=== PATIENT | male | born 1955 | race Caucasian/White ===

== ENCOUNTER 2023-03-30 11:34 | Emergency (ER) | payer MEDICARE ==
[2023-03-30 11:42] VITALS: TEMP 97.2
--- NOTE | 2023-03-30 11:45 | ERPHSYRPT ---
- History of Present Illness Time Seen by Provider: 03/30/23 11:44 Source: patient, family Exam Limitations: no limitations Physician History: This is a morbidly obese 67-year-old white female patient of Dr. Rincon and packaging tech Dr. Duffy and presented to our emergency department from the wound care clinic where the patient was getting his bilateral lower extremity chronic venous stasis ulcer disease treated. Patient told the nurses there that he has had intermittent chest pain for a week and was having some nonradiating substernal central chest pressure that was mild but present. He also complained of some tongue numbness that was present for about an hour prior to arrival to our emergency department. There was no other neurologic complaints. Appr oximately 1 week ago the patient was seen at [facility] in [facility] and was diagnosed with a TIA. Patient has a history of hypertension, sleep apnea, COPD and type 2 diabetes. Additional history and information was obtained by reviewing the visit to the [facility] in [facility] as well as from the patient's spouse. Patient's spouse states that the patient has an appointment to see his primary care provider next week Timing/Duration: week(s), intermittent Severity: mild Character of Deficits: none Deficits: no difficulties Baseline/Normal Cognition: alert oriented x 3 Current Cognition: alert oriented x 3 Baseline Gait: uses walker, walks only w/assistance Associated Symptoms: other (Numbness to the tongue) Allergies/Adverse Reactions: Horse/Equine Containing Products Allergy (Verified 03/30/23 11:43) Home Medications: Atorvastatin Calcium 20 mg PO DAILY 03/30/23 [History] Cyanocobalamin (Vitamin B-12) [Vitamin B12] 2,500 mcg PO DAILY 03/30/23 [History] Ferrous Sulfate 325 mg [Feosol 325 mg] 325 mg PO DAILY 03/30/23 [History] Fluticasone Propion/Salmeterol [Fluticasone-Salmeterol 100-50] 1 disk PO UD 03/30/23 [History] Gabapentin [Neurontin] 600 mg PO TID 03/30/23 [History] Hydrocortisone 1% Cream [Cortisone 1% Cream] 0 gm TP BID 03/30/23 [History] Insulin Lispro [Humalog] 0 unit SQ TIDAC 03/30/23 [History] Metoprolol Succinate 25 mg Xl* [Toprol-Xl 25MG Tablets] 25 mg PO DAILY 03/30/23 [History] Mirabegron [Myrbetriq] 25 mg PO BID 03/30/23 [History] Omeprazole 40 mg PO DAILY 03/30/23 [History] Oxycodone HCl/Acetaminophen [Oxycodone-Acetaminophn 7.5-325] 1 each PO Q8H 03/30/23 [History] Sitagliptin Phos/Metformin HCl [Janumet Xr 100-1,000 mg Tablet] 1 tab PO DAILY 03/30/23 [History] Tamsulosin HCl 0.4 mg [Flomax 0.4 MG] 0.4 mg PO DAILY 03/30/23 [History] Trazodone HCl 150 mg PO HS 03/30/23 [History] glucosamine HCL [Glucosamine HCl] 500 mg PO DAILY 03/30/23 [History] Travel Risk - International Travel Have you traveled outside of the country in past 3 weeks: No - Coronavirus Screening Are you exhibiting any of the following symptoms?: No Close contact with a COVID-19 positive Pt in past 14-21 Days: No - Review of Systems Constitutional: No Symptoms Eyes: No Symptoms Ears, Nose, & Throat: No Symptoms Respiratory: No Symptoms Cardiac: No Symptoms Abdominal/Gastrointestinal: No Symptoms Genitourinary Symptoms: No Symptoms Musculoskeletal: No Symptoms Skin: Other (Chronic venous stasis ulcer disease bilateral lower extremities) Neurological: Other (Numbness to the tongue that is mild) Psychological: No Symptoms Endocrine: No Symptoms Hematologic/Lymphatic: No Symptoms Immunological/Allergic: No Symptoms All Other Systems: Reviewed and Negative - Past Medical History Neurological History: No Pertinent History Cardiac History: Hypertension Respiratory History: Sleep Apnea, COPD Endocrine Medical History: Diabetes Type II Musculoskeletal History: Arthritis - Nursing Vital Signs Nursing Vital Signs: Initial Vital Signs Temperature 97.2 F 03/30/23 11:36 Pulse Rate 78 03/30/23 11:36 Respiratory Rate 18 03/30/23 11:36 Blood Pressure 102/47 03/30/23 11:36 O2 Sat by Pulse Oximetry 97 03/30/23 11:36 Pain Scale Pain Intensity 0 - [place] Coma Scale Best Eye Response (Brianne): (4) open spontaneously Best Verbal Response (Brianne): (5) oriented Best Motor Response (Brianne): (6) obeys commands Brianne Total: 15 - Physical Exam General Appearance: no apparent distress, alert, obese Eye Exam: bilateral eye: normal inspection, PERRL, EOMI Ears, Nose, Throat Exam: normal ENT inspection, moist mucous membranes Neck Exam: normal inspection, non-tender, supple, full range of motion Respiratory: normal breath sounds, lungs clear, airway intact, No chest tenderness, No respiratory distress Cardiovascular: regular rate/rhythm, normal heart sounds, normal peripheral pulses Gastrointestinal: soft, normal bowel sounds, No tenderness Rectal Exam: not done Back Exam: normal inspection, normal range of motion, vertebral tenderness, No CVA tenderness Extremity Exam: normal inspection, normal range of motion, pelvis stable Mental Status: alert, oriented x 3, cooperative secured entrance monitor Exam: normal hearing, normal speech, PERRL, tongue midline, No abnormal speech, No facial droop, No facial paresthesias Coordination/Gait: normal finger to nose Skin Exam: normal color SpO2 Interpretation: normal SpO2: 97 O2 Delivery: Room Air - Course Nursing assessment & vital signs reviewed: Yes EKG Interpreted by Me: RATE (57), Sinus Rhythm (Incomplete), NORMAL AXIS, NORMAL INTERVALS, Left Bundle Branch Block, Other (No acute ischemic changes on today's twelve-lead EKG.) Ordered Tests: Active Orders 24 hr Category Date Time Status Epoxy Coatings Installer STAT Care 03/30/23 11:50 Active EKG-ER Only STAT Care 03/30/23 11:49 Active IV Insertion STAT Care 03/30/23 11:49 Active NPO (ED) STAT Care 03/30/23 11:50 Active Pulse Oximetry (ED) STAT Care 03/30/23 11:49 Active CHEST 1 VIEW (PORTABLE) Stat Exams 03/30/23 11:50 Completed HEAD WITHOUT CONTRAST [CT] Stat Exams 03/30/23 11:47 Completed CBC W DIFF Stat Lab 03/30/23 12:05 Completed CMP Stat Lab 03/30/23 12:05 Completed POCT GLUCOSE Stat Lab 03/30/23 12:04 Completed PROTIME WITH INR Stat Lab 03/30/23 12:05 Completed TROPONIN Q4H Lab 03/30/23 12:05 Completed TROPONIN Q4H Lab 03/30/23 14:58 Completed TROPONIN Q4H Lab 03/30/23 20:00 Ordered UA W/RFX UR CULTURE Stat Lab 03/30/23 15:12 Completed Lab/Rad Data: Laboratory Result Diagrams 03/30/23 12:05 03/30/23 12:05 Laboratory Results 03/30/23 03/30/23 03/30/23 Range/Units 15:12 14:58 12:05 WBC (4.0-10.5) x10^3/uL RBC (4.1-5.6) x10^6/uL Hgb (12.5-18.0) g/dL Hct (42-50) % MCV (78-100) fL MCH (26-32) pg MCHC (32-36) g/dL RDW (11.5-14.0) % Plt Count (150-450) x10^3/uL MPV (7.5-11.0) fL Gran % (36.0-66.0) % Immature Gran % (Auto) (0.00-0.4) % Nucleat RBC Rel Count (0.00-0.1) % Eos # (Auto) (0-0.5) x10^3/uL Immature Gran # (Auto) (0.00-0.03) x10^3u/L Absolute Lymphs (auto) (1.0-4.6) x10^3/uL Absolute Monos (auto) (0.0-1.3) x10^3/uL Absolute Nucleated RBC (0.00-0.01) x10^3u/L Lymphocytes % (24.0-44.0) % Monocytes % (0.0-12.0) % Eosinophils % (0.00-5.0) % Basophils % (0.0-0.4) % Absolute Granulocytes (1.4-6.9) x10^3/uL Basophils # (0-0.4) x10^3/uL PT (9.4-12.5) SECONDS INR (0.8-3.0) Sodium (137-145) mmol/L Potassium (3.5-5.1) mmol/L Chloride (98-107) mmol/L Carbon Dioxide (22-30) mmol/L Anion Gap (5-15) MEQ/L BUN (9-20) mg/dL Creatinine (0.66-1.25) mg/dL Estimated GFR ML/MIN Glucose (74-106) mg/dL POC Glucometer (74 to 106) mg/dL Calcium (8.4-10.2) mg/dL Total Bilirubin (0.2-1.3) mg/dL AST (17-59) U/L ALT (0-50) U/L Alkaline Phosphatase (38-126) U/L Troponin I < 0.012 < 0.012 (0.000-0.034) ng/mL Serum Total Protein (6.3-8.2) g/dL Albumin (3.5-5.0) g/dL Urine Color Yellow (Yellow) Urine Appearance Clear (Clear) Urine pH 7.5 (4.6-8.0) Ur Specific Mallory 1.020 (1.005-1.030) Urine Protein Trace A (Negative) Urine Glucose (UA) Negative (Negative) mg/dL Urine Ketones Negative (Negative) Urine Blood Negative (Negative) Urine Nitrite Negative (Negative) Urine Bilirubin Negative (Negative) Urine Urobilinogen 1.0 A (0.2) mg/dL Ur Leukocyte Esterase Negative (Negative) U Hyaline Cast (Auto) NONE SEEN (0-2) /LPF Urine Microscopic RBC 0-2 (0-5) /HPF Urine Microscopic WBC 0-2 (0-5) /HPF Ur Epithelial Cells None Seen (None Seen) /HPF Urine Bacteria None Seen (None Seen) /HPF Urine Culture Reflexed NO (NO) Slides for Path Review 03/30/23 03/30/23 03/30/23 Range/Units 12:05 12:05 12:05 WBC 4.0 (4.0-10.5) x10^3/uL RBC 4.08 L (4.1-5.6) x10^6/uL Hgb 11.2 L (12.5-18.0) g/dL Hct 35.7 L (42-50) % MCV 87.5 (78-100) fL MCH 27.5 (26-32) pg MCHC 31.4 L (32-36) g/dL RDW 15.0 H (11.5-14.0) % Plt Count 86 L (150-450) x10^3/uL MPV 11.4 H (7.5-11.0) fL Gran % 65.6 (36.0-66.0) % Immature Gran % (Auto) 0.3 (0.00-0.4) % Nucleat RBC Rel Count 0.0 (0.00-0.1) % Eos # (Auto) 0.10 (0-0.5) x10^3/uL Immature Gran # (Auto) 0.01 (0.00-0.03) x10^3u/L Absolute Lymphs (auto) 0.94 L (1.0-4.6) x10^3/uL Absolute Monos (auto) 0.31 (0.0-1.3) x10^3/uL Absolute Nucleated RBC 0.00 (0.00-0.01) x10^3u/L Lymphocytes % 23.5 L (24.0-44.0) % Monocytes % 7.8 (0.0-12.0) % Eosinophils % 2.5 (0.00-5.0) % Basophils % 0.3 (0.0-0.4) % Absolute Granulocytes 2.63 (1.4-6.9) x10^3/uL Basophils # 0.01 (0-0.4) x10^3/uL PT 11.4 (9.4-12.5) SECONDS INR 1.05 (0.8-3.0) Sodium 137 (137-145) mmol/L Potassium 4.2 (3.5-5.1) mmol/L Chloride 102 (98-107) mmol/L Carbon Dioxide 30 (22-30) mmol/L Anion Gap 8.9 (5-15) MEQ/L BUN 19 (9-20) mg/dL Creatinine 0.97 (0.66-1.25) mg/dL Estimated GFR 85.0 ML/MIN Glucose 135 H (74-106) mg/dL POC Glucometer (74 to 106) mg/dL Calcium 8.7 (8.4-10.2) mg/dL Total Bilirubin 0.70 (0.2-1.3) mg/dL AST 29 (17-59) U/L ALT 17 (0-50) U/L Alkaline Phosphatase 103 (38-126) U/L Troponin I (0.000-0.034) ng/mL Serum Total Protein 6.7 (6.3-8.2) g/dL Albumin 3.5 (3.5-5.0) g/dL Urine Color (Yellow) Urine Appearance (Clear) Urine pH (4.6-8.0) Ur Specific Mallory (1.005-1.030) Urine Protein (Negative) Urine Glucose (UA) (Negative) mg/dL Urine Ketones (Negative) Urine Blood (Negative) Urine Nitrite (Negative) Urine Bilirubin (Negative) Urine Urobilinogen (0.2) mg/dL Ur Leukocyte Esterase (Negative) U Hyaline Cast (Auto) (0-2) /LPF Urine Microscopic RBC (0-5) /HPF Urine Microscopic WBC (0-5) /HPF Ur Epithelial Cells (None Seen) /HPF Urine Bacteria (None Seen) /HPF Urine Culture Reflexed (NO) Slides for Path Review YES 03/30/23 Range/Units 12:04 WBC (4.0-10.5) x10^3/uL RBC (4.1-5.6) x10^6/uL Hgb (12.5-18.0) g/dL Hct (42-50) % MCV (78-100) fL MCH (26-32) pg MCHC (32-36) g/dL RDW (11.5-14.0) % Plt Count (150-450) x10^3/uL MPV (7.5-11.0) fL Gran % (36.0-66.0) % Immature Gran % (Auto) (0.00-0.4) % Nucleat RBC Rel Count (0.00-0.1) % Eos # (Auto) (0-0.5) x10^3/uL Immature Gran # (Auto) (0.00-0.03) x10^3u/L Absolute Lymphs (auto) (1.0-4.6) x10^3/uL Absolute Monos (auto) (0.0-1.3) x10^3/uL Absolute Nucleated RBC (0.00-0.01) x10^3u/L Lymphocytes % (24.0-44.0) % Monocytes % (0.0-12.0) % Eosinophils % (0.00-5.0) % Basophils % (0.0-0.4) % Absolute Granulocytes (1.4-6.9) x10^3/uL Basophils # (0-0.4) x10^3/uL PT (9.4-12.5) SECONDS INR (0.8-3.0) Sodium (137-145) mmol/L Potassium (3.5-5.1) mmol/L Chloride (98-107) mmol/L Carbon Dioxide (22-30) mmol/L Anion Gap (5-15) MEQ/L BUN (9-20) mg/dL Creatinine (0.66-1.25) mg/dL Estimated GFR ML/MIN Glucose (74-106) mg/dL POC Glucometer 136 H (74 to 106) mg/dL Calcium (8.4-10.2) mg/dL Total Bilirubin (0.2-1.3) mg/dL AST (17-59) U/L ALT (0-50) U/L Alkaline Phosphatase (38-126) U/L Troponin I (0.000-0.034) ng/mL Serum Total Protein (6.3-8.2) g/dL Albumin (3.5-5.0) g/dL Urine Color (Yellow) Urine Appearance (Clear) Urine pH (4.6-8.0) Ur Specific Mallory (1.005-1.030) Urine Protein (Negative) Urine Glucose (UA) (Negative) mg/dL Urine Ketones (Negative) Urine Blood (Negative) Urine Nitrite (Negative) Urine Bilirubin (Negative) Urine Urobilinogen (0.2) mg/dL Ur Leukocyte Esterase (Negative) U Hyaline Cast (Auto) (0-2) /LPF Urine Microscopic RBC (0-5) /HPF Urine Microscopic WBC (0-5) /HPF Ur Epithelial Cells (None Seen) /HPF Urine Bacteria (None Seen) /HPF Urine Culture Reflexed (NO) Slides for Path Review - Progress Progress: improved, re-examined Progress Note: 03/30/23 12:44 This patient's medical issue is 1 of moderate complexity. The level complexity in the work-up performed is based on review of the patient's past medical history, review of the patient's medication list, review the patient's drug allergy list, history of present illness and physical findings on examination. The work-up in this patient includes placement of intravenous line, twelve-lead EKG, CT scan of the head, urinalysis, CBC, CMP, troponin level. 03/30/23 12:46 CT scan of the head without contrast was interpreted by the radiologist and I reviewed the impression. There is a normal CT scan without evidence of any acute intracranial process. Chest x-ray was interpreted by the radiologist and I reviewed the impression. Chest x-ray shows borderline cardiomegaly without evidence of CHF or acute pneumonic process. 03/30/23 15:55 The patient's laboratory work-up as well as twelve-lead EKG were interpreted by me. Patient no longer has chest pain. He has had normal CT scan without evidence of any acute intracranial process. His urinalysis is negative for any urinary tract infection. We will discharge the patient to home. He will be instructed to follow-up with his primary care provider for outpatient MRI if indicated and possible referral to a neurologist as an outpatient. Counseled pt/family regarding: lab results, diagnosis, need for follow-up, rad results Medical Desision Making - Independent Historian Additional History obtained from: Spouse - Diagnostic Testing Diagnostic test were ordered, analyzed, and reviewed by me: Yes Radiological Interpretation: Reviewed by me, Teleradiologist Report - Risk of complications Low Risk: Low risk of morbidity from additional dx testing or treatment - Departure Departure Disposition: Home Clinical Impression: Nonspecific chest pain, Numbness of tongue Condition: Stable Critical Care Time: No Referrals: [facility] [NON-STAFF PHY W/O PRIVILEGES] - Follow up/PCP as directed Additional Instructions: Take all your medications as prescribed. Call your primary care provider to [facility], 03/31/2023, to make arranges for follow-up appointment for further evaluation and management of your numbness symptoms. In addition, call your packaging tech tomorrow, 03/31/2023, to make them aware that you have not been having intermittent chest pain issues and arrange a follow-up appointment for the next 3 to 5 days.
--- NOTE | 2023-03-30 12:05 | XRAY ---
Indication: Mouth numbness. Stroke. Multiple contiguous axial images obtained through the head without contrast. Comparison: None Normal appearing brain parenchyma, ventricles, and bony calvarium for patient's age. Visualized paranasal sinuses and mastoid air cells are clear. Impression: Normal CT head without contrast exam.
[2023-03-30 12:12] LABS: Absolute Neutrophil Ct (ANC) 2.63 x10^3/uL (1.4-6.9); BASOPHIL % 0.3 % (0.0-0.4); Basophil (Absolute #) 0.01 x10^3/uL (0-0.4); Eosinophil % 2.5 % (0.00-5.0); Hematocrit 35.7 % (42-50); Hemoglobin 11.2 g/dL (12.5-18.0); IMMATURE GRAN # 0.01 x10^3u/L (0.00-0.03); IMMATURE GRAN % 0.3 % (0.00-0.4); Lymphocyte (Absolute #) 0.94 x10^3/uL (1.0-4.6); Lymphocytes % 23.5 % (24.0-44.0); Mean Cell Volume 87.5 fL (78-100); Mean Corpuscular Hemoglobin 27.5 pg (26-32); Mean Corpuscular Hgb Concent. 31.4 g/dL (32-36); Mean Platelet Volume 11.4 fL (7.5-11.0); Monocyte (Absolute #) 0.31 x10^3/uL (0.0-1.3); Monocytes % 7.8 % (0.0-12.0); Neutrophil % 65.6 % (36.0-66.0); Platelet Count 86 x10^3/uL (150-450); Red Blood Count 4.08 x10^6/uL (4.1-5.6)
[2023-03-30 12:23] LABS: INR 1.05 (0.8-3.0); PROTIME 11.4 SECONDS (9.4-12.5)
[2023-03-30 12:28] LABS: ALBUMIN 3.5 g/dL (3.5-5.0); ANION GAP 8.9 MEQ/L (5-15); BILIRUBIN,TOTAL 0.7 mg/dL (0.2-1.3); Calcium 8.7 mg/dL (8.4-10.2); Creatinine 1 0.97 mg/dL (0.66-1.25); Potassium 4.2 mmol/L (3.5-5.1); Total Protein 6.7 g/dL (6.3-8.2)
--- NOTE | 2023-03-30 12:31 | XRAY ---
Indication: Chest pain. Comparison: October 13, 2010 Portable chest remains inflated and clear. Heart borderline enlarged. Bony thorax intact again with osteopenia and mild degenerative changes. Impression: Borderline cardiomegaly. Negative for acute pneumonic process or CHF.
[2023-03-30 12:40] LABS: Slide Review 1 YES
[2023-03-30 15:31] LABS: Appearance Clear (Clear); Bacteria None Seen /HPF (None Seen); Bilirubin Negative (Negative); Blood Negative (Negative); Epithelial Cells None Seen /HPF (None Seen); Glucose, Urine Negative (Negative); Hyaline Casts NONE SEEN /LPF (0-2); Ketones Negative (Negative); Leukocyte Esterase Negative (Negative); Nitrite Negative (Negative); Ph 7.5 (4.6-8.0); Protein,Urine Dip Trace (Negative); RBC 0-2 /HPF (0-5); WBC 0-2 /HPF (0-5)
[2023-03-30 15:33] LABS: ADD URINE CULTURE? NO (NO)
[2023-03-30 16:02] VITALS: BP 114/53; PULSE 64; RESP 14; O2SAT 95
== END 2023-03-30 16:11 | disposition home or self-care (01) ==
LOC: ED 11:34
DX: R07.9 Chest pain, unspecified (principal); R20.0 Anesthesia of skin; I10 Essential (primary) hypertension; E11.9 Type 2 diabetes mellitus without complications; Z79.4 Long term (current) use of insulin; Z79.84 Long term (current) use of oral hypoglycemic drugs; Z79.891 Long term (current) use of opiate analgesic; Z79.899 Other long term (current) drug therapy
CPT/HCPCS: 36000; 36415; 70450; 71045; 80053; 81001; 82947; 84484; 85025; 85610; 93005; 93041; 94760; 99284

== ENCOUNTER 2023-08-15 10:51 | Inpatient (IN) | payer MEDICARE, SELFPAY ==
--- NOTE | 2023-08-15 11:19 | ERPHSYRPT ---
- History of Present Illness Time Seen by Provider: 08/15/23 11:00 Source: patient Exam Limitations: no limitations Patient Subjective Stated Complaint: weakness, N&V, dizziness, cellulitis of lower ext Triage Nursing Assessment: Pt brought to the ER by EMS, tachycardic, rates chronic back pain and leg pain as 9/10, incontinent upon arrival and could possibly have a UTI, pulses normal, RLL is purple, no difficulty with breathing, denies chest pain Physician History: 67-year-old male presents to our ED via EMS from home for evaluation of dizziness. Patient experiencing generalized weakness as well. Patient has pain in his bilateral lower extremities. Patient's right lower extremity appears to have cellulitis which patient believes is getting worse. No trauma. No active fever. Symptoms are progressive. Symptoms are moderate in intensity. No specific worsening improving factors. Patient voices no other complaints or concerns at this time. Portions of this note were created with voice recognition technology. There may be grammatical, spelling, punctuation or sound alike errors Timing/Duration: yesterday Severity: moderate Modifying Factors: Improves With: nothing Associated Symptoms: weakness (Generalized weakness) Allergies/Adverse Reactions: Horse/Equine Containing Products Allergy (Verified 08/15/23 11:13) Home Medications: Atorvastatin Calcium 20 mg PO DAILY 03/30/23 [History] Cyanocobalamin (Vitamin B-12) [Vitamin B12] 2,500 mcg PO DAILY 03/30/23 [History] Ferrous Sulfate 325 mg [Feosol 325 mg] 325 mg PO DAILY 03/30/23 [History] Fluticasone Propion/Salmeterol [Fluticasone-Salmeterol 100-50] 1 disk PO UD 03/30/23 [History] Gabapentin [Neurontin] 600 mg PO TID 03/30/23 [History] Hydrocortisone 1% Cream [Cortisone 1% Cream] 0 gm TP BID 03/30/23 [History] Insulin Lispro [Humalog] 0 unit SQ TIDAC 03/30/23 [History] Metoprolol Succinate 25 mg Xl* [Toprol-Xl 25MG Tablets] 25 mg PO DAILY 03/30/23 [History] Mirabegron [Myrbetriq] 25 mg PO BID 03/30/23 [History] Omeprazole 40 mg PO DAILY 03/30/23 [History] Oxycodone HCl/Acetaminophen [Oxycodone-Acetaminophn 7.5-325] 1 each PO Q8H 03/30/23 [History] Sitagliptin Phos/Metformin HCl [Janumet Xr 100-1,000 mg Tablet] 1 tab PO DAILY 03/30/23 [History] Tamsulosin HCl 0.4 mg [Flomax 0.4 MG] 0.4 mg PO DAILY 03/30/23 [History] Trazodone HCl 150 mg PO HS 03/30/23 [History] glucosamine HCL [Glucosamine HCl] 500 mg PO DAILY 03/30/23 [History] Hx Tetanus, Diphtheria Vaccination/Date Given: No Hx Influenza Vaccination/Date Given: No Hx Pneumococcal Vaccination/Date Given: No Travel Risk - International Travel Have you traveled outside of the country in past 3 weeks: No - Coronavirus Screening Are you exhibiting any of the following symptoms?: No Close contact with a COVID-19 positive Pt in past 14-21 Days: No - Vaccine Status Have you recieved a Covid-19 vaccination: No - Review of Systems Constitutional: No Symptoms, No Fever, No Chills Eyes: No Symptoms Ears, Nose, & Throat: No Symptoms Respiratory: No Symptoms, No Cough, No Dyspnea Cardiac: No Symptoms, No Chest Pain, No Edema, No Syncope Abdominal/Gastrointestinal: No Symptoms, No Abdominal Pain, No Nausea, No Vomiting, No Diarrhea Genitourinary Symptoms: No Symptoms, No Dysuria Musculoskeletal: No Symptoms, No Back Pain, No Neck Pain Skin: No Symptoms, No Rash Neurological: No Symptoms, No Dizziness, No Focal Weakness, No Sensory Changes Psychological: No Symptoms Endocrine: No Symptoms Hematologic/Lymphatic: No Symptoms Immunological/Allergic: No Symptoms All Other Systems: Reviewed and Negative - Past Medical History Pertinent Past Medical History: Yes Neurological History: No Pertinent History Cardiac History: Hypertension Respiratory History: Sleep Apnea, COPD Endocrine Medical History: Diabetes Type II Musculoskeletal History: Arthritis History: Renal Disease - Past Surgical History Past Surgical History: Yes Other Surgical History: tumor removed,colostomy reversal - Social History Smoking Status: Former smoker Exposure to second hand smoke: No Drug Use: none Patient Lives Alone: No - Nursing Vital Signs Nursing Vital Signs: Initial Vital Signs Temperature 99.3 F 08/15/23 10:56 Pulse Rate 105 H 08/15/23 10:56 Respiratory Rate 23 08/15/23 10:56 Blood Pressure 115/67 08/15/23 10:56 O2 Sat by Pulse Oximetry 97 08/15/23 10:56 Pain Scale Pain Intensity 8 - Physical Exam General Appearance: no apparent distress, alert Eye Exam: PERRL/EOMI, eyes nml inspection Ears, Nose, Throat Exam: normal ENT inspection, TMs normal, pharynx normal, moist mucous membranes Neck Exam: normal inspection, non-tender, supple, full range of motion Respiratory Exam: normal breath sounds, lungs clear, airway intact, No respiratory distress Cardiovascular Exam: regular rate/rhythm, normal heart sounds, normal peripheral pulses Gastrointestinal/Abdomen Exam: soft, normal bowel sounds, No tenderness, No mass Back Exam: normal inspection, normal range of motion, No CVA tenderness, No vertebral tenderness Extremity Exam: normal inspection, normal range of motion, pelvis stable Neurologic Exam: alert, oriented x 3, cooperative, normal mood/affect, nml cerebellar function, nml station & gait, sensation nml, No motor deficits Skin Exam: normal color, warm, dry, No rash Lymphatic Exam: No adenopathy SpO2 Interpretation: normal SpO2: 99 O2 Delivery: Room Air - Course Nursing assessment & vital signs reviewed: Yes - Radiology Ultrasound Exam Venous Lower Extremity Ultrasound: tele radiology report (Nonoccluding thrombi right and left femoral veins) Ordered Tests: Active Orders 24 hr Category Date Time 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 08/15/23 11:12 Active Cath [Catheter-[place]] STAT Care 08/15/23 14:19 Active IV Insertion STAT Care 08/15/23 11:11 Active IV Insertion-2nd Peripheral STAT Care 08/15/23 13:28 Active Pulse Oximetry (ED) STAT Care 08/15/23 11:11 Active cath [Cath for Specimen-Straight] STAT Care 08/15/23 12:13 Active VENOUS BILATERAL EXTREMITY [US] Stat Exams 08/15/23 11:15 Completed BLOOD CULTURE Stat Lab 08/15/23 12:26 Received CBC W DIFF Stat Lab 08/15/23 12:20 Completed CMP Stat Lab 08/15/23 12:20 Completed CULTURE,URINE Stat Lab 08/15/23 12:13 Received Lactic Acid Stat Lab 08/15/23 11:11 Completed UA W/RFX UR CULTURE Stat Lab 08/15/23 12:12 Completed Transfer Order Routine Transfer 08/15/23 Ordered Medication Summary Generic Name Dose Route Start Last Admin Trade Name Dede PRN Reason Stop Dose Admin Sodium Chloride 1,000 mls @ 100 mls/hr 08/15/23 11:15 08/15/23 11:23 Sodium Chloride 0.9% 1000 Ml IV 09/14/23 11:14 100 mls/hr .Q10H JONATHAN Administration Discontinued Medications Generic Name Dose Route Start Last Admin Trade Name Dede PRN Reason Stop Dose Admin Acetaminophen 975 mg 08/15/23 11:11 08/15/23 11:24 Acetaminophen 325 Mg Tablet PO 08/15/23 11:12 975 mg STAT STA Administration Acetaminophen Confirm 08/15/23 11:20 Acetaminophen 325 Mg Tablet Administered 08/15/23 11:21 Dose 975 mg .ROUTE .STK-MED ONE Vancomycin HCl 1 gm in 200 mls @ 125 mls/hr 08/15/23 12:45 08/15/23 13:36 Vancomycin 1 Gram/200 Ml Bag IV 08/15/23 14:20 125 ml/hr STAT ONE 125 mls/hr Administration Piperacillin Sod/Tazobactam 100 mls @ 200 mls/hr 08/15/23 12:46 08/15/23 13:36 Sod 3.375 gm/ Sodium Chloride IV 08/15/23 13:15 200 mls/hr STAT ONE Administration Sodium Chloride Confirm 08/15/23 13:32 Sodium Chloride 100ml Mini-Bag Plus Administered 08/15/23 13:33 Dose 100 mls @ ud IV .STK-MED ONE Vancomycin HCl Confirm 08/15/23 13:32 Vancomycin 1 Gram/200 Ml Bag Administered 08/15/23 13:33 Dose 1 gm in 200 mls @ ud IV .STK-MED ONE Piperacillin Sod/Tazobactam Sod Confirm 08/15/23 13:31 Piperacillin/Tazobactam Sodium 3.375 Gm Vial Administered 08/15/23 13:32 Dose 3.375 gm IV .STK-MED ONE Lab/Rad Data: Laboratory Result Diagrams 08/15/23 12:20 08/15/23 12:20 Laboratory Results 08/15/23 08/15/23 08/15/23 Range/Units 12:27 12:20 12:20 WBC 13.9 H (4.0-10.5) x10^3/uL RBC 3.99 L (4.1-5.6) x10^6/uL Hgb 11.8 L (12.5-18.0) g/dL Hct 36.4 L (42-50) % MCV 91.2 (78-100) fL MCH 29.6 (26-32) pg MCHC 32.4 (32-36) g/dL RDW 17.6 H (11.5-14.0) % Plt Count 75 L (150-450) x10^3/uL MPV 10.7 (7.5-11.0) fL Gran % 95.6 H (36.0-66.0) % Immature Gran % (Auto) 0.5 H (0.00-0.4) % Nucleat RBC Rel Count 0.0 (0.00-0.1) % Eos # (Auto) 0 (0-0.5) x10^3/uL Immature Gran # (Auto) 0.07 H (0.00-0.03) x10^3u/L Absolute Lymphs (auto) 0.25 L (1.0-4.6) x10^3/uL Absolute Monos (auto) 0.28 (0.0-1.3) x10^3/uL Absolute Nucleated RBC 0.00 (0.00-0.01) x10^3u/L Lymphocytes % 1.8 L (24.0-44.0) % Monocytes % 2.0 (0.0-12.0) % Eosinophils % 0.0 (0.00-5.0) % Basophils % 0.1 (0.0-0.4) % Absolute Granulocytes 13.33 H (1.4-6.9) x10^3/uL Basophils # 0.01 (0-0.4) x10^3/uL Sodium 133 L (135-145) mmol/L Potassium 5.4 H (3.5-5.1) mmol/L Chloride 107 (98-107) mmol/L Carbon Dioxide 15 L* (22-30) mmol/L Anion Gap 16.9 H (5-15) MEQ/L BUN 20 (9-20) mg/dL Creatinine 1.23 (0.66-1.25) mg/dL Estimated GFR 64.0 ML/MIN Glucose 212 H (74-106) mg/dL Lactic Acid (0.4-2.0) Calcium 8.7 (8.4-10.2) mg/dL Total Bilirubin 1.70 H (0.2-1.3) mg/dL AST 59 (17-59) U/L ALT 60 H (0-50) U/L Alkaline Phosphatase 101 (38-126) U/L Serum Total Protein 6.2 L (6.3-8.2) g/dL Albumin 3.0 L (3.5-5.0) g/dL Urine Color (Yellow) Urine Appearance (Clear) Urine pH (4.6-8.0) Ur Specific [place] (1.005-1.030) Urine Protein (Negative) Urine Glucose (UA) (Negative) mg/dL Urine Ketones (Negative) Urine Blood (Negative) Urine Nitrite (Negative) Urine Bilirubin (Negative) Urine Urobilinogen (0.2) mg/dL Ur Leukocyte Esterase (Negative) U Hyaline Cast (Auto) (0-2) /LPF Urine Microscopic RBC (0-5) /HPF Urine Microscopic WBC (0-5) /HPF Ur Epithelial Cells (None Seen) /HPF Urine Bacteria (None Seen) /HPF Urine Culture Reflexed (NO) Influenza Type A Ag NEGATIVE (NEGATIVE) Influenza Type B Ag NEGATIVE (NEGATIVE) RSV (PCR) NEGATIVE (NEGATIVE) SARS-CoV-2 (PCR) NEGATIVE (NEGATIVE) Slides for Path Review YES 08/15/23 08/15/23 Range/Units 12:12 11:11 WBC (4.0-10.5) x10^3/uL RBC (4.1-5.6) x10^6/uL Hgb (12.5-18.0) g/dL Hct (42-50) % MCV (78-100) fL MCH (26-32) pg MCHC (32-36) g/dL RDW (11.5-14.0) % Plt Count (150-450) x10^3/uL MPV (7.5-11.0) fL Gran % (36.0-66.0) % Immature Gran % (Auto) (0.00-0.4) % Nucleat RBC Rel Count (0.00-0.1) % Eos # (Auto) (0-0.5) x10^3/uL Immature Gran # (Auto) (0.00-0.03) x10^3u/L Absolute Lymphs (auto) (1.0-4.6) x10^3/uL Absolute Monos (auto) (0.0-1.3) x10^3/uL Absolute Nucleated RBC (0.00-0.01) x10^3u/L Lymphocytes % (24.0-44.0) % Monocytes % (0.0-12.0) % Eosinophils % (0.00-5.0) % Basophils % (0.0-0.4) % Absolute Granulocytes (1.4-6.9) x10^3/uL Basophils # (0-0.4) x10^3/uL Sodium (135-145) mmol/L Potassium (3.5-5.1) mmol/L Chloride (98-107) mmol/L Carbon Dioxide (22-30) mmol/L Anion Gap (5-15) MEQ/L BUN (9-20) mg/dL Creatinine (0.66-1.25) mg/dL Estimated GFR ML/MIN Glucose (74-106) mg/dL Lactic Acid 6.0 H (0.4-2.0) Calcium (8.4-10.2) mg/dL Total Bilirubin (0.2-1.3) mg/dL AST (17-59) U/L ALT (0-50) U/L Alkaline Phosphatase (38-126) U/L Serum Total Protein (6.3-8.2) g/dL Albumin (3.5-5.0) g/dL Urine Color Dark Yellow (Yellow) Urine Appearance Turbid A (Clear) Urine pH 5.0 (4.6-8.0) Ur Specific [place] 1.020 (1.005-1.030) Urine Protein 100 A (Negative) Urine Glucose (UA) Negative (Negative) mg/dL Urine Ketones Trace A (Negative) Urine Blood Large A (Negative) Urine Nitrite Positive A (Negative) Urine Bilirubin Small A (Negative) Urine Urobilinogen 1.0 A (0.2) mg/dL Ur Leukocyte Esterase Large A (Negative) U Hyaline Cast (Auto) None Seen (0-2) /LPF Urine Microscopic RBC 6-10 A (0-5) /HPF Urine Microscopic WBC >100 A (0-5) /HPF Ur Epithelial Cells Rare (None Seen) /HPF Urine Bacteria Moderate A (None Seen) /HPF Urine Culture Reflexed ORDERED SEPARATELY (NO) Influenza Type A Ag (NEGATIVE) Influenza Type B Ag (NEGATIVE) RSV (PCR) (NEGATIVE) SARS-CoV-2 (PCR) (NEGATIVE) Slides for Path Review - Progress Progress: improved Progress Note: 67-year-old male presents to emergency department for evaluation of dizziness and generalized weakness. Physical exam reveals a 67-year-old male BMI of 43 with a right lower extremity cellulitis. Laboratory workup reveals a leukocytosis. Patient has a lactic acidosis of 6. Bicarb 15. Patient also has a UTI. Patient triggered the sepsis protocol. Blood cultures obtained. Vancomycin and Zosyn initiated. Ultrasound of bilateral lower extremities reveals a femoral DVT. This information was communicated to the hospitalist who will start anticoagulation on the floor. Plan of care discussed with patient. He agrees to admission to [facility] for further evaluation and treatment. Management discussed with at 2:10 PM. She accepts admission to observation. Portions of this note were created with voice recognition technology. There may be grammatical, spelling, punctuation or sound alike errors Complexity problem addressed is high acute complicated with threat to bodily function in light of patient's profound acidosis likely secondary to cellulitis and advanced urinary tract infection Critical care time is 3 hours and 30 minutes. Critical care time based on discovery of embolic disease and sepsis. Immediate antibiotic therapy and IV fluids administered to prevent further deterioration. Anticoagulation will be started immediately as well Complexity of data reviewed and analyzed is extensive. Test ordered test reviewed. Results analyzed and correlated clinically with history and physical examination. Management discussed with hospitalist who accepts admission to observation. Risk of complication and or risk of morbidity/mortality of patient management is high. Patient requires hospitalization for further evaluation and treatment. Vital stable. Time spent to admit patient is approximately 30 minutes. Plan of care established for shared decision making. No social determinants of health present impede follow-up. Portions of this note were created with voice recognition technology. There may be grammatical, spelling, punctuation or sound alike errors 08/15/23 13:53 08/15/23 14:21 Counseled pt/family regarding: lab results, diagnosis, rad results - Departure Departure Disposition: Observation Clinical Impression: Lactic acid acidosis, Cellulitis, Urinary tract infection, Leukocytosis, Thrombocytopenia, DVT (deep venous thrombosis), Right popliteal cyst, Sepsis Condition: Stable Critical Care Time: Yes Critical Care Time(excluding separately billable procedures): Critcal > 194 mins Referrals: KRISTEN CABRERA OF [Primary Care Provider] - Follow up/PCP as directed
[2023-08-15] MEDS ORDERED: TYLENOL 325 MG ONE (11:20)
[2023-08-15] MEDS: Sodium Chloride 0.9% 1000 ML 1,000 ML IV SCH ×2 (11:23→17:46)
[2023-08-15] MEDS: TYLENOL 325 MG PO STA (11:24)
--- NOTE | 2023-08-15 12:33 | XRAY ---
Indication: Pain. Two-dimensional sonogram and color Doppler imaging major venous vessels left and right leg performed. Comparison: None [employer] notes limited exam due to patient body habitus. Nonoccluding thrombi left and right femoral veins. No other thrombus in the remaining deep vessels left and right leg including greater saphenous vein. Patent veins demonstrate normal compressibility and normal venous waveforms. Incidental 5.7 x 2.2 x 3.7 cm right popliteal cyst. Impression: 1. Limited sonogram due to patient body habitus. 2. Nonoccluding thrombi left and right femoral veins. 3. Incidental right popliteal cyst.
[2023-08-15 12:40] LABS: Absolute Neutrophil Ct (ANC) 13.33 x10^3/uL (1.4-6.9); BASOPHIL % 0.1 % (0.0-0.4); Basophil (Absolute #) 0.01 x10^3/uL (0-0.4); Eosinophil (Absolute #) 0 x10^3/uL (0-0.5); Hematocrit 36.4 % (42-50); Hemoglobin 11.8 g/dL (12.5-18.0); IMMATURE GRAN # 0.07 x10^3u/L (0.00-0.03); IMMATURE GRAN % 0.5 % (0.00-0.4); Lymphocyte (Absolute #) 0.25 x10^3/uL (1.0-4.6); Lymphocytes % 1.8 % (24.0-44.0); Mean Cell Volume 91.2 fL (78-100); Mean Corpuscular Hemoglobin 29.6 pg (26-32); Mean Corpuscular Hgb Concent. 32.4 g/dL (32-36); Mean Platelet Volume 10.7 fL (7.5-11.0); Monocyte (Absolute #) 0.28 x10^3/uL (0.0-1.3); Neutrophil % 95.6 % (36.0-66.0); Platelet Count 75 x10^3/uL (150-450); Red Blood Count 3.99 x10^6/uL (4.1-5.6); Red Cell Distribution Width 17.6 % (11.5-14.0); White Blood Count 13.9 x10^3/uL (4.0-10.5)
[2023-08-15 12:53] LABS: ANION GAP 16.9 MEQ/L (5-15); BILIRUBIN,TOTAL 1.7 mg/dL (0.2-1.3); Calcium 8.7 mg/dL (8.4-10.2); Creatinine 1 1.23 mg/dL (0.66-1.25); Potassium 5.4 mmol/L (3.5-5.1); Total Protein 6.2 g/dL (6.3-8.2)
[2023-08-15 12:56] LABS: ADD URINE CULTURE? ORDERED SEPARATELY (NO); Appearance Turbid (Clear); Bacteria Moderate /HPF (None Seen); Bilirubin Small (Negative); Blood Large (Negative); Epithelial Cells Rare /HPF (None Seen); Glucose, Urine Negative (Negative); Hyaline Casts None Seen /LPF (0-2); Ketones Trace (Negative); Leukocyte Esterase Large (Negative); Nitrite Positive (Negative); Protein,Urine Dip 100 (Negative); WBC >100 /HPF (0-5)
[2023-08-15 13:01] LABS: Slide Review 1 YES
[2023-08-15 13:18] LABS: INFLUENZA A NEGATIVE (NEGATIVE); INFLUENZA B NEGATIVE (NEGATIVE); RESPIRATORY SYNCTIAL VIRUS NEGATIVE (NEGATIVE); SARS-CoV-2 Xpert Express NEGATIVE (NEGATIVE)
[2023-08-15] MEDS ORDERED: PIPERACILLIN/TAZOBACTAM IV ONE (13:31)
[2023-08-15] MEDS ORDERED: Sodium Chloride 100ML MINI-BAG PLUS 100 ML IV ONE (13:32)
[2023-08-15] MEDS ORDERED: VANCOMYCIN 1 GRAM/200 ML BAG 1 GM/200 ML PIGGYBACK IV ONE (13:32)
[2023-08-15] MEDS: VANCOMYCIN 1 GRAM/200 ML BAG 1 GM/200 ML PIGGYBACK IV ONE (13:36)
[2023-08-15] MEDS: PIPERACILLIN/TAZOBACTAM 3.375 GM in Sodium Chloride 100ML MINI-BAG PLUS 100 ML IV ONE (13:36)
--- NOTE | 2023-08-15 15:11 | PCM.HP ---
<PIETRO MCGRATH - Last Filed: 08/15/23 14:35> History of Present Illness - Chief Complaint Chief Complaint: dizziness/generalized weakness/BLE pain Date: 08/15/23 History of Present Illness: is a 67 year old male with a pmhx of HTN, DIANA, COPD, and DMII who presented to ED 08/15/23 with complaints of a two day history of BLE edema, vomiting, generalized weakness/dizziness, dysuria, subjective fever/chills, productive cough with white sputum. Patient also reports that he sees Dr. Cruz podiatry for a left diabetic foot ulcer; [facility] managing dressing changes. In ED, patient septic on presentation. Vitals noted with mild tachycardia and hypotension. Venous doppler showing non-occluding thrombi of the left and right femoral veins. Lab findings remarkable for WBC at 13.9, hyponatremia at 133, GAP acidosis with lactic at 6.0, carbon dioxide at 15, GAP at 16.9, hyperkalemia at 5.4, Tbili at 1.7, urinalysis with nitrites and leuks. Patient given zosyn/vanc as well as IVF initiated. Patient admitted with sepsis, underlying cause most likely multifocal with UTI, cellulitis of the right leg, and left diabetic foot ulcer. - Review of Systems Constitutional: Fever, Chills, Fatigue, Weakness Eyes: No Symptoms Ears, Nose, & Throat: Sinus Drainage Respiratory: Cough, Short Of Breath Cardiac: No Symptoms Abdominal/Gastrointestinal: Vomiting Genitourinary Symptoms: Dysuria Musculoskeletal: Joint Pain (BLE ) Skin: Cellulitis (right lower extremity to thigh), Other (left diabetic foot ulcer) Neurological: Dizziness Endocrine: No Symptoms Hematologic/Lymphatic: No Symptoms Immunological/Allergic: No Symptoms Medications & Allergies Home Medications: Home Medication List Atorvastatin Calcium 20 mg PO DAILY 03/30/23 [History Confirmed 08/15/23] Ferrous Sulfate 325 mg [Feosol 325 mg] 325 mg PO DAILY 03/30/23 [History Confirmed 08/15/23] Fluticasone Propion/Salmeterol [Fluticasone-Salmeterol 100-50] 1 disk PO UD 03/30/23 [History Confirmed 08/15/23] Hydrocortisone 1% Cream [Cortisone 1% Cream] 1 gm TP BID 03/30/23 [History Confirmed 08/15/23] Metoprolol Succinate 25 mg Xl* [Toprol-Xl 25MG Tablets] 25 mg PO DAILY 03/30/23 [History Confirmed 08/15/23] Omeprazole 40 mg PO BID 03/30/23 [History Confirmed 08/15/23] Oxycodone HCl/Acetaminophen [Oxycodone-Acetaminophn 7.5-325] 1 each PO Q8H PRN 03/30/23 [History Confirmed 08/15/23] Sitagliptin Phos/Metformin HCl [Janumet Xr 100-1,000 mg Tablet] 1 tab PO HS 03/30/23 [History Confirmed 08/15/23] Tamsulosin HCl 0.4 mg [Flomax 0.4 MG] 0.8 mg PO HS 03/30/23 [History Confirmed 08/15/23] Trazodone HCl 150 mg PO HS 03/30/23 [History Confirmed 08/15/23] glucosamine HCL [Glucosamine HCl] 500 mg PO BID 03/30/23 [History Confirmed 08/15/23] Acetaminophen 325 mg [Tylenol 325 mg] 325 mg PO Q4H PRN PRN 08/15/23 [History Confirmed 08/15/23] Allopurinol 300 mg [Zyloprim 300 mg] 300 mg PO DAILY 08/15/23 [History Confirmed 08/15/23] Diphenhydramine HCl 25 mg [Benadryl 25 mg Capsule] 25 mg PO Q6H PRN PRN 08/15/23 [History Confirmed 08/15/23] Docusate Sodium 100 mg [Docusate Sodium 100 MG] 100 mg PO Q12H PRN PRN 08/15/23 [History Confirmed 08/15/23] Dulaglutide [Trulicity] 0.5 ml SQ WEEKLY 08/15/23 [History Confirmed 08/15/23] Emollient Base [Emollient] 1 dose TOP BID 08/15/23 [History Confirmed 08/15/23] Furosemide 40 mg [Lasix 40 MG] 40 mg PO DAILY 08/15/23 [History Confirmed 08/15/23] Guaifenesin 600 mg ER [Mucinex 600MG ER Tabs] 600 mg PO BID 08/15/23 [History Confirmed 08/15/23] Insulin Lispro [Humalog Kwikpen] 100 unit SQ UD 08/15/23 [History Confirmed 08/15/23] Ipratropium/Albuterol Sulfate [Iprat-Albut 0.5-3(2.5) mg/3 ml] 3 ml PO Q6H PRN PRN 08/15/23 [History Confirmed 08/15/23] Magnesium Oxide 400 mg [Mag-Ox 400] 400 mg PO BID 08/15/23 [History Confirmed 08/15/23] Nitroglycerin 0.4 mg Tablet [Nitrostat 0.4 MG Tablet] 0.4 mg SL UD 08/15/23 [History Confirmed 08/15/23] Ondansetron [Ondansetron Odt ] 4 mg PO Q4H PRN PRN 08/15/23 [History Confirmed 08/15/23] Oxybutynin Chloride [Oxybutynin Chloride ER] 10 mg PO DAILY 08/15/23 [History Confirmed 08/15/23] Potassium Chloride 40 meq PO BID 08/15/23 [History Confirmed 08/15/23] Temazepam 30 mg PO HS PRN 08/15/23 [History Confirmed 08/15/23] Allergies/Adverse Reactions: Allergies Allergy/AdvReac Type Severity Reaction Status Date / Time Horse/Equine Containing Allergy Verified 08/15/23 11:13 Products - Past Medical History Past Medical History: Yes Neurological History: No Pertinent History Cardiac History: Hypertension Respiratory History: Sleep Apnea, COPD Endocrine Medical History: Diabetes Type II Musculoskelatal History: Arthritis History: Renal Disease - Past Surgical History Past Surgical History: Yes Other Surgical History: tumor removed,colostomy reversal - Social History Smoking Status: Former smoker Exposure to second hand smoke: No Alcohol: None Drug Use: none - Physical Exam Vital Signs: Vital Signs - 24 hr Temp Pulse Resp BP BP Pulse Ox 08/15/23 14:29 99 08/15/23 14:00 96 H 19 105/60 96 08/15/23 13:30 98 H 21 116/61 97 08/15/23 13:00 103 H 20 113/55 95 08/15/23 12:30 102 H 20 97/52 97 08/15/23 12:00 100 H 21 109/71 96 08/15/23 11:31 101 H 22 93/59 99 08/15/23 11:16 99 08/15/23 11:00 103 H 21 115/67 99 08/15/23 10:56 99.3 F 105 H 23 115/67 97 General Appearance: no apparent distress Neurologic Exam: alert, oriented x 3, cooperative Eye Exam: PERRL/EOMI Ears, Nose, Throat Exam: normal ENT inspection Neck Exam: normal inspection Respiratory Exam: normal breath sounds, lungs clear Cardiovascular Exam: tachycardia Male Genitalia Exam: other (FC with naomy urine) Rectal Exam: deferred Back Exam: normal inspection Extremity Exam: inflammation, swelling (BLE R>L with RLE erythema/pedal edema 4+ pitting, Left leg with 2+ pitting edema), other (Left forefoot diabetic ulcer, with noted packing) Results - Labs Lab/Micro Results: Lab Results-Last 24 Hours 08/15/23 08/15/23 08/15/23 Range/Units 11:11 12:12 12:20 WBC 13.9 H (4.0-10.5) x10^3/uL RBC 3.99 L (4.1-5.6) x10^6/uL Hgb 11.8 L (12.5-18.0) g/dL Hct 36.4 L (42-50) % MCV 91.2 (78-100) fL MCH 29.6 (26-32) pg MCHC 32.4 (32-36) g/dL RDW 17.6 H (11.5-14.0) % Plt Count 75 L (150-450) x10^3/uL MPV 10.7 (7.5-11.0) fL Gran % 95.6 H (36.0-66.0) % Immature Gran % (Auto) 0.5 H (0.00-0.4) % Nucleat RBC Rel Count 0.0 (0.00-0.1) % Eos # (Auto) 0 (0-0.5) x10^3/uL Immature Gran # (Auto) 0.07 H (0.00-0.03) x10^3u/L Absolute Lymphs (auto) 0.25 L (1.0-4.6) x10^3/uL Absolute Monos (auto) 0.28 (0.0-1.3) x10^3/uL Absolute Nucleated RBC 0.00 (0.00-0.01) x10^3u/L Lymphocytes % 1.8 L (24.0-44.0) % Monocytes % 2.0 (0.0-12.0) % Eosinophils % 0.0 (0.00-5.0) % Basophils % 0.1 (0.0-0.4) % Absolute Granulocytes 13.33 H (1.4-6.9) x10^3/uL Basophils # 0.01 (0-0.4) x10^3/uL Sodium (135-145) mmol/L Potassium (3.5-5.1) mmol/L Chloride (98-107) mmol/L Carbon Dioxide (22-30) mmol/L Anion Gap (5-15) MEQ/L BUN (9-20) mg/dL Creatinine (0.66-1.25) mg/dL Estimated GFR ML/MIN Glucose (74-106) mg/dL Lactic Acid 6.0 H (0.4-2.0) Calcium (8.4-10.2) mg/dL Total Bilirubin (0.2-1.3) mg/dL AST (17-59) U/L ALT (0-50) U/L Alkaline Phosphatase (38-126) U/L Serum Total Protein (6.3-8.2) g/dL Albumin (3.5-5.0) g/dL Urine Color Dark Yellow (Yellow) Urine Appearance Turbid A (Clear) Urine pH 5.0 (4.6-8.0) Ur Specific [place] 1.020 (1.005-1.030) Urine Protein 100 A (Negative) Urine Glucose (UA) Negative (Negative) mg/dL Urine Ketones Trace A (Negative) Urine Blood Large A (Negative) Urine Nitrite Positive A (Negative) Urine Bilirubin Small A (Negative) Urine Urobilinogen 1.0 A (0.2) mg/dL Ur Leukocyte Esterase Large A (Negative) U Hyaline Cast (Auto) None Seen (0-2) /LPF Urine Microscopic RBC 6-10 A (0-5) /HPF Urine Microscopic WBC >100 A (0-5) /HPF Ur Epithelial Cells Rare (None Seen) /HPF Urine Bacteria Moderate A (None Seen) /HPF Urine Culture Reflexed ORDERED SEPARATELY (NO) Influenza Type A Ag (NEGATIVE) Influenza Type B Ag (NEGATIVE) RSV (PCR) (NEGATIVE) SARS-CoV-2 (PCR) (NEGATIVE) Slides for Path Review YES 08/15/23 08/15/23 Range/Units 12:20 12:27 WBC (4.0-10.5) x10^3/uL RBC (4.1-5.6) x10^6/uL Hgb (12.5-18.0) g/dL Hct (42-50) % MCV (78-100) fL MCH (26-32) pg MCHC (32-36) g/dL RDW (11.5-14.0) % Plt Count (150-450) x10^3/uL MPV (7.5-11.0) fL Gran % (36.0-66.0) % Immature Gran % (Auto) (0.00-0.4) % Nucleat RBC Rel Count (0.00-0.1) % Eos # (Auto) (0-0.5) x10^3/uL Immature Gran # (Auto) (0.00-0.03) x10^3u/L Absolute Lymphs (auto) (1.0-4.6) x10^3/uL Absolute Monos (auto) (0.0-1.3) x10^3/uL Absolute Nucleated RBC (0.00-0.01) x10^3u/L Lymphocytes % (24.0-44.0) % Monocytes % (0.0-12.0) % Eosinophils % (0.00-5.0) % Basophils % (0.0-0.4) % Absolute Granulocytes (1.4-6.9) x10^3/uL Basophils # (0-0.4) x10^3/uL Sodium 133 L (135-145) mmol/L Potassium 5.4 H (3.5-5.1) mmol/L Chloride 107 (98-107) mmol/L Carbon Dioxide 15 L* (22-30) mmol/L Anion Gap 16.9 H (5-15) MEQ/L BUN 20 (9-20) mg/dL Creatinine 1.23 (0.66-1.25) mg/dL Estimated GFR 64.0 ML/MIN Glucose 212 H (74-106) mg/dL Lactic Acid (0.4-2.0) Calcium 8.7 (8.4-10.2) mg/dL Total Bilirubin 1.70 H (0.2-1.3) mg/dL AST 59 (17-59) U/L ALT 60 H (0-50) U/L Alkaline Phosphatase 101 (38-126) U/L Serum Total Protein 6.2 L (6.3-8.2) g/dL Albumin 3.0 L (3.5-5.0) g/dL Urine Color (Yellow) Urine Appearance (Clear) Urine pH (4.6-8.0) Ur Specific [place] (1.005-1.030) Urine Protein (Negative) Urine Glucose (UA) (Negative) mg/dL Urine Ketones (Negative) Urine Blood (Negative) Urine Nitrite (Negative) Urine Bilirubin (Negative) Urine Urobilinogen (0.2) mg/dL Ur Leukocyte Esterase (Negative) U Hyaline Cast (Auto) (0-2) /LPF Urine Microscopic RBC (0-5) /HPF Urine Microscopic WBC (0-5) /HPF Ur Epithelial Cells (None Seen) /HPF Urine Bacteria (None Seen) /HPF Urine Culture Reflexed (NO) Influenza Type A Ag NEGATIVE (NEGATIVE) Influenza Type B Ag NEGATIVE (NEGATIVE) RSV (PCR) NEGATIVE (NEGATIVE) SARS-CoV-2 (PCR) NEGATIVE (NEGATIVE) Slides for Path Review - Radiology Impressions Radiology Exams & Impressions: Radiology Procedures Category Date Time Status VENOUS BILATERAL EXTREMITY [US] Stat Exams 08/15/23 11:15 Completed Assessment/Plan (1) Sepsis Current Visit: Yes Status: Acute Assessment & Plan: -multifocal, most likely secondary to UTI, cellulitis/diabetic foot ulcer - Sepsis criteria identified 08/15/23 -Fluid Bolus ordered -LA at 6.0. Repeat lactate will be drawn in initial >2mmol/L If subsequent lactate elevated, trend until WNL -Blood cultures x2 ordered and pending -Vanc/zosyn started in ED, will continue -Ucult pending -Will admin vasopressors if hypotensive (MAP <65 or SBP <90) -procal, CXR -Resp mendez negative -Lovenox at therapeutic dose for new DVT diagnosis (2) Diabetes mellitus Current Visit: Yes Status: Acute Qualifiers: Diabetes mellitus type: type 2 Diabetes mellitus complication detail: with foot ulcer Assessment & Plan: -SSI -lispro/glargine -ADA diet -A1c Code(s): E11.9 - TYPE 2 DIABETES MELLITUS WITHOUT COMPLICATIONS (3) COPD (chronic obstructive pulmonary disease) Current Visit: Yes Status: Acute Assessment & Plan: -RA -CXR -Does not appear to be in exacerbation -Supplemental oxygen with spo2 goal >88-92% -RT consult -Nebs/INH (4) Diabetic foot ulcer Current Visit: Yes Status: Acute Assessment & Plan: -Podiatry consult -vanc/zosyn -xray left foot Code(s): E11.621 - TYPE 2 DIABETES MELLITUS WITH FOOT ULCER; L97.509 - NON- PRESSURE CHRONIC ULCER OTH PRT UNSP FOOT W UNSP SEVERITY (5) Cellulitis Current Visit: Yes Status: Acute Assessment & Plan: -Konstantin right leg -PCT, LA, ESR, CRP -Blood cultures pending -vanc/zosyn started in ED, will continue, pharmacy to dose -Wound culture open areas with drainage Code(s): L03.90 - CELLULITIS, UNSPECIFIED (6) DVT (deep venous thrombosis) Current Visit: Yes Status: Acute Assessment & Plan: -Doppler reviewed showing nonoccluding thrombi left and right femoral veins. -Pharmacy to dose therapeutic lovenox -OAC -CM to check cost Code(s): I82.409 - ACUTE EMBOLISM AND THOMBOS UNSP DEEP VN UNSP LOWER EXTREMITY (7) DIANA (obstructive sleep apnea) Current Visit: Yes Status: Acute Assessment & Plan: -CPAP at night Code(s): G47.33 - OBSTRUCTIVE SLEEP APNEA (ADULT) (PEDIATRIC) (8) Urinary tract infection Current Visit: Yes Status: Acute Assessment & Plan: -Ucult pending, vanc/zosyn for now, follow culture VTE: lovenox PPI: protonix Dispo: 2-3 days Code(s): N39.0 - URINARY TRACT INFECTION, SITE NOT SPECIFIED <ALEKSANDR CHOWDHURY - Last Filed: 08/15/23 22:48> History of Present Illness - Chief Complaint History of Present Illness: is a 67 year old male. - Physical Exam Vital Signs: Vital Signs - 24 hr Temp Pulse Resp BP BP Pulse Ox 08/15/23 19:59 99.9 F 104 H 23 109/62 97 08/15/23 18:57 104 H 20 97 08/15/23 16:07 96 H 21 95 08/15/23 15:03 98.7 F 98 H 20 117/59 95 08/15/23 14:35 98.7 F 98 H 20 117/59 95 08/15/23 14:29 99 08/15/23 14:00 96 H 19 105/60 96 08/15/23 13:30 98 H 21 116/61 97 08/15/23 13:00 103 H 20 113/55 95 08/15/23 12:30 102 H 20 97/52 97 08/15/23 12:00 100 H 21 109/71 96 08/15/23 11:31 101 H 22 93/59 99 08/15/23 11:16 99 08/15/23 11:00 103 H 21 115/67 99 08/15/23 10:56 99.3 F 105 H 23 115/67 97 Wound Assessment: Skin/Wound Assessment Wound/Incision Assessment Start: 08/15/23 15:48 Text: Status: Active Freq: Q6H Protocol: Document 08/15/23 15:59 RB (Rec: 08/15/23 16:14 RB [id number]) Wound/Incision Assessment Right Posterior Toe Wound Assessment Admission Wound Type Pressure Ulcer Dressing Status Dry & Intact Drainage Amount None Drainage Odor None/Absent General Appearance Well Approximated Wound Bed Greatest Portion Red (Granulation) Surrounding Tissue [place] Packing Type Impregnated Gauze Pads Primary Dressing ISLAND DRESSING Comment CHANGED THIS AM PER [facility] NURSE, PT SEES DR CRUZ FOR WOUND ON FOOT LEFT ANTERIOR LEG Wound Assessment Admission Wound Type CELLULITIS Wound Stage Non Pressure Wound Drainage Amount None General Appearance Well Approximated Length (cm) (cm) 4 Width (cm) (cm) 3 Wound Bed Greatest Portion Red (Granulation) Wound Bed Lesser Portion Pale [place] Primary Dressing OPEN TO AIR Comment NO DRESSING, HEALING CELLULITIS RIGHT LOWER LEG Wound Assessment Admission Wound Stage Non Pressure Wound General Appearance Reddened Length (cm) (cm) 48 Width (cm) (cm) 53 Surrounding Tissue [place] Comment DVT POSITVE, REDDENED AREA INCREASING UP TO THE THIGH Wound Photo Photo Taken Yes Date: 08/15/23 Time: 16:14 Results - Labs Lab/Micro Results: Lab Results-Last 24 Hours 08/15/23 08/15/23 08/15/23 Range/Units 11:11 12:12 12:20 WBC 13.9 H (4.0-10.5) x10^3/uL RBC 3.99 L (4.1-5.6) x10^6/uL Hgb 11.8 L (12.5-18.0) g/dL Hct 36.4 L (42-50) % MCV 91.2 (78-100) fL MCH 29.6 (26-32) pg MCHC 32.4 (32-36) g/dL RDW 17.6 H (11.5-14.0) % Plt Count 75 L (150-450) x10^3/uL MPV 10.7 (7.5-11.0) fL Gran % 95.6 H (36.0-66.0) % Immature Gran % (Auto) 0.5 H (0.00-0.4) % Nucleat RBC Rel Count 0.0 (0.00-0.1) % Eos # (Auto) 0 (0-0.5) x10^3/uL Immature Gran # (Auto) 0.07 H (0.00-0.03) x10^3u/L Absolute Lymphs (auto) 0.25 L (1.0-4.6) x10^3/uL Absolute Monos (auto) 0.28 (0.0-1.3) x10^3/uL Absolute Nucleated RBC 0.00 (0.00-0.01) x10^3u/L Lymphocytes % 1.8 L (24.0-44.0) % Monocytes % 2.0 (0.0-12.0) % Eosinophils % 0.0 (0.00-5.0) % Basophils % 0.1 (0.0-0.4) % Absolute Granulocytes 13.33 H (1.4-6.9) x10^3/uL Basophils # 0.01 (0-0.4) x10^3/uL ESR (0-15) mm/hr Sodium (135-145) mmol/L Potassium (3.5-5.1) mmol/L Chloride (98-107) mmol/L Carbon Dioxide (22-30) mmol/L Anion Gap (5-15) MEQ/L BUN (9-20) mg/dL Creatinine (0.66-1.25) mg/dL Estimated GFR ML/MIN Glucose (74-106) mg/dL POC Glucometer (74 to 106) mg/dL Hemoglobin A1c (4.5-6.0) % Lactic Acid 6.0 H (0.4-2.0) Calcium (8.4-10.2) mg/dL Total Bilirubin (0.2-1.3) mg/dL AST (17-59) U/L ALT (0-50) U/L Alkaline Phosphatase (38-126) U/L Serum Total Protein (6.3-8.2) g/dL Albumin (3.5-5.0) g/dL Prealbumin (17.6-36.0) mg/dL Procalcitonin (0.030-0.080) ng/mL TSH 3rd Generation (0.47-4.68) mIU/L Urine Color Dark Yellow (Yellow) Urine Appearance Turbid A (Clear) Urine pH 5.0 (4.6-8.0) Ur Specific [place] 1.020 (1.005-1.030) Urine Protein 100 A (Negative) Urine Glucose (UA) Negative (Negative) mg/dL Urine Ketones Trace A (Negative) Urine Blood Large A (Negative) Urine Nitrite Positive A (Negative) Urine Bilirubin Small A (Negative) Urine Urobilinogen 1.0 A (0.2) mg/dL Ur Leukocyte Esterase Large A (Negative) U Hyaline Cast (Auto) None Seen (0-2) /LPF Urine Microscopic RBC 6-10 A (0-5) /HPF Urine Microscopic WBC >100 A (0-5) /HPF Ur Epithelial Cells Rare (None Seen) /HPF Urine Bacteria Moderate A (None Seen) /HPF Urine Culture Reflexed ORDERED SEPARATELY (NO) Influenza Type A Ag (NEGATIVE) Influenza Type B Ag (NEGATIVE) RSV (PCR) (NEGATIVE) SARS-CoV-2 (PCR) (NEGATIVE) Slides for Path Review YES 08/15/23 08/15/23 08/15/23 Range/Units 12:20 12:27 14:37 WBC (4.0-10.5) x10^3/uL RBC (4.1-5.6) x10^6/uL Hgb (12.5-18.0) g/dL Hct (42-50) % MCV (78-100) fL MCH (26-32) pg MCHC (32-36) g/dL RDW (11.5-14.0) % Plt Count (150-450) x10^3/uL MPV (7.5-11.0) fL Gran % (36.0-66.0) % Immature Gran % (Auto) (0.00-0.4) % Nucleat RBC Rel Count (0.00-0.1) % Eos # (Auto) (0-0.5) x10^3/uL Immature Gran # (Auto) (0.00-0.03) x10^3u/L Absolute Lymphs (auto) (1.0-4.6) x10^3/uL Absolute Monos (auto) (0.0-1.3) x10^3/uL Absolute Nucleated RBC (0.00-0.01) x10^3u/L Lymphocytes % (24.0-44.0) % Monocytes % (0.0-12.0) % Eosinophils % (0.00-5.0) % Basophils % (0.0-0.4) % Absolute Granulocytes (1.4-6.9) x10^3/uL Basophils # (0-0.4) x10^3/uL ESR (0-15) mm/hr Sodium 133 L (135-145) mmol/L Potassium 5.4 H (3.5-5.1) mmol/L Chloride 107 (98-107) mmol/L Carbon Dioxide 15 L* (22-30) mmol/L Anion Gap 16.9 H (5-15) MEQ/L BUN 20 (9-20) mg/dL Creatinine 1.23 (0.66-1.25) mg/dL Estimated GFR 64.0 ML/MIN Glucose 212 H (74-106) mg/dL POC Glucometer (74 to 106) mg/dL Hemoglobin A1c (4.5-6.0) % Lactic Acid 4.3 H (0.4-2.0) Calcium 8.7 (8.4-10.2) mg/dL Total Bilirubin 1.70 H (0.2-1.3) mg/dL AST 59 (17-59) U/L ALT 60 H (0-50) U/L Alkaline Phosphatase 101 (38-126) U/L Serum Total Protein 6.2 L (6.3-8.2) g/dL Albumin 3.0 L (3.5-5.0) g/dL Prealbumin (17.6-36.0) mg/dL Procalcitonin (0.030-0.080) ng/mL TSH 3rd Generation (0.47-4.68) mIU/L Urine Color (Yellow) Urine Appearance (Clear) Urine pH (4.6-8.0) Ur Specific [place] (1.005-1.030) Urine Protein (Negative) Urine Glucose (UA) (Negative) mg/dL Urine Ketones (Negative) Urine Blood (Negative) Urine Nitrite (Negative) Urine Bilirubin (Negative) Urine Urobilinogen (0.2) mg/dL Ur Leukocyte Esterase (Negative) U Hyaline Cast (Auto) (0-2) /LPF Urine Microscopic RBC (0-5) /HPF Urine Microscopic WBC (0-5) /HPF Ur Epithelial Cells (None Seen) /HPF Urine Bacteria (None Seen) /HPF Urine Culture Reflexed (NO) Influenza Type A Ag NEGATIVE (NEGATIVE) Influenza Type B Ag NEGATIVE (NEGATIVE) RSV (PCR) NEGATIVE (NEGATIVE) SARS-CoV-2 (PCR) NEGATIVE (NEGATIVE) Slides for Path Review 08/15/23 08/15/23 08/15/23 Range/Units 15:27 16:34 16:34 WBC (4.0-10.5) x10^3/uL RBC (4.1-5.6) x10^6/uL Hgb (12.5-18.0) g/dL Hct (42-50) % MCV (78-100) fL MCH (26-32) pg MCHC (32-36) g/dL RDW (11.5-14.0) % Plt Count (150-450) x10^3/uL MPV (7.5-11.0) fL Gran % (36.0-66.0) % Immature Gran % (Auto) (0.00-0.4) % Nucleat RBC Rel Count (0.00-0.1) % Eos # (Auto) (0-0.5) x10^3/uL Immature Gran # (Auto) (0.00-0.03) x10^3u/L Absolute Lymphs (auto) (1.0-4.6) x10^3/uL Absolute Monos (auto) (0.0-1.3) x10^3/uL Absolute Nucleated RBC (0.00-0.01) x10^3u/L Lymphocytes % (24.0-44.0) % Monocytes % (0.0-12.0) % Eosinophils % (0.00-5.0) % Basophils % (0.0-0.4) % Absolute Granulocytes (1.4-6.9) x10^3/uL Basophils # (0-0.4) x10^3/uL ESR 34 H (0-15) mm/hr Sodium (135-145) mmol/L Potassium (3.5-5.1) mmol/L Chloride (98-107) mmol/L Carbon Dioxide (22-30) mmol/L Anion Gap (5-15) MEQ/L BUN (9-20) mg/dL Creatinine (0.66-1.25) mg/dL Estimated GFR ML/MIN Glucose (74-106) mg/dL POC Glucometer (74 to 106) mg/dL Hemoglobin A1c 6.97 H (4.5-6.0) % Lactic Acid (0.4-2.0) Calcium (8.4-10.2) mg/dL Total Bilirubin (0.2-1.3) mg/dL AST (17-59) U/L ALT (0-50) U/L Alkaline Phosphatase (38-126) U/L Serum Total Protein (6.3-8.2) g/dL Albumin (3.5-5.0) g/dL Prealbumin 11.60 L (17.6-36.0) mg/dL Procalcitonin 5.040 H* (0.030-0.080) ng/mL TSH 3rd Generation 0.688 (0.47-4.68) mIU/L Urine Color (Yellow) Urine Appearance (Clear) Urine pH (4.6-8.0) Ur Specific [place] (1.005-1.030) Urine Protein (Negative) Urine Glucose (UA) (Negative) mg/dL Urine Ketones (Negative) Urine Blood (Negative) Urine Nitrite (Negative) Urine Bilirubin (Negative) Urine Urobilinogen (0.2) mg/dL Ur Leukocyte Esterase (Negative) U Hyaline Cast (Auto) (0-2) /LPF Urine Microscopic RBC (0-5) /HPF Urine Microscopic WBC (0-5) /HPF Ur Epithelial Cells (None Seen) /HPF Urine Bacteria (None Seen) /HPF Urine Culture Reflexed (NO) Influenza Type A Ag (NEGATIVE) Influenza Type B Ag (NEGATIVE) RSV (PCR) (NEGATIVE) SARS-CoV-2 (PCR) (NEGATIVE) Slides for Path Review 08/15/23 08/15/23 08/15/23 Range/Units 17:00 17:55 20:41 WBC (4.0-10.5) x10^3/uL RBC (4.1-5.6) x10^6/uL Hgb (12.5-18.0) g/dL Hct (42-50) % MCV (78-100) fL MCH (26-32) pg MCHC (32-36) g/dL RDW (11.5-14.0) % Plt Count (150-450) x10^3/uL MPV (7.5-11.0) fL Gran % (36.0-66.0) % Immature Gran % (Auto) (0.00-0.4) % Nucleat RBC Rel Count (0.00-0.1) % Eos # (Auto) (0-0.5) x10^3/uL Immature Gran # (Auto) (0.00-0.03) x10^3u/L Absolute Lymphs (auto) (1.0-4.6) x10^3/uL Absolute Monos (auto) (0.0-1.3) x10^3/uL Absolute Nucleated RBC (0.00-0.01) x10^3u/L Lymphocytes % (24.0-44.0) % Monocytes % (0.0-12.0) % Eosinophils % (0.00-5.0) % Basophils % (0.0-0.4) % Absolute Granulocytes (1.4-6.9) x10^3/uL Basophils # (0-0.4) x10^3/uL ESR (0-15) mm/hr Sodium (135-145) mmol/L Potassium (3.5-5.1) mmol/L Chloride (98-107) mmol/L Carbon Dioxide (22-30) mmol/L Anion Gap (5-15) MEQ/L BUN (9-20) mg/dL Creatinine (0.66-1.25) mg/dL Estimated GFR ML/MIN Glucose (74-106) mg/dL POC Glucometer 172 H 161 H (74 to 106) mg/dL Hemoglobin A1c (4.5-6.0) % Lactic Acid 3.4 H (0.4-2.0) Calcium (8.4-10.2) mg/dL Total Bilirubin (0.2-1.3) mg/dL AST (17-59) U/L ALT (0-50) U/L Alkaline Phosphatase (38-126) U/L Serum Total Protein (6.3-8.2) g/dL Albumin (3.5-5.0) g/dL Prealbumin (17.6-36.0) mg/dL Procalcitonin (0.030-0.080) ng/mL TSH 3rd Generation (0.47-4.68) mIU/L Urine Color (Yellow) Urine Appearance (Clear) Urine pH (4.6-8.0) Ur Specific [place] (1.005-1.030) Urine Protein (Negative) Urine Glucose (UA) (Negative) mg/dL Urine Ketones (Negative) Urine Blood (Negative) Urine Nitrite (Negative) Urine Bilirubin (Negative) Urine Urobilinogen (0.2) mg/dL Ur Leukocyte Esterase (Negative) U Hyaline Cast (Auto) (0-2) /LPF Urine Microscopic RBC (0-5) /HPF Urine Microscopic WBC (0-5) /HPF Ur Epithelial Cells (None Seen) /HPF Urine Bacteria (None Seen) /HPF Urine Culture Reflexed (NO) Influenza Type A Ag (NEGATIVE) Influenza Type B Ag (NEGATIVE) RSV (PCR) (NEGATIVE) SARS-CoV-2 (PCR) (NEGATIVE) Slides for Path Review 08/15/23 08/15/23 Range/Units 20:48 21:10 WBC (4.0-10.5) x10^3/uL RBC (4.1-5.6) x10^6/uL Hgb (12.5-18.0) g/dL Hct (42-50) % MCV (78-100) fL MCH (26-32) pg MCHC (32-36) g/dL RDW (11.5-14.0) % Plt Count (150-450) x10^3/uL MPV (7.5-11.0) fL Gran % (36.0-66.0) % Immature Gran % (Auto) (0.00-0.4) % Nucleat RBC Rel Count (0.00-0.1) % Eos # (Auto) (0-0.5) x10^3/uL Immature Gran # (Auto) (0.00-0.03) x10^3u/L Absolute Lymphs (auto) (1.0-4.6) x10^3/uL Absolute Monos (auto) (0.0-1.3) x10^3/uL Absolute Nucleated RBC (0.00-0.01) x10^3u/L Lymphocytes % (24.0-44.0) % Monocytes % (0.0-12.0) % Eosinophils % (0.00-5.0) % Basophils % (0.0-0.4) % Absolute Granulocytes (1.4-6.9) x10^3/uL Basophils # (0-0.4) x10^3/uL ESR (0-15) mm/hr Sodium 136 (135-145) mmol/L Potassium 5.0 (3.5-5.1) mmol/L Chloride 108 H (98-107) mmol/L Carbon Dioxide 19 L (22-30) mmol/L Anion Gap 14.6 (5-15) MEQ/L BUN 24 H (9-20) mg/dL Creatinine 1.22 (0.66-1.25) mg/dL Estimated GFR 64.6 ML/MIN Glucose 167 H (74-106) mg/dL POC Glucometer (74 to 106) mg/dL Hemoglobin A1c (4.5-6.0) % Lactic Acid 3.8 H (0.4-2.0) Calcium 8.3 L (8.4-10.2) mg/dL Total Bilirubin (0.2-1.3) mg/dL AST (17-59) U/L ALT (0-50) U/L Alkaline Phosphatase (38-126) U/L Serum Total Protein (6.3-8.2) g/dL Albumin (3.5-5.0) g/dL Prealbumin (17.6-36.0) mg/dL Procalcitonin (0.030-0.080) ng/mL TSH 3rd Generation (0.47-4.68) mIU/L Urine Color (Yellow) Urine Appearance (Clear) Urine pH (4.6-8.0) Ur Specific [place] (1.005-1.030) Urine Protein (Negative) Urine Glucose (UA) (Negative) mg/dL Urine Ketones (Negative) Urine Blood (Negative) Urine Nitrite (Negative) Urine Bilirubin (Negative) Urine Urobilinogen (0.2) mg/dL Ur Leukocyte Esterase (Negative) U Hyaline Cast (Auto) (0-2) /LPF Urine Microscopic RBC (0-5) /HPF Urine Microscopic WBC (0-5) /HPF Ur Epithelial Cells (None Seen) /HPF Urine Bacteria (None Seen) /HPF Urine Culture Reflexed (NO) Influenza Type A Ag (NEGATIVE) Influenza Type B Ag (NEGATIVE) RSV (PCR) (NEGATIVE) SARS-CoV-2 (PCR) (NEGATIVE) Slides for Path Review Accuchecks Date 08/15/23 Date 08/15/23 Time 20:45 Time 17:01 - Radiology Impressions Radiology Exams & Impressions: Radiology Procedures Category Date Time Status FOOT (MINIMUM 3 VIEWS) Stat Exams 08/15/23 15:38 Completed VENOUS BILATERAL EXTREMITY [US] Stat Exams 08/15/23 11:15 Completed - Other Procedures and Tests Respiratory Therapy 08/15/23 15:58 BiPap/CPAP ROUTINE 08/15/23 15:59 Respiratory Therapy Assessment DAILY MARNIE Encounter - MARNIE Encounter Attestation MARNIE Encounter Attestation: "GILLIAN Daniel andhavediscussed pertinent aspects of their care with Pietro Duarte agree with the history, physical exam (any modifications based on my personal exam will be noted below), assessment, and plan as outlined in original note. Please see immediately below for my summary of findings and additional assessment and plan along with any meaningful corrections/explanations to the Subjective/Objective portions of the MARNIE note will be noted." My portion of the encounter took place via telemedicine. -Sepsis secondary to UTI and right lower extremity cellulitis. Sepsis treatment initiated with fluids, IV antibiotics, wound and blood cultures. Appreciate podiatry input. Also has bilateral lower extremity DVTs. Given lovenox x 1 today, transition to DOAC tomorrow.
[2023-08-15] MEDS: ENOXAPARIN SODIUM SQ SCH (16:33)
[2023-08-15] MEDS: Sodium Chloride 0.9% 1000 ML 1,000 ML IV STA ×2 (16:33→18:21)
--- NOTE | 2023-08-15 16:56 | XRAY ---
Indication: Diabetic foot ulcer. Sepsis. Comparison: None 3 portable nonweightbearing views right foot demonstrates osteopenia, tiny posterior/small heel spurs, and diffuse soft tissue swelling/edema. No other bony, articular, or soft tissue abnormalities.
[2023-08-15 17:15] LABS: PREALBUMIN 11.6 mg/dL (17.6-36.0); TSH, 3RD Generation 0.688 mIU/L (0.47-4.68)
--- NOTE | 2023-08-15 17:23 | PCM.CONS ---
Podiatry HPI - Consult Consulting Provider: JOCELYN MARIN DPM - HPI History of Present Illness: Mr. Damico is a very pleasant 67-year-old male with a significant past medical history of hypertension DIANA, COPD and type 2 diabetes mellitus who gained admission through the emergency department for sepsis with constitutional symptoms of vomiting generalized weakness fevers chills and productive cough. Patient has a longstanding history of ulceration to the right lower extremity which is being treated by his emergency department rn Dr. Adrian and home health care manages the dressing changes. Patient indicates that the wound has been present for a long time. He is admitted today with sepsis. Subjective examination limited as patient is ill and only speaks in brief statements Medications & Allergies Home Medications: Home Medication List Atorvastatin Calcium 20 mg PO DAILY 03/30/23 [History Confirmed 08/15/23] Cyanocobalamin (Vitamin B-12) [Vitamin B12] 2,500 mcg PO DAILY 03/30/23 [History Confirmed 03/30/23] Ferrous Sulfate 325 mg [Feosol 325 mg] 325 mg PO DAILY 03/30/23 [History Confirmed 08/15/23] Fluticasone Propion/Salmeterol [Fluticasone-Salmeterol 100-50] 1 disk PO UD 03/30/23 [History Confirmed 08/15/23] Gabapentin [Neurontin] 600 mg PO TID 03/30/23 [History Confirmed 03/30/23] Hydrocortisone 1% Cream [Cortisone 1% Cream] 0 gm TP BID 03/30/23 [History Confirmed 03/30/23] Insulin Lispro [Humalog] 0 unit SQ TIDAC 03/30/23 [History Confirmed 03/30/23] Metoprolol Succinate 25 mg Xl* [Toprol-Xl 25MG Tablets] 25 mg PO DAILY 03/30/23 [History Confirmed 08/15/23] Mirabegron [Myrbetriq] 25 mg PO BID 03/30/23 [History Confirmed 03/30/23] Omeprazole 40 mg PO BID 03/30/23 [History Confirmed 08/15/23] Oxycodone HCl/Acetaminophen [Oxycodone-Acetaminophn 7.5-325] 1 each PO Q8H PRN 03/30/23 [History Confirmed 08/15/23] Sitagliptin Phos/Metformin HCl [Janumet Xr 100-1,000 mg Tablet] 1 tab PO HS 03/30/23 [History Confirmed 08/15/23] Tamsulosin HCl 0.4 mg [Flomax 0.4 MG] 0.8 mg PO HS 03/30/23 [History Confirmed 08/15/23] Trazodone HCl 150 mg PO HS 03/30/23 [History Confirmed 08/15/23] glucosamine HCL [Glucosamine HCl] 500 mg PO BID 03/30/23 [History Confirmed 08/15/23] Acetaminophen 325 mg [Tylenol 325 mg] 325 mg PO Q4H PRN PRN 08/15/23 [History Confirmed 08/15/23] Allopurinol 300 mg [Zyloprim 300 mg] 300 mg PO DAILY 08/15/23 [History Confirmed 08/15/23] Diphenhydramine HCl 25 mg [Benadryl 25 mg Capsule] 25 mg PO Q6H PRN PRN 08/15/23 [History Confirmed 08/15/23] Docusate Sodium 100 mg [Docusate Sodium 100 MG] 100 mg PO Q12H PRN PRN 08/15/23 [History Confirmed 08/15/23] Dulaglutide [Trulicity] 0.5 ml SQ WEEKLY 08/15/23 [History Confirmed 08/15/23] Emollient Base [Emollient] 1 dose TOP BID 08/15/23 [History Confirmed 08/15/23] Furosemide 40 mg [Lasix 40 MG] 40 mg PO DAILY 08/15/23 [History Confirmed 08/15/23] Guaifenesin 600 mg ER [Mucinex 600MG ER Tabs] 600 mg PO BID 08/15/23 [History Confirmed 08/15/23] Ipratropium/Albuterol Sulfate [Iprat-Albut 0.5-3(2.5) mg/3 ml] 3 ml PO Q6H PRN PRN 08/15/23 [History Confirmed 08/15/23] Magnesium Oxide 400 mg [Mag-Ox 400] 400 mg PO BID 08/15/23 [History Confirmed 08/15/23] Nitroglycerin 0.4 mg Tablet [Nitrostat 0.4 MG Tablet] 0.4 mg SL UD 08/15/23 [History Confirmed 08/15/23] Ondansetron [Ondansetron Odt ] 4 mg PO Q4H PRN PRN 08/15/23 [History Confirmed 08/15/23] Oxybutynin Chloride [Oxybutynin Chloride ER] 10 mg PO DAILY 08/15/23 [History Confirmed 08/15/23] Potassium Chloride 40 meq PO BID 08/15/23 [History Confirmed 08/15/23] Temazepam 30 mg PO HS PRN 08/15/23 [History Confirmed 08/15/23] Allergies/Adverse Reactions: Allergies Allergy/AdvReac Type Severity Reaction Status Date / Time Horse/Equine Containing Allergy Verified 08/15/23 11:13 Products - Past Medical History Past Medical History: Yes Neurological History: No Pertinent History ENT History: No Pertinent History Cardiac History: Hypertension Respiratory History: Sleep Apnea, COPD Endocrine Medical History: Diabetes Type II Musculoskelatal History: Arthritis GI Medical History: Other History: Renal Disease Pyscho-Social History: No Pertinent History Male Reproductive Disorders: Prostate 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 - Past Surgical History Past Surgical History: Yes Neuro Surgical History: No Pertinent History Cardiac History: No Pertinent History Respiratory Surgery: No Pertinent History GI Surgical History: Colon Resection Genitourinary Surgical Hx: No Pertinent History Musculskeletal Surgical Hx: No Pertinent History Male Surgical History: No Pertinent History Other Surgical History: tumor removed,colostomy reversal - Social History Smoking Status: Former smoker Exposure to second hand smoke: No Alcohol: None Drug Use: none - Social Determinants of Health Will the patient participate in the screening: Yes Do you worry about a steady place to live?: No Do you have any problems with any of the following?: No known problems In the past 12 months,have you had to go without utilities?: No Have you or anyone in your house had to go without enough: No Transportation Issues: No Has anyone in your support network made you feel unsafe?: No Does the patient want assistance with any of the above?: No Comment: PT REPORTS WOULD LIKE ASSISSTANCE WITH SOME OF THE [facility] Physical Exam - General General Appearance: no apparent distress - Neuro Neurologic: Epicritic and protopathic - Vascular Peripheral Pulses: Posterior tibialis: 2+, Dorsalis-Pedis: 2+ Capillary Refill Time: < 3 seconds Hair Growth: Symmetrical and Bilateral Varicosities: Positive Edema: Pitting Edema Degree: 3+ Skin: Supple, not atrophic Skin Temperature: Warm to touch (Right lower extremity more so than left) - Narrative Narrative Physical Exam: Podiatry Physical Exam Results - Labs Lab/Micro Results: Lab Results-Last 24 Hours 08/15/23 08/15/23 08/15/23 Range/Units 11:11 12:12 12:20 WBC 13.9 H (4.0-10.5) x10^3/uL RBC 3.99 L (4.1-5.6) x10^6/uL Hgb 11.8 L (12.5-18.0) g/dL Hct 36.4 L (42-50) % MCV 91.2 (78-100) fL MCH 29.6 (26-32) pg MCHC 32.4 (32-36) g/dL RDW 17.6 H (11.5-14.0) % Plt Count 75 L (150-450) x10^3/uL MPV 10.7 (7.5-11.0) fL Gran % 95.6 H (36.0-66.0) % Immature Gran % (Auto) 0.5 H (0.00-0.4) % Nucleat RBC Rel Count 0.0 (0.00-0.1) % Eos # (Auto) 0 (0-0.5) x10^3/uL Immature Gran # (Auto) 0.07 H (0.00-0.03) x10^3u/L Absolute Lymphs (auto) 0.25 L (1.0-4.6) x10^3/uL Absolute Monos (auto) 0.28 (0.0-1.3) x10^3/uL Absolute Nucleated RBC 0.00 (0.00-0.01) x10^3u/L Lymphocytes % 1.8 L (24.0-44.0) % Monocytes % 2.0 (0.0-12.0) % Eosinophils % 0.0 (0.00-5.0) % Basophils % 0.1 (0.0-0.4) % Absolute Granulocytes 13.33 H (1.4-6.9) x10^3/uL Basophils # 0.01 (0-0.4) x10^3/uL ESR (0-15) mm/hr Sodium (135-145) mmol/L Potassium (3.5-5.1) mmol/L Chloride (98-107) mmol/L Carbon Dioxide (22-30) mmol/L Anion Gap (5-15) MEQ/L BUN (9-20) mg/dL Creatinine (0.66-1.25) mg/dL Estimated GFR ML/MIN Glucose (74-106) mg/dL POC Glucometer (74 to 106) mg/dL Lactic Acid 6.0 H (0.4-2.0) Calcium (8.4-10.2) mg/dL Total Bilirubin (0.2-1.3) mg/dL AST (17-59) U/L ALT (0-50) U/L Alkaline Phosphatase (38-126) U/L Serum Total Protein (6.3-8.2) g/dL Albumin (3.5-5.0) g/dL Urine Color Dark Yellow (Yellow) Urine Appearance Turbid A (Clear) Urine pH 5.0 (4.6-8.0) Ur Specific [place] 1.020 (1.005-1.030) Urine Protein 100 A (Negative) Urine Glucose (UA) Negative (Negative) mg/dL Urine Ketones Trace A (Negative) Urine Blood Large A (Negative) Urine Nitrite Positive A (Negative) Urine Bilirubin Small A (Negative) Urine Urobilinogen 1.0 A (0.2) mg/dL Ur Leukocyte Esterase Large A (Negative) U Hyaline Cast (Auto) None Seen (0-2) /LPF Urine Microscopic RBC 6-10 A (0-5) /HPF Urine Microscopic WBC >100 A (0-5) /HPF Ur Epithelial Cells Rare (None Seen) /HPF Urine Bacteria Moderate A (None Seen) /HPF Urine Culture Reflexed ORDERED SEPARATELY (NO) Influenza Type A Ag (NEGATIVE) Influenza Type B Ag (NEGATIVE) RSV (PCR) (NEGATIVE) SARS-CoV-2 (PCR) (NEGATIVE) Slides for Path Review YES 08/15/23 08/15/23 08/15/23 Range/Units 12:20 12:27 14:37 WBC (4.0-10.5) x10^3/uL RBC (4.1-5.6) x10^6/uL Hgb (12.5-18.0) g/dL Hct (42-50) % MCV (78-100) fL MCH (26-32) pg MCHC (32-36) g/dL RDW (11.5-14.0) % Plt Count (150-450) x10^3/uL MPV (7.5-11.0) fL Gran % (36.0-66.0) % Immature Gran % (Auto) (0.00-0.4) % Nucleat RBC Rel Count (0.00-0.1) % Eos # (Auto) (0-0.5) x10^3/uL Immature Gran # (Auto) (0.00-0.03) x10^3u/L Absolute Lymphs (auto) (1.0-4.6) x10^3/uL Absolute Monos (auto) (0.0-1.3) x10^3/uL Absolute Nucleated RBC (0.00-0.01) x10^3u/L Lymphocytes % (24.0-44.0) % Monocytes % (0.0-12.0) % Eosinophils % (0.00-5.0) % Basophils % (0.0-0.4) % Absolute Granulocytes (1.4-6.9) x10^3/uL Basophils # (0-0.4) x10^3/uL ESR (0-15) mm/hr Sodium 133 L (135-145) mmol/L Potassium 5.4 H (3.5-5.1) mmol/L Chloride 107 (98-107) mmol/L Carbon Dioxide 15 L* (22-30) mmol/L Anion Gap 16.9 H (5-15) MEQ/L BUN 20 (9-20) mg/dL Creatinine 1.23 (0.66-1.25) mg/dL Estimated GFR 64.0 ML/MIN Glucose 212 H (74-106) mg/dL POC Glucometer (74 to 106) mg/dL Lactic Acid 4.3 H (0.4-2.0) Calcium 8.7 (8.4-10.2) mg/dL Total Bilirubin 1.70 H (0.2-1.3) mg/dL AST 59 (17-59) U/L ALT 60 H (0-50) U/L Alkaline Phosphatase 101 (38-126) U/L Serum Total Protein 6.2 L (6.3-8.2) g/dL Albumin 3.0 L (3.5-5.0) g/dL Urine Color (Yellow) Urine Appearance (Clear) Urine pH (4.6-8.0) Ur Specific [place] (1.005-1.030) Urine Protein (Negative) Urine Glucose (UA) (Negative) mg/dL Urine Ketones (Negative) Urine Blood (Negative) Urine Nitrite (Negative) Urine Bilirubin (Negative) Urine Urobilinogen (0.2) mg/dL Ur Leukocyte Esterase (Negative) U Hyaline Cast (Auto) (0-2) /LPF Urine Microscopic RBC (0-5) /HPF Urine Microscopic WBC (0-5) /HPF Ur Epithelial Cells (None Seen) /HPF Urine Bacteria (None Seen) /HPF Urine Culture Reflexed (NO) Influenza Type A Ag NEGATIVE (NEGATIVE) Influenza Type B Ag NEGATIVE (NEGATIVE) RSV (PCR) NEGATIVE (NEGATIVE) SARS-CoV-2 (PCR) NEGATIVE (NEGATIVE) Slides for Path Review 08/15/23 08/15/23 Range/Units 15:27 17:00 WBC (4.0-10.5) x10^3/uL RBC (4.1-5.6) x10^6/uL Hgb (12.5-18.0) g/dL Hct (42-50) % MCV (78-100) fL MCH (26-32) pg MCHC (32-36) g/dL RDW (11.5-14.0) % Plt Count (150-450) x10^3/uL MPV (7.5-11.0) fL Gran % (36.0-66.0) % Immature Gran % (Auto) (0.00-0.4) % Nucleat RBC Rel Count (0.00-0.1) % Eos # (Auto) (0-0.5) x10^3/uL Immature Gran # (Auto) (0.00-0.03) x10^3u/L Absolute Lymphs (auto) (1.0-4.6) x10^3/uL Absolute Monos (auto) (0.0-1.3) x10^3/uL Absolute Nucleated RBC (0.00-0.01) x10^3u/L Lymphocytes % (24.0-44.0) % Monocytes % (0.0-12.0) % Eosinophils % (0.00-5.0) % Basophils % (0.0-0.4) % Absolute Granulocytes (1.4-6.9) x10^3/uL Basophils # (0-0.4) x10^3/uL ESR 34 H (0-15) mm/hr Sodium (135-145) mmol/L Potassium (3.5-5.1) mmol/L Chloride (98-107) mmol/L Carbon Dioxide (22-30) mmol/L Anion Gap (5-15) MEQ/L BUN (9-20) mg/dL Creatinine (0.66-1.25) mg/dL Estimated GFR ML/MIN Glucose (74-106) mg/dL POC Glucometer 172 H (74 to 106) mg/dL Lactic Acid (0.4-2.0) Calcium (8.4-10.2) mg/dL Total Bilirubin (0.2-1.3) mg/dL AST (17-59) U/L ALT (0-50) U/L Alkaline Phosphatase (38-126) U/L Serum Total Protein (6.3-8.2) g/dL Albumin (3.5-5.0) g/dL Urine Color (Yellow) Urine Appearance (Clear) Urine pH (4.6-8.0) Ur Specific [place] (1.005-1.030) Urine Protein (Negative) Urine Glucose (UA) (Negative) mg/dL Urine Ketones (Negative) Urine Blood (Negative) Urine Nitrite (Negative) Urine Bilirubin (Negative) Urine Urobilinogen (0.2) mg/dL Ur Leukocyte Esterase (Negative) U Hyaline Cast (Auto) (0-2) /LPF Urine Microscopic RBC (0-5) /HPF Urine Microscopic WBC (0-5) /HPF Ur Epithelial Cells (None Seen) /HPF Urine Bacteria (None Seen) /HPF Urine Culture Reflexed (NO) Influenza Type A Ag (NEGATIVE) Influenza Type B Ag (NEGATIVE) RSV (PCR) (NEGATIVE) SARS-CoV-2 (PCR) (NEGATIVE) Slides for Path Review Accuchecks Date 08/15/23 Time 17:01 - Radiology Impressions Radiology Exams & Impressions: Radiology Procedures Category Date Time Status FOOT (MINIMUM 3 VIEWS) Stat Exams 08/15/23 15:38 Completed VENOUS BILATERAL EXTREMITY [US] Stat Exams 08/15/23 11:15 Completed - Other Procedures and Tests Respiratory Therapy 08/15/23 15:58 BiPap/CPAP ROUTINE 08/15/23 15:59 Respiratory Therapy Assessment DAILY Assessment/Plan (1) COPD (chronic obstructive pulmonary disease) Current Visit: Yes Status: Acute (2) Cellulitis Current Visit: Yes Status: Acute Assessment & Plan: Right lower extremity ulcer was examined demonstrating no clinical signs of infection at this time however is likely source of cellulitis to the right lower extremity. Culture to be obtained Venous Dopplers demonstrating bilateral femoral vein deep vein thrombosis which are nonocclusive with a popliteal cyst. I do believe patient is a good candidate for bilateral lower extremity compression therapy since this does not extend into the greater saphenous vein. Patient likely not a good candidate for aggressive diuresis secondary to blood pressure. Patient currently on 40 mg Lasix daily Code(s): L03.90 - CELLULITIS, UNSPECIFIED (3) DVT (deep venous thrombosis) Current Visit: Yes Status: Acute Assessment & Plan: Nonocclusive affecting SFV bilaterally Code(s): I82.409 - ACUTE EMBOLISM AND THOMBOS UNSP DEEP VN UNSP LOWER EXTREMITY (4) Diabetes mellitus Current Visit: Yes Status: Acute Qualifiers: Diabetes mellitus type: type 2 Diabetes mellitus complication detail: with foot ulcer Code(s): E11.9 - TYPE 2 DIABETES MELLITUS WITHOUT COMPLICATIONS (5) Diabetic foot ulcer Current Visit: Yes Status: Acute Assessment & Plan: Longstanding ulceration being managed by Dr. Adrian. During his stay would prefer compression therapy along with iodine and Aquacel Ag. Code(s): E11.621 - TYPE 2 DIABETES MELLITUS WITH FOOT ULCER; L97.509 - NON- PRESSURE CHRONIC ULCER OTH PRT UNSP FOOT W UNSP SEVERITY (6) Lactic acid acidosis Current Visit: Yes Status: Acute Assessment & Plan: Currently on Vanco Zosyn UTI likely causative source of sepsis with elevated lactic acid Wound to foot clear of any indicators of local infection other than mild wound edge maceration Follow cultures Radiographs reviewed demonstrating no indications of Osteolysis in area of wound to the right lower extremity Code(s): E87.20 - ACIDOSIS, UNSPECIFIED (7) Leukocytosis Current Visit: Yes Status: Acute Code(s): D72.829 - ELEVATED WHITE BLOOD CELL COUNT, UNSPECIFIED (8) Sepsis Current Visit: Yes Status: Acute (9) Urinary tract infection Current Visit: Yes Status: Acute Code(s): N39.0 - URINARY TRACT INFECTION, SITE NOT SPECIFIED (10) Nonspecific chest pain Current Visit: No Status: Acute Code(s): R07.9 - CHEST PAIN, UNSPECIFIED
[2023-08-15 17:28] LABS: PROCALCITONIN 5.04 ng/mL (0.030-0.080)
[2023-08-15] MEDS ORDERED: Docusate Sodium 100 MG PO PRN (17:40)
[2023-08-15] MEDS ORDERED: Nitrostat 0.4 MG Tablet SL PRN (17:45)
[2023-08-15] MEDS ORDERED: Restoril 15 MG PO PRN (17:57)
[2023-08-15] MEDS: PIPERACILLIN/TAZOBACTAM 4.5 GM in Sodium Chloride 100ML MINI-BAG PLUS 100 ML IV SCH (18:21)
[2023-08-15] MEDS: FEOSOL 325 MG PO SCH (18:22)
[2023-08-15] MEDS: Ditropan XL 5 MG PO SCH (18:22)
[2023-08-15] MEDS: ZYLOPRIM 300 MG PO SCH (18:22)
[2023-08-15] MEDS: ZOCOR 20MG PO SCH (18:22)
[2023-08-15] MEDS: Lasix 40 MG PO SCH (18:22)
[2023-08-15] MEDS: Toprol-Xl 25MG Tablets PO SCH (18:23)
[2023-08-15] MEDS: Zofran 4 MG/2 ML VIAL IV PRN (18:36)
[2023-08-15] MEDS: Advair Hfa 115/21 Common canister IH SCH (18:55)
[2023-08-15] MEDS: PHARMACY DOSING REQUEST MC ONE (19:01)
[2023-08-15] MEDS: PHARMACY DOSING REQUIRED: VANCOMYCIN IV STA (19:01)
[2023-08-15] MEDS: TYLENOL 325 MG PO PRN (20:43)
[2023-08-15 21:13] LABS: ANION GAP 14.6 MEQ/L (5-15); Calcium 8.3 mg/dL (8.4-10.2); Creatinine 1 1.22 mg/dL (0.66-1.25); EST GLOMERULAR FILTRATION RATE 64.6 ML/MIN
[2023-08-15] MEDS ORDERED: GLUCOSAMINE HCL 500 MG PO SCH (22:00)
[2023-08-15] MEDS: MAG-OX 400 PO SCH (22:38)
[2023-08-15] MEDS: Klor Con PO SCH (22:38)
[2023-08-15] MEDS: Flomax 0.4 MG PO SCH (22:38)
[2023-08-15] MEDS: Protonix 40MG Tablet PO SCH (22:38)
[2023-08-15] MEDS: VANCOMYCIN 1.5 GRAM/300 ML BAG 1.5 GM/300 ML PIGGYBACK IV SCH (22:40)
[2023-08-16 04:51] LABS: Absolute Neutrophil Ct (ANC) 7.88 x10^3/uL (1.4-6.9); BASOPHIL % 0.1 % (0.0-0.4); Basophil (Absolute #) 0.01 x10^3/uL (0-0.4); Eosinophil (Absolute #) 0 x10^3/uL (0-0.5); Hematocrit 32.1 % (42-50); Hemoglobin 10.2 g/dL (12.5-18.0); IMMATURE GRAN # 0.14 x10^3u/L (0.00-0.03); IMMATURE GRAN % 1.6 % (0.00-0.4); Lymphocyte (Absolute #) 0.58 x10^3/uL (1.0-4.6); Lymphocytes % 6.4 % (24.0-44.0); Mean Cell Volume 89.9 fL (78-100); Mean Corpuscular Hemoglobin 28.6 pg (26-32); Mean Corpuscular Hgb Concent. 31.8 g/dL (32-36); Mean Platelet Volume 11.1 fL (7.5-11.0); Monocyte (Absolute #) 0.39 x10^3/uL (0.0-1.3); Monocytes % 4.3 % (0.0-12.0); Neutrophil % 87.6 % (36.0-66.0); Platelet Count 63 x10^3/uL (150-450); Red Blood Count 3.57 x10^6/uL (4.1-5.6); Red Cell Distribution Width 18.1 % (11.5-14.0)
[2023-08-16 05:08] LABS: ALBUMIN 2.4 g/dL (3.5-5.0); ANION GAP 14.4 MEQ/L (5-15); BILIRUBIN,TOTAL 1.3 mg/dL (0.2-1.3); Creatinine 1 1.37 mg/dL (0.66-1.25); EST GLOMERULAR FILTRATION RATE 56.2 ML/MIN; Potassium 4.6 mmol/L (3.5-5.1); Total Protein 5.4 g/dL (6.3-8.2)
[2023-08-16 07:16] LABS: Slide Review 1 YES
[2023-08-16] MEDS ORDERED: PROTONIX 40 MG IV IV SCH (10:00)
--- NOTE | 2023-08-16 10:21 | PCM.NOTE ---
Date and Time: 08/16/23 1014 Subjective Assessment: is a 67 year old male with a pmhx of HTN, DIANA, COPD, and DMII who presented to ED 08/15/23 with complaints of a two day history of BLE edema, vomiting, generalized weakness/dizziness, dysuria, subjective fever/chills, productive cough with white sputum. Patient also reports that he sees Dr. Adrian podiatry for a left diabetic foot ulcer; C managing dressing changes. In ED, patient septic on presentation. Vitals noted with mild tachycardia and hypotension. Venous doppler showing non-occluding thrombi of the left and right femoral veins. Lab findings remarkable for WBC at 13.9, hyponatremia at 133, GAP acidosis with lactic at 6.0, carbon dioxide at 15, GAP at 16.9, hyperkalemia at 5.4, Tbili at 1.7, urinalysis with nitrites and leuks. Patient given zosyn/vanc as well as IVF initiated. Patient admitted with sepsis, underlying cause most likely multifocal with UTI, cellulitis of the right leg, and right diabetic foot ulcer. - Review of Systems Constitutional: No Symptoms Eyes: No Symptoms Ears, Nose, & Throat: No Symptoms Respiratory: Cough, Short Of Breath Cardiac: No Symptoms Abdominal/Gastrointestinal: No Symptoms Genitourinary Symptoms: Dysuria Musculoskeletal: Joint Pain Skin: Cellulitis Neurological: No Symptoms Psychological: No Symptoms Endocrine: No Symptoms Hematologic/Lymphatic: No Symptoms Immunological/Allergic: No Symptoms Objective Exam General Appearance: no apparent distress Neurologic Exam: alert, oriented x 3, cooperative Skin Exam: normal color Wound Assessment: Skin/Wound Assessment Wound/Incision Assessment Start: 08/15/23 15:48 Text: Status: Active Freq: Q6H Protocol: Document 08/16/23 08:00 HUGH (Rec: 08/16/23 09:03 HUGH [id number]) Wound/Incision Assessment Right Posterior Toe Wound Assessment Shift Assessment Wound Type DIABETIC ULCER Wound Stage Non Pressure Wound Dressing Status Dry & Intact Drainage Amount None Drainage Odor None/Absent General Appearance Well Approximated Wound Bed Greatest Portion Red (Granulation) Comment BOTTOM OF FOOT, DRESSING INTACT LEFT ANTERIOR LEG Wound Assessment Admission Wound Type REDNESS Wound Stage Non Pressure Wound Drainage Amount None General Appearance Well Approximated Wound Bed Greatest Portion Red (Granulation) Wound Bed Lesser Portion Pale [place] RIGHT LOWER LEG Wound Assessment Admission Wound Type CELLULITIS Wound Stage Non Pressure Wound Drainage Description Serous General Appearance Reddened Surrounding Tissue [place] Comment HOT TO THE TOUCH, Eye Exam: PERRL Ears, Nose, Throat Exam: normal ENT inspection Neck Exam: normal inspection Respiratory Exam: normal breath sounds, lungs clear Cardiovascular Exam: regular rate/rhythm, normal heart sounds Gastrointestinal/Abdomen Exam: soft, normal bowel sounds Extremity Exam: other (right lower extremity to thigh), Other (right diabetic foot ulcer)) Back Exam: normal inspection Male Genitalia Exam: deferred Rectal Exam: deferred Objective Data Vital Signs: Vital Signs - 24 hr Temp Pulse Resp BP BP Pulse Ox 08/16/23 07:18 98.8 F 82 16 101/52 93 L 08/16/23 06:58 82 20 93 L 08/16/23 04:00 98.9 F 99 H 21 108/42 99 08/16/23 00:00 101.2 F 99 H 22 101/67 94 L 08/15/23 19:59 99.9 F 104 H 23 109/62 97 08/15/23 18:57 104 H 20 97 08/15/23 16:07 96 H 21 95 08/15/23 15:03 98.7 F 98 H 20 117/59 95 08/15/23 14:35 98.7 F 98 H 20 117/59 95 08/15/23 14:29 99 08/15/23 14:00 96 H 19 105/60 96 08/15/23 13:30 98 H 21 116/61 97 08/15/23 13:00 103 H 20 113/55 95 08/15/23 12:30 102 H 20 97/52 97 08/15/23 12:00 100 H 21 109/71 96 08/15/23 11:31 101 H 22 93/59 99 08/15/23 11:16 99 08/15/23 11:00 103 H 21 115/67 99 08/15/23 10:56 99.3 F 105 H 23 115/67 97 Pain Assessment - Last Documented Pain Intensity 4 Pain Scale Used 0-10 Pain Scale Intake and Output: Intake & Output 08/13/23 08/14/23 08/15/23 08/16/23 11:59 11:59 11:59 11:59 Intake Total 3595 Output Total 1550 Balance 2044 Weight 148.325 kg 160.5 kg Lab Results: Lab Results-Last 24 Hours 08/15/23 08/15/23 08/15/23 Range/Units 11:11 12:12 12:20 WBC 13.9 H (4.0-10.5) x10^3/uL RBC 3.99 L (4.1-5.6) x10^6/uL Hgb 11.8 L (12.5-18.0) g/dL Hct 36.4 L (42-50) % MCV 91.2 (78-100) fL MCH 29.6 (26-32) pg MCHC 32.4 (32-36) g/dL RDW 17.6 H (11.5-14.0) % Plt Count 75 L (150-450) x10^3/uL MPV 10.7 (7.5-11.0) fL Gran % 95.6 H (36.0-66.0) % Immature Gran % (Auto) 0.5 H (0.00-0.4) % Nucleat RBC Rel Count 0.0 (0.00-0.1) % Eos # (Auto) 0 (0-0.5) x10^3/uL Immature Gran # (Auto) 0.07 H (0.00-0.03) x10^3u/L Absolute Lymphs (auto) 0.25 L (1.0-4.6) x10^3/uL Absolute Monos (auto) 0.28 (0.0-1.3) x10^3/uL Absolute Nucleated RBC 0.00 (0.00-0.01) x10^3u/L Lymphocytes % 1.8 L (24.0-44.0) % Monocytes % 2.0 (0.0-12.0) % Eosinophils % 0.0 (0.00-5.0) % Basophils % 0.1 (0.0-0.4) % Absolute Granulocytes 13.33 H (1.4-6.9) x10^3/uL Basophils # 0.01 (0-0.4) x10^3/uL ESR (0-15) mm/hr Sodium (135-145) mmol/L Potassium (3.5-5.1) mmol/L Chloride (98-107) mmol/L Carbon Dioxide (22-30) mmol/L Anion Gap (5-15) MEQ/L BUN (9-20) mg/dL Creatinine (0.66-1.25) mg/dL Estimated GFR ML/MIN Glucose (74-106) mg/dL POC Glucometer (74 to 106) mg/dL Hemoglobin A1c (4.5-6.0) % Lactic Acid 6.0 H (0.4-2.0) Calcium (8.4-10.2) mg/dL Total Bilirubin (0.2-1.3) mg/dL AST (17-59) U/L ALT (0-50) U/L Alkaline Phosphatase (38-126) U/L Serum Total Protein (6.3-8.2) g/dL Albumin (3.5-5.0) g/dL Prealbumin (17.6-36.0) mg/dL Procalcitonin (0.030-0.080) ng/mL TSH 3rd Generation (0.47-4.68) mIU/L Urine Color Dark Yellow (Yellow) Urine Appearance Turbid A (Clear) Urine pH 5.0 (4.6-8.0) Ur Specific Max 1.020 (1.005-1.030) Urine Protein 100 A (Negative) Urine Glucose (UA) Negative (Negative) mg/dL Urine Ketones Trace A (Negative) Urine Blood Large A (Negative) Urine Nitrite Positive A (Negative) Urine Bilirubin Small A (Negative) Urine Urobilinogen 1.0 A (0.2) mg/dL Ur Leukocyte Esterase Large A (Negative) U Hyaline Cast (Auto) None Seen (0-2) /LPF Urine Microscopic RBC 6-10 A (0-5) /HPF Urine Microscopic WBC >100 A (0-5) /HPF Ur Epithelial Cells Rare (None Seen) /HPF Urine Bacteria Moderate A (None Seen) /HPF Urine Culture Reflexed ORDERED SEPARATELY (NO) Influenza Type A Ag (NEGATIVE) Influenza Type B Ag (NEGATIVE) RSV (PCR) (NEGATIVE) SARS-CoV-2 (PCR) (NEGATIVE) Slides for Path Review YES 08/15/23 08/15/23 08/15/23 Range/Units 12:20 12:27 14:37 WBC (4.0-10.5) x10^3/uL RBC (4.1-5.6) x10^6/uL Hgb (12.5-18.0) g/dL Hct (42-50) % MCV (78-100) fL MCH (26-32) pg MCHC (32-36) g/dL RDW (11.5-14.0) % Plt Count (150-450) x10^3/uL MPV (7.5-11.0) fL Gran % (36.0-66.0) % Immature Gran % (Auto) (0.00-0.4) % Nucleat RBC Rel Count (0.00-0.1) % Eos # (Auto) (0-0.5) x10^3/uL Immature Gran # (Auto) (0.00-0.03) x10^3u/L Absolute Lymphs (auto) (1.0-4.6) x10^3/uL Absolute Monos (auto) (0.0-1.3) x10^3/uL Absolute Nucleated RBC (0.00-0.01) x10^3u/L Lymphocytes % (24.0-44.0) % Monocytes % (0.0-12.0) % Eosinophils % (0.00-5.0) % Basophils % (0.0-0.4) % Absolute Granulocytes (1.4-6.9) x10^3/uL Basophils # (0-0.4) x10^3/uL ESR (0-15) mm/hr Sodium 133 L (135-145) mmol/L Potassium 5.4 H (3.5-5.1) mmol/L Chloride 107 (98-107) mmol/L Carbon Dioxide 15 L* (22-30) mmol/L Anion Gap 16.9 H (5-15) MEQ/L BUN 20 (9-20) mg/dL Creatinine 1.23 (0.66-1.25) mg/dL Estimated GFR 64.0 ML/MIN Glucose 212 H (74-106) mg/dL POC Glucometer (74 to 106) mg/dL Hemoglobin A1c (4.5-6.0) % Lactic Acid 4.3 H (0.4-2.0) Calcium 8.7 (8.4-10.2) mg/dL Total Bilirubin 1.70 H (0.2-1.3) mg/dL AST 59 (17-59) U/L ALT 60 H (0-50) U/L Alkaline Phosphatase 101 (38-126) U/L Serum Total Protein 6.2 L (6.3-8.2) g/dL Albumin 3.0 L (3.5-5.0) g/dL Prealbumin (17.6-36.0) mg/dL Procalcitonin (0.030-0.080) ng/mL TSH 3rd Generation (0.47-4.68) mIU/L Urine Color (Yellow) Urine Appearance (Clear) Urine pH (4.6-8.0) Ur Specific Max (1.005-1.030) Urine Protein (Negative) Urine Glucose (UA) (Negative) mg/dL Urine Ketones (Negative) Urine Blood (Negative) Urine Nitrite (Negative) Urine Bilirubin (Negative) Urine Urobilinogen (0.2) mg/dL Ur Leukocyte Esterase (Negative) U Hyaline Cast (Auto) (0-2) /LPF Urine Microscopic RBC (0-5) /HPF Urine Microscopic WBC (0-5) /HPF Ur Epithelial Cells (None Seen) /HPF Urine Bacteria (None Seen) /HPF Urine Culture Reflexed (NO) Influenza Type A Ag NEGATIVE (NEGATIVE) Influenza Type B Ag NEGATIVE (NEGATIVE) RSV (PCR) NEGATIVE (NEGATIVE) SARS-CoV-2 (PCR) NEGATIVE (NEGATIVE) Slides for Path Review 08/15/23 08/15/23 08/15/23 Range/Units 15:27 16:34 16:34 WBC (4.0-10.5) x10^3/uL RBC (4.1-5.6) x10^6/uL Hgb (12.5-18.0) g/dL Hct (42-50) % MCV (78-100) fL MCH (26-32) pg MCHC (32-36) g/dL RDW (11.5-14.0) % Plt Count (150-450) x10^3/uL MPV (7.5-11.0) fL Gran % (36.0-66.0) % Immature Gran % (Auto) (0.00-0.4) % Nucleat RBC Rel Count (0.00-0.1) % Eos # (Auto) (0-0.5) x10^3/uL Immature Gran # (Auto) (0.00-0.03) x10^3u/L Absolute Lymphs (auto) (1.0-4.6) x10^3/uL Absolute Monos (auto) (0.0-1.3) x10^3/uL Absolute Nucleated RBC (0.00-0.01) x10^3u/L Lymphocytes % (24.0-44.0) % Monocytes % (0.0-12.0) % Eosinophils % (0.00-5.0) % Basophils % (0.0-0.4) % Absolute Granulocytes (1.4-6.9) x10^3/uL Basophils # (0-0.4) x10^3/uL ESR 34 H (0-15) mm/hr Sodium (135-145) mmol/L Potassium (3.5-5.1) mmol/L Chloride (98-107) mmol/L Carbon Dioxide (22-30) mmol/L Anion Gap (5-15) MEQ/L BUN (9-20) mg/dL Creatinine (0.66-1.25) mg/dL Estimated GFR ML/MIN Glucose (74-106) mg/dL POC Glucometer (74 to 106) mg/dL Hemoglobin A1c 6.97 H (4.5-6.0) % Lactic Acid (0.4-2.0) Calcium (8.4-10.2) mg/dL Total Bilirubin (0.2-1.3) mg/dL AST (17-59) U/L ALT (0-50) U/L Alkaline Phosphatase (38-126) U/L Serum Total Protein (6.3-8.2) g/dL Albumin (3.5-5.0) g/dL Prealbumin 11.60 L (17.6-36.0) mg/dL Procalcitonin 5.040 H* (0.030-0.080) ng/mL TSH 3rd Generation 0.688 (0.47-4.68) mIU/L Urine Color (Yellow) Urine Appearance (Clear) Urine pH (4.6-8.0) Ur Specific Max (1.005-1.030) Urine Protein (Negative) Urine Glucose (UA) (Negative) mg/dL Urine Ketones (Negative) Urine Blood (Negative) Urine Nitrite (Negative) Urine Bilirubin (Negative) Urine Urobilinogen (0.2) mg/dL Ur Leukocyte Esterase (Negative) U Hyaline Cast (Auto) (0-2) /LPF Urine Microscopic RBC (0-5) /HPF Urine Microscopic WBC (0-5) /HPF Ur Epithelial Cells (None Seen) /HPF Urine Bacteria (None Seen) /HPF Urine Culture Reflexed (NO) Influenza Type A Ag (NEGATIVE) Influenza Type B Ag (NEGATIVE) RSV (PCR) (NEGATIVE) SARS-CoV-2 (PCR) (NEGATIVE) Slides for Path Review 08/15/23 08/15/23 08/15/23 Range/Units 17:00 17:55 20:41 WBC (4.0-10.5) x10^3/uL RBC (4.1-5.6) x10^6/uL Hgb (12.5-18.0) g/dL Hct (42-50) % MCV (78-100) fL MCH (26-32) pg MCHC (32-36) g/dL RDW (11.5-14.0) % Plt Count (150-450) x10^3/uL MPV (7.5-11.0) fL Gran % (36.0-66.0) % Immature Gran % (Auto) (0.00-0.4) % Nucleat RBC Rel Count (0.00-0.1) % Eos # (Auto) (0-0.5) x10^3/uL Immature Gran # (Auto) (0.00-0.03) x10^3u/L Absolute Lymphs (auto) (1.0-4.6) x10^3/uL Absolute Monos (auto) (0.0-1.3) x10^3/uL Absolute Nucleated RBC (0.00-0.01) x10^3u/L Lymphocytes % (24.0-44.0) % Monocytes % (0.0-12.0) % Eosinophils % (0.00-5.0) % Basophils % (0.0-0.4) % Absolute Granulocytes (1.4-6.9) x10^3/uL Basophils # (0-0.4) x10^3/uL ESR (0-15) mm/hr Sodium (135-145) mmol/L Potassium (3.5-5.1) mmol/L Chloride (98-107) mmol/L Carbon Dioxide (22-30) mmol/L Anion Gap (5-15) MEQ/L BUN (9-20) mg/dL Creatinine (0.66-1.25) mg/dL Estimated GFR ML/MIN Glucose (74-106) mg/dL POC Glucometer 172 H 161 H (74 to 106) mg/dL Hemoglobin A1c (4.5-6.0) % Lactic Acid 3.4 H (0.4-2.0) Calcium (8.4-10.2) mg/dL Total Bilirubin (0.2-1.3) mg/dL AST (17-59) U/L ALT (0-50) U/L Alkaline Phosphatase (38-126) U/L Serum Total Protein (6.3-8.2) g/dL Albumin (3.5-5.0) g/dL Prealbumin (17.6-36.0) mg/dL Procalcitonin (0.030-0.080) ng/mL TSH 3rd Generation (0.47-4.68) mIU/L Urine Color (Yellow) Urine Appearance (Clear) Urine pH (4.6-8.0) Ur Specific Max (1.005-1.030) Urine Protein (Negative) Urine Glucose (UA) (Negative) mg/dL Urine Ketones (Negative) Urine Blood (Negative) Urine Nitrite (Negative) Urine Bilirubin (Negative) Urine Urobilinogen (0.2) mg/dL Ur Leukocyte Esterase (Negative) U Hyaline Cast (Auto) (0-2) /LPF Urine Microscopic RBC (0-5) /HPF Urine Microscopic WBC (0-5) /HPF Ur Epithelial Cells (None Seen) /HPF Urine Bacteria (None Seen) /HPF Urine Culture Reflexed (NO) Influenza Type A Ag (NEGATIVE) Influenza Type B Ag (NEGATIVE) RSV (PCR) (NEGATIVE) SARS-CoV-2 (PCR) (NEGATIVE) Slides for Path Review 08/15/23 08/15/23 08/16/23 Range/Units 20:48 21:10 04:35 WBC 9.0 (4.0-10.5) x10^3/uL RBC 3.57 L (4.1-5.6) x10^6/uL Hgb 10.2 L (12.5-18.0) g/dL Hct 32.1 L (42-50) % MCV 89.9 (78-100) fL MCH 28.6 (26-32) pg MCHC 31.8 L (32-36) g/dL RDW 18.1 H (11.5-14.0) % Plt Count 63 L (150-450) x10^3/uL MPV 11.1 H (7.5-11.0) fL Gran % 87.6 H (36.0-66.0) % Immature Gran % (Auto) 1.6 H (0.00-0.4) % Nucleat RBC Rel Count 0.0 (0.00-0.1) % Eos # (Auto) 0 (0-0.5) x10^3/uL Immature Gran # (Auto) 0.14 H (0.00-0.03) x10^3u/L Absolute Lymphs (auto) 0.58 L (1.0-4.6) x10^3/uL Absolute Monos (auto) 0.39 (0.0-1.3) x10^3/uL Absolute Nucleated RBC 0.00 (0.00-0.01) x10^3u/L Lymphocytes % 6.4 L (24.0-44.0) % Monocytes % 4.3 (0.0-12.0) % Eosinophils % 0.0 (0.00-5.0) % Basophils % 0.1 (0.0-0.4) % Absolute Granulocytes 7.88 H (1.4-6.9) x10^3/uL Basophils # 0.01 (0-0.4) x10^3/uL ESR (0-15) mm/hr Sodium 136 (135-145) mmol/L Potassium 5.0 (3.5-5.1) mmol/L Chloride 108 H (98-107) mmol/L Carbon Dioxide 19 L (22-30) mmol/L Anion Gap 14.6 (5-15) MEQ/L BUN 24 H (9-20) mg/dL Creatinine 1.22 (0.66-1.25) mg/dL Estimated GFR 64.6 ML/MIN Glucose 167 H (74-106) mg/dL POC Glucometer (74 to 106) mg/dL Hemoglobin A1c (4.5-6.0) % Lactic Acid 3.8 H (0.4-2.0) Calcium 8.3 L (8.4-10.2) mg/dL Total Bilirubin (0.2-1.3) mg/dL AST (17-59) U/L ALT (0-50) U/L Alkaline Phosphatase (38-126) U/L Serum Total Protein (6.3-8.2) g/dL Albumin (3.5-5.0) g/dL Prealbumin (17.6-36.0) mg/dL Procalcitonin (0.030-0.080) ng/mL TSH 3rd Generation (0.47-4.68) mIU/L Urine Color (Yellow) Urine Appearance (Clear) Urine pH (4.6-8.0) Ur Specific Max (1.005-1.030) Urine Protein (Negative) Urine Glucose (UA) (Negative) mg/dL Urine Ketones (Negative) Urine Blood (Negative) Urine Nitrite (Negative) Urine Bilirubin (Negative) Urine Urobilinogen (0.2) mg/dL Ur Leukocyte Esterase (Negative) U Hyaline Cast (Auto) (0-2) /LPF Urine Microscopic RBC (0-5) /HPF Urine Microscopic WBC (0-5) /HPF Ur Epithelial Cells (None Seen) /HPF Urine Bacteria (None Seen) /HPF Urine Culture Reflexed (NO) Influenza Type A Ag (NEGATIVE) Influenza Type B Ag (NEGATIVE) RSV (PCR) (NEGATIVE) SARS-CoV-2 (PCR) (NEGATIVE) Slides for Path Review YES 08/16/23 08/16/23 08/16/23 Range/Units 04:35 04:40 06:59 WBC (4.0-10.5) x10^3/uL RBC (4.1-5.6) x10^6/uL Hgb (12.5-18.0) g/dL Hct (42-50) % MCV (78-100) fL MCH (26-32) pg MCHC (32-36) g/dL RDW (11.5-14.0) % Plt Count (150-450) x10^3/uL MPV (7.5-11.0) fL Gran % (36.0-66.0) % Immature Gran % (Auto) (0.00-0.4) % Nucleat RBC Rel Count (0.00-0.1) % Eos # (Auto) (0-0.5) x10^3/uL Immature Gran # (Auto) (0.00-0.03) x10^3u/L Absolute Lymphs (auto) (1.0-4.6) x10^3/uL Absolute Monos (auto) (0.0-1.3) x10^3/uL Absolute Nucleated RBC (0.00-0.01) x10^3u/L Lymphocytes % (24.0-44.0) % Monocytes % (0.0-12.0) % Eosinophils % (0.00-5.0) % Basophils % (0.0-0.4) % Absolute Granulocytes (1.4-6.9) x10^3/uL Basophils # (0-0.4) x10^3/uL ESR (0-15) mm/hr Sodium 135 (135-145) mmol/L Potassium 4.6 (3.5-5.1) mmol/L Chloride 108 H (98-107) mmol/L Carbon Dioxide 18 L (22-30) mmol/L Anion Gap 14.4 (5-15) MEQ/L BUN 26 H (9-20) mg/dL Creatinine 1.37 H (0.66-1.25) mg/dL Estimated GFR 56.2 ML/MIN Glucose 153 H (74-106) mg/dL POC Glucometer 147 H (74 to 106) mg/dL Hemoglobin A1c (4.5-6.0) % Lactic Acid 3.2 H (0.4-2.0) Calcium 8.0 L (8.4-10.2) mg/dL Total Bilirubin 1.30 (0.2-1.3) mg/dL AST 46 (17-59) U/L ALT 37 (0-50) U/L Alkaline Phosphatase 73 (38-126) U/L Serum Total Protein 5.4 L (6.3-8.2) g/dL Albumin 2.4 L (3.5-5.0) g/dL Prealbumin (17.6-36.0) mg/dL Procalcitonin (0.030-0.080) ng/mL TSH 3rd Generation (0.47-4.68) mIU/L Urine Color (Yellow) Urine Appearance (Clear) Urine pH (4.6-8.0) Ur Specific Max (1.005-1.030) Urine Protein (Negative) Urine Glucose (UA) (Negative) mg/dL Urine Ketones (Negative) Urine Blood (Negative) Urine Nitrite (Negative) Urine Bilirubin (Negative) Urine Urobilinogen (0.2) mg/dL Ur Leukocyte Esterase (Negative) U Hyaline Cast (Auto) (0-2) /LPF Urine Microscopic RBC (0-5) /HPF Urine Microscopic WBC (0-5) /HPF Ur Epithelial Cells (None Seen) /HPF Urine Bacteria (None Seen) /HPF Urine Culture Reflexed (NO) Influenza Type A Ag (NEGATIVE) Influenza Type B Ag (NEGATIVE) RSV (PCR) (NEGATIVE) SARS-CoV-2 (PCR) (NEGATIVE) Slides for Path Review Radiology Exams: Radiology Procedures Category Date Time Status FOOT (MINIMUM 3 VIEWS) Stat Exams 08/15/23 15:38 Completed VENOUS BILATERAL EXTREMITY [US] Stat Exams 08/15/23 11:15 Completed Assessment/Plan (1) Sepsis Current Visit: Yes Status: Acute Assessment & Plan: -multifocal, most likely secondary to UTI, cellulitis/diabetic foot ulcer - Sepsis criteria identified 08/15/23 -Fluid Bolus ordered -LA at 6.0. Repeat lactate will be drawn in initial >2mmol/L If subsequent lactate elevated, trend until WNL -Blood cultures x2 ordered and pending -Vanc/zosyn started in ED, will continue -Ucult pending -Will admin vasopressors if hypotensive (MAP <65 or SBP <90) -procal, CXR -Resp mendez negative -Lovenox at therapeutic dose for new DVT diagnosis 08/15: -No longer meets criteria -WBC now wnl -Lactic Acid trending down now at 3.2 -Procal at 5.040 -Urine culture with gram - ID -Foot xray negative for acute findings (2) Diabetes mellitus Current Visit: Yes Status: Acute Qualifiers: Diabetes mellitus type: type 2 Diabetes mellitus complication detail: with foot ulcer Assessment & Plan: -SSI -lispro/glargine -ADA diet -A1c Code(s): E11.9 - TYPE 2 DIABETES MELLITUS WITHOUT COMPLICATIONS (3) COPD (chronic obstructive pulmonary disease) Current Visit: Yes Status: Acute Assessment & Plan: -RA -CXR -Does not appear to be in exacerbation -Supplemental oxygen with spo2 goal >88-92% -RT consult -Nebs/INH (4) Diabetic foot ulcer Current Visit: Yes Status: Acute Assessment & Plan: -Podiatry consult -right foot ulcer, reviewed consult, "Longstanding ulceration being managed by Dr. Adrian. During his stay would prefer compression therapy along with iodine and Aquacel Ag." -vanc/zosyn -xray right foot with no acute findings Code(s): E11.621 - TYPE 2 DIABETES MELLITUS WITH FOOT ULCER; L97.509 - NON- PRESSURE CHRONIC ULCER OTH PRT UNSP FOOT W UNSP SEVERITY (5) Cellulitis Current Visit: Yes Status: Acute Assessment & Plan: -Konstantin right leg -PCT, LA, ESR, CRP -Blood cultures pending -vanc/zosyn started in ED, will continue, pharmacy to dose -Wound culture open areas with drainage 08/15: -Podiatry consulted with recs for BLE compression wraps - per documentation Venous Dopplers demonstrating bilateral femoral vein deep vein thrombosis which are nonocclusive with a popliteal cyst. Code(s): L03.90 - CELLULITIS, UNSPECIFIED (6) DVT (deep venous thrombosis) Current Visit: Yes Status: Acute Assessment & Plan: -Doppler reviewed showing nonoccluding thrombi left and right femoral veins. -Pharmacy to dose therapeutic lovenox -OAC -CM to check cost 08/15: -eliquis 10mg bid x 1 week, then 5mg bid there after Code(s): I82.409 - ACUTE EMBOLISM AND THOMBOS UNSP DEEP VN UNSP LOWER EXTREMITY (7) DIANA (obstructive sleep apnea) Current Visit: Yes Status: Acute Assessment & Plan: -CPAP at night Code(s): G47.33 - OBSTRUCTIVE SLEEP APNEA (ADULT) (PEDIATRIC) (8) Urinary tract infection Current Visit: Yes Status: Acute Assessment & Plan: -Ucult pending, vanc/zosyn for now, follow culture 08/15: -Ucult with gram- ID will continue to follow, continue current abx (9) Thrombocytopenia -May be secondary to infection, has had several low counts in the past, does not see hematology -will check smear for clumping -Monitor and replace if less than 20 -consider heme/onc referral -TSH, b12/fol, VTE: lovenox PPI: protonix Dispo: 2-3 days (2) Diabetes mellitus Current Visit: Yes Status: Acute Qualifiers: Diabetes mellitus type: type 2 Diabetes mellitus complication detail: with foot ulcer Code(s): E11.9 - TYPE 2 DIABETES MELLITUS WITHOUT COMPLICATIONS (3) COPD (chronic obstructive pulmonary disease) Current Visit: Yes Status: Acute (4) Diabetic foot ulcer Current Visit: Yes Status: Acute Code(s): E11.621 - TYPE 2 DIABETES MELLITUS WITH FOOT ULCER; L97.509 - NON-PRESSURE CHRONIC ULCER OTH PRT UNSP FOOT W UNSP SEVERITY (5) Cellulitis Current Visit: Yes Status: Acute Code(s): L03.90 - CELLULITIS, UNSPECIFIED (6) DVT (deep venous thrombosis) Current Visit: Yes Status: Acute Code(s): I82.409 - ACUTE EMBOLISM AND THOMBOS UNSP DEEP VN UNSP LOWER EXTREMITY (7) DIANA (obstructive sleep apnea) Current Visit: Yes Status: Acute Code(s): G47.33 - OBSTRUCTIVE SLEEP APNEA (ADULT) (PEDIATRIC) (8) Urinary tract infection Current Visit: Yes Status: Acute Code(s): N39.0 - URINARY TRACT INFECTION, SITE NOT SPECIFIED
[2023-08-16] MEDS: ELIQUIS 2.5 MG TABLET PO SCH (10:39)
[2023-08-16] MEDS: PATIENT OWN MEDICATION PO SCH (12:47)
[2023-08-16] MEDS: HUMALOG SQ PRN (12:48)
[2023-08-16 13:11] LABS: Folate (Folic Acid) 3.54 ng/mL (2.76 - >20); TSH, 3RD Generation 0.628 mIU/L (0.47-4.68)
[2023-08-17 05:21] LABS: Hematocrit 31.8 % (42-50); Hemoglobin 10.5 g/dL (12.5-18.0); Mean Cell Volume 90.3 fL (78-100); Mean Corpuscular Hemoglobin 29.8 pg (26-32); Mean Platelet Volume 11.5 fL (7.5-11.0); Platelet Count 73 x10^3/uL (150-450); Red Blood Count 3.52 x10^6/uL (4.1-5.6); Red Cell Distribution Width 18.1 % (11.5-14.0); White Blood Count 6.5 x10^3/uL (4.0-10.5)
[2023-08-17 05:32] LABS: ALBUMIN 2.5 g/dL (3.5-5.0); ANION GAP 12.8 MEQ/L (5-15); BILIRUBIN,TOTAL 1.4 mg/dL (0.2-1.3); Calcium 8.1 mg/dL (8.4-10.2); Creatinine 1 1.22 mg/dL (0.66-1.25); EST GLOMERULAR FILTRATION RATE 64.6 ML/MIN; Potassium 4.6 mmol/L (3.5-5.1); Total Protein 5.7 g/dL (6.3-8.2)
--- NOTE | 2023-08-17 11:09 | PCM.NOTE ---
Date and Time: 08/17/23 1109 Subjective Assessment: is a 67 year old male with a pmhx of HTN, DIANA, COPD, and DMII who presented to ED 08/15/23 with complaints of a two day history of BLE edema, vomiting, generalized weakness/dizziness, dysuria, subjective fever/chills, productive cough with white sputum. Patient also reports that he sees Dr. Justin savage podiatry for a left diabetic foot ulcer; [facility] managing dressing changes. In ED, patient septic on presentation. Vitals noted with mild tachycardia and hypotension. Venous doppler showing non-occluding thrombi of the left and right femoral veins. Lab findings remarkable for WBC at 13.9, hyponatremia at 133, GAP acidosis with lactic at 6.0, carbon dioxide at 15, GAP at 16.9, hyperkalemia at 5.4, Tbili at 1.7, urinalysis with nitrites and leuks. Patient given zosyn/vanc as well as IVF initiated. Patient admitted with sepsis, underlying cause most likely multifocal with UTI, cellulitis of the right leg, and right diabetic foot ulcer. 08/17/2023: -Patient sitting up in chair getting PT and looked much more alert and responsive. Feeling better. He had wraps on both lower legs but right leg er ythema seems to be improving close to the marked area - Review of Systems Constitutional: Weakness Eyes: No Symptoms Ears, Nose, & Throat: No Symptoms Respiratory: No Cough, No Short Of Breath Cardiac: No Chest Pain, No Edema, No Syncope Abdominal/Gastrointestinal: No Abdominal Pain, No Nausea, No Vomiting, No Diarrhea Genitourinary Symptoms: Dysuria Musculoskeletal: No Back Pain, No Neck Pain Skin: Cellulitis, Skin Lesions (right foot) Neurological: No Dizziness, No Focal Weakness, No Sensory Changes Objective Exam General Appearance: no apparent distress Neurologic Exam: alert, oriented x 3, cooperative, normal mood/affect, nml cerebellar function, sensation nml, No motor deficits Skin Exam: other (Erythema and edema to right lower leg, right foot ulcer) Wound Assessment: Skin/Wound Assessment Wound/Incision Assessment Start: 08/15/23 15:48 Text: Status: Active Freq: Q6H Protocol: Document 08/17/23 08:00 RB (Rec: 08/17/23 08:47 RB [id number]) Wound/Incision Assessment Right Posterior Toe Wound Assessment Shift Assessment Wound Type DIABETIC ULCER Wound Stage Non Pressure Wound Dressing Status Dry & Intact Drainage Amount None Drainage Odor None/Absent General Appearance Well Approximated Wound Bed Greatest Portion Red (Granulation) Comment UNABLE TO ASSESS, UNABOOT IN PLACE LEFT ANTERIOR LEG Wound Assessment Shift Assessment Wound Type REDNESS Wound Stage Non Pressure Wound Dressing Status Dry & Intact Drainage Amount None Comment UNABLE TO ASSESS, UNABOOT IN PLACE RIGHT LOWER LEG Wound Assessment Shift Assessment Wound Type CELLULITIS Wound Stage Non Pressure Wound Dressing Status Dry & Intact Drainage Amount None Comment REDNESS NOTED TO UPPER THIGH ABOVE ANA BOOT, NO REDNESS OUTSIDE OF ORIGINAL MARKING Wound Photo Photo Taken Yes Eye Exam: PERRL, EOMI, eyes nml inspection Ears, Nose, Throat Exam: normal ENT inspection, pharynx normal, moist mucous membranes Neck Exam: normal inspection, non-tender, supple, full range of motion Respiratory Exam: normal breath sounds, lungs clear, No respiratory distress Cardiovascular Exam: regular rate/rhythm, normal heart sounds Gastrointestinal/Abdomen Exam: soft, No tenderness, No mass Extremity Exam: swelling, tenderness (erythema of right lower extremity) Male Genitalia Exam: deferred Rectal Exam: deferred Objective Data Vital Signs: Vital Signs - 24 hr Temp Pulse Resp BP Pulse Ox 08/17/23 07:29 97.4 F 79 16 99/50 100 08/17/23 06:55 70 14 97 08/17/23 03:48 98.7 F 78 16 108/56 92 L 08/16/23 23:46 98.3 F 95 H 20 112/54 94 L 08/16/23 20:00 98.2 F 92 H 18 105/51 94 L 08/16/23 19:23 75 16 94 L 08/16/23 16:00 98.8 F 95 H 18 103/54 94 L 08/16/23 11:28 98.7 F 84 16 109/61 94 L Pain Assessment - Last Documented Pain Intensity 0 Pain Scale Used 0-10 Pain Scale Intake and Output: Intake & Output 08/14/23 08/15/23 08/16/23 08/17/23 11:59 11:59 11:59 11:59 Intake Total 3595 1975 Output Total 1650 1075 Balance 1945 900 Weight 148.325 kg 160.5 kg Lab Results: Lab Results-Last 24 Hours 08/16/23 08/16/23 08/16/23 Range/Units 05:00 11:05 16:15 WBC (4.0-10.5) x10^3/uL RBC (4.1-5.6) x10^6/uL Hgb (12.5-18.0) g/dL Hct (42-50) % MCV (78-100) fL MCH (26-32) pg MCHC (32-36) g/dL RDW (11.5-14.0) % Plt Count (150-450) x10^3/uL MPV (7.5-11.0) fL Sodium (135-145) mmol/L Potassium (3.5-5.1) mmol/L Chloride (98-107) mmol/L Carbon Dioxide (22-30) mmol/L Anion Gap (5-15) MEQ/L BUN (9-20) mg/dL Creatinine (0.66-1.25) mg/dL Estimated GFR ML/MIN Glucose (74-106) mg/dL POC Glucometer 163 H 171 H (74 to 106) mg/dL Lactic Acid (0.4-2.0) Calcium (8.4-10.2) mg/dL Total Bilirubin (0.2-1.3) mg/dL AST (17-59) U/L ALT (0-50) U/L Alkaline Phosphatase (38-126) U/L Serum Total Protein (6.3-8.2) g/dL Albumin (3.5-5.0) g/dL Vitamin B12 825 (239-931) pg/mL Folic Acid 3.54 (2.76 - >20) ng/mL TSH 3rd Generation 0.628 (0.47-4.68) mIU/L Vancomycin Trough (10-20) ug/mL 08/16/23 08/17/23 08/17/23 Range/Units 23:11 04:00 04:50 WBC (4.0-10.5) x10^3/uL RBC (4.1-5.6) x10^6/uL Hgb (12.5-18.0) g/dL Hct (42-50) % MCV (78-100) fL MCH (26-32) pg MCHC (32-36) g/dL RDW (11.5-14.0) % Plt Count (150-450) x10^3/uL MPV (7.5-11.0) fL Sodium 137 (135-145) mmol/L Potassium 4.6 (3.5-5.1) mmol/L Chloride 109 H (98-107) mmol/L Carbon Dioxide 20 L (22-30) mmol/L Anion Gap 12.8 (5-15) MEQ/L BUN 29 H (9-20) mg/dL Creatinine 1.22 (0.66-1.25) mg/dL Estimated GFR 64.6 ML/MIN Glucose 104 (74-106) mg/dL POC Glucometer 124 H (74 to 106) mg/dL Lactic Acid 1.7 (0.4-2.0) Calcium 8.1 L (8.4-10.2) mg/dL Total Bilirubin 1.40 H (0.2-1.3) mg/dL AST 36 (17-59) U/L ALT 31 (0-50) U/L Alkaline Phosphatase 82 (38-126) U/L Serum Total Protein 5.7 L (6.3-8.2) g/dL Albumin 2.5 L (3.5-5.0) g/dL Vitamin B12 (239-931) pg/mL Folic Acid (2.76 - >20) ng/mL TSH 3rd Generation (0.47-4.68) mIU/L Vancomycin Trough (10-20) ug/mL 08/17/23 08/17/23 08/17/23 Range/Units 04:50 07:03 09:20 WBC 6.5 (4.0-10.5) x10^3/uL RBC 3.52 L (4.1-5.6) x10^6/uL Hgb 10.5 L (12.5-18.0) g/dL Hct 31.8 L (42-50) % MCV 90.3 (78-100) fL MCH 29.8 (26-32) pg MCHC 33.0 (32-36) g/dL RDW 18.1 H (11.5-14.0) % Plt Count 73 L (150-450) x10^3/uL MPV 11.5 H (7.5-11.0) fL Sodium (135-145) mmol/L Potassium (3.5-5.1) mmol/L Chloride (98-107) mmol/L Carbon Dioxide (22-30) mmol/L Anion Gap (5-15) MEQ/L BUN (9-20) mg/dL Creatinine (0.66-1.25) mg/dL Estimated GFR ML/MIN Glucose (74-106) mg/dL POC Glucometer 95 (74 to 106) mg/dL Lactic Acid (0.4-2.0) Calcium (8.4-10.2) mg/dL Total Bilirubin (0.2-1.3) mg/dL AST (17-59) U/L ALT (0-50) U/L Alkaline Phosphatase (38-126) U/L Serum Total Protein (6.3-8.2) g/dL Albumin (3.5-5.0) g/dL Vitamin B12 (239-931) pg/mL Folic Acid (2.76 - >20) ng/mL TSH 3rd Generation (0.47-4.68) mIU/L Vancomycin Trough 18.29 (10-20) ug/mL Radiology Exams: Radiology Procedures Category Date Time Status FOOT (MINIMUM 3 VIEWS) Stat Exams 08/15/23 15:38 Completed VENOUS BILATERAL EXTREMITY [US] Stat Exams 08/15/23 11:15 Completed Multi-Disciplinary Progress Notes: Multi-Disciplinary Progress Notes 08/16/23 19:33 OT Plan of Care Note by Vinnie(Yohannes#[id number])Anny OT Eval OT Inpatient Eval and POC Start: 08/15/23 15:27 Freq: ONCE Status: Active Protocol: Created 08/15/23 15:40 ED (Rec: 08/15/23 15:40 ED [id number]) Document 08/16/23 15:32 MJ (Rec: 08/16/23 15:58 MJ [id number]) OT Evaluation Subjective Patient is a 67 y/o male brought to [facility] ED via EMS on 08/15/23 with tacycardia and 9/ 10 chronic back pain and leg pain. Per ED report, patient was incontinent and RLL was purple. Patient experiencing dizziness, generalized weakness and BLE pain. Pertinent Past Medical History HTN, Sleep Apnea, COPD, DM-II, Arthritis, Renal Disease, Prostate Problems, Stomach Tumor, Colon Resection, Colostomy Reversal, Tumor Removal Please see medical chart for complete medical history Prior Level of Function Prior to arriving to hospital, Mr. Damico was living in a one -story home with a ramp to enter with his of 8 years . He was using a power chair ([employer]) for functional mobility outside of the home and reports he was using a rolling walker to enter his home and for functional mobility within his home. Per patient report, he was showering and toileting with DEP A for fernandez hygiene and was able to dress, feed, and groom himself. He reports that his complete laundry , meal prep, and housekeeping. Equipment at Home Prior to Admission Walker,Wheelchair,CPAP,Shower Chair Home Setup [id number],Ramp Date 08/16/23 Feeding WFL Comment setup Grooming WFL Comment setup in supported sitting Bathing Impaired Dressing Impaired Toileting Impaired IADLS (If indicated) Homemaking,etc Impaired Bed Mobility Impaired Toilet Transfers Impaired Shower Transfers Impaired Functional Transfers Impaired Range of Motion WFL Comment BUE AROM: WFL Coordination Fine Motor Coordination: WFL Functional Strength BUE MMT: 3+/5 Functional Endurance Impaired Cognition A&O x3 Pain 5-6 (R Hip) Objective Data/Standardized Assessment(s Baljinder Index of ADLs: 40/100, ) indicative of partial dependence for ADL performance OT Plan Of Care Date of Evaluation 08/16/23 Treatment Diagnosis Generalized Weakness, Need for Assistance with Self-Care Precaution/Orders as written Eval & Treat Teaching Recipient Patient Patient is Aware of Diagnosis and Yes Prognosis Patient is receptive to Plan of Care and Yes contributory towards OT goals Functional Problem List decreased functional strength, decreased functional endurance, decreased independence with I/ADLs Therapuetic Interventions Evaluation/Re-Assessment, Therapeutic Activity/ADL, Therapeutic Exercise, Neuromuscular Re-Education, AE /AD/DME Education Functional Goals of Treatment 1. By discharge, patient will demonstrate good carryover of HEP and education provided during stay. 2. Po will demonstrate seated grooming/hygiene task with setup at mirror by discharge. 3. Po will demonstrate toilet transfer to BSC with CGA by discharge. 4. Po will complete UB dressing while seated at EOB with setup by discharge. Frequency/Duration 1x/day excl weekends and holidays Rehabilitation Potential for Goals/ Excellent Barriers to Progress Discharge Recommendations/Plan OTR recommends discharge for Rehab stay to address decreased functional strenghth , endurance, and overall function to promote increased I/ADL performance. Initialized on 08/16/23 19:33 - END OF NOTE 08/16/23 12:48 Case Management Note by Saira Crowley [facility]. THEY WERE NOTIFIED PATIENT HERE OBS. THEY WILL NEED NOTIFIED AT TIME OF DC AT [phone]. THEY WILL NEED FAXED THE DC INSTRUCTIONS, DC MED LIST AND DC SUMMARY TO [phone] Initialized on 08/16/23 12:48 - END OF NOTE Assessment/Plan (1) Sepsis Current Visit: Yes Status: Acute Assessment & Plan: -multifocal, most likely secondary to UTI, cellulitis/diabetic foot ulcer - Sepsis criteria identified 08/15/23 -Fluid Bolus ordered -LA at 6.0. Repeat lactate trending down -Blood cultures x2 ordered and pending -Vanc/zosyn started in ED, will continue -Ucult with E Coli -procal elevated -CXR not done, no symptoms -Resp mendez negative -Lovenox at therapeutic dose for new DVT diagnosis--> transitioned to eliquis 08/15: -No longer meets criteria -WBC now wnl -Lactic Acid trending down now at 3.2 -Procal at 5.040 -Urine culture with gram - ID -Foot xray negative for acute findings 08/16: -WBC and lactic acid have normalized. Vital signs stable. Right lower extremity erythema with only mild improvement. Compression dressings per podiatry. Foot ulcer not concerning for infection per podiatry. Urine culture with Ecoli (2) Diabetes mellitus Current Visit: Yes Status: Acute Qualifiers: Diabetes mellitus type: type 2 Diabetes mellitus complication detail: with foot ulcer Assessment & Plan: -SSI -ADA diet -A1c Code(s): E11.9 - TYPE 2 DIABETES MELLITUS WITHOUT COMPLICATIONS (3) COPD (chronic obstructive pulmonary disease) Current Visit: Yes Status: Chronic Assessment & Plan: -Does not appear to be in exacerbation -Supplemental oxygen with spo2 goal >88-92%. Currently on room air -RT consult -Nebs/INH (4) Diabetic foot ulcer Current Visit: Yes Status: Acute Assessment & Plan: -Podiatry consult -right foot ulcer, reviewed consult, "Longstanding ulceration being managed by Dr. Adrian. During his stay would prefer compression therapy along with iodine and Aquacel Ag." -vanc/zosyn due to accompanying extensive RLE cellulitis -xray right foot with no acute findings Code(s): E11.621 - TYPE 2 DIABETES MELLITUS WITH FOOT ULCER; L97.509 - NON- PRESSURE CHRONIC ULCER OTH PRT UNSP FOOT W UNSP SEVERITY (5) Cellulitis Current Visit: Yes Status: Acute Assessment & Plan: -Konstantin right leg -PCT, LA, ESR, CRP -Blood cultures pending -vanc/zosyn started in ED, will continue, pharmacy to dose -Wound culture open areas with drainage 08/15: -Podiatry consulted with recs for BLE compression wraps - per documentation Venous Dopplers demonstrating bilateral femoral vein deep vein thrombosis which are nonocclusive with a popliteal cyst. 08/16: -minor improvement in RLE erythema. Continue vanc zosyn Code(s): L03.90 - CELLULITIS, UNSPECIFIED (6) DVT (deep venous thrombosis) Current Visit: Yes Status: Acute Assessment & Plan: -Doppler reviewed showing nonoccluding thrombi left and right femoral veins. -Pharmacy to dose therapeutic lovenox -OAC -CM to check cost 08/15: -eliquis 10mg bid x 1 week, then 5mg bid there after 08/16: -continue eliquis Code(s): I82.409 - ACUTE EMBOLISM AND THOMBOS UNSP DEEP VN UNSP LOWER EXTREMITY (7) DIANA (obstructive sleep apnea) Current Visit: Yes Status: Acute Assessment & Plan: -CPAP at night Code(s): G47.33 - OBSTRUCTIVE SLEEP APNEA (ADULT) (PEDIATRIC) (8) Urinary tract infection Current Visit: Yes Status: Acute Assessment & Plan: -Ucult pending, vanc/zosyn for now, follow culture 08/15: -Ucult with gram- ID will continue to follow, continue current abx 08/16: -E coli on urine culture. On vanc/zosyn as part of sepsis treatment involving right foot ulcer and cellulitis Code(s): N39.0 - URINARY TRACT INFECTION, SITE NOT SPECIFIED (9) Thrombocytopenia Current Visit: Yes Status: Chronic Assessment & Plan: -May be secondary to infection, has had several low counts in the past, does not see hematology -will check smear for clumping -Monitor and replace if less than 20 -consider heme/onc referral -TSH, b12/fol, Telemedicine Encounter - Telemedicine Encounter Telemedicine Encounter: The entirety of this encounter was performed via Telemedicine"
[2023-08-17] MEDS: TROUGH DRUG LEVELS IJ ONE (14:54)
[2023-08-17] MEDS: PIPERACILLIN/TAZOBACTAM 4.5 GM in Dextrose 5%/Water IV Soln. 100ML PLUS BAG 100 ML IV SCH (19:08)
[2023-08-17] MEDS: VANCOMYCIN 1.25 GM/250 ML BAG 1.25 GM/250 ML PIGGYBACK IV SCH (21:15)
[2023-08-17] MEDS: Desyrel 150 MG PO SCH (21:15)
[2023-08-18 04:58] LABS: Absolute Neutrophil Ct (ANC) 2.53 x10^3/uL (1.4-6.9); BASOPHIL % 0.5 % (0.0-0.4); Basophil (Absolute #) 0.02 x10^3/uL (0-0.4); Eosinophil % 2.4 % (0.00-5.0); Eosinophil (Absolute #) 0.09 x10^3/uL (0-0.5); Hematocrit 32.6 % (42-50); Hemoglobin 10.5 g/dL (12.5-18.0); IMMATURE GRAN # 0.03 x10^3u/L (0.00-0.03); IMMATURE GRAN % 0.8 % (0.00-0.4); Lymphocyte (Absolute #) 0.73 x10^3/uL (1.0-4.6); Lymphocytes % 19.6 % (24.0-44.0); Mean Cell Volume 90.1 fL (78-100); Mean Corpuscular Hgb Concent. 32.2 g/dL (32-36); Mean Platelet Volume 10.5 fL (7.5-11.0); Monocyte (Absolute #) 0.33 x10^3/uL (0.0-1.3); Monocytes % 8.8 % (0.0-12.0); Neutrophil % 67.9 % (36.0-66.0); Platelet Count 82 x10^3/uL (150-450); Red Blood Count 3.62 x10^6/uL (4.1-5.6); Red Cell Distribution Width 17.8 % (11.5-14.0); White Blood Count 3.7 x10^3/uL (4.0-10.5)
[2023-08-18 05:13] LABS: ALBUMIN 2.5 g/dL (3.5-5.0); ANION GAP 11.8 MEQ/L (5-15); BILIRUBIN,TOTAL 1.4 mg/dL (0.2-1.3); Creatinine 1 1.04 mg/dL (0.66-1.25); EST GLOMERULAR FILTRATION RATE 78.2 ML/MIN; Potassium 4.3 mmol/L (3.5-5.1); Total Protein 5.8 g/dL (6.3-8.2)
[2023-08-18 05:29] LABS: Slide Review 1 YES
[2023-08-18] MEDS: PERCOCET TABLET 5/325MG PO PRN (09:27)
--- NOTE | 2023-08-18 11:48 | PCM.NOTE ---
Date and Time: 08/18/23 1143 Subjective Assessment: is a 67 year old male with a pmhx of HTN, DIANA, COPD, and DMII who presented to ED 08/15/23 with complaints of a two day history of BLE edema, vomiting, generalized weakness/dizziness, dysuria, subjective fever/chills, productive cough with white sputum. Patient also reports that he sees Dr. Adrian podiatry for a left diabetic foot ulcer; C managing dressing changes. In ED, patient septic on presentation. Vitals noted with mild tachycardia and hypotension. Venous doppler showing non-occluding thrombi of the left and right femoral veins. Lab findings remarkable for WBC at 13.9, hyponatremia at 133, GAP acidosis with lactic at 6.0, carbon dioxide at 15, GAP at 16.9, hyperkalemia at 5.4, Tbili at 1.7, urinalysis with nitrites and leuks. Patient given zosyn/vanc as well as IVF initiated. Patient admitted with sepsis, underlying cause most likely multifocal with UTI, cellulitis of the right leg, and right diabetic foot ulcer. 08/18/23: Patient doing much better since admission. No complaints today other than his chronic pain, for which we will resume his home pain medication regimen. RLE cellulitis improving. Podiatry following with compression dressings which we will continue during his stay. Plan to continue IV abx for now. - Review of Systems Constitutional: No Symptoms Eyes: No Symptoms Ears, Nose, & Throat: No Symptoms Respiratory: No Symptoms Cardiac: No Symptoms Abdominal/Gastrointestinal: No Symptoms Genitourinary Symptoms: No Symptoms Musculoskeletal: Joint Pain Skin: Cellulitis Neurological: No Symptoms Psychological: No Symptoms Endocrine: No Symptoms Hematologic/Lymphatic: No Symptoms Immunological/Allergic: No Symptoms Objective Exam General Appearance: no apparent distress Neurologic Exam: alert, oriented x 3, cooperative Skin Exam: other (Cellulitis RLE to mid thigh) Wound Assessment: Skin/Wound Assessment Wound/Incision Assessment Start: 08/15/23 15:48 Text: Status: Active Freq: Q6H Protocol: Document 08/18/23 08:00 RF (Rec: 08/18/23 08:31 RF [email or web address]) Wound/Incision Assessment Right Posterior Toe Wound Assessment Shift Assessment Wound Type DIABETIC ULCER Wound Stage Non Pressure Wound Dressing Status Dry & Intact Comment unable to assess, patient has gladys boots in place per dr. blevins-remains true LEFT ANTERIOR LEG Wound Assessment Shift Assessment Wound Type REDNESS Wound Stage Non Pressure Wound Dressing Status Dry & Intact Drainage Amount None Comment unable to assess gladys boots in place-remains true RIGHT LOWER LEG Wound Assessment Shift Assessment Wound Type CELLULITIS Wound Stage Non Pressure Wound Dressing Status Dry & Intact Drainage Amount None Comment REDNESS NOTED TO UPPER THIGH ABOVE GLADYS BOOT, NO REDNESS OUTSIDE OF ORIGINAL MARKING- REMAINS TRUE Wound Photo Photo Taken No Eye Exam: PERRL Ears, Nose, Throat Exam: normal ENT inspection Neck Exam: normal inspection Respiratory Exam: normal breath sounds, lungs clear Cardiovascular Exam: regular rate/rhythm, normal heart sounds Gastrointestinal/Abdomen Exam: soft, normal bowel sounds Extremity Exam: swelling Back Exam: normal inspection Male Genitalia Exam: deferred Rectal Exam: deferred Objective Data Vital Signs: Vital Signs - 24 hr Temp Pulse Resp BP Pulse Ox 08/18/23 11:37 96.4 F 69 18 120/55 96 08/18/23 07:10 97.8 F 75 17 113/59 100 08/18/23 06:00 74 20 100 08/18/23 04:00 97.6 F 79 18 118/77 95 08/18/23 00:00 72 18 95 08/17/23 19:52 97.8 F 77 18 127/60 98 08/17/23 19:26 88 16 95 08/17/23 16:00 96.3 F 74 20 105/54 95 Pain Assessment - Last Documented Pain Intensity 6 Pain Scale Used 0-10 Pain Scale Intake and Output: Intake & Output 08/15/23 08/16/23 08/17/23 08/18/23 11:59 11:59 11:59 11:59 Intake Total 3595 1975 3078 Output Total 1650 1075 850 Balance 5314 037 9144 Weight 148.325 kg 160.5 kg Lab Results: Lab Results-Last 24 Hours 08/15/23 08/17/23 08/17/23 Range/Units 16:34 16:13 20:32 WBC (4.0-10.5) x10^3/uL RBC (4.1-5.6) x10^6/uL Hgb (12.5-18.0) g/dL Hct (42-50) % MCV (78-100) fL MCH (26-32) pg MCHC (32-36) g/dL RDW (11.5-14.0) % Plt Count (150-450) x10^3/uL MPV (7.5-11.0) fL Gran % (36.0-66.0) % Immature Gran % (Auto) (0.00-0.4) % Nucleat RBC Rel Count (0.00-0.1) % Eos # (Auto) (0-0.5) x10^3/uL Immature Gran # (Auto) (0.00-0.03) x10^3u/L Absolute Lymphs (auto) (1.0-4.6) x10^3/uL Absolute Monos (auto) (0.0-1.3) x10^3/uL Absolute Nucleated RBC (0.00-0.01) x10^3u/L Lymphocytes % (24.0-44.0) % Monocytes % (0.0-12.0) % Eosinophils % (0.00-5.0) % Basophils % (0.0-0.4) % Absolute Granulocytes (1.4-6.9) x10^3/uL Basophils # (0-0.4) x10^3/uL Sodium (135-145) mmol/L Potassium (3.5-5.1) mmol/L Chloride (98-107) mmol/L Carbon Dioxide (22-30) mmol/L Anion Gap (5-15) MEQ/L BUN (9-20) mg/dL Creatinine (0.66-1.25) mg/dL Estimated GFR ML/MIN Glucose (74-106) mg/dL POC Glucometer 170 H 161 H (74 to 106) mg/dL Calcium (8.4-10.2) mg/dL Total Bilirubin (0.2-1.3) mg/dL AST (17-59) U/L ALT (0-50) U/L Alkaline Phosphatase (38-126) U/L C-Reactive Prot, Quant 76 H (0-10) mg/L Serum Total Protein (6.3-8.2) g/dL Albumin (3.5-5.0) g/dL Slides for Path Review 08/18/23 08/18/23 08/18/23 Range/Units 04:30 04:30 06:50 WBC 3.7 L (4.0-10.5) x10^3/uL RBC 3.62 L (4.1-5.6) x10^6/uL Hgb 10.5 L (12.5-18.0) g/dL Hct 32.6 L (42-50) % MCV 90.1 (78-100) fL MCH 29.0 (26-32) pg MCHC 32.2 (32-36) g/dL RDW 17.8 H (11.5-14.0) % Plt Count 82 L (150-450) x10^3/uL MPV 10.5 (7.5-11.0) fL Gran % 67.9 H (36.0-66.0) % Immature Gran % (Auto) 0.8 H (0.00-0.4) % Nucleat RBC Rel Count 0.0 (0.00-0.1) % Eos # (Auto) 0.09 (0-0.5) x10^3/uL Immature Gran # (Auto) 0.03 (0.00-0.03) x10^3u/L Absolute Lymphs (auto) 0.73 L (1.0-4.6) x10^3/uL Absolute Monos (auto) 0.33 (0.0-1.3) x10^3/uL Absolute Nucleated RBC 0.00 (0.00-0.01) x10^3u/L Lymphocytes % 19.6 L (24.0-44.0) % Monocytes % 8.8 (0.0-12.0) % Eosinophils % 2.4 (0.00-5.0) % Basophils % 0.5 (0.0-0.4) % Absolute Granulocytes 2.53 (1.4-6.9) x10^3/uL Basophils # 0.02 (0-0.4) x10^3/uL Sodium 138 (135-145) mmol/L Potassium 4.3 (3.5-5.1) mmol/L Chloride 112 H (98-107) mmol/L Carbon Dioxide 18 L (22-30) mmol/L Anion Gap 11.8 (5-15) MEQ/L BUN 23 H (9-20) mg/dL Creatinine 1.04 (0.66-1.25) mg/dL Estimated GFR 78.2 ML/MIN Glucose 128 H (74-106) mg/dL POC Glucometer 118 H (74 to 106) mg/dL Calcium 8.0 L (8.4-10.2) mg/dL Total Bilirubin 1.40 H (0.2-1.3) mg/dL AST 30 (17-59) U/L ALT 27 (0-50) U/L Alkaline Phosphatase 107 (38-126) U/L C-Reactive Prot, Quant (0-10) mg/L Serum Total Protein 5.8 L (6.3-8.2) g/dL Albumin 2.5 L (3.5-5.0) g/dL Slides for Path Review YES 08/18/23 Range/Units 11:13 WBC (4.0-10.5) x10^3/uL RBC (4.1-5.6) x10^6/uL Hgb (12.5-18.0) g/dL Hct (42-50) % MCV (78-100) fL MCH (26-32) pg MCHC (32-36) g/dL RDW (11.5-14.0) % Plt Count (150-450) x10^3/uL MPV (7.5-11.0) fL Gran % (36.0-66.0) % Immature Gran % (Auto) (0.00-0.4) % Nucleat RBC Rel Count (0.00-0.1) % Eos # (Auto) (0-0.5) x10^3/uL Immature Gran # (Auto) (0.00-0.03) x10^3u/L Absolute Lymphs (auto) (1.0-4.6) x10^3/uL Absolute Monos (auto) (0.0-1.3) x10^3/uL Absolute Nucleated RBC (0.00-0.01) x10^3u/L Lymphocytes % (24.0-44.0) % Monocytes % (0.0-12.0) % Eosinophils % (0.00-5.0) % Basophils % (0.0-0.4) % Absolute Granulocytes (1.4-6.9) x10^3/uL Basophils # (0-0.4) x10^3/uL Sodium (135-145) mmol/L Potassium (3.5-5.1) mmol/L Chloride (98-107) mmol/L Carbon Dioxide (22-30) mmol/L Anion Gap (5-15) MEQ/L BUN (9-20) mg/dL Creatinine (0.66-1.25) mg/dL Estimated GFR ML/MIN Glucose (74-106) mg/dL POC Glucometer 143 H (74 to 106) mg/dL Calcium (8.4-10.2) mg/dL Total Bilirubin (0.2-1.3) mg/dL AST (17-59) U/L ALT (0-50) U/L Alkaline Phosphatase (38-126) U/L C-Reactive Prot, Quant (0-10) mg/L Serum Total Protein (6.3-8.2) g/dL Albumin (3.5-5.0) g/dL Slides for Path Review Multi-Disciplinary Progress Notes: Multi-Disciplinary Progress Notes 08/18/23 11:11 Physical Therapy Note by Kwadwo (L [id number]),Lee Ann PATIENT SEEN FOR INPT THIS DATE. HE WAS UP IN RECLINER UPON ENTERING ROOM AND DID REQUIRE SOME ENCOURAGEMENT TO PARTICIPATE IN THERAPY. HOWEVER, PATIENT AGREEABLE AFTER EDUCATION ON ROLE OF THERAPY TO IMPROVE STRENGTH AND SAFETY WITH ASSIST WITH RETURN HOME. PATIENT REPORTS HE HAS A MANUAL W/C AT HOME WITH RAMP ENTRY IN ADDITION TO MOTORIZED W/C IN HOME. VITALS PRE TX: BP 113/59MMHG, O2 SATURATION 97% ON RA, HR 78 BPM. PATIENT COMPLETED TRANSFER TRAINING WITH 3 SIT<>STAND TRANSFER FROM RECLINER WITH GOOD USE OF UE FROM CHAIR AND NO VISIBLE LOB OR REPORTS OF DIZZINESS. PT PROVIDED SBA/CGA FOR TRANSFERS WITH PATIENT REQUIRING UE SUPPORT ON WALKER UPON STANDING. PATIENT STANDING TOLERANCE 1 MINUTE 5 SECOND TO 1 MINUTE 15 SECOND SECOND ATTEMPT TO IMPROVE ACTIVITY TOLERANCE FOR ADL TASKS. PATIENT COMPLETED SHORT DISTANCE AMBULATION WITH 8' FORWARD AND BACKWARD STEPS FROM RECLINER D/T PATIENT REPORT OF RLE PAIN. PT ATTEMPTED TO HAVE PATIENT COMPLETE AGAIN AFTER REST BREAK BUT PATIENT REPORTS HE IS TOO TIRED TO COMPLETE ADDITIONAL THERAPY AT THIS TIME. IF PATIENT IS TO RETURN HOME VS SHORT TERM REHAB, RECOMMENDATION IS FOR 24 HOUR ASSIST. PATIENT REPORTS HE HAS ALL EQUIPMENT AT HOME TO GO WITH HIS . HOWEVER, HE WOULD BENEFIT FROM CONTINUED SKILLED THERAPY D/T REDUCED ACTIVITY TOLERANCE AND LE STRENGTH WHICH CAN IMPACT RISK OF FALL AT THIS TIME. Initialized on 08/18/23 11:11 - END OF NOTE 08/17/23 18:26 Occupational Therapy Note by Vinnie(L#[id number])Anny Occupational Therapy Treatment Note ([id number]) Patient supine in bed with SO at bedside upon OT approach and was agreeable to treatment session with encouragement from SO. Patient completed supine>sit EOB with MIN A and HOB elevation performed by patient followed by participation in BUE AROM ther ex's including shoulder flexion, shoulder abduction, shoulder horizontal abduction, wrist flexion and extension, and towel squeezes. Patient then completed grooming/hygiene task while seated at EOB with setup followed by sit EOB>supine with bridge to scoot himself up in bed. Patient in supine with SO at bedside at session end. Patient denied increased pain or s/s of SOB at session end. Will continue to see patient per OT POC to address functional strength, endurance, and I/ADL performance. Initialized on 08/17/23 18:26 - END OF NOTE 08/17/23 13:17 Case Management Note by Saira Crowley PER PHARMACY PATIENT'S RX COVERAGE IS NO LONGER VALID. TECH REPORTS THEY HAVE S/W PATIENT'S SISTER ABOUT THIS. CALLED PATIENT'S SISTER 08/15- NO ANSWER LM CALLED AGAIN TODAY X 2- NO ANSWER LM X 1 NO NUMBER LISTED FOR PATIENT THINKS HE HAS NEW COVERAGE BUT THAT IT WON'T BEGIN UNTIL 08/2023 Initialized on 08/17/23 13:17 - END OF NOTE Assessment/Plan (1) Sepsis Current Visit: Yes Status: Acute Assessment & Plan: -multifocal, most likely secondary to UTI, cellulitis/diabetic foot ulcer - Sepsis criteria identified 08/15/23 -Fluid Bolus ordered -LA at 6.0. Repeat lactate will be drawn in initial >2mmol/L If subsequent lactate elevated, trend until WNL -Blood cultures x2 ordered and pending -Vanc/zosyn started in ED, will continue -Ucult pending -Will admin vasopressors if hypotensive (MAP <65 or SBP <90) -procal, CXR -Resp mendez negative -Lovenox at therapeutic dose for new DVT diagnosis 08/15: -No longer meets criteria -WBC now wnl -Lactic Acid trending down now at 3.2 -Procal at 5.040 -Urine culture with gram - ID -Foot xray negative for acute findings (2) Diabetes mellitus Current Visit: Yes Status: Acute Qualifiers: Diabetes mellitus type: type 2 Diabetes mellitus complication detail: with foot ulcer Assessment & Plan: -SSI -lispro/glargine -ADA diet -A1c Code(s): E11.9 - TYPE 2 DIABETES MELLITUS WITHOUT COMPLICATIONS (3) COPD (chronic obstructive pulmonary disease) Current Visit: Yes Status: Acute Assessment & Plan: -RA -CXR -Does not appear to be in exacerbation -Supplemental oxygen with spo2 goal >88-92% -RT consult -Nebs/INH (4) Diabetic foot ulcer Current Visit: Yes Status: Acute Assessment & Plan: -Podiatry consult -right foot ulcer, reviewed consult, "Longstanding ulceration being managed by Dr. Adrian. During his stay would prefer compression therapy along with iodine and Aquacel Ag." -vanc/zosyn -xray right foot with no acute findings Code(s): E11.621 - TYPE 2 DIABETES MELLITUS WITH FOOT ULCER; L97.509 - NON- PRESSURE CHRONIC ULCER OTH PRT UNSP FOOT W UNSP SEVERITY (5) Cellulitis Current Visit: Yes Status: Acute Assessment & Plan: -Konstantin right leg -PCT, LA, ESR, CRP -Blood cultures pending -vanc/zosyn started in ED, will continue, pharmacy to dose -Wound culture open areas with drainage 08/15: -Podiatry consulted with recs for BLE compression wraps - per documentation Venous Dopplers demonstrating bilateral femoral vein deep vein thrombosis which are nonocclusive with a popliteal cyst. 08/17: -Cotinue IV abx for now, RLE improving, continue BLE compression dressings Code(s): L03.90 - CELLULITIS, UNSPECIFIED (6) DVT (deep venous thrombosis) Current Visit: Yes Status: Acute Assessment & Plan: -Doppler reviewed showing nonoccluding thrombi left and right femoral veins. -Pharmacy to dose therapeutic lovenox -OAC -CM to check cost 08/15: -eliquis 10mg bid x 1 week, then 5mg bid there after 08/17: -Dr. 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 Code(s): I82.409 - ACUTE EMBOLISM AND THOMBOS UNSP DEEP VN UNSP LOWER EXTREMITY (7) DIANA (obstructive sleep apnea) Current Visit: Yes Status: Acute Assessment & Plan: -CPAP at night Code(s): G47.33 - OBSTRUCTIVE SLEEP APNEA (ADULT) (PEDIATRIC) (8) Urinary tract infection Current Visit: Yes Status: Acute Assessment & Plan: -Ucult pending, vanc/zosyn for now, follow culture 08/15: -Ucult with gram- ID will continue to follow, continue current abx 08/17: -Ucult with Ecoli, sensitive to zosyn, will continue (9) Thrombocytopenia -May be secondary to infection, has had several low counts in the past, does not see hematology -will check smear for clumping -Monitor and replace if less than 20 -consider heme/onc referral -TSH, b12/fol, 08/17: -improving, consider hematology consult on discharge, this appears chronic with no previous workup VTE: Eliquis PPI: protonix Dispo: 2-3 days (2) Diabetes mellitus Current Visit: Yes Status: Acute Qualifiers: Diabetes mellitus type: type 2 Diabetes mellitus complication detail: with foot ulcer Code(s): E11.9 - TYPE 2 DIABETES MELLITUS WITHOUT COMPLICATIONS (3) COPD (chronic obstructive pulmonary disease) Current Visit: Yes Status: Chronic (4) Diabetic foot ulcer Current Visit: Yes Status: Acute Code(s): E11.621 - TYPE 2 DIABETES MELLITUS WITH FOOT ULCER; L97.509 - NON-PRESSURE CHRONIC ULCER OTH PRT UNSP FOOT W UNSP SEVERITY (5) Cellulitis Current Visit: Yes Status: Acute Code(s): L03.90 - CELLULITIS, UNSPECIFIED (6) DVT (deep venous thrombosis) Current Visit: Yes Status: Acute Code(s): I82.409 - ACUTE EMBOLISM AND THOMBOS UNSP DEEP VN UNSP LOWER EXTREMITY (7) DIANA (obstructive sleep apnea) Current Visit: Yes Status: Acute Code(s): G47.33 - OBSTRUCTIVE SLEEP APNEA (ADULT) (PEDIATRIC) (8) Urinary tract infection Current Visit: Yes Status: Acute Code(s): N39.0 - URINARY TRACT INFECTION, SITE NOT SPECIFIED
[2023-08-19 05:45] LABS: Absolute Neutrophil Ct (ANC) 1.57 x10^3/uL (1.4-6.9); BASOPHIL % 0.7 % (0.0-0.4); Basophil (Absolute #) 0.02 x10^3/uL (0-0.4); Eosinophil % 3.2 % (0.00-5.0); Eosinophil (Absolute #) 0.09 x10^3/uL (0-0.5); Hematocrit 31.3 % (42-50); Hemoglobin 10.2 g/dL (12.5-18.0); IMMATURE GRAN # 0.02 x10^3u/L (0.00-0.03); IMMATURE GRAN % 0.7 % (0.00-0.4); Lymphocyte (Absolute #) 0.72 x10^3/uL (1.0-4.6); Mean Cell Volume 89.7 fL (78-100); Mean Corpuscular Hemoglobin 29.2 pg (26-32); Mean Corpuscular Hgb Concent. 32.6 g/dL (32-36); Mean Platelet Volume 11.1 fL (7.5-11.0); Monocyte (Absolute #) 0.35 x10^3/uL (0.0-1.3); Monocytes % 12.6 % (0.0-12.0); Neutrophil % 56.8 % (36.0-66.0); Platelet Count 84 x10^3/uL (150-450); Red Blood Count 3.49 x10^6/uL (4.1-5.6); White Blood Count 2.8 x10^3/uL (4.0-10.5)
[2023-08-19 06:18] LABS: ALBUMIN 2.4 g/dL (3.5-5.0); ANION GAP 9.5 MEQ/L (5-15); BILIRUBIN,TOTAL 1.3 mg/dL (0.2-1.3); Calcium 8.1 mg/dL (8.4-10.2); Creatinine 1 0.85 mg/dL (0.66-1.25); EST GLOMERULAR FILTRATION RATE 94.7 ML/MIN; Potassium 4.6 mmol/L (3.5-5.1); Total Protein 5.8 g/dL (6.3-8.2)
[2023-08-19 08:27] LABS: Slide Review 1 YES
--- NOTE | 2023-08-19 09:52 | PCM.NOTE ---
Date and Time: 08/19/2348 Subjective Assessment: is a 67 year old male with a pmhx of HTN, DIANA, COPD, and DMII who presented to ED 08/15/23 with complaints of a two day history of BLE edema, vomiting, generalized weakness/dizziness, dysuria, subjective fever/chills, productive cough with white sputum. Patient also reports that he sees Dr. Adrian podiatry for a left diabetic foot ulcer; C managing dressing changes. In ED, patient septic on presentation. Vitals noted with mild tachycardia and hypotension. Venous doppler showing non-occluding thrombi of the left and right femoral veins. Lab findings remarkable for WBC at 13.9, hyponatremia at 133, GAP acidosis with lactic at 6.0, carbon dioxide at 15, GAP at 16.9, hyperkalemia at 5.4, Tbili at 1.7, urinalysis with nitrites and leuks. Patient given zosyn/vanc as well as IVF initiated. Patient admitted with sepsis, underlying cause most likely multifocal with UTI, cellulitis of the right leg, and right diabetic foot ulcer. 08/19/23: Met with patient bedside. RLE continues to improves. Patient reports pain and energy levels have improved. He does endorse multiple episodes of diarrhea overnight. Will check stool studies today, if negative, start immodium. Plan for continued antibiotics. - Review of Systems Constitutional: No Symptoms Eyes: No Symptoms Ears, Nose, & Throat: No Symptoms Respiratory: No Symptoms Cardiac: No Symptoms Abdominal/Gastrointestinal: Diarrhea Genitourinary Symptoms: No Symptoms Musculoskeletal: Joint Pain Skin: No Symptoms Neurological: No Symptoms Psychological: No Symptoms Endocrine: No Symptoms Hematologic/Lymphatic: No Symptoms Immunological/Allergic: No Symptoms Objective Exam General Appearance: no apparent distress Neurologic Exam: alert, oriented x 3, cooperative Skin Exam: other (RLE cellulitis -compression dressings bilaterally) Wound Assessment: Skin/Wound Assessment Wound/Incision Assessment Start: 08/15/23 15:48 Text: Status: Active Freq: Q6H Protocol: Document 08/19/23 08:00 KD (Rec: 08/19/23 09:23 KD [id number]) Wound/Incision Assessment Right Posterior Toe Wound Assessment Shift Assessment Wound Type DIABETIC ULCER Wound Stage Non Pressure Wound Dressing Status Dry & Intact Comment unable to assess, gladys boots in place per dr. blevins LEFT ANTERIOR LEG Wound Assessment Shift Assessment Wound Type REDNESS Wound Stage Non Pressure Wound Dressing Status Dry & Intact Drainage Amount None Comment unable to assess, gladys boot in place per Dr Best RIGHT LOWER LEG Wound Assessment Shift Assessment Wound Type CELLULITIS Wound Stage Non Pressure Wound Dressing Status Dry & Intact Drainage Amount None Comment redness noted above gldays boot to upper thigh, improvement noted - redness decreasing Wound Photo Photo Taken Yes Date: 08/15/23 Eye Exam: PERRL Ears, Nose, Throat Exam: normal ENT inspection Neck Exam: normal inspection Respiratory Exam: normal breath sounds, lungs clear Cardiovascular Exam: regular rate/rhythm, normal heart sounds Gastrointestinal/Abdomen Exam: soft, normal bowel sounds Extremity Exam: normal inspection, inflammation, swelling (ble) Back Exam: normal inspection Male Genitalia Exam: deferred Rectal Exam: deferred Objective Data Vital Signs: Vital Signs - 24 hr Temp Pulse Resp BP Pulse Ox 08/19/23 08:00 74 18 97 08/19/23 07:57 97 F 75 19 124/58 99 08/19/23 04:00 97.0 F 78 20 100/55 98 08/18/23 23:59 97.5 F 67 20 132/60 96 08/18/23 20:00 97.6 F 81 22 114/74 98 08/18/23 19:36 81 16 98 08/18/23 16:00 95.4 F 66 17 120/64 98 08/18/23 11:37 96.4 F 69 18 120/55 96 Pain Assessment - Last Documented Pain Intensity 0 Pain Scale Used 0-10 Pain Scale Intake and Output: Intake & Output 08/16/23 08/17/23 08/18/23 08/19/23 11:59 11:59 11:59 11:59 Intake Total 3595 1975 3078 4701 Output Total 1650 3324 015 0229 Balance 8376 200 5890 3551 Weight 160.5 kg 160.5 kg Lab Results: Lab Results-Last 24 Hours 08/18/23 08/18/23 08/18/23 Range/Units 11:13 16:19 21:00 WBC (4.0-10.5) x10^3/uL RBC (4.1-5.6) x10^6/uL Hgb (12.5-18.0) g/dL Hct (42-50) % MCV (78-100) fL MCH (26-32) pg MCHC (32-36) g/dL RDW (11.5-14.0) % Plt Count (150-450) x10^3/uL MPV (7.5-11.0) fL Gran % (36.0-66.0) % Immature Gran % (Auto) (0.00-0.4) % Nucleat RBC Rel Count (0.00-0.1) % Eos # (Auto) (0-0.5) x10^3/uL Immature Gran # (Auto) (0.00-0.03) x10^3u/L Absolute Lymphs (auto) (1.0-4.6) x10^3/uL Absolute Monos (auto) (0.0-1.3) x10^3/uL Absolute Nucleated RBC (0.00-0.01) x10^3u/L Lymphocytes % (24.0-44.0) % Monocytes % (0.0-12.0) % Eosinophils % (0.00-5.0) % Basophils % (0.0-0.4) % Absolute Granulocytes (1.4-6.9) x10^3/uL Basophils # (0-0.4) x10^3/uL Sodium (135-145) mmol/L Potassium (3.5-5.1) mmol/L Chloride (98-107) mmol/L Carbon Dioxide (22-30) mmol/L Anion Gap (5-15) MEQ/L BUN (9-20) mg/dL Creatinine (0.66-1.25) mg/dL Estimated GFR ML/MIN Glucose (74-106) mg/dL POC Glucometer 143 H 210 H 205 H (74 to 106) mg/dL Calcium (8.4-10.2) mg/dL Total Bilirubin (0.2-1.3) mg/dL AST (17-59) U/L ALT (0-50) U/L Alkaline Phosphatase (38-126) U/L Serum Total Protein (6.3-8.2) g/dL Albumin (3.5-5.0) g/dL Slides for Path Review 08/19/23 08/19/23 08/19/23 Range/Units 05:13 05:13 07:34 WBC 2.8 L (4.0-10.5) x10^3/uL RBC 3.49 L (4.1-5.6) x10^6/uL Hgb 10.2 L (12.5-18.0) g/dL Hct 31.3 L (42-50) % MCV 89.7 (78-100) fL MCH 29.2 (26-32) pg MCHC 32.6 (32-36) g/dL RDW 18.0 H (11.5-14.0) % Plt Count 84 L (150-450) x10^3/uL MPV 11.1 H (7.5-11.0) fL Gran % 56.8 (36.0-66.0) % Immature Gran % (Auto) 0.7 H (0.00-0.4) % Nucleat RBC Rel Count 0.0 (0.00-0.1) % Eos # (Auto) 0.09 (0-0.5) x10^3/uL Immature Gran # (Auto) 0.02 (0.00-0.03) x10^3u/L Absolute Lymphs (auto) 0.72 L (1.0-4.6) x10^3/uL Absolute Monos (auto) 0.35 (0.0-1.3) x10^3/uL Absolute Nucleated RBC 0.00 (0.00-0.01) x10^3u/L Lymphocytes % 26.0 (24.0-44.0) % Monocytes % 12.6 H (0.0-12.0) % Eosinophils % 3.2 (0.00-5.0) % Basophils % 0.7 (0.0-0.4) % Absolute Granulocytes 1.57 (1.4-6.9) x10^3/uL Basophils # 0.02 (0-0.4) x10^3/uL Sodium 138 (135-145) mmol/L Potassium 4.6 (3.5-5.1) mmol/L Chloride 113 H (98-107) mmol/L Carbon Dioxide 20 L (22-30) mmol/L Anion Gap 9.5 (5-15) MEQ/L BUN 13 (9-20) mg/dL Creatinine 0.85 (0.66-1.25) mg/dL Estimated GFR 94.7 ML/MIN Glucose 116 H (74-106) mg/dL POC Glucometer 109 H (74 to 106) mg/dL Calcium 8.1 L (8.4-10.2) mg/dL Total Bilirubin 1.30 (0.2-1.3) mg/dL AST 32 (17-59) U/L ALT 26 (0-50) U/L Alkaline Phosphatase 126 (38-126) U/L Serum Total Protein 5.8 L (6.3-8.2) g/dL Albumin 2.4 L (3.5-5.0) g/dL Slides for Path Review YES Multi-Disciplinary Progress Notes: Multi-Disciplinary Progress Notes 08/18/23 17:34 Occupational Therapy Note by Vinnie(L#[id number])Anny Occupational Therapy Treatment Note ([id number]) Patient seated in chair with present upon OTR arrival and was agreeable to treatment session. Patient completed UB activities with mod resistance to address functional strength and activity tolerance in sitting. He then completed dynamic standing activities to simulate I/ADL performance, demo'ing standing tolerance of <3 mins with RW for support. Po declined to participate further and session ended. Patient seated in recliner with bedside table within read and present at end of treatment. OTR recommends Rehab stay for ongoing strengthening and I/ADL training to reduce fall risk; however, due to insurance coverage, patient currently plans to discharge to home with family and HHC. Will continue to see patient through duration of stay as indicated in OT POC. Initialized on 08/18/23 17:34 - END OF NOTE 08/18/23 14:36 Case Management Note by Saira Crowley S/W ABOUT RX INSURANCE. THEY HAVE CALLED THEIR CAPACITOR REPAIRER. PATIENT CURRENTLY HAS A LAPSE IN COVERAGE AND WILL HAVE RX COVERAGE AGAIN ON 08/28/23. PATIENT [address]ES [address]. ROBERTO WESTBROOK FAMILY ASSISTANT CALLED [facility] OFFICE AND WAS ABLE TO HEATER HELPER 2 PACKS OF ELIQUIS SAMPLES TO GET PATIENT THRU UNTIL 08/28/23. PATIENT REPORTS PER HIS CAPACITOR REPAIRER HE WILL HAVE COVERAGE FOR ELIQUIS WITH THE NEW PLAN IN AUGUST. PRIMARY RN NOTIFIED THAT NURSING STAFF WILL NEED TO CHECK COST OF ANY RX SENT IN AT TIME OF DC TO BE SURE PATIENT CAN AFFORD IT. FAMILY ASSISTANT ALSO AWARE Initialized on 08/18/23 14:36 - END OF NOTE 08/18/23 14:29 Case Management Note by Saira Crowley S/W - SHE PLANS FOR PATIENT TO RETURN HOME WITH [facility] AND THEIR FAMILY TO HELP. SHE REPORTS IT WILL COST $100/DAY TO GO TO A FACILITY. PATIENT HAS LIKELY USED ALL OF HIS 100%PAID DAYS AT [place]. SHE REPORTS THEY FEEL THEY CAN CARE FOR PATIENT AT HOME. PATIENT ALREADY HAS [facility]. DRESSING CHANGE ORDERS WERE WENT AHEAD AND SENT TO [facility] IF PATIENT DISCHARGES OVER THE WEEKEND. S/W PATIENT-HE REPORTS HE HAS ALL THE EQUIPMENT NEEDED AT TIME OF DC. HE PLANS TO RETURN HOME WITH FAMILY AT TIME OF DC. Initialized on 08/18/23 14:29 - END OF NOTE 08/18/23 11:11 Physical Therapy Note by Kwadwo (L [id number])Lee Ann PATIENT SEEN FOR INPT THIS DATE. HE WAS UP IN RECLINER UPON ENTERING ROOM AND DID REQUIRE SOME ENCOURAGEMENT TO PARTICIPATE IN THERAPY. HOWEVER, PATIENT AGREEABLE AFTER EDUCATION ON ROLE OF THERAPY TO IMPROVE STRENGTH AND SAFETY WITH ASSIST WITH RETURN HOME. PATIENT REPORTS HE HAS A MANUAL W/C AT HOME WITH RAMP ENTRY IN ADDITION TO MOTORIZED W/C IN HOME. VITALS PRE TX: BP 113/59MMHG, O2 SATURATION 97% ON RA, HR 78 BPM. PATIENT COMPLETED TRANSFER TRAINING WITH 3 SIT<>STAND TRANSFER FROM RECLINER WITH GOOD USE OF UE FROM CHAIR AND NO VISIBLE LOB OR REPORTS OF DIZZINESS. PT PROVIDED SBA/CGA FOR TRANSFERS WITH PATIENT REQUIRING UE SUPPORT ON WALKER UPON STANDING. PATIENT STANDING TOLERANCE 1 MINUTE 5 SECOND TO 1 MINUTE 15 SECOND SECOND ATTEMPT TO IMPROVE ACTIVITY TOLERANCE FOR ADL TASKS. PATIENT COMPLETED SHORT DISTANCE AMBULATION WITH 8' FORWARD AND BACKWARD STEPS FROM RECLINER D/T PATIENT REPORT OF RLE PAIN. PT ATTEMPTED TO HAVE PATIENT COMPLETE AGAIN AFTER REST BREAK BUT PATIENT REPORTS HE IS TOO TIRED TO COMPLETE ADDITIONAL THERAPY AT THIS TIME. IF PATIENT IS TO RETURN HOME VS SHORT TERM REHAB, RECOMMENDATION IS FOR 24 HOUR ASSIST. PATIENT REPORTS HE HAS ALL EQUIPMENT AT HOME TO GO WITH HIS . HOWEVER, HE WOULD BENEFIT FROM CONTINUED SKILLED THERAPY D/T REDUCED ACTIVITY TOLERANCE AND LE STRENGTH WHICH CAN IMPACT RISK OF FALL AT THIS TIME. Initialized on 08/18/23 11:11 - END OF NOTE Assessment/Plan (1) Sepsis Current Visit: Yes Status: Acute Assessment & Plan: -multifocal, most likely secondary to UTI, cellulitis/diabetic foot ulcer - Sepsis criteria identified 08/15/23 -Fluid Bolus ordered -LA at 6.0. Repeat lactate will be drawn in initial >2mmol/L If subsequent lactate elevated, trend until WNL -Blood cultures x2 ordered and pending -Vanc/zosyn started in ED, will continue -Ucult pending -Will admin vasopressors if hypotensive (MAP <65 or SBP <90) -procal, CXR -Resp mendez negative -Lovenox at therapeutic dose for new DVT diagnosis 08/15: -No longer meets criteria -WBC now wnl -Lactic Acid trending down now at 3.2 -Procal at 5.040 -Urine culture with gram - ID -Foot xray negative for acute findings (2) Diabetes mellitus Current Visit: Yes Status: Acute Qualifiers: Diabetes mellitus type: type 2 Diabetes mellitus complication detail: with foot ulcer Assessment & Plan: -SSI -lispro/glargine -ADA diet -A1c Code(s): E11.9 - TYPE 2 DIABETES MELLITUS WITHOUT COMPLICATIONS (3) COPD (chronic obstructive pulmonary disease) Current Visit: Yes Status: Acute Assessment & Plan: -RA -CXR -Does not appear to be in exacerbation -Supplemental oxygen with spo2 goal >88-92% -RT consult -Nebs/INH (4) Diabetic foot ulcer Current Visit: Yes Status: Acute Assessment & Plan: -Podiatry consult -right foot ulcer, reviewed consult, "Longstanding ulceration being managed by Dr. Adrian. During his stay would prefer compression therapy along with iodine and Aquacel Ag." -vanc/zosyn -xray right foot with no acute findings Code(s): E11.621 - TYPE 2 DIABETES MELLITUS WITH FOOT ULCER; L97.509 - NON- PRESSURE CHRONIC ULCER OTH PRT UNSP FOOT W UNSP SEVERITY (5) Cellulitis Current Visit: Yes Status: Acute Assessment & Plan: -Konstantin right leg -PCT, LA, ESR, CRP -Blood cultures pending -vanc/zosyn started in ED, will continue, pharmacy to dose -Wound culture open areas with drainage 08/15: -Podiatry consulted with recs for BLE compression wraps - per documentation Venous Dopplers demonstrating bilateral femoral vein deep vein thrombosis which are nonocclusive with a popliteal cyst. 08/17: -Cotinue IV abx for now, RLE improving, continue BLE compression dressings 08/18: -Will continue abx until Monday, most likely dc Code(s): L03.90 - CELLULITIS, UNSPECIFIED (6) DVT (deep venous thrombosis) Current Visit: Yes Status: Acute Assessment & Plan: -Doppler reviewed showing nonoccluding thrombi left and right femoral veins. -Pharmacy to dose therapeutic lovenox -OAC -CM to check cost 08/15: -eliquis 10mg bid x 1 week, then 5mg bid there after 08/17: -Dr. Duffy's office has samples of Eliquis for patient at front end alignment specialist Code(s): I82.409 - ACUTE EMBOLISM AND THOMBOS UNSP DEEP VN UNSP LOWER EXTREMITY (7) DIANA (obstructive sleep apnea) Current Visit: Yes Status: Acute Assessment & Plan: -CPAP at night Code(s): G47.33 - OBSTRUCTIVE SLEEP APNEA (ADULT) (PEDIATRIC) (8) Urinary tract infection Current Visit: Yes Status: Acute Assessment & Plan: -Ucult pending, vanc/zosyn for now, follow culture 08/15: -Ucult with gram- ID will continue to follow, continue current abx 08/17: -Ucult with Ecoli, sensitive to zosyn, will continue (9) Thrombocytopenia -May be secondary to infection, has had several low counts in the past, does not see hematology -will check smear for clumping -Monitor and replace if less than 20 -consider heme/onc referral -TSH, b12/fol, 08/17: -improving, consider hematology consult on discharge, this appears chronic with no previous workup (10) Diarrhea -Stools for CDIFF/culture/O&P -if Cdiff negative can add immodium VTE: Eliquis PPI: protonix Dispo: 2-3 days (2) Diabetes mellitus Current Visit: Yes Status: Acute Qualifiers: Diabetes mellitus type: type 2 Diabetes mellitus complication detail: with foot ulcer Code(s): E11.9 - TYPE 2 DIABETES MELLITUS WITHOUT COMPLICATIONS (3) COPD (chronic obstructive pulmonary disease) Current Visit: Yes Status: Chronic (4) Diabetic foot ulcer Current Visit: Yes Status: Acute Code(s): E11.621 - TYPE 2 DIABETES MELLITUS WITH FOOT ULCER; L97.509 - NON-PRESSURE CHRONIC ULCER OTH PRT UNSP FOOT W UNSP SEVERITY (5) Cellulitis Current Visit: Yes Status: Acute Code(s): L03.90 - CELLULITIS, UNSPECIFIED (6) DVT (deep venous thrombosis) Current Visit: Yes Status: Acute Code(s): I82.409 - ACUTE EMBOLISM AND THOMBOS UNSP DEEP VN UNSP LOWER EXTREMITY (7) DIANA (obstructive sleep apnea) Current Visit: Yes Status: Acute Code(s): G47.33 - OBSTRUCTIVE SLEEP APNEA (ADULT) (PEDIATRIC) (8) Urinary tract infection Current Visit: Yes Status: Acute Code(s): N39.0 - URINARY TRACT INFECTION, SITE NOT SPECIFIED (9) Diarrhea Current Visit: Yes Status: Acute Code(s): R19.7 - DIARRHEA, UNSPECIFIED
[2023-08-19 12:45] LABS: 027 TOX PROD PRESUMPTIVE NEGATIVE (NEGATIVE); TOXIGENIC C. DIFF ORG NEGATIVE (NEGATIVE)
[2023-08-19] MEDS: PATIENT OWN MEDICATION PO SCH (21:45)
[2023-08-20 05:56] LABS: Absolute Neutrophil Ct (ANC) 1.55 x10^3/uL (1.4-6.9); BASOPHIL % 1.1 % (0.0-0.4); Basophil (Absolute #) 0.03 x10^3/uL (0-0.4); Eosinophil % 3.5 % (0.00-5.0); Hematocrit 32.5 % (42-50); Hemoglobin 10.4 g/dL (12.5-18.0); IMMATURE GRAN # 0.05 x10^3u/L (0.00-0.03); IMMATURE GRAN % 1.8 % (0.00-0.4); Lymphocytes % 28.4 % (24.0-44.0); Mean Cell Volume 90.5 fL (78-100); Mean Platelet Volume 11.2 fL (7.5-11.0); Monocyte (Absolute #) 0.29 x10^3/uL (0.0-1.3); Monocytes % 10.3 % (0.0-12.0); Neutrophil % 54.9 % (36.0-66.0); Platelet Count 104 x10^3/uL (150-450); Red Blood Count 3.59 x10^6/uL (4.1-5.6); Red Cell Distribution Width 18.1 % (11.5-14.0); White Blood Count 2.8 x10^3/uL (4.0-10.5)
[2023-08-20 06:36] LABS: ALBUMIN 2.4 g/dL (3.5-5.0); ANION GAP 10.2 MEQ/L (5-15); BILIRUBIN,TOTAL 0.9 mg/dL (0.2-1.3); Calcium 8.3 mg/dL (8.4-10.2); Creatinine 1 0.81 mg/dL (0.66-1.25); Potassium 4.8 mmol/L (3.5-5.1); Total Protein 5.8 g/dL (6.3-8.2)
--- NOTE | 2023-08-20 12:22 | PCM.NOTE ---
Date and Time: 08/20/23 1214 Subjective Assessment: is a 67 year old male with a pmhx of HTN, DIANA, COPD, and DMII who presented to ED 08/15/23 with complaints of a two day history of BLE edema, vomiting, generalized weakness/dizziness, dysuria, subjective fever/chills, productive cough with white sputum. Patient also reports that he sees Dr. Adrian podiatry for a left diabetic foot ulcer; [facility] managing dressing changes. In ED, patient septic on presentation. Vitals noted with mild tachycardia and hypotension. Venous doppler showing non-occluding thrombi of the left and right femoral veins. Lab findings remarkable for WBC at 13.9, hyponatremia at 133, GAP acidosis with lactic at 6.0, carbon dioxide at 15, GAP at 16.9, hyperkalemia at 5.4, Tbili at 1.7, urinalysis with nitrites and leuks. Patient given zosyn/vanc as well as IVF initiated. Patient admitted with sepsis, underlying cause most likely multifocal with UTI, cellulitis of the right leg, and right diabetic foot ulcer. 08/19/23: Met with patient bedside. RLE continues to improves. Patient reports pain and energy levels have improved. He does endorse multiple episodes of diarrhea overnight. Will check stool studies today, if negative, start immodium. Plan for continued antibiotics. 08/19: Met with patient bedside. RLE with significant reduction in erythema. BLE with compression dressings. Labs stabilizing. No further episode of diarrhea. CDiff screen negative. Plan for discharge tomorrow. Does not have coverage for antibiotics, will need CM to look into this. He does have samples provided by [facility] until coverage resumes on 08/28/23. Denies fever,cough, sob, cp, abdominal pain, MCKEON, dizziness, N/V/D. <PIETRO MCGRATH - Last Filed: 08/20/23 12:14> Date and Time: 08/20/23 1227 <ALEKSANDR CHOWDHURY - Last Filed: 08/20/23 17:59> - Review of Systems Constitutional: No Symptoms Eyes: No Symptoms Ears, Nose, & Throat: No Symptoms Respiratory: No Symptoms Cardiac: No Symptoms Abdominal/Gastrointestinal: No Symptoms Genitourinary Symptoms: No Symptoms Musculoskeletal: No Symptoms Skin: Cellulitis Neurological: No Symptoms Psychological: No Symptoms Endocrine: No Symptoms <PIETRO MCGRATH - Last Filed: 08/20/23 12:14> Objective Exam General Appearance: no apparent distress Neurologic Exam: alert, oriented x 3, cooperative Skin Exam: other (BLE with compression dressings, RLE erythema receeding marked borders) Wound Assessment: Skin/Wound Assessment Wound/Incision Assessment Start: 08/15/23 15:48 Text: Status: Active Freq: Q6H Protocol: Document 08/20/23 08:00 KD (Rec: 08/20/23 10:12 KD [id number]) Wound/Incision Assessment Right Posterior Toe Wound Assessment Shift Assessment Wound Type DIABETIC ULCER Wound Stage Non Pressure Wound Dressing Status Dry & Intact Comment unable to assess, gladys boots in place per dr. blevins LEFT ANTERIOR LEG Wound Assessment Shift Assessment Wound Type REDNESS Wound Stage Non Pressure Wound Dressing Status Dry & Intact Drainage Amount None Comment unable to assess, gladys boot in place per Dr Best RIGHT LOWER LEG Wound Assessment Shift Assessment Wound Type CELLULITIS Wound Stage Non Pressure Wound Dressing Status Dry & Intact Drainage Amount None Comment redness noted above gladys boot to upper thigh, improvement noted - redness decreasing in size & color Eye Exam: PERRL Ears, Nose, Throat Exam: normal ENT inspection Neck Exam: normal inspection Respiratory Exam: normal breath sounds, lungs clear Cardiovascular Exam: regular rate/rhythm, normal heart sounds Gastrointestinal/Abdomen Exam: soft, normal bowel sounds Extremity Exam: inflammation, swelling Back Exam: normal inspection Male Genitalia Exam: deferred <PIETRO MCGRATH - Last Filed: 08/20/23 12:14> Wound Assessment: Skin/Wound Assessment Wound/Incision Assessment Start: 08/15/23 15:48 Text: Status: Active Freq: Q6H Protocol: Document 08/20/23 14:00 KD (Rec: 08/20/23 16:14 KD [id number]) Wound/Incision Assessment Right Posterior Toe Wound Assessment Shift Assessment Wound Type DIABETIC ULCER Wound Stage Non Pressure Wound Dressing Status Dry & Intact Comment unable to assess, gladys boots in place per dr. blevins LEFT ANTERIOR LEG Wound Assessment Shift Assessment Wound Type REDNESS Wound Stage Non Pressure Wound Dressing Status Dry & Intact Drainage Amount None Comment unable to assess, gladys boot in place per Dr Best RIGHT LOWER LEG Wound Assessment Shift Assessment Wound Type CELLULITIS Wound Stage Non Pressure Wound Dressing Status Dry & Intact Drainage Amount None Comment redness noted above gladys boot to upper thigh, improvement noted - redness decreasing in size & color Wound Photo Photo Taken Yes Date: 08/15/23 <ALEKSANDR CHOWDHURY - Last Filed: 08/20/23 17:59> Objective Data Vital Signs: Vital Signs - 24 hr Temp Pulse Resp BP Pulse Ox 08/20/23 11:42 97.4 F 72 18 113/68 94 L 08/20/23 08:22 84 18 96 08/20/23 07:27 98.0 F 73 17 118/59 94 L 08/20/23 04:00 97.8 F 71 20 123/60 97 08/19/23 23:33 98.0 F 76 20 133/65 97 08/19/23 20:00 97.4 F 72 22 125/61 98 08/19/23 18:58 75 18 97 08/19/23 16:00 97.7 F 71 19 116/59 97 Pain Assessment - Last Documented Pain Intensity 0 Pain Scale Used 0-10 Pain Scale Intake and Output: Intake & Output 08/18/23 08/19/23 08/20/23 08/21/23 11:59 11:59 11:59 11:59 Intake Total 3078 4821 3328 Output Total 850 1150 1725 Balance 2228 3671 1603 Weight 160.5 kg Lab Results: Lab Results-Last 24 Hours 08/19/23 08/19/23 08/19/23 Range/Units 12:00 17:15 22:16 WBC (4.0-10.5) x10^3/uL RBC (4.1-5.6) x10^6/uL Hgb (12.5-18.0) g/dL Hct (42-50) % MCV (78-100) fL MCH (26-32) pg MCHC (32-36) g/dL RDW (11.5-14.0) % Plt Count (150-450) x10^3/uL MPV (7.5-11.0) fL Gran % (36.0-66.0) % Immature Gran % (Auto) (0.00-0.4) % Nucleat RBC Rel Count (0.00-0.1) % Eos # (Auto) (0-0.5) x10^3/uL Immature Gran # (Auto) (0.00-0.03) x10^3u/L Absolute Lymphs (auto) (1.0-4.6) x10^3/uL Absolute Monos (auto) (0.0-1.3) x10^3/uL Absolute Nucleated RBC (0.00-0.01) x10^3u/L Lymphocytes % (24.0-44.0) % Monocytes % (0.0-12.0) % Eosinophils % (0.00-5.0) % Basophils % (0.0-0.4) % Absolute Granulocytes (1.4-6.9) x10^3/uL Basophils # (0-0.4) x10^3/uL Sodium (135-145) mmol/L Potassium (3.5-5.1) mmol/L Chloride (98-107) mmol/L Carbon Dioxide (22-30) mmol/L Anion Gap (5-15) MEQ/L BUN (9-20) mg/dL Creatinine (0.66-1.25) mg/dL Estimated GFR ML/MIN Glucose (74-106) mg/dL POC Glucometer 169 H 191 H (74 to 106) mg/dL Calcium (8.4-10.2) mg/dL Total Bilirubin (0.2-1.3) mg/dL AST (17-59) U/L ALT (0-50) U/L Alkaline Phosphatase (38-126) U/L Serum Total Protein (6.3-8.2) g/dL Albumin (3.5-5.0) g/dL C. difficile Screen NEGATIVE (NEGATIVE) C.difficile 027-NAP1-B1 PRESUMPTIVE NEGATIVE (NEGATIVE) 08/20/23 08/20/23 08/20/23 Range/Units 05:17 05:17 07:18 WBC 2.8 L (4.0-10.5) x10^3/uL RBC 3.59 L (4.1-5.6) x10^6/uL Hgb 10.4 L (12.5-18.0) g/dL Hct 32.5 L (42-50) % MCV 90.5 (78-100) fL MCH 29.0 (26-32) pg MCHC 32.0 (32-36) g/dL RDW 18.1 H (11.5-14.0) % Plt Count 104 L (150-450) x10^3/uL MPV 11.2 H (7.5-11.0) fL Gran % 54.9 (36.0-66.0) % Immature Gran % (Auto) 1.8 H (0.00-0.4) % Nucleat RBC Rel Count 0.0 (0.00-0.1) % Eos # (Auto) 0.10 (0-0.5) x10^3/uL Immature Gran # (Auto) 0.05 H (0.00-0.03) x10^3u/L Absolute Lymphs (auto) 0.80 L (1.0-4.6) x10^3/uL Absolute Monos (auto) 0.29 (0.0-1.3) x10^3/uL Absolute Nucleated RBC 0.00 (0.00-0.01) x10^3u/L Lymphocytes % 28.4 (24.0-44.0) % Monocytes % 10.3 (0.0-12.0) % Eosinophils % 3.5 (0.00-5.0) % Basophils % 1.1 (0.0-0.4) % Absolute Granulocytes 1.55 (1.4-6.9) x10^3/uL Basophils # 0.03 (0-0.4) x10^3/uL Sodium 139 (135-145) mmol/L Potassium 4.8 (3.5-5.1) mmol/L Chloride 113 H (98-107) mmol/L Carbon Dioxide 21 L (22-30) mmol/L Anion Gap 10.2 (5-15) MEQ/L BUN 9 (9-20) mg/dL Creatinine 0.81 (0.66-1.25) mg/dL Estimated GFR 96.0 ML/MIN Glucose 138 H (74-106) mg/dL POC Glucometer 123 H (74 to 106) mg/dL Calcium 8.3 L (8.4-10.2) mg/dL Total Bilirubin 0.90 (0.2-1.3) mg/dL AST 32 (17-59) U/L ALT 24 (0-50) U/L Alkaline Phosphatase 154 H (38-126) U/L Serum Total Protein 5.8 L (6.3-8.2) g/dL Albumin 2.4 L (3.5-5.0) g/dL C. difficile Screen (NEGATIVE) C.difficile 027-NAP1-B1 (NEGATIVE) 08/20/23 Range/Units 11:39 WBC (4.0-10.5) x10^3/uL RBC (4.1-5.6) x10^6/uL Hgb (12.5-18.0) g/dL Hct (42-50) % MCV (78-100) fL MCH (26-32) pg MCHC (32-36) g/dL RDW (11.5-14.0) % Plt Count (150-450) x10^3/uL MPV (7.5-11.0) fL Gran % (36.0-66.0) % Immature Gran % (Auto) (0.00-0.4) % Nucleat RBC Rel Count (0.00-0.1) % Eos # (Auto) (0-0.5) x10^3/uL Immature Gran # (Auto) (0.00-0.03) x10^3u/L Absolute Lymphs (auto) (1.0-4.6) x10^3/uL Absolute Monos (auto) (0.0-1.3) x10^3/uL Absolute Nucleated RBC (0.00-0.01) x10^3u/L Lymphocytes % (24.0-44.0) % Monocytes % (0.0-12.0) % Eosinophils % (0.00-5.0) % Basophils % (0.0-0.4) % Absolute Granulocytes (1.4-6.9) x10^3/uL Basophils # (0-0.4) x10^3/uL Sodium (135-145) mmol/L Potassium (3.5-5.1) mmol/L Chloride (98-107) mmol/L Carbon Dioxide (22-30) mmol/L Anion Gap (5-15) MEQ/L BUN (9-20) mg/dL Creatinine (0.66-1.25) mg/dL Estimated GFR ML/MIN Glucose (74-106) mg/dL POC Glucometer 130 H (74 to 106) mg/dL Calcium (8.4-10.2) mg/dL Total Bilirubin (0.2-1.3) mg/dL AST (17-59) U/L ALT (0-50) U/L Alkaline Phosphatase (38-126) U/L Serum Total Protein (6.3-8.2) g/dL Albumin (3.5-5.0) g/dL C. difficile Screen (NEGATIVE) C.difficile 027-NAP1-B1 (NEGATIVE) <PIETRO MCGRATH - Last Filed: 08/20/23 12:14> Vital Signs: Vital Signs - 24 hr Temp Pulse Resp BP Pulse Ox 08/20/23 11:42 97.4 F 72 18 113/68 94 L 08/20/23 08:22 84 18 96 08/20/23 07:27 98.0 F 73 17 118/59 94 L 08/20/23 04:00 97.8 F 71 20 123/60 97 08/19/23 23:33 98.0 F 76 20 133/65 97 08/19/23 20:00 97.4 F 72 22 125/61 98 08/19/23 18:58 75 18 97 Pain Assessment - Last Documented Pain Intensity 0 Pain Scale Used 0-10 Pain Scale Intake and Output: Intake & Output 08/18/23 08/19/23 08/20/23 08/21/23 11:59 11:59 11:59 11:59 Intake Total 3078 4821 3328 240 Output Total 850 1150 1725 725 Balance 2228 3671 1603 -485 Weight 160.5 kg Lab Results: Lab Results-Last 24 Hours 08/19/23 08/20/23 08/20/23 Range/Units 22:16 05:17 05:17 WBC 2.8 L (4.0-10.5) x10^3/uL RBC 3.59 L (4.1-5.6) x10^6/uL Hgb 10.4 L (12.5-18.0) g/dL Hct 32.5 L (42-50) % MCV 90.5 (78-100) fL MCH 29.0 (26-32) pg MCHC 32.0 (32-36) g/dL RDW 18.1 H (11.5-14.0) % Plt Count 104 L (150-450) x10^3/uL MPV 11.2 H (7.5-11.0) fL Gran % 54.9 (36.0-66.0) % Immature Gran % (Auto) 1.8 H (0.00-0.4) % Nucleat RBC Rel Count 0.0 (0.00-0.1) % Eos # (Auto) 0.10 (0-0.5) x10^3/uL Immature Gran # (Auto) 0.05 H (0.00-0.03) x10^3u/L Absolute Lymphs (auto) 0.80 L (1.0-4.6) x10^3/uL Absolute Monos (auto) 0.29 (0.0-1.3) x10^3/uL Absolute Nucleated RBC 0.00 (0.00-0.01) x10^3u/L Lymphocytes % 28.4 (24.0-44.0) % Monocytes % 10.3 (0.0-12.0) % Eosinophils % 3.5 (0.00-5.0) % Basophils % 1.1 (0.0-0.4) % Absolute Granulocytes 1.55 (1.4-6.9) x10^3/uL Basophils # 0.03 (0-0.4) x10^3/uL Sodium 139 (135-145) mmol/L Potassium 4.8 (3.5-5.1) mmol/L Chloride 113 H (98-107) mmol/L Carbon Dioxide 21 L (22-30) mmol/L Anion Gap 10.2 (5-15) MEQ/L BUN 9 (9-20) mg/dL Creatinine 0.81 (0.66-1.25) mg/dL Estimated GFR 96.0 ML/MIN Glucose 138 H (74-106) mg/dL POC Glucometer 191 H (74 to 106) mg/dL Calcium 8.3 L (8.4-10.2) mg/dL Total Bilirubin 0.90 (0.2-1.3) mg/dL AST 32 (17-59) U/L ALT 24 (0-50) U/L Alkaline Phosphatase 154 H (38-126) U/L Serum Total Protein 5.8 L (6.3-8.2) g/dL Albumin 2.4 L (3.5-5.0) g/dL 08/20/23 08/20/23 08/20/23 Range/Units 07:18 11:39 16:56 WBC (4.0-10.5) x10^3/uL RBC (4.1-5.6) x10^6/uL Hgb (12.5-18.0) g/dL Hct (42-50) % MCV (78-100) fL MCH (26-32) pg MCHC (32-36) g/dL RDW (11.5-14.0) % Plt Count (150-450) x10^3/uL MPV (7.5-11.0) fL Gran % (36.0-66.0) % Immature Gran % (Auto) (0.00-0.4) % Nucleat RBC Rel Count (0.00-0.1) % Eos # (Auto) (0-0.5) x10^3/uL Immature Gran # (Auto) (0.00-0.03) x10^3u/L Absolute Lymphs (auto) (1.0-4.6) x10^3/uL Absolute Monos (auto) (0.0-1.3) x10^3/uL Absolute Nucleated RBC (0.00-0.01) x10^3u/L Lymphocytes % (24.0-44.0) % Monocytes % (0.0-12.0) % Eosinophils % (0.00-5.0) % Basophils % (0.0-0.4) % Absolute Granulocytes (1.4-6.9) x10^3/uL Basophils # (0-0.4) x10^3/uL Sodium (135-145) mmol/L Potassium (3.5-5.1) mmol/L Chloride (98-107) mmol/L Carbon Dioxide (22-30) mmol/L Anion Gap (5-15) MEQ/L BUN (9-20) mg/dL Creatinine (0.66-1.25) mg/dL Estimated GFR ML/MIN Glucose (74-106) mg/dL POC Glucometer 123 H 130 H 201 H (74 to 106) mg/dL Calcium (8.4-10.2) mg/dL Total Bilirubin (0.2-1.3) mg/dL AST (17-59) U/L ALT (0-50) U/L Alkaline Phosphatase (38-126) U/L Serum Total Protein (6.3-8.2) g/dL Albumin (3.5-5.0) g/dL <ALEKSANDR CHOWDHURY - Last Filed: 08/20/23 17:59> Assessment/Plan (1) Sepsis Current Visit: Yes Status: Acute Assessment & Plan: -multifocal, most likely secondary to UTI, cellulitis/diabetic foot ulcer - Sepsis criteria identified 08/15/23 -Fluid Bolus ordered -LA at 6.0. Repeat lactate will be drawn in initial >2mmol/L If subsequent lactate elevated, trend until WNL -Blood cultures x2 ordered and pending -Vanc/zosyn started in ED, will continue -Ucult pending -Will admin vasopressors if hypotensive (MAP <65 or SBP <90) -procal, CXR -Resp mendez negative -Lovenox at therapeutic dose for new DVT diagnosis 08/15: -No longer meets criteria -WBC now wnl -Lactic Acid trending down now at 3.2 -Procal at 5.040 -Urine culture with gram - ID -Foot xray negative for acute findings (2) Diabetes mellitus Current Visit: Yes Status: Acute Qualifiers: Diabetes mellitus type: type 2 Diabetes mellitus complication detail: with foot ulcer Assessment & Plan: -SSI -lispro/glargine -ADA diet -A1c Code(s): E11.9 - TYPE 2 DIABETES MELLITUS WITHOUT COMPLICATIONS (3) COPD (chronic obstructive pulmonary disease) Current Visit: Yes Status: Acute Assessment & Plan: -RA -CXR -Does not appear to be in exacerbation -Supplemental oxygen with spo2 goal >88-92% -RT consult -Nebs/INH (4) Diabetic foot ulcer Current Visit: Yes Status: Acute Assessment & Plan: -Podiatry consult -right foot ulcer, reviewed consult, "Longstanding ulceration being managed by Dr. Adrian. During his stay would prefer compression therapy along with iodine and Aquacel Ag." -vanc/zosyn -xray right foot with no acute findings Code(s): E11.621 - TYPE 2 DIABETES MELLITUS WITH FOOT ULCER; L97.509 - NON- PRESSURE CHRONIC ULCER OTH PRT UNSP FOOT W UNSP SEVERITY (5) Cellulitis Current Visit: Yes Status: Acute Assessment & Plan: -Konstantin right leg -PCT, LA, ESR, CRP -Blood cultures pending -vanc/zosyn started in ED, will continue, pharmacy to dose -Wound culture open areas with drainage 08/15: -Podiatry consulted with recs for BLE compression wraps - per documentation Venous Dopplers demonstrating bilateral femoral vein deep vein thrombosis which are nonocclusive with a popliteal cyst. 08/17: -Cotinue IV abx for now, RLE improving, continue BLE compression dressings 08/18: -Will continue abx until Monday, most likely dc 08/19: -Can discharge tomorrow on oral antibiotic, may need CM involved with cost as pt currently has no rx coverage Code(s): L03.90 - CELLULITIS, UNSPECIFIED (6) DVT (deep venous thrombosis) Current Visit: Yes Status: Acute Assessment & Plan: -Doppler reviewed showing nonoccluding thrombi left and right femoral veins. -Pharmacy to dose therapeutic lovenox -OAC -CM to check cost 08/15: -eliquis 10mg bid x 1 week, then 5mg bid there after 08/17: -Dr. Duffy's office has samples of Eliquis for patient at [employer] Code(s): I82.409 - ACUTE EMBOLISM AND THOMBOS UNSP DEEP VN UNSP LOWER EXTREMITY (7) DIANA (obstructive sleep apnea) Current Visit: Yes Status: Acute Assessment & Plan: -CPAP at night Code(s): G47.33 - OBSTRUCTIVE SLEEP APNEA (ADULT) (PEDIATRIC) (8) Urinary tract infection Current Visit: Yes Status: Acute Assessment & Plan: -Ucult pending, vanc/zosyn for now, follow culture 08/15: -Ucult with gram- ID will continue to follow, continue current abx 08/17: -Ucult with Ecoli, sensitive to zosyn, will continue (9) Thrombocytopenia -May be secondary to infection, has had several low counts in the past, does not see hematology -will check smear for clumping -Monitor and replace if less than 20 -consider heme/onc referral -TSH, b12/fol, 08/17: -improving, consider hematology consult on discharge, this appears chronic with no previous workup (10) Diarrhea -Stools for CDIFF/culture/O&P -if Cdiff negative can add immodium 08/19: -CDiff negative, no further diarrheal episodes (2) Diabetes mellitus Current Visit: Yes Status: Acute Qualifiers: Diabetes mellitus type: type 2 Diabetes mellitus complication detail: with foot ulcer Code(s): E11.9 - TYPE 2 DIABETES MELLITUS WITHOUT COMPLICATIONS (3) COPD (chronic obstructive pulmonary disease) Current Visit: Yes Status: Chronic (4) Diabetic foot ulcer Current Visit: Yes Status: Acute Code(s): E11.621 - TYPE 2 DIABETES MELLITUS WITH FOOT ULCER; L97.509 - NON-PRESSURE CHRONIC ULCER OTH PRT UNSP FOOT W UNSP SEVERITY (5) Cellulitis Current Visit: Yes Status: Acute Code(s): L03.90 - CELLULITIS, UNSPECIFIED (6) DVT (deep venous thrombosis) Current Visit: Yes Status: Acute Code(s): I82.409 - ACUTE EMBOLISM AND THOMBOS UNSP DEEP VN UNSP LOWER EXTREMITY (7) DIANA (obstructive sleep apnea) Current Visit: Yes Status: Acute Code(s): G47.33 - OBSTRUCTIVE SLEEP APNEA (ADULT) (PEDIATRIC) (8) Urinary tract infection Current Visit: Yes Status: Acute Code(s): N39.0 - URINARY TRACT INFECTION, SITE NOT SPECIFIED (9) Diarrhea Current Visit: Yes Status: Acute Code(s): R19.7 - DIARRHEA, UNSPECIFIED <PIETRO MCGRATH - Last Filed: 08/20/23 12:14> (1) Sepsis Current Visit: Yes Status: Acute (2) Diabetes mellitus Current Visit: Yes Status: Acute Qualifiers: Diabetes mellitus type: type 2 Diabetes mellitus complication detail: with foot ulcer Code(s): E11.9 - TYPE 2 DIABETES MELLITUS WITHOUT COMPLICATIONS (3) COPD (chronic obstructive pulmonary disease) Current Visit: Yes Status: Chronic (4) Diabetic foot ulcer Current Visit: Yes Status: Acute Code(s): E11.621 - TYPE 2 DIABETES MELLITUS WITH FOOT ULCER; L97.509 - NON-PRESSURE CHRONIC ULCER OTH PRT UNSP FOOT W UNSP SEVERITY (5) Cellulitis Current Visit: Yes Status: Acute Code(s): L03.90 - CELLULITIS, UNSPECIFIED (6) DVT (deep venous thrombosis) Current Visit: Yes Status: Acute Code(s): I82.409 - ACUTE EMBOLISM AND THOMBOS UNSP DEEP VN UNSP LOWER EXTREMITY (7) DIANA (obstructive sleep apnea) Current Visit: Yes Status: Acute Code(s): G47.33 - OBSTRUCTIVE SLEEP APNEA (ADULT) (PEDIATRIC) (8) Urinary tract infection Current Visit: Yes Status: Acute Code(s): N39.0 - URINARY TRACT INFECTION, SITE NOT SPECIFIED (9) Thrombocytopenia Current Visit: Yes Status: Chronic <ALEKSANDR CHOWDHURY - Last Filed: 08/20/23 17:59> MARNIE Encounter - MARNIE Encounter Attestation MARNIE Encounter Attestation: "GILLIAN Daniel andhavediscussed pertinent aspects of their care with Pietro Duarte agree with the history, physical exam (any modifications based on my personal exam will be noted below), assessment, and plan as outlined in original note. Please see immediately below for my summary of findings and additional assessment and plan along with any meaningful corrections/explanations to the Subjective/Objective portions of the MARNIE note will be noted." My portion of the encounter took place via telemedicine. -Sepsis secondary to RLE cellulitis and UTI. Patient feels well. Cellulitis finally improving after a few days of IV antibiotics. Can be discharged tomorrow on oral Augmentin/doxy however case advocate needs to work out prescription coverage with the patient and insurance. <ALEKSANDR CHOWDHURY - Last Filed: 08/20/23 17:59>
[2023-08-21 05:15] LABS: BASOPHIL % 0.6 % (0.0-0.4); Basophil (Absolute #) 0.02 x10^3/uL (0-0.4); Eosinophil % 2.4 % (0.00-5.0); Eosinophil (Absolute #) 0.08 x10^3/uL (0-0.5); Hematocrit 31.2 % (42-50); Hemoglobin 10.2 g/dL (12.5-18.0); IMMATURE GRAN # 0.15 x10^3u/L (0.00-0.03); IMMATURE GRAN % 4.5 % (0.00-0.4); Lymphocyte (Absolute #) 0.91 x10^3/uL (1.0-4.6); Lymphocytes % 27.2 % (24.0-44.0); Mean Cell Volume 89.7 fL (78-100); Mean Corpuscular Hemoglobin 29.3 pg (26-32); Mean Corpuscular Hgb Concent. 32.7 g/dL (32-36); Mean Platelet Volume 10.5 fL (7.5-11.0); Monocyte (Absolute #) 0.29 x10^3/uL (0.0-1.3); Monocytes % 8.7 % (0.0-12.0); Neutrophil % 56.6 % (36.0-66.0); Platelet Count 100 x10^3/uL (150-450); Red Blood Count 3.48 x10^6/uL (4.1-5.6); Red Cell Distribution Width 18.3 % (11.5-14.0); White Blood Count 3.4 x10^3/uL (4.0-10.5)
[2023-08-21 05:30] LABS: ALBUMIN 2.5 g/dL (3.5-5.0); ANION GAP 10.7 MEQ/L (5-15); BILIRUBIN,TOTAL 0.8 mg/dL (0.2-1.3); Calcium 8.2 mg/dL (8.4-10.2); Creatinine 1 0.9 mg/dL (0.66-1.25); Potassium 4.4 mmol/L (3.5-5.1); Total Protein 5.6 g/dL (6.3-8.2)
[2023-08-21] MEDS ORDERED: TROUGH DRUG LEVELS IJ ONE (09:30)
--- NOTE | 2023-08-21 14:08 | PCM.DS ---
Discharge Summary Date of Admission: 08/16/23 10:14 Date of Discharge: 08/21/23 Admitting Physician: ALEKSANDR CHOWDHURY MD Consults: Consults on Case 08/15/23 15:27 Consult Podiatry ROUTINE Primary Care Provider: DIDIER ESQUIVEL DO Allergies Allergies Horse/Equine Containing Products Allergy (Verified 08/15/23 11:13) Hospital Summary - Hospital Course Hospital Course: is a 67 year old male with a pmhx of HTN, DIANA, COPD, and DMII who presented to ED 08/15/23 with complaints of a two day history of BLE edema, vomiting, generalized weakness/dizziness, dysuria, subjective fever/chills, productive cough with white sputum. Patient also reports that he sees Dr. Adrian podiatry for a left diabetic foot ulcer; [facility] managing dressing changes. In ED, patient septic on presentation. Vitals noted with mild tachycardia and hypotension. Venous doppler showing non-occluding thrombi of the left and right femoral veins. Lab findings remarkable for WBC at 13.9, hyponatremia at 133, GAP acidosis with lactic at 6.0, carbon dioxide at 15, GAP at 16.9, hyperkalemia at 5.4, Tbili at 1.7, urinalysis with nitrites and leuks. Patient given zosyn/vanc as well as IVF initiated. Patient admitted with sepsis, underlying cause most likely multifocal with UTI, cellulitis of the right leg, and right diabetic foot ulcer. Sx have improved since admission. Diarrhea resolved, CDiff screen negative. RLE with significant reduction in erythema. BLE with compression dressings. He does have samples provided by [facility] until coverage resumes on 08/28/23. Will send in affordable antibiotics for d/c. He does not have prescription drug coverage until August 27. He denies Cp, SOB, abd. pain, N/V/D. - Vitals & Intake/Output Vital Signs: Vital Signs Temperature 97.6 F 08/21/23 11:30 Pulse Rate 76 08/21/23 11:30 Respiratory Rate 18 08/21/23 11:30 Blood Pressure 121/60 08/21/23 11:30 O2 Sat by Pulse Oximetry 99 08/21/23 11:30 Intake & Output: Intake & Output 08/19/23 08/20/23 08/21/2326/24 11:59 11:59 11:59 11:59 Intake Total 4888 6400 9380 450 Output Total 1150 1725 1925 Balance 3671 1603 2825 450 Weight 160.5 kg - Lab Result Diagrams: 08/21/23 04:55 08/21/23 04:55 Lab Results-Last 24 Hrs: Lab Results-Last 24 Hours 08/20/23 08/20/23 08/21/23 Range/Units 16:56 21:57 04:55 WBC 3.4 L (4.0-10.5) x10^3/uL RBC 3.48 L (4.1-5.6) x10^6/uL Hgb 10.2 L (12.5-18.0) g/dL Hct 31.2 L (42-50) % MCV 89.7 (78-100) fL MCH 29.3 (26-32) pg MCHC 32.7 (32-36) g/dL RDW 18.3 H (11.5-14.0) % Plt Count 100 L (150-450) x10^3/uL MPV 10.5 (7.5-11.0) fL Gran % 56.6 (36.0-66.0) % Immature Gran % (Auto) 4.5 H (0.00-0.4) % Nucleat RBC Rel Count 0.0 (0.00-0.1) % Eos # (Auto) 0.08 (0-0.5) x10^3/uL Immature Gran # (Auto) 0.15 H (0.00-0.03) x10^3u/L Absolute Lymphs (auto) 0.91 L (1.0-4.6) x10^3/uL Absolute Monos (auto) 0.29 (0.0-1.3) x10^3/uL Absolute Nucleated RBC 0.00 (0.00-0.01) x10^3u/L Lymphocytes % 27.2 (24.0-44.0) % Monocytes % 8.7 (0.0-12.0) % Eosinophils % 2.4 (0.00-5.0) % Basophils % 0.6 (0.0-0.4) % Absolute Granulocytes 1.90 (1.4-6.9) x10^3/uL Basophils # 0.02 (0-0.4) x10^3/uL Sodium (135-145) mmol/L Potassium (3.5-5.1) mmol/L Chloride (98-107) mmol/L Carbon Dioxide (22-30) mmol/L Anion Gap (5-15) MEQ/L BUN (9-20) mg/dL Creatinine (0.66-1.25) mg/dL Estimated GFR ML/MIN Glucose (74-106) mg/dL POC Glucometer 201 H 143 H (74 to 106) mg/dL Calcium (8.4-10.2) mg/dL Total Bilirubin (0.2-1.3) mg/dL AST (17-59) U/L ALT (0-50) U/L Alkaline Phosphatase (38-126) U/L Serum Total Protein (6.3-8.2) g/dL Albumin (3.5-5.0) g/dL 08/21/23 08/21/23 08/21/23 Range/Units 04:55 07:05 11:12 WBC (4.0-10.5) x10^3/uL RBC (4.1-5.6) x10^6/uL Hgb (12.5-18.0) g/dL Hct (42-50) % MCV (78-100) fL MCH (26-32) pg MCHC (32-36) g/dL RDW (11.5-14.0) % Plt Count (150-450) x10^3/uL MPV (7.5-11.0) fL Gran % (36.0-66.0) % Immature Gran % (Auto) (0.00-0.4) % Nucleat RBC Rel Count (0.00-0.1) % Eos # (Auto) (0-0.5) x10^3/uL Immature Gran # (Auto) (0.00-0.03) x10^3u/L Absolute Lymphs (auto) (1.0-4.6) x10^3/uL Absolute Monos (auto) (0.0-1.3) x10^3/uL Absolute Nucleated RBC (0.00-0.01) x10^3u/L Lymphocytes % (24.0-44.0) % Monocytes % (0.0-12.0) % Eosinophils % (0.00-5.0) % Basophils % (0.0-0.4) % Absolute Granulocytes (1.4-6.9) x10^3/uL Basophils # (0-0.4) x10^3/uL Sodium 136 (135-145) mmol/L Potassium 4.4 (3.5-5.1) mmol/L Chloride 110 H (98-107) mmol/L Carbon Dioxide 20 L (22-30) mmol/L Anion Gap 10.7 (5-15) MEQ/L BUN 8 L (9-20) mg/dL Creatinine 0.90 (0.66-1.25) mg/dL Estimated GFR 93.0 ML/MIN Glucose 156 H (74-106) mg/dL POC Glucometer 143 H 158 H (74 to 106) mg/dL Calcium 8.2 L (8.4-10.2) mg/dL Total Bilirubin 0.80 (0.2-1.3) mg/dL AST 33 (17-59) U/L ALT 24 (0-50) U/L Alkaline Phosphatase 153 H (38-126) U/L Serum Total Protein 5.6 L (6.3-8.2) g/dL Albumin 2.5 L (3.5-5.0) g/dL Micro Results-Entire Visit: Microbiology 08/15/23 12:20 Blood Culture - Final Blood 08/15/23 12:26 Blood Culture - Final Blood 08/15/23 12:13 Urine Culture - Final Catherized Escherichia Coli Accuchecks Date 08/21/23 Date 08/21/23 Date 08/20/23 Time 11:30 Time 07:21 Time 16:30 - Procedures and Test Procedures and Tests throughout Hospitalization: Therapy Orders & Screens 08/15/23 15:27 PT Eval & Treat ( Order) ONCE Reason for Eval:: weakness Diagnosis: dizziness/generalized weakness/BLE pain Respiratory Therapy Consult ONCE Comment: Reason For Exam: Diagnosis: dizziness/generalized weakness/BLE pain OT Eval and Treat ( Order) ONCE Comment: Physician Instructions: Reason For Exam: Diagnosis: dizziness/generalized weakness/BLE pain 08/15/23 15:58 BiPap/CPAP ROUTINE Comment: Diagnosis: dizziness/generalized weakness/BLE pain 08/15/23 15:59 Respiratory Therapy Assessment DAILY Comment: Diagnosis: dizziness/generalized weakness/BLE pain Discharge Exam General Appearance: no apparent distress, alert Neurologic Exam: alert, oriented x 3, cooperative, normal mood/affect, nml cerebellar function, sensation nml, No motor deficits Eye Exam: PERRL, EOMI, eyes nml inspection Ears, Nose, Throat Exam: normal ENT inspection, pharynx normal, moist mucous m embranes Neck Exam: normal inspection, non-tender, supple, full range of motion Respiratory Exam: normal breath sounds, lungs clear, No respiratory distress Cardiovascular Exam: regular rate/rhythm, normal heart sounds Gastrointestinal/Abdomen Exam: soft, No tenderness, No mass Male Genitalia Exam: deferred Rectal Exam: deferred Back Exam: normal inspection, normal range of motion, No CVA tenderness, No vertebral tenderness Extremity Exam: normal inspection, normal range of motion, other (BLLE wrapped) Skin Exam: normal color, warm, dry Wound Assessment: Skin/Wound Assessment Wound/Incision Assessment Start: 08/15/23 15:48 Text: Status: Active Freq: Q6H Protocol: Document 08/21/23 07:49 KD (Rec: 08/21/23 08:13 KD [id number]) Wound/Incision Assessment Right Posterior Toe Wound Assessment Shift Assessment Wound Type DIABETIC ULCER Wound Stage Non Pressure Wound Dressing Status Dry & Intact Comment unable to assess, gladys boots in place per dr. valdovinos LEFT ANTERIOR LEG Wound Assessment Shift Assessment Wound Type REDNESS Wound Stage Non Pressure Wound Dressing Status Dry & Intact Drainage Amount None Comment gladys boot in place per Dr Valdovinos; redness has receded from previous marking & in coloration RIGHT LOWER LEG Wound Assessment Shift Assessment Wound Type CELLULITIS Wound Stage Non Pressure Wound Dressing Status Dry & Intact Drainage Amount None Comment redness noted above gladys boot to upper thigh, improvement noted - redness decreasing in size & color. Wound Photo Photo Taken No Date: 08/15/23 Comment: photo taken on admission Final Diagnosis/Problem List - Final Discharge Diagnosis/Problem (1) Sepsis Current Visit: Yes Status: Acute Assessment & Plan: - resolved -multifocal, most likely secondary to UTI, cellulitis/diabetic foot ulcer (2) Diabetes mellitus Current Visit: Yes Status: Acute Assessment & Plan: - A1C 08/15/23 6.97- controlled -SSI -lispro/glargine -ADA diet Code(s): E11.9 - TYPE 2 DIABETES MELLITUS WITHOUT COMPLICATIONS (3) Cellulitis Current Visit: Yes Status: Acute Assessment & Plan: -BLLE wrapped - will d/c with antibiotics - [facility] to continue wraps Code(s): L03.90 - CELLULITIS, UNSPECIFIED (4) DVT (deep venous thrombosis) Current Visit: Yes Status: Acute Assessment & Plan: -Doppler reviewed showing nonoccluding thrombi left and right femoral veins. -Pharmacy to dose therapeutic lovenox -eliquis 10mg bid x 1 week, then 5mg bid there after -Dr. Duffy's office has samples of Eliquis for patient at test deskman- already picked up per case management Code(s): I82.409 - ACUTE EMBOLISM AND THOMBOS UNSP DEEP VN UNSP LOWER EXTREMITY (5) Diabetic foot ulcer Current Visit: Yes Status: Acute Assessment & Plan: -Podiatry consult -right foot ulcer, reviewed consult, "Longstanding ulceration being managed by Dr. Adrian. During his stay would prefer compression therapy along with iodine and Aquacel Ag." -vanc/zosyn -xray right foot with no acute findings Code(s): E11.621 - TYPE 2 DIABETES MELLITUS WITH FOOT ULCER; L97.509 - NON- PRESSURE CHRONIC ULCER OTH PRT UNSP FOOT W UNSP SEVERITY (6) Diarrhea Current Visit: Yes Status: Acute Assessment & Plan: - resolved - c-diff negative Code(s): R19.7 - DIARRHEA, UNSPECIFIED (7) DIANA (obstructive sleep apnea) Current Visit: Yes Status: Chronic Assessment & Plan: -CPAP at night Code(s): G47.33 - OBSTRUCTIVE SLEEP APNEA (ADULT) (PEDIATRIC) (8) Urinary tract infection Current Visit: Yes Status: Acute Assessment & Plan: -Ucult with Ecoli, sensitive to zosyn, will continue - Will d/c with cefuroxime per sensitivity results to also cover cellulitis Code(s): N39.0 - URINARY TRACT INFECTION, SITE NOT SPECIFIED (9) COPD (chronic obstructive pulmonary disease) Current Visit: Yes Status: Chronic (10) Thrombocytopenia Current Visit: Yes Status: Chronic Assessment & Plan: - 2:2 infection ? - consider hematology consult OP - trend labs OP - Discharge Discharge Date: 03/25/24 Disposition: HOME HEALTH SERVICE Condition: Stable Prescriptions: New Apixaban [Eliquis] 5 mg PO BID 30 Days #60 tablet Cefuroxime Axetil 500 mg [Ceftin 500 mg] 500 mg PO BID 5 Days #10 tablet Continue Atorvastatin Calcium 20 mg PO DAILY Ferrous Sulfate 325 mg [Feosol 325 mg] 325 mg PO DAILY Fluticasone Propion/Salmeterol [Fluticasone-Salmeterol 100-50] 1 disk PO UD glucosamine HCL [Glucosamine HCl] 500 mg PO BID Hydrocortisone 1% Cream [Cortisone 1% Cream] 1 gm TP BID Metoprolol Succinate 25 mg Xl* [Toprol-Xl 25MG Tablets] 25 mg PO DAILY Omeprazole 40 mg PO BID Oxycodone HCl/Acetaminophen [Oxycodone-Acetaminophn 7.5-325] 1 each PO Q8H PRN PRN Reason: Pain Sitagliptin Phos/Metformin HCl [Janumet Xr 100-1,000 mg Tablet] 1 tab PO HS Tamsulosin HCl 0.4 mg [Flomax 0.4 MG] 0.8 mg PO HS Trazodone HCl 150 mg PO HS Furosemide 40 mg [Lasix 40 MG] 40 mg PO DAILY Emollient Base [Emollient] 1 dose TOP BID Docusate Sodium 100 mg [Docusate Sodium 100 MG] 100 mg PO Q12H PRN PRN PRN Reason: Constipation Diphenhydramine HCl 25 mg [Benadryl 25 mg Capsule] 25 mg PO Q6H PRN PRN PRN Reason: Allergies Allopurinol 300 mg [Zyloprim 300 mg] 300 mg PO DAILY Acetaminophen 325 mg [Tylenol 325 mg] 325 mg PO Q4H PRN PRN PRN Reason: Pain Guaifenesin 600 mg ER [Mucinex 600MG ER Tabs] 600 mg PO BID Potassium Chloride 40 meq PO BID Oxybutynin Chloride [Oxybutynin Chloride ER] 10 mg PO DAILY Ondansetron [Ondansetron Odt ] 4 mg PO Q4H PRN PRN PRN Reason: Nausea Nitroglycerin 0.4 mg Tablet [Nitrostat 0.4 MG Tablet] 0.4 mg SL UD Magnesium Oxide 400 mg [Mag-Ox 400] 400 mg PO BID Ipratropium/Albuterol Sulfate [Iprat-Albut 0.5-3(2.5) mg/3 ml] 3 ml PO Q6H PRN PRN PRN Reason: Shortness Of Breath/Wheezing Dulaglutide [Trulicity] 0.5 ml SQ WEEKLY Insulin Lispro [Humalog Kwikpen U-100] 100 unit SQ UD Additional Instructions: HOME HEALTHCARE WILL CHANGE DRESSINGS ON Monday -Continue Eliquis 5mg twice daily Follow up with: JOCELYN MARIN DPM [ACTIVE STAFF] - BRAULIO BRYAN FNP [ALLIED HEALTH PROFESSION STAFF] - 08/25/23 2:00 pm
[2023-08-21 16:06] VITALS: BP 140/65; PULSE 74; RESP 20; TEMP 97.7; O2SAT 98
--- NOTE | 2023-08-23 07:20 | PCM.NOTE ---
Date and Time: 08/23/23718 Subjective Assessment: Mr. Damico is a very pleasant 67-year-old male with a significant past medical history of hypertension DIANA, COPD and type 2 diabetes mellitus who gained admission through the emergency department for sepsis with constitutional symptoms of vomiting generalized weakness fevers chills and productive cough. Patient has a longstanding history of ulceration to the right lower extremity which is being treated by his mortgage consultant Dr. Adrian and home health care manages the dressing changes. Patient indicates that the wound has been present for a long time. He is admitted today with sepsis. Subjective examination limited as patient is ill and only speaks in brief statements significantly improved medically. doing well today Physical Exam - General General Appearance: no apparent distress - Neuro Neurologic: Epicritic and protopathic - Vascular Peripheral Pulses: Posterior tibialis: 2+, Dorsalis-Pedis: 2+ Capillary Refill Time: < 3 seconds Hair Growth: Symmetrical and Bilateral Varicosities: Positive Edema: Pitting Edema Degree: 3+ Skin: Supple, not atrophic - Narrative Narrative Physical Exam: Podiatry Physical Exam Objective Data Vital Signs: Pain Assessment - Last Documented Pain Intensity 4 Pain Scale Used 0-10 Pain Scale Intake and Output: Intake & Output 08/20/23 08/21/23 08/22/23 08/23/23 11:59 11:59 11:59 11:59 Intake Total 3328 4750 450 Output Total 1725 1925 600 Balance 1603 2825 -150 Assessment/Plan (1) COPD (chronic obstructive pulmonary disease) Status: Chronic (2) Cellulitis Status: Acute Assessment & Plan: Right lower extremity ulcer was examined demonstrating no clinical signs of infection at this time however is likely source of cellulitis to the right lower extremity. Culture to be obtained Venous Dopplers demonstrating bilateral femoral vein deep vein thrombosis which are nonocclusive with a popliteal cyst. I do believe patient is a good candidate for bilateral lower extremity compression therapy since this does not extend into the greater saphenous vein. Patient likely not a good candidate for aggressive diuresis secondary to blood pressure. Patient currently on 40 mg Lasix daily Code(s): L03.90 - CELLULITIS, UNSPECIFIED (3) DVT (deep venous thrombosis) Status: Acute Code(s): I82.409 - ACUTE EMBOLISM AND THOMBOS UNSP DEEP VN UNSP LOWER EXTREMITY (4) Diabetes mellitus Status: Acute Qualifiers: Diabetes mellitus type: type 2 Diabetes mellitus complication detail: with foot ulcer Code(s): E11.9 - TYPE 2 DIABETES MELLITUS WITHOUT COMPLICATIONS (5) Diabetic foot ulcer Status: Acute Assessment & Plan: Longstanding ulceration being managed by Dr. Adrian. Patient request follow up with us outpatient instead. During his stay would prefer compression therapy along with iodine and Aquacel Ag. Code(s): E11.621 - TYPE 2 DIABETES MELLITUS WITH FOOT ULCER; L97.509 - NON- PRESSURE CHRONIC ULCER OTH PRT UNSP FOOT W UNSP SEVERITY (6) Lactic acid acidosis Status: Acute Code(s): E87.20 - ACIDOSIS, UNSPECIFIED (7) Leukocytosis Status: Acute Code(s): D72.829 - ELEVATED WHITE BLOOD CELL COUNT, UNSPECIFIED (8) Sepsis Status: Acute (9) Urinary tract infection Status: Acute Code(s): N39.0 - URINARY TRACT INFECTION, SITE NOT SPECIFIED (10) Nonspecific chest pain Status: Acute Code(s): R07.9 - CHEST PAIN, UNSPECIFIED
== END 2023-08-21 17:25 | disposition home health service (06) | DRG 872 ==
LOC: ED 10:51 → MED SURG 14:26 → OBSVTOIN 08-16 10:14
PROVIDERS: ADMIT Internal Medicine; ATTEND Internal Medicine
DX: A41.9 Sepsis, unspecified organism (principal); I82.401 Acute embolism and thrombosis of unspecified deep veins of right lower extremity; L03.115 Cellulitis of right lower limb; L03.116 Cellulitis of left lower limb; E87.20 Acidosis, unspecified; N39.0 Urinary tract infection, site not specified; E11.621 Type 2 diabetes mellitus with foot ulcer; J44.9 Chronic obstructive pulmonary disease, unspecified; L97.519 Non-pressure chronic ulcer of other part of right foot with unspecified severity; D72.829 Elevated white blood cell count, unspecified; I10 Essential (primary) hypertension; R60.0 Localized edema; R07.9 Chest pain, unspecified; D69.6 Thrombocytopenia, unspecified; G47.33 Obstructive sleep apnea (adult) (pediatric); R19.7 Diarrhea, unspecified; R00.0 Tachycardia, unspecified; I95.9 Hypotension, unspecified; Z79.899 Other long term (current) drug therapy; Z20.828 Contact with and (suspected) exposure to other viral communicable diseases
CPT/HCPCS: 0241U; 29580; 36000; 36415; 51702; 73630; 80048; 80053; 80202; 81001; 82607; 82746; 82947; 83036; 83605; 84134; 84145; 84443; 85025; 85027; 85652; 86140; 87040; 87045; 87046; 87070; 87077; 87086; 87177; 87186; 87209; 87328; 87329; 87427; 87493; 93041; 93268; 93970; 94640; 94660; 94760; 94762; 97110; 97161; 97165; 97530; 99222; 99232; 99284; 99291; 99292; G0378; P9612; Q3014; J1650; J1817; J2405; J2543; A9270-GY; J3370

== ENCOUNTER 2023-09-22 11:32 | Emergency (ER) | payer MEDICARE ==
--- NOTE | 2023-09-22 11:37 | ERPHSYRPT ---
- History of Present Illness Time Seen by Provider: 09/22/23 11:36 Source: patient, EMS, old records Physician History: This is a morbidly obese 67-year-old white male patient of Dr. Esquivel who presents to the emergency department by wireless network engineer service. They were called to help lift this patient. Patient had attempted to sit down to use the toilet and missed the toilet falling onto his lower back and hitting his right hip and had without loss of consciousness. Patient has chronic weakness. Paramedics felt that the patient should be evaluated here in the emergency department. Patient is on Eliquis. Patient also has a history of hyperlipidemia, insulin-dependent diabetes, chronic anemia, hypertension and gastroesophageal reflux disease. Patient denies headache. Patient denies chest pain. Patient denies shortness of breath. Patient denies abdominal pain. He has no other extremity complaints. Occurred: just prior to arrival Reason for Fall: fell from standing pos (Patient was actually bending down to sit down on the toilet and missed the toilet) Injuries/Pain Location: head, neck, lower extremity (Right hip), lower (Lower back) Loss of Consciousness: no loss of consciousness Quality: aching Severity of Pain-Max: mild (Moderate) Severity of Pain-Current: mild (To moderate) Modifying Factors: Improves With: movement Associated Symptoms (Fall): back pain (Lower), extremity injury (Right hip pain), No abdominal pain, No chest pain, No neck pain, No slurred speech, No vision changes Allergies/Adverse Reactions: Horse/Equine Containing Products Allergy (Verified 09/22/23 11:39) Home Medications: Atorvastatin Calcium 20 mg PO DAILY 03/30/23 [History] Ferrous Sulfate 325 mg [Feosol 325 mg] 325 mg PO DAILY 03/30/23 [History] Fluticasone Propion/Salmeterol [Fluticasone-Salmeterol 100-50] 1 disk PO UD 03/30/23 [History] Hydrocortisone 1% Cream [Cortisone 1% Cream] 1 gm TP BID 03/30/23 [History] Metoprolol Succinate 25 mg Xl* [Toprol-Xl 25MG Tablets] 25 mg PO DAILY 1 05/30/22 [History] Omeprazole 40 mg PO BID 03/30/23 [History] Oxycodone HCl/Acetaminophen [Oxycodone-Acetaminophn 7.5-325] 1 each PO Q8H PRN 03/30/23 [History] Sitagliptin Phos/Metformin HCl [Janumet Xr 100-1,000 mg Tablet] 1 tab PO HS 03/30/23 [History] Tamsulosin HCl 0.4 mg [Flomax 0.4 MG] 0.8 mg PO HS 03/30/23 [History] Trazodone HCl 150 mg PO HS 03/30/23 [History] glucosamine HCL [Glucosamine HCl] 500 mg PO BID 03/30/23 [History] Acetaminophen 325 mg [Tylenol 325 mg] 325 mg PO Q4H PRN PRN 08/15/23 [History] Allopurinol 300 mg [Zyloprim 300 mg] 300 mg PO DAILY 08/15/23 [History] Diphenhydramine HCl 25 mg [Benadryl 25 mg Capsule] 25 mg PO Q6H PRN PRN 08/15/23 [History] Docusate Sodium 100 mg [Docusate Sodium 100 MG] 100 mg PO Q12H PRN PRN 08/15/23 [History] Dulaglutide [Trulicity] 0.5 ml SQ WEEKLY 08/15/23 [History] Emollient Base [Emollient] 1 dose TOP BID 08/15/23 [History] Furosemide 40 mg [Lasix 40 MG] 40 mg PO DAILY 08/15/23 [History] Guaifenesin 600 mg ER [Mucinex 600MG ER Tabs] 600 mg PO BID 08/15/23 [History] Insulin Lispro [Humalog Kwikpen U-100] 100 unit SQ UD 08/15/23 [History] Ipratropium/Albuterol Sulfate [Iprat-Albut 0.5-3(2.5) mg/3 ml] 3 ml PO Q6H PRN PRN 08/15/23 [History] Magnesium Oxide 400 mg [Mag-Ox 400] 400 mg PO BID 08/15/23 [History] Nitroglycerin 0.4 mg Tablet [Nitrostat 0.4 MG Tablet] 0.4 mg SL UD 0 08/15/23 [History] Ondansetron [Ondansetron Odt ] 4 mg PO Q4H PRN PRN 08/15/23 [History] Oxybutynin Chloride [Oxybutynin Chloride ER] 10 mg PO DAILY 08/15/23 [History] Potassium Chloride 40 meq PO BID 08/15/23 [History] Hx Tetanus, Diphtheria Vaccination/Date Given: No Hx Influenza Vaccination/Date Given: No Hx Pneumococcal Vaccination/Date Given: No Travel Risk - International Travel Have you traveled outside of the country in past 3 weeks: No - Emerging Infectious Disease Are you exhibiting symptoms associated with any current EIDs: No - Review of Systems Constitutional: No Symptoms Eyes: No Symptoms Ears, Nose, & Throat: No Symptoms Respiratory: No Symptoms Cardiac: No Symptoms Abdominal/Gastrointestinal: No Symptoms Genitourinary Symptoms: No Symptoms Musculoskeletal: Back Pain (Lower), Fall, Injury Skin: No Symptoms (Right hip) Neurological: No Symptoms Psychological: No Symptoms Endocrine: No Symptoms Hematologic/Lymphatic: No Symptoms Immunological/Allergic: No Symptoms All Other Systems: Reviewed and Negative - Past Medical History Pertinent Past Medical History: Yes Neurological History: No Pertinent History ENT History: No Pertinent History Cardiac History: Hypertension Respiratory History: Sleep Apnea, COPD Endocrine Medical History: Diabetes Type II Musculoskeletal History: Arthritis GI Medical History: Other History: Renal Disease Psycho-Social History: No Pertinent History Male Reproductive Disorders: Prostate Problems Other Medical History: 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 - Past Surgical History Past Surgical History: Yes Neuro Surgical History: No Pertinent History Cardiac: No Pertinent History Respiratory: No Pertinent History Gastrointestinal: Colon Resection Genitourinary: No Pertinent History Musculoskeletal: No Pertinent History Male Surgical History: No Pertinent History Other Surgical History: tumor removed,colostomy reversal - Social History Smoking Status: Former smoker Exposure to second hand smoke: No Drug Use: none Patient Lives Alone: No - Nursing Vital Signs Nursing Vital Signs: Initial Vital Signs Pulse Rate 74 09/22/23 11:35 Respiratory Rate 11 L 09/22/23 11:35 Blood Pressure 133/74 09/22/23 11:35 O2 Sat by Pulse Oximetry 99 09/22/23 11:35 Pain Scale Pain Intensity 10 - Bern Coma Score Best Eye Response (Brianne): (4) open spontaneously Best Verbal Response (Brianne): (5) oriented Best Motor Response (Brianne): (6) obeys commands Bern Total: 15 - Physical Exam General Appearance: no apparent distress, alert, anxiety, obese Head Injury: no evidence of injury Eye Exam: PERRL/EOMI, eyes nml inspection ENT Exam: airway nml, nml ext.inspection Neck Exam: c-collar in place Respiratory/Chest Exam: normal breath sounds, No chest tenderness, No respiratory distress, No ecchymosis, No crepitus Cardiovascular Exam: normal heart sounds, regular rate/rhythm Gastrointestinal Exam: soft, normal bowel sounds, No tenderness Rectal Exam: not done Back Exam: normal range of motion, vertebral tenderness (Mild tenderness lumbar level), muscle spasm (Bilateral lumbar level), No CVA tenderness Extremity Exam: normal inspection, normal range of motion, hip tenderness (Right side) Neurologic Exam: alert, oriented x 3, cooperative, 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 as tested, normal mood/affect Skin Exam: normal color, warm, dry SpO2 Interpretation: normal O2 Delivery: Room Air - Course Nursing assessment & vital signs reviewed: Yes Ordered Tests: Active Orders 24 hr Category Date Time Status CERVICAL SPINE WO CONTRAST [CT] Stat Exams 09/22/23 12:05 Completed HEAD WITHOUT CONTRAST [CT] Stat Exams 09/22/23 12:05 Completed HIP UNI (2V) INCL PEL IF DONE Stat Exams 09/22/23 12:06 Completed LUMBAR SPINE W/O [CT] Stat Exams 09/22/23 12:30 Completed - Progress Progress: improved, re-examined Progress Note: 09/22/23 12:48 My medical decision making and the assignment of low to moderate medical complexity to this patient's medical issue today is based on review of the patient's past medical history, review patient medication list, review of patient's drug allergy list, history present illness and physical findings on examination. The workup in this patient includes CT scan of the head, CT scan of the cervical spine, CT scan of the lumbar spine, x-ray of the right hip. Differential diagnosis includes contusion, fracture of the cervical spine, lumbar spine and right hip, intracranial abnormality 09/22/23 13:22 CT scan of the lumbar spine was interpreted by the radiologist and I reviewed the impression. The impression states negative for acute fracture and subluxation. There is multilevel degenerative spondylosis present. CT scan of the cervical spine without contrast was interpreted by the radiologist and I reviewed the impression. Pression states negative for acute fracture or subluxation. There is multilevel degenerative spondylosis. CT scan of the head without contrast was interpreted by the radiologist and I reviewed the impression. Impression states normal head CT without contrast. X-ray of the right hip shows mild lower lumbar degenerative changes. There are no other acute findings. No mention of acute fracture or dislocation. 09/22/23 14:27 Patient tolerated oral intake. Patient's spouse here to take him home. Patient and spouse desire for him to go home. He is stable for discharge to home Counseled pt/family regarding: diagnosis, need for follow-up, rad results Medical Desision Making - Independent Historian Additional History obtained from: Spouse - Diagnostic Testing Diagnostic test were ordered, analyzed, and reviewed by me: Yes Radiological Interpretation: Reviewed by me, Teleradiologist Report - Risk of complications Low Risk: Low risk of morbidity from additional dx testing or treatment - Departure Departure Disposition: Home Clinical Impression: Fall with no significant injury Condition: Stable Critical Care Time: No Referrals: DIDIER ESQUIVEL DO [Primary Care Provider] - Follow up/PCP as directed Instructions: Preventing Falls ED Additional Instructions: Drink plenty of fluids. Take your medications as prescribed. Follow-up with your primary care provider today, 09/22/2023, to make arrangements for follow-up appointment for further evaluation and management.
[2023-09-22 11:51] VITALS: TEMP 97.6
--- NOTE | 2023-09-22 12:52 | XRAY ---
Indication: Pain following fall. Comparison: July 22, 2008 AP pelvis and 2 view right hip again demonstrates osteopenia and mild low lumbar degenerative changes. New pelvic suture material, bilateral seminal vesicle calcifications, and minimal vascular calcifications. No other bony, articular, or soft tissue abnormalities.
[2023-09-22 13:06] VITALS: BP 118/89; PULSE 68; RESP 11; O2SAT 97
--- NOTE | 2023-09-22 13:06 | XRAY ---
Indication: Status post fall. Multiple contiguous axial images obtained through the head without contrast. Comparison: March to2022 Again normal appearing brain parenchyma, ventricles, and bony calvarium for patient's age. Visualized paranasal sinuses and mastoid air cells are clear. Impression: Continued normal CT head without contrast exam.
--- NOTE | 2023-09-22 13:10 | XRAY ---
Indication: Status post fall. Multiple contiguous images obtained through the cervical spine. Sagittal and coronal reformatted images obtained. Comparison: None. There is cervical radiograph December 09, 2019. Osseous structures demineralized. Axial images negative for acute fracture, suspicious bony lesions, or spinal canal stenosis. Minimal/mild multilevel C2-T2 degenerative anterior and posterior endplate spurring. Mild multilevel bilateral degenerative facet arthropathy. Sagittal and coronal reformatted images demonstrate normal lordosis with C3-C6 disc space narrowing. No acute compression fracture, subluxation, or jumped facet. Normal appearing critical cervical junction. Visualized noncontrasted soft tissues demonstrates minimal bilateral carotid calcifications. Lung apices are clear. Impression: 1. Negative for acute fracture/subluxation. 2. Osteopenia and multilevel degenerative spondylosis similar appearance to comparison cervical radiograph. 3. Incidental bilateral carotid calcifications.
--- NOTE | 2023-09-22 13:16 | XRAY ---
Indication: Status post fall. Multiple contiguous axial images obtained through the lumbar spine. Sagittal and coronal reformatted images obtained. Comparison: None. There is lumbar radiograph December 09, 2019. Study degraded by patient body habitus and minimal motion. Osseous structures demineralized. Axial images negative for acute fracture, suspicious bony lesions, or spinal canal stenosis. Mild/moderate multilevel broad-based disc osteophyte complex greatest at L3-S1 levels with subsequent spinal canal narrowing. Bilateral L5-S1 and right L3-L4 foraminal stenosis due to broad-based disc osteophyte complex and degenerative facet arthropathy Sagittal and coronal reformatted demonstrates normal lumbar lordosis with minimal levoscoliosis centered at L2. L3-L4 and L5-S1 degenerative vacuum disc phenomena. Small inferior L3 Schmorl node. No acute compression fracture or subluxation. Visualized noncontrasted soft tissues demonstrates mild scattered aortoiliac calcifications. Impression: 1. Limited exam due to patient body habitus and motion. 2. Negative for acute fracture/subluxation. 3. Osteopenia, multilevel degenerative spondylosis, and levoscoliosis similar appearance to comparison lumbar radiograph.
== END 2023-09-22 13:51 | disposition home or self-care (01) ==
LOC: ED 11:32
DX: Z04.3 Encounter for examination and observation following other accident (principal); R51.9 Headache, unspecified; M54.2 Cervicalgia; M25.551 Pain in right hip; M54.50 Low back pain, unspecified; E78.5 Hyperlipidemia, unspecified; E11.9 Type 2 diabetes mellitus without complications; I10 Essential (primary) hypertension; Z79.01 Long term (current) use of anticoagulants; Z79.84 Long term (current) use of oral hypoglycemic drugs; Z79.85 Long-term (current) use of injectable non-insulin antidiabetic drugs; Z79.4 Long term (current) use of insulin; Z79.899 Other long term (current) drug therapy
CPT/HCPCS: 70450; 72125; 72131; 73502; 99283

== ENCOUNTER 2024-02-19 13:31 | Observation (INO) | payer MEDICARE, SELFPAY ==
[2024-02-19] MEDS: Zofran 4 MG/2 ML VIAL IV ONE (14:00)
[2024-02-19] MEDS ORDERED: PROTONIX 40 MG IV IV ONE (14:01)
[2024-02-19] MEDS ORDERED: SUBLIMAZE 100 MCG/2 ML ONE (14:01)
[2024-02-19] MEDS: PROTONIX 40 MG IV IV ONE (14:04)
[2024-02-19] MEDS: SUBLIMAZE 100 MCG/2 ML IV ONE (14:04)
[2024-02-19 14:12] LABS: Absolute Neutrophil Ct (ANC) 2.44 x10^3/uL (1.78-5.38); BASOPHIL % 0.8 % (0.2-1.2); Basophil (Absolute #) 0.03 x10^3/uL (0.01-0.08); Eosinophil % 2.4 % (0.8-7.0); Eosinophil (Absolute #) 0.09 x10^3/uL (0.04-0.54); Lymphocyte (Absolute #) 0.86 x10^3/uL (1.32-3.57); Lymphocytes % 23.1 % (21.8-53.1); Mean Cell Volume 88.8 fL (79.0-92.2); Mean Corpuscular Hemoglobin 28.9 pg (25.7-32.2); Mean Corpuscular Hgb Concent. 32.6 g/dL (32.3-36.5); Mean Platelet Volume 10.9 fL (9.4-12.4); Monocyte (Absolute #) 0.31 x10^3/uL (0.30-0.82); Monocytes % 8.3 % (5.3-12.2); Neutrophil % 65.4 % (34.0-67.9); Platelet Count 90 x10^3/uL (163-337); Red Blood Count 4.84 x10^6/uL (4.63-6.08); Red Cell Distribution Width 13.3 % (11.6-14.4); White Blood Count 3.7 x10^3/uL (4.23-9.07)
[2024-02-19 14:25] LABS: INR 1.17 (0.8-3.0); PROTIME 12.6 SECONDS (9.4-12.5)
[2024-02-19 14:27] LABS: ANION GAP 14.2 MEQ/L (5-15); Calcium 9.1 mg/dL (8.4-10.2); Creatinine 1 1.19 mg/dL (0.66-1.25); EST GLOMERULAR FILTRATION RATE 66.1 ML/MIN
--- NOTE | 2024-02-19 15:05 | XRAY ---
Indication: Hematemesis. Comparison: December 09, 2019 4 view cervical spine again demonstrates osteopenia and mild/moderate C2-C6 degenerative disc space narrowing with endplate spurring. New mild left carotid calcifications. Patient again edentulous. No acute bony, articular, or soft tissue abnormalities.
[2024-02-19 15:17] LABS: Slide Review 1 YES
--- NOTE | 2024-02-19 16:42 | XRAY ---
Indication: Hematemesis. Nausea and vomiting. Multiple contiguous axial images obtained through the abdomen and pelvis using 80 cc Isovue 370 contrast. Comparison: None Lung bases demonstrates subtle patchy right lower and lesser degree medial right middle lobe interstitial alveolar opacities. Mild bilateral dependent atelectasis. No effusion. Heart not enlarged. Left lateral abdomen not completely included in field of view due to patient body habitus. Noncontrasted stomach and bowel loops appear nonobstructed. Suture material in expected region of appendix favoring appendectomy. Previous cholecystectomy. Liver demonstrates micronodular margins as seen with cirrhosis. Elsewhere 19.7 cm splenomegaly, left upper quadrant splenorenal varices, and prominent portal vein favoring portal hypertension. No free fluid/air. Midabdomen demonstrates small/tiny mesenteric nodes with minimal strandy favoring adenitis. Both kidneys enhance and excrete. Left kidney demonstrates 2 cysts, larger 9.0 cm and smaller measuring 2 cm. 1.1 cm right mid renal cortical cyst. Remaining pancreas, adrenal glands, kidneys, ureters, and bladder are unremarkable. Minimal scattered aortoiliac calcifications. No AAA or pathologic retroperitoneal lymphadenopathy. Osseous structures intact with osteopenia, mild/moderate degenerative changes throughout the thoracolumbar spine, and minimal levoscoliosis centered at L2. Impression: 1. Limited CT abdomen/pelvis due to patient body habitus. 2. Right lower lobe and lesser degree right middle lobe interstitial alveolar opacities. Rule out pneumonitis. 3. Cirrhotic liver without ascites. Splenomegaly, splenorenal varices, and prominent portal vein as seen with portal hypertension. 4. Small/tiny mesenteric nodes with stranding favoring mesenteric adenitis. 5. Chronic findings including bilateral renal cysts, arteriosclerotic disease, and chronic bony findings.
--- NOTE | 2024-02-19 16:48 | ERPHSYRPT ---
- History of Present Illness Time Seen by Provider: 02/19/24 13:37 Historian: patient, EMS Patient Subjective Stated Complaint: pt states that he has been nauseous since monday. pt states he threw up once today Triage Nursing Assessment: pt came into the er via ambulance; pt is axo x3; c/o vomiting; pt states 7/10 pain to abd; abd is obese, soft, nontender; hypoactive bowel sounds in all quads; c/o N/V/D; skin PDW; no respiratory distress present; vitals wnl Physician History: Patient is at the group home after his heart attack few weeks ago. Patient brought to the ER by EMS for abdominal pain, nausea vomiting. The group home told EMS that the last vomiting he had was black-colored. Patient also complains of neck pain. Patient has a wound in the right lower extremity for which she goes to systems administration analyst. The right lower extremity is dressed. Timing/Duration: today Activities at Onset: none Quality: aching, burning Abdominal Pain Onset Location: periumbilical Pain Radiation: no radiation Severity of Pain-Max: moderate Severity of Pain-Current: moderate Modifying Factors: Improves With: nothing Associated Symptoms: vomiting, No diaphoresis, No diarrhea, No fatigue, No headache, No heartburn, No loss of appetite, No rash, No shortness of breath Previous symptoms: no prior history Allergies/Adverse Reactions: Horse/Equine Containing Products Allergy (Verified 09/22/23 11:39) Home Medications: Atorvastatin Calcium 40 mg PO DAILY 03/30/23 [History] Ferrous Sulfate 325 mg [Feosol 325 mg] 325 mg PO DAILY 03/30/23 [History] Fluticasone Propion/Salmeterol [Fluticasone-Salmeterol 100-50] 1 disk PO UD 03/30/23 [History] Hydrocortisone 1% Cream [Cortisone 1% Cream] 1 gm TP BID PRN 03/30/23 [History] Metoprolol Succinate 25 mg Xl* [Toprol-Xl 25MG Tablets] 25 mg PO DAILY 03/30/23 [History] Omeprazole 40 mg PO DAILY 03/30/23 [History] Oxycodone HCl/Acetaminophen [Oxycodone-Acetaminophn 7.5-325] 1 each PO Q8H PRN 03/30/23 [History] Tamsulosin HCl 0.4 mg [Flomax 0.4 MG] 0.8 mg PO HS 03/30/23 [History] Trazodone HCl 150 mg PO HS 03/30/23 [History] glucosamine HCL [Glucosamine HCl] 500 mg PO BID 03/30/23 [History] Acetaminophen 325 mg [Tylenol 325 mg] 325 mg PO Q4H PRN PRN 08/15/23 [His tory] Diphenhydramine HCl 25 mg [Benadryl 25 mg Capsule] 25 mg PO Q6H PRN PRN 08/15/23 [History] Docusate Sodium 100 mg [Docusate Sodium 100 MG] 100 mg PO Q12H PRN PRN 08/15/23 [History] Emollient Base [Emollient] 1 dose TOP BID 08/15/23 [History] Furosemide 40 mg [Lasix 40 MG] 40 mg PO DAILY 08/15/23 [History] Guaifenesin 600 mg ER [Mucinex 600MG ER Tabs] 600 mg PO BID PRN 08/15/23 [History] Insulin Lispro [Humalog Kwikpen U-100] 100 unit SQ UD 08/15/23 [History] Magnesium Oxide 400 mg [Mag-Ox 400] 400 mg PO BID 08/15/23 [History] Nitroglycerin 0.4 mg Tablet [Nitrostat 0.4 MG Tablet] 0.4 mg SL UD 08/15/23 [History] Albuterol 2.5 mg/3 ml Neb [Proventil 2.5 mg/3 ml Neb] 2.5 mg IH Q2H/PRN PRN 02/19/24 [History] Amlodipine Besylate 5 mg [Norvasc 5 mg] 5 mg PO DAILY 02/19/24 [History] Finasteride 5 mg [Proscar 5 MG] 5 mg PO DAILY 02/19/24 [History] Gabapentin 100 mg PO TID 02/19/24 [History] Insulin Degludec [Insulin Degludec Pen (U-200)] 100 unit SQ DAILY 02/19/24 [History] Lidocaine HCl 5% Patch [Lidoderm Patch 5%] 1 patch TP DAILY 02/19/24 [History] Meloxicam 7.5 mg PO DAILY 02/19/24 [History] Mirabegron [Mirabegron ER] 25 mg PO BID 02/19/24 [History] Ranolazine 500 MG [Ranexa 500 MG] 500 mg PO DAILY 02/19/24 [History] Semaglutide [Ozempic] 2 mg SQ WEEKLY 02/19/24 [History] Sennosides [Senna] 8.6 mg PO Q8HPRN PRN 02/19/24 [History] Sitagliptin Phos/Metformin HCl [Janumet Xr 100-1,000 mg Tablet] 1 each PO DAILY 02/19/24 [History] glucagon HCL [Glucagon Emergency Kit] 1 mg IJ UD PRN 02/19/24 [History] lisinopriL [Zestril] 2.5 mg PO DAILY 02/19/24 [History] Hx Tetanus, Diphtheria Vaccination/Date Given: No Hx Influenza Vaccination/Date Given: No Hx Pneumococcal Vaccination/Date Given: No Travel Risk - International Travel Have you traveled outside of the country in past 3 weeks: No - Emerging Infectious Disease Are you exhibiting symptoms associated with any current EIDs: Yes Symptoms: Diarrhea, Vomitting - Review of Systems Constitutional: No Fever, No Chills Eyes: No Symptoms Ears, Nose, & Throat: No Symptoms Respiratory: No Cough, No Dyspnea Cardiac: No Chest Pain, No Edema, No Syncope Abdominal/Gastrointestinal: Hematemesis, No Abdominal Pain, No Nausea, No Vomiting, No Diarrhea Genitourinary Symptoms: No Dysuria Musculoskeletal: Neck Pain, No Back Pain Skin: Other (Wound right lower extremity, the right lower extremity is dressed.), No Rash Neurological: No Dizziness, No Focal Weakness, No Sensory Changes Psychological: No Symptoms Endocrine: No Symptoms All Other Systems: Reviewed and Negative - Past Medical History Pertinent Past Medical History: Yes Neurological History: No Pertinent History ENT History: No Pertinent History Cardiac History: Congestive Heart Failure, Hypertension Respiratory History: Sleep Apnea, COPD Endocrine Medical History: Diabetes Type II Musculoskeletal History: Arthritis GI Medical History: GERD, Other History: Renal Disease Psycho-Social History: No Pertinent History Male Reproductive Disorders: Prostate Problems Other Medical History: 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, stage 3 renal failure - Past Surgical History Past Surgical History: Yes Neuro Surgical History: No Pertinent History Cardiac: No Pertinent History Respiratory: No Pertinent History Gastrointestinal: Colon Resection Genitourinary: No Pertinent History Musculoskeletal: No Pertinent History Male Surgical History: No Pertinent History Other Surgical History: tumor removed,colostomy reversal - Social History Smoking Status: Former smoker Exposure to second hand smoke: No Drug Use: none Patient Lives Alone: No - Social Determinants of Health Will the patient participate in the screening: Yes Do you worry about a steady place to live?: No Do you have any problems with any of the following?: No known problems In the past 12 months,have you had to go without utilities?: No Transportation Issues: No Has anyone in your support network made you feel unsafe?: No Have you or anyone in your house had to go without enough: No - Nursing Vital Signs Nursing Vital Signs: Initial Vital Signs Temperature 97.6 F 02/19/24 13:31 Pulse Rate 75 02/19/24 13:31 Respiratory Rate 14 02/19/24 13:31 Blood Pressure 120/75 02/19/24 13:31 O2 Sat by Pulse Oximetry 94 L 02/19/24 13:31 Pain Scale Pain Intensity 4 - Physical Exam General Appearance: no apparent distress, alert, obese Eye Exam: PERRL/EOMI, eyes nml inspection Ears, Nose, Throat Exam: normal ENT inspection, pharynx normal, moist mucous membranes Neck Exam: normal inspection, non-tender, supple, full range of motion Respiratory Exam: normal breath sounds, lungs clear, No respiratory distress Cardiovascular Exam: regular rate/rhythm, normal heart sounds Gastrointestinal/Abdomen Exam: soft, tenderness (Vague periumbilical tenderness. No rebound or guarding. No rigidity.), No mass Back Exam: normal inspection, normal range of motion, No CVA tenderness, No vertebral tenderness Extremity Exam: normal inspection, normal range of motion, pelvis stable, other (Wound right lower extremity which is dressed.) Neurologic Exam: alert, oriented x 3, cooperative, normal mood/affect, nml cerebellar function, sensation nml, No motor deficits Skin Exam: normal color, warm, dry SpO2: 93 - Course Nursing assessment & vital signs reviewed: Yes - Radiology Exams C-Spine X-ray Interpretation: Teleradiologist Report, No Fracture - CT Exams Abdomen/Pelvis CT Interpretation: Tele-radiologist Report, Other (Cirrhosis, pneumonia) Ordered Tests: Active Orders 24 hr Category Date Time Status ABDOMEN AND PELVIS W CONTRAST [CT] Stat Exams 02/19/24 13:55 Completed CERVICAL SPINE (2 OR 3 VIEW) Stat Exams 02/19/24 13:56 Completed BMP Stat Lab 02/19/24 14:05 Completed CBC W DIFF Stat Lab 02/19/24 14:05 Completed LIPASE Stat Lab 02/19/24 14:05 Completed PROTIME WITH INR Stat Lab 02/19/24 14:05 Completed PTT Stat Lab 02/19/24 14:05 Completed Transfer Order Routine Transfer 02/19/24 Ordered Medication Summary Generic Name Dose Route Start Last Admin Trade Name Freq PRN Reason Stop Dose Admin Ceftriaxone Sodium 1 gm in 100 mls @ 200 mls/hr 02/19/24 16:55 02/19/24 16:59 Rocephin 1 Gm / 100 Ml Nacl IV 02/19/24 17:24 200 mls/hr STAT ONE 200 mls/hr Administration Discontinued Medications Generic Name Dose Route Start Last Admin Trade Name Freq PRN Reason Stop Dose Admin Fentanyl Citrate 50 mcg 02/19/24 13:53 02/19/24 14:04 Fentanyl Citrate 100 Mcg/2 Ml* Vial IV 02/19/24 13:54 50 mcg STAT ONE Administration Fentanyl Citrate Confirm 02/19/24 14:01 Fentanyl Citrate 100 Mcg/2 Ml* Vial Administered 02/19/24 14:02 Dose 100 mcg .ROUTE .STK-MED ONE Ceftriaxone Sodium Confirm 02/19/24 16:58 Rocephin 1 Gm / 100 Ml Nacl Administered 02/19/24 16:59 Dose 1 gm in 100 mls @ ud IV .STK-MED ONE Ondansetron HCl 4 mg 02/19/24 13:53 02/19/24 14:00 Ondansetron Hcl 4 Mg/2 Ml Vial IV 02/19/24 13:54 Not Given STAT ONE Pantoprazole Sodium 40 mg 02/19/24 13:53 02/19/24 14:04 Pantoprazole 40 Mg Vial IV 02/19/24 13:54 40 mg STAT ONE Administration Pantoprazole Sodium Confirm 02/19/24 14:01 Pantoprazole 40 Mg Vial Administered 02/19/24 14:02 Dose 40 mg IV .[facility] ONE Lab/Rad Data: Laboratory Result Diagrams 02/19/24 14:05 02/19/24 14:05 Laboratory Results 02/19/24 02/19/24 02/19/24 Range/Units 14:05 14:05 14:05 WBC 3.7 L (4.23-9.07) x10^3/uL RBC 4.84 (4.63-6.08) x10^6/uL Hgb 14.0 (13.7-17.5) g/dL Hct 43.0 (40.1-51.0) % MCV 88.8 (79.0-92.2) fL MCH 28.9 (25.7-32.2) pg MCHC 32.6 (32.3-36.5) g/dL RDW 13.3 (11.6-14.4) % Plt Count 90 L (163-337) x10^3/uL MPV 10.9 (9.4-12.4) fL Gran % 65.4 (34.0-67.9) % Immature Gran % (Auto) 0.0 L (0.001-0.429) % Nucleat RBC Rel Count 0.0 (0.00-0.2) % Eos # (Auto) 0.09 (0.04-0.54) x10^3/uL Immature Gran # (Auto) 0.00 L (0.001-0.031) x10^3u/L Absolute Lymphs (auto) 0.86 L (1.32-3.57) x10^3/uL Absolute Monos (auto) 0.31 (0.30-0.82) x10^3/uL Absolute Nucleated RBC 0.00 (0.00-0.012) x10^3u/L Lymphocytes % 23.1 (21.8-53.1) % Monocytes % 8.3 (5.3-12.2) % Eosinophils % 2.4 (0.8-7.0) % Basophils % 0.8 (0.2-1.2) % Absolute Granulocytes 2.44 (1.78-5.38) x10^3/uL Basophils # 0.03 (0.01-0.08) x10^3/uL PT 12.6 H (9.4-12.5) SECONDS INR 1.17 (0.8-3.0) APTT 37.0 H (25.1-36.5) SECONDS Sodium 139 (135-145) mmol/L Potassium 4.0 (3.5-5.1) mmol/L Chloride 97 L (98-107) mmol/L Carbon Dioxide 31 H (22-30) mmol/L Anion Gap 14.2 (5-15) MEQ/L BUN 35 H (9-20) mg/dL Creatinine 1.19 (0.66-1.25) mg/dL Estimated GFR 66.1 ML/MIN Glucose 88 (74-106) mg/dL Calcium 9.1 (8.4-10.2) mg/dL Lipase 72 (23-300) U/L Slides for Path Review YES - Progress Progress: improved, re-examined Discussed with Dr.: Other (Mukesh) Counseled pt/family regarding: lab results - Departure Departure Disposition: In-patient Admission Clinical Impression: Pneumonia Qualifiers: Pneumonia type: due to unspecified organism Laterality: right Lung location: middle lobe of lung Qualified Code(s): J18.9 - Pneumonia, unspecified organism Hematemesis Qualifiers: Nausea presence: with nausea Qualified Code(s): K92.0 - Hematemesis Condition: Stable Critical Care Time: No Referrals: ENVIVE,ENVIVE [Primary Care Provider] - Follow up/PCP as directed
[2024-02-19] MEDS ORDERED: ROCEPHIN 1 GM / 100 ML NaCl 1 GM/100 ML IVPB IV ONE (16:58)
[2024-02-19] MEDS: ROCEPHIN 1 GM / 100 ML NaCl 1 GM/100 ML IVPB IV ONE (16:59)
--- NOTE | 2024-02-19 17:51 | PCM.HP ---
History of Present Illness - Chief Complaint Chief Complaint: Pneumonia Date: 02/19/24 History of Present Illness: is a 68 year old male with PMHX of CHF, HTN, COPD, morbid obesity, recent TX, sleep apnea, type II DM, arthritis, GERD, CKD stage 3, BPH, and hx of abd. tumor with bowel resection. Pt came in the ER today by ambulance as he states that he has been nauseous since Monday. Pt states he threw up once today He is c/o vomiting, 7/10 pain to abd; abd is obese, soft, nontender; hypoactive bowel sounds in all quads; c/o N/V/D; skin PDW; no respiratory distress present; vitals wnl. Patient has been at the senior living after his heart attack few weeks ago. The senior living told EMS that the last vomiting he had was black- colored. Patient also complains of neck pain. Patient has a wound in the right lower extremity for which she goes to [facility]. The right lower extremity is dressed. CT cervical spine showed mild/moderate C2-C6 degenerative disc space narrowing with endplate spurring. He has not had a fall or injury. CT abd. pelv is showed Right lower lobe and lesser degree right middle lobe interstitial alveolar opacities. Rule out pneumonitis. Cirrhotic liver without ascites. Splenomegaly, splenorenal varices, and prominent portal vein as seen with portal hypertension. Small/tiny mesenteric nodes with stranding favoring mesenteric adenitis. Chronic findings including bilateral renal cysts, arteriosclerotic disease, and chronic bony findings. IV antibiotics, Protonix, Zofran, and fentanyl gave in ER. Will continue with IV antibiotics. Flu/COVID/RSV pending. - Review of Systems Constitutional: No Fever, No Chills Eyes: No Symptoms Ears, Nose, & Throat: No Symptoms Respiratory: No Cough, No Short Of Breath Cardiac: No Chest Pain, No Edema, No Syncope Abdominal/Gastrointestinal: Abdominal Pain, Nausea, Vomiting, Diarrhea, Hematemesis Genitourinary Symptoms: No Dysuria Musculoskeletal: No Back Pain, No Neck Pain Skin: No Rash Neurological: No Dizziness, No Focal Weakness, No Sensory Changes Psychological: No Symptoms Endocrine: No Symptoms Hematologic/Lymphatic: No Symptoms Immunological/Allergic: No Symptoms Medications & Allergies Home Medications: Home Medication List Atorvastatin Calcium 40 mg PO HS 03/30/23 [History Confirmed 02/19/24] Ferrous Sulfate 325 mg [Feosol 325 mg] 325 mg PO DAILY 03/30/23 [History Confirmed 02/19/24] Fluticasone Propion/Salmeterol [Fluticasone-Salmeterol 100-50] 1 disk PO UD 03/30/23 [History Confirmed 02/19/24] Hydrocortisone 1% Cream [Cortisone 1% Cream] 1 gm TP BID PRN 03/30/23 [History Confirmed 02/19/24] Metoprolol Succinate 25 mg Xl* [Toprol-Xl 25MG Tablets] 25 mg PO DAILY 03/30/23 [History Confirmed 02/19/24] Omeprazole 40 mg PO DAILY 03/30/23 [History Confirmed 02/19/24] Oxycodone HCl/Acetaminophen [Oxycodone-Acetaminophn 7.5-325] 1 each PO Q8H PRN 03/30/23 [History Confirmed 02/19/24] Tamsulosin HCl 0.4 mg [Flomax 0.4 MG] 0.8 mg PO HS 03/30/23 [History Confirmed 02/19/24] Trazodone HCl 150 mg PO HS 03/30/23 [History Confirmed 02/19/24] glucosamine HCL [Glucosamine HCl] 500 mg PO BID 03/30/23 [History Confirmed 02/19/24] Acetaminophen 325 mg [Tylenol 325 mg] 325 mg PO Q4H PRN PRN 08/15/23 [History Confirmed 02/19/24] Diphenhydramine HCl 25 mg [Benadryl 25 mg Capsule] 25 mg PO Q6H PRN PRN 08/15/23 [History Confirmed 02/19/24] Docusate Sodium 100 mg [Docusate Sodium 100 MG] 100 mg PO Q12H PRN PRN 08/15/23 [History Confirmed 02/19/24] Emollient Base [Emollient] 1 dose TOP BID 08/15/23 [History Confirmed 02/19/24] Furosemide 40 mg [Lasix 40 MG] 40 mg PO BID 08/15/23 [History Confirmed 02/19/24] Guaifenesin 600 mg ER [Mucinex 600MG ER Tabs] 600 mg PO BID PRN 08/15/23 [History Confirmed 02/19/24] Insulin Lispro [Humalog Kwikpen U-100] 100 unit SQ UD PRN 08/15/23 [History Confirmed 02/19/24] Magnesium Oxide 400 mg [Mag-Ox 400] 400 mg PO DAILY 08/15/23 [History Confirmed 02/19/24] Nitroglycerin 0.4 mg Tablet [Nitrostat 0.4 MG Tablet] 0.4 mg SL UD 08/15/23 [History Confirmed 02/19/24] Apixaban [Eliquis] 5 mg PO BID 30 Days #60 tablet 08/18/23 [Rx Confirmed 02/19/24] Albuterol 2.5 mg/3 ml Neb [Proventil 2.5 mg/3 ml Neb] 2.5 mg IH Q2H/PRN PRN 02/19/24 [History Confirmed 02/19/24] Amlodipine Besylate 5 mg [Norvasc 5 mg] 5 mg PO DAILY 02/19/24 [History Confirmed 02/19/24] Finasteride 5 mg [Proscar 5 MG] 5 mg PO DAILY 02/19/24 [History Confirmed 02/19/24] Gabapentin 100 mg PO TID 02/19/24 [History Confirmed 02/19/24] Insulin Degludec [Insulin Degludec Pen (U-200)] 100 unit SQ DAILY 02/19/24 [History Confirmed 02/19/24] Lidocaine HCl 5% Patch [Lidoderm Patch 5%] 1 patch TP DAILY 02/19/24 [History Confirmed 02/19/24] Meloxicam 7.5 mg PO DAILY 02/19/24 [History Confirmed 02/19/24] Mirabegron [Mirabegron ER] 25 mg PO BID 02/19/24 [History Confirmed 02/19/24] Ranolazine 500 MG [Ranexa 500 MG] 500 mg PO DAILY 02/19/24 [History Confirmed 02/19/24] Semaglutide [Ozempic] 2 mg SQ WEEKLY 02/19/24 [History Confirmed 02/19/24] Sennosides [Senna] 8.6 mg PO Q8HPRN PRN 02/19/24 [History Confirmed 02/19/24] Sitagliptin Phos/Metformin HCl [Janumet Xr 100-1,000 mg Tablet] 1 each PO HS 02/19/24 [History Confirmed 02/19/24] glucagon HCL [Glucagon Emergency Kit] 1 mg IJ UD PRN 02/19/24 [History Confirmed 02/19/24] lisinopriL [Zestril] 2.5 mg PO DAILY 02/19/24 [History Confirmed 02/19/24] Allergies/Adverse Reactions: Allergies Allergy/AdvReac Type Severity Reaction Status Date / Time Horse/Equine Containing Allergy Verified 09/22/23 11:39 Products latex Allergy Verified 02/19/24 17:53 - Past Medical History Past Medical History: Yes Neurological History: No Pertinent History ENT History: No Pertinent History Cardiac History: Congestive Heart Failure, Hypertension Respiratory History: Sleep Apnea, COPD Endocrine Medical History: Diabetes Type II Musculoskelatal History: Arthritis GI Medical History: GERD, Other History: Renal Disease Pyscho-Social History: No Pertinent History Male Reproductive Disorders: Prostate 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, stage 3 renal failure - Past Surgical History Past Surgical History: Yes Neuro Surgical History: No Pertinent History Cardiac History: No Pertinent History Respiratory Surgery: No Pertinent History GI Surgical History: Colon Resection Genitourinary Surgical Hx: No Pertinent History Musculskeletal Surgical Hx: No Pertinent History Male Surgical History: No Pertinent History Other Surgical History: tumor removed,colostomy reversal - Social History Smoking Status: Former smoker Exposure to second hand smoke: No Alcohol: None Drug Use: none - Social Determinants of Health Will the patient participate in the screening: Yes Do you worry about a steady place to live?: No Do you have any problems with any of the following?: No known problems In the past 12 months,have you had to go without utilities?: No Have you or anyone in your house had to go without enough: No Transportation Issues: No Has anyone in your support network made you feel unsafe?: No Does the patient want assistance with any of the above?: No Comment: PT REPORTS WOULD LIKE ASSISSTANCE WITH SOME OF THE [employer] - Physical Exam Vital Signs: Vital Signs - 24 hr Temp Pulse Resp BP BP Pulse Ox 02/19/24 17:03 93 L 02/19/24 17:00 71 21 124/72 100 02/19/24 16:30 73 18 132/70 100 02/19/24 16:13 71 124/65 98 02/19/24 16:12 70 02/19/24 15:30 71 116/76 96 02/19/24 15:00 72 118/71 93 L 02/19/24 14:41 70 128/68 93 L 02/19/24 14:40 73 02/19/24 14:00 73 17 129/55 91 L 02/19/24 13:35 75 13 120/75 91 L 02/19/24 13:31 97.6 F 75 14 120/75 94 L General Appearance: no apparent distress, alert Neurologic Exam: alert, oriented x 3, cooperative, normal mood/affect, nml cerebellar function, nml station & gait, sensation nml, No motor deficits Eye Exam: PERRL/EOMI, eyes nml inspection Ears, Nose, Throat Exam: normal ENT inspection, TMs normal, pharynx normal, moist mucous membranes Neck Exam: normal inspection, non-tender, supple, full range of motion Respiratory Exam: normal breath sounds, lungs clear, No respiratory distress Cardiovascular Exam: regular rate/rhythm, normal heart sounds, normal peripheral pulses Gastrointestinal/Abdomen Exam: soft, normal bowel sounds, tenderness (fernandez- umbilical), No mass Back Exam: normal inspection, normal range of motion, No CVA tenderness, No vertebral tenderness Extremity Exam: normal inspection, normal range of motion, pelvis stable Skin Exam: normal color, warm, dry, No rash Lymphatic Exam: No adenopathy Results - Labs Lab/Micro Results: Lab Results-Last 24 Hours 02/19/24 02/19/24 02/19/24 Range/Units 14:05 14:05 14:05 WBC 3.7 L (4.23-9.07) x10^3/uL RBC 4.84 (4.63-6.08) x10^6/uL Hgb 14.0 (13.7-17.5) g/dL Hct 43.0 (40.1-51.0) % MCV 88.8 (79.0-92.2) fL MCH 28.9 (25.7-32.2) pg MCHC 32.6 (32.3-36.5) g/dL RDW 13.3 (11.6-14.4) % Plt Count 90 L (163-337) x10^3/uL MPV 10.9 (9.4-12.4) fL Gran % 65.4 (34.0-67.9) % Immature Gran % (Auto) 0.0 L (0.001-0.429) % Nucleat RBC Rel Count 0.0 (0.00-0.2) % Eos # (Auto) 0.09 (0.04-0.54) x10^3/uL Immature Gran # (Auto) 0.00 L (0.001-0.031) x10^3u/L Absolute Lymphs (auto) 0.86 L (1.32-3.57) x10^3/uL Absolute Monos (auto) 0.31 (0.30-0.82) x10^3/uL Absolute Nucleated RBC 0.00 (0.00-0.012) x10^3u/L Lymphocytes % 23.1 (21.8-53.1) % Monocytes % 8.3 (5.3-12.2) % Eosinophils % 2.4 (0.8-7.0) % Basophils % 0.8 (0.2-1.2) % Absolute Granulocytes 2.44 (1.78-5.38) x10^3/uL Basophils # 0.03 (0.01-0.08) x10^3/uL PT 12.6 H (9.4-12.5) SECONDS INR 1.17 (0.8-3.0) APTT 37.0 H (25.1-36.5) SECONDS Sodium 139 (135-145) mmol/L Potassium 4.0 (3.5-5.1) mmol/L Chloride 97 L (98-107) mmol/L Carbon Dioxide 31 H (22-30) mmol/L Anion Gap 14.2 (5-15) MEQ/L BUN 35 H (9-20) mg/dL Creatinine 1.19 (0.66-1.25) mg/dL Estimated GFR 66.1 ML/MIN Glucose 88 (74-106) mg/dL Calcium 9.1 (8.4-10.2) mg/dL Lipase 72 (23-300) U/L Slides for Path Review YES - Radiology Impressions Radiology Exams & Impressions: Radiology Procedures Category Date Time Status ABDOMEN AND PELVIS W CONTRAST [CT] Stat Exams 02/19/24 13:55 Completed CERVICAL SPINE (2 OR 3 VIEW) Stat Exams 02/19/24 13:56 Completed Assessment/Plan (1) Pneumonia Current Visit: Yes Status: Acute Qualifiers: Pneumonia type: due to unspecified organism Laterality: right Lung location: middle lobe of lung Qualified Code(s): J18.9 - Pneumonia, unspecified organism Assessment & Plan: - Ceftriaxone started in ER-Continue and added azithromycin - As seen on CT abd/ pelvis incidental finding - Hx of COPD. - ST eval- possible aspiration pneumonia - Fu/Covid/RSV pending - Duonbes PRN - 2lNC 93%- baseline RA - Sputum culture Code(s): J18.9 - PNEUMONIA, UNSPECIFIED ORGANISM (2) Hematemesis Current Visit: Yes Status: Acute Qualifiers: Nausea presence: with nausea Qualified Code(s): K92.0 - Hematemesis Assessment & Plan: - Protonix IV - Hgb 14.0 stable - tele - Consider GS consult - D5 NS @ 50ml/hr Code(s): K92.0 - HEMATEMESIS (3) Abdominal pain Current Visit: Yes Status: Acute Assessment & Plan: - NPO - N/V - CT abd/pelvis: Impression: 1. Limited CT abdomen/pelvis due to patient body habitus. 2. Right lower lobe and lesser degree right middle lobe interstitial alveolar opacities. Rule out pneumonitis. 3. Cirrhotic liver without ascites. Splenomegaly, splenorenal varices, and prominent portal vein as seen with portal hypertension. 4. Small/tiny mesenteric nodes with stranding favoring mesenteric adenitis. 5. Chronic findings including bilateral renal cysts, arteriosclerotic disease, and chronic bony findings. Code(s): R10.9 - UNSPECIFIED ABDOMINAL PAIN (4) Diarrhea Current Visit: No Status: Acute Assessment & Plan: - C-diff -pending - probiotocs Code(s): R19.7 - DIARRHEA, UNSPECIFIED (5) Cirrhosis of liver Current Visit: Yes Status: Acute Assessment & Plan: - as seen on CT abd/Pelvis - Will need OP GI referral (6) Spleen enlargement Current Visit: Yes Status: Acute Assessment & Plan: - as seen on CT abd. pelvis - will need hematology referral at d/c Code(s): R16.1 - SPLENOMEGALY, NOT ELSEWHERE CLASSIFIED (7) Cervical spine pain Current Visit: Yes Status: Acute Assessment & Plan: - Cervical spine XR: 4 view cervical spine again demonstrates osteopenia and mild/moderate C2-C6 degenerative disc space narrowing with endplate spurring. New mild left carotid calcifications. Patient again edentulous. No acute bony, articular, or soft tissue abnormalities. - Pain meds PRN. Code(s): M54.2 - CERVICALGIA (8) Recent myocardial infarction Current Visit: Yes Status: Acute Assessment & Plan: - Per pt - adds to complezity - staying in ECF post event - PT eval and treat - Tele Code(s): [id number] - (9) Obesity, morbid, BMI 40.0-49.9 Current Visit: Yes Status: Chronic Assessment & Plan: - advised diet and exercise control Code(s): E66.01 - MORBID (SEVERE) OBESITY DUE TO EXCESS CALORIES (10) BPH (benign prostatic hyperplasia) Current Visit: Yes Status: Chronic Assessment & Plan: - continue flomax Code(s): N40.0 - BENIGN PROSTATIC HYPERPLASIA WITHOUT LOWER URINRY TRACT SYMP (11) HTN (hypertension) Current Visit: Yes Status: Chronic Assessment & Plan: - stable- trend - Continue home meds Code(s): I10 - ESSENTIAL (PRIMARY) HYPERTENSION (12) Hyperlipidemia Current Visit: Yes Status: Chronic Assessment & Plan: - continue statin Code(s): E78.5 - HYPERLIPIDEMIA, UNSPECIFIED (13) COPD (chronic obstructive pulmonary disease) Current Visit: No Status: Chronic Assessment & Plan: - continue home meds (14) DIANA (obstructive sleep apnea) Current Visit: No Status: Chronic Assessment & Plan: - RT consulted for CPAP set up VTE: SCD's, eliquis held for now PPI: Protonix Next of KIN: Sister D/c plan: 1-2 days Code status: Full Code(s): G47.33 - OBSTRUCTIVE SLEEP APNEA (ADULT) (PEDIATRIC) Telemedicine Encounter - Telemedicine Encounter Telemedicine Encounter: "The entirety of this encounter was performed via Telemedicine" This visit was performed using real-time audio and video connection between my location and thepatients locationwith the assistance of a surrogateat the patients location. Written or verbal consent was obtained from the patient/guardian to perform this visit usingsynchrSCLtelemedicine technology. Any patient questions regarding the telemedicine interaction were answered.
[2024-02-19] MEDS ORDERED: Compazine 10 MG/2 ML IM PRN (17:52)
[2024-02-19] MEDS ORDERED: DUONEB 0.5-3 MG/3 ml Neb IH PRN (18:03)
[2024-02-19] MEDS ORDERED: TYLENOL 325 MG PO PRN (18:17)
[2024-02-19 18:48] LABS: INFLUENZA A NEGATIVE (NEGATIVE); INFLUENZA B NEGATIVE (NEGATIVE); RESPIRATORY SYNCTIAL VIRUS NEGATIVE (NEGATIVE); SARS-CoV-2 Xpert Express NEGATIVE (NEGATIVE)
[2024-02-19] MEDS ORDERED: Mucinex 600MG ER Tabs PO PRN (18:54)
[2024-02-19] MEDS ORDERED: ACETAMINOPHEN PO PRN (18:54)
[2024-02-19] MEDS ORDERED: CORTISONE 1% CREAM TP PRN (18:54)
[2024-02-19] MEDS ORDERED: SENOKOT 8.6 MG PO PRN (18:54)
[2024-02-19] MEDS ORDERED: Docusate Sodium 100 MG PO PRN (18:54)
[2024-02-19] MEDS ORDERED: PROVENTIL 2.5 MG/3 ML NEB IH PRN (18:54)
[2024-02-19] MEDS ORDERED: OXYCODONE HCL PO PRN (18:54)
[2024-02-19] MEDS ORDERED: SALMETEROL PO SCH (19:00)
[2024-02-19] MEDS ORDERED: [UNRECOGNIZED DRUG - OTHER] PO SCH (19:00)
[2024-02-19] MEDS ORDERED: FLUTICASONE PROPION PO SCH (19:00)
[2024-02-19] MEDS: Dextrose 5%-NS IV Solution 1000 ML 1,000 ML IV SCH (19:34)
[2024-02-19] MEDS: PROTONIX 40 MG IV IV SCH ×2 (19:34→19:42)
[2024-02-19] MEDS: Sodium Chloride 0.9% 1000 ML 1,000 ML IV SCH (19:42)
[2024-02-19] MEDS: Flomax 0.4 MG PO SCH (21:01)
[2024-02-19] MEDS: MYRBETRIQ PO SCH (21:01)
[2024-02-19] MEDS: Neurontin PO SCH (21:01)
[2024-02-19] MEDS: Desyrel 150 MG PO SCH (21:01)
[2024-02-19] MEDS: ZOCOR 20MG PO SCH (21:02)
[2024-02-19] MEDS: EMOLLIENT BASE TOP SCH (21:02)
[2024-02-19] MEDS: Lasix 40 MG PO SCH (21:02)
[2024-02-19] MEDS ORDERED: NON-FORMULARY ITEM (Atorvastatin Calcium [Atorvastatin Calcium] 20 MG Tablet) PO SCH (22:00)
[2024-02-20 05:13] LABS: Hematocrit 42.9 % (40.1-51.0); Mean Cell Volume 88.6 fL (79.0-92.2); Mean Corpuscular Hemoglobin 28.9 pg (25.7-32.2); Mean Corpuscular Hgb Concent. 32.6 g/dL (32.3-36.5); Mean Platelet Volume 10.8 fL (9.4-12.4); Platelet Count 90 x10^3/uL (163-337); Red Blood Count 4.84 x10^6/uL (4.63-6.08); Red Cell Distribution Width 13.2 % (11.6-14.4); White Blood Count 3.6 x10^3/uL (4.23-9.07)
[2024-02-20 05:41] LABS: ALBUMIN 3.7 g/dL (3.5-5.0); ANION GAP 11.7 MEQ/L (5-15); BILIRUBIN,TOTAL 0.6 mg/dL (0.2-1.3); Creatinine 1 1.33 mg/dL (0.66-1.25); EST GLOMERULAR FILTRATION RATE 57.9 ML/MIN; Potassium 3.8 mmol/L (3.5-5.1); Total Protein 6.8 g/dL (6.3-8.2)
[2024-02-20 05:56] LABS: Slide Review YES
[2024-02-20] MEDS ORDERED: MEDICATION INTERVENTION MC SCH (07:15)
[2024-02-20] MEDS: PERCOCET TABLET 5/325MG PO PRN (09:38)
[2024-02-20] MEDS: Zestril 5 MG PO SCH (09:39)
[2024-02-20] MEDS: Toprol-Xl 25MG Tablets PO SCH (09:39)
[2024-02-20] MEDS: Acidophilus TABLET PO SCH (09:39)
[2024-02-20] MEDS: Ranexa 500 MG PO SCH (09:39)
[2024-02-20] MEDS: MAG-OX 400 PO SCH (09:39)
[2024-02-20] MEDS: NORVASC 5 MG PO SCH (09:39)
[2024-02-20] MEDS: PROTONIX 40 MG IV IV SCH (09:40)
[2024-02-20] MEDS: Lasix 40 MG PO SCH (09:40)
[2024-02-20] MEDS: Proscar 5 MG PO SCH (09:41)
--- NOTE | 2024-02-20 09:46 | PCM.DS ---
Discharge Summary Date of Admission: 02/19/24 17:25 Date of Discharge: 02/20/24 Admitting Physician: LORENZO VARGAS MD Primary Care Provider: ENVIVE Allergies Allergies Horse/Equine Containing Products Allergy (Verified 09/22/23 11:39) latex Allergy (Verified 02/19/24 17:53) Hospital Summary - Hospital Course Hospital Course: 02/19/24 is a 68 year old male with PMHX of CHF, HTN, COPD, morbid obesity, recent [place], sleep apnea, type II DM, arthritis, GERD, CKD stage 3, BPH, and hx of abd. tumor with bowel resection. Pt came in the ER today by ambulance as he states that he has been nauseous since Monday. Pt states he threw up once today He is c/o vomiting, 7/10 pain to abd; abd is obese, soft, nontender; hypoactive bowel sounds in all quads; c/o N/V/D; skin PDW; no respiratory distress present; vitals wnl. Patient has been at the half-way after his heart attack few weeks ago. The half-way told EMS that the last vomiting he had was black- colored. Patient also complains of neck pain. Patient has a wound in the right lower extremity for which she goes to provider engagement executive. The right lower extremity is dressed. CT cervical spine showed mild/moderate C2-C6 degenerative disc space narrowing with endplate spurring. He has not had a fall or injury. CT abd. pelvis showed Right lower lobe and lesser degree right middle lobe interstitial alveolar opacities. Rule out pneumonitis. Cirrhotic liver without ascites. Splenomegaly, splenorenal varices, and prominent portal vein as seen with portal hypertension. Small/tiny mesenteric nodes with stranding favoring mesenteric adenitis. Chronic findings including bilateral renal cysts, arteriosclerotic disease, and chronic bony findings. IV antibiotics, Protonix, Zofran, and fentanyl gave in ER. Will continue with IV antibiotics. Flu/COVID/RSV pending. 02/20/24 Pt had swallow eval today, speech therapy recommend soft diet due to not having teeth. No complaints of vomiting or hematemisis. Hbg stable today at 14.0. Flu, Covid, and RSV are all negative. GWEN improving Cr 1.33, base 1.29. Right foot dressing replaced by podiatry nurse today. Pt complains of dizziness today will give medication to help with this. If the precert is approved today he can return to rehab. - Vitals & Intake/Output Vital Signs: Vital Signs Temperature 98.2 F 02/20/24 07:15 Pulse Rate 69 02/20/24 07:22 Respiratory Rate 16 02/20/24 07:22 Blood Pressure 132/69 02/20/24 07:15 O2 Sat by Pulse Oximetry 92 L 02/20/24 07:22 Intake & Output: Intake & Output 02/17/24 02/18/24 02/19/24 02/20/24 11:59 11:59 11:59 11:59 Intake Total 762 Output Total 1200 Balance -438 Weight 147.2 kg - Lab Result Diagrams: 02/20/24 05:05 02/20/24 05:05 Lab Results-Last 24 Hrs: Lab Results-Last 24 Hours 02/19/24 02/19/24 02/19/24 Range/Units 14:05 14:05 14:05 WBC 3.7 L (4.23-9.07) x10^3/uL RBC 4.84 (4.63-6.08) x10^6/uL Hgb 14.0 (13.7-17.5) g/dL Hct 43.0 (40.1-51.0) % MCV 88.8 (79.0-92.2) fL MCH 28.9 (25.7-32.2) pg MCHC 32.6 (32.3-36.5) g/dL RDW 13.3 (11.6-14.4) % Plt Count 90 L (163-337) x10^3/uL MPV 10.9 (9.4-12.4) fL Gran % 65.4 (34.0-67.9) % Immature Gran % (Auto) 0.0 L (0.001-0.429) % Nucleat RBC Rel Count 0.0 (0.00-0.2) % Eos # (Auto) 0.09 (0.04-0.54) x10^3/uL Immature Gran # (Auto) 0.00 L (0.001-0.031) x10^3u/L Absolute Lymphs (auto) 0.86 L (1.32-3.57) x10^3/uL Absolute Monos (auto) 0.31 (0.30-0.82) x10^3/uL Absolute Nucleated RBC 0.00 (0.00-0.012) x10^3u/L Lymphocytes % 23.1 (21.8-53.1) % Monocytes % 8.3 (5.3-12.2) % Eosinophils % 2.4 (0.8-7.0) % Basophils % 0.8 (0.2-1.2) % Absolute Granulocytes 2.44 (1.78-5.38) x10^3/uL Basophils # 0.03 (0.01-0.08) x10^3/uL PT 12.6 H (9.4-12.5) SECONDS INR 1.17 (0.8-3.0) APTT 37.0 H (25.1-36.5) SECONDS Sodium 139 (135-145) mmol/L Potassium 4.0 (3.5-5.1) mmol/L Chloride 97 L (98-107) mmol/L Carbon Dioxide 31 H (22-30) mmol/L Anion Gap 14.2 (5-15) MEQ/L BUN 35 H (9-20) mg/dL Creatinine 1.19 (0.66-1.25) mg/dL Estimated GFR 66.1 ML/MIN Glucose 88 (74-106) mg/dL POC Glucometer (74 to 106) mg/dL Calcium 9.1 (8.4-10.2) mg/dL Total Bilirubin (0.2-1.3) mg/dL AST (17-59) U/L ALT (0-50) U/L Alkaline Phosphatase (38-126) U/L Serum Total Protein (6.3-8.2) g/dL Albumin (3.5-5.0) g/dL Lipase 72 (23-300) U/L Influenza Type A Ag (NEGATIVE) Influenza Type B Ag (NEGATIVE) RSV (PCR) (NEGATIVE) SARS-CoV-2 (PCR) (NEGATIVE) Slides for Path Review YES 02/19/24 02/19/24 02/20/24 Range/Units 18:06 23:34 05:05 WBC 3.6 L (4.23-9.07) x10^3/uL RBC 4.84 (4.63-6.08) x10^6/uL Hgb 14.0 (13.7-17.5) g/dL Hct 42.9 (40.1-51.0) % MCV 88.6 (79.0-92.2) fL MCH 28.9 (25.7-32.2) pg MCHC 32.6 (32.3-36.5) g/dL RDW 13.2 (11.6-14.4) % Plt Count 90 L (163-337) x10^3/uL MPV 10.8 (9.4-12.4) fL Gran % (34.0-67.9) % Immature Gran % (Auto) (0.001-0.429) % Nucleat RBC Rel Count (0.00-0.2) % Eos # (Auto) (0.04-0.54) x10^3/uL Immature Gran # (Auto) (0.001-0.031) x10^3u/L Absolute Lymphs (auto) (1.32-3.57) x10^3/uL Absolute Monos (auto) (0.30-0.82) x10^3/uL Absolute Nucleated RBC (0.00-0.012) x10^3u/L Lymphocytes % (21.8-53.1) % Monocytes % (5.3-12.2) % Eosinophils % (0.8-7.0) % Basophils % (0.2-1.2) % Absolute Granulocytes (1.78-5.38) x10^3/uL Basophils # (0.01-0.08) x10^3/uL PT (9.4-12.5) SECONDS INR (0.8-3.0) APTT (25.1-36.5) SECONDS Sodium (135-145) mmol/L Potassium (3.5-5.1) mmol/L Chloride (98-107) mmol/L Carbon Dioxide (22-30) mmol/L Anion Gap (5-15) MEQ/L BUN (9-20) mg/dL Creatinine (0.66-1.25) mg/dL Estimated GFR ML/MIN Glucose (74-106) mg/dL POC Glucometer 109 H (74 to 106) mg/dL Calcium (8.4-10.2) mg/dL Total Bilirubin (0.2-1.3) mg/dL AST (17-59) U/L ALT (0-50) U/L Alkaline Phosphatase (38-126) U/L Serum Total Protein (6.3-8.2) g/dL Albumin (3.5-5.0) g/dL Lipase (23-300) U/L Influenza Type A Ag NEGATIVE (NEGATIVE) Influenza Type B Ag NEGATIVE (NEGATIVE) RSV (PCR) NEGATIVE (NEGATIVE) SARS-CoV-2 (PCR) NEGATIVE (NEGATIVE) Slides for Path Review YES 02/20/24 Range/Units 05:05 WBC (4.23-9.07) x10^3/uL RBC (4.63-6.08) x10^6/uL Hgb (13.7-17.5) g/dL Hct (40.1-51.0) % MCV (79.0-92.2) fL MCH (25.7-32.2) pg MCHC (32.3-36.5) g/dL RDW (11.6-14.4) % Plt Count (163-337) x10^3/uL MPV (9.4-12.4) fL Gran % (34.0-67.9) % Immature Gran % (Auto) (0.001-0.429) % Nucleat RBC Rel Count (0.00-0.2) % Eos # (Auto) (0.04-0.54) x10^3/uL Immature Gran # (Auto) (0.001-0.031) x10^3u/L Absolute Lymphs (auto) (1.32-3.57) x10^3/uL Absolute Monos (auto) (0.30-0.82) x10^3/uL Absolute Nucleated RBC (0.00-0.012) x10^3u/L Lymphocytes % (21.8-53.1) % Monocytes % (5.3-12.2) % Eosinophils % (0.8-7.0) % Basophils % (0.2-1.2) % Absolute Granulocytes (1.78-5.38) x10^3/uL Basophils # (0.01-0.08) x10^3/uL PT (9.4-12.5) SECONDS INR (0.8-3.0) APTT (25.1-36.5) SECONDS Sodium 139 (135-145) mmol/L Potassium 3.8 (3.5-5.1) mmol/L Chloride 97 L (98-107) mmol/L Carbon Dioxide 34 H (22-30) mmol/L Anion Gap 11.7 (5-15) MEQ/L BUN 37 H (9-20) mg/dL Creatinine 1.33 H (0.66-1.25) mg/dL Estimated GFR 57.9 ML/MIN Glucose 119 H (74-106) mg/dL POC Glucometer (74 to 106) mg/dL Calcium 9.0 (8.4-10.2) mg/dL Total Bilirubin 0.60 (0.2-1.3) mg/dL AST 30 (17-59) U/L ALT 19 (0-50) U/L Alkaline Phosphatase 121 (38-126) U/L Serum Total Protein 6.8 (6.3-8.2) g/dL Albumin 3.7 (3.5-5.0) g/dL Lipase (23-300) U/L Influenza Type A Ag (NEGATIVE) Influenza Type B Ag (NEGATIVE) RSV (PCR) (NEGATIVE) SARS-CoV-2 (PCR) (NEGATIVE) Slides for Path Review - Radiology Exams Ordered Rad Exams-Entire Visit: Radiology Procedures Category Date Time Status ABDOMEN AND PELVIS W CONTRAST [CT] Stat Exams 02/19/24 13:55 Completed CERVICAL SPINE (2 OR 3 VIEW) Stat Exams 02/19/24 13:56 Completed - Procedures and Test Procedures and Tests throughout Hospitalization: Therapy Orders & Screens 02/19/24 17:47 RT Miscellaneous Order ROUTINE Comment: Physician Instructions: Reason For Exam: Cpap for sleep apnea at [facility] Diagnosis: Pneumonia 02/19/24 17:53 ST Eval & Treat ( Order) .as ordered Comment: Physician Instructions: Reason For Exam: Evaluate: Yes Treat: Yes Reason for Eval: possible aspiration pneumonia Diagnosis: Pneumonia 02/19/24 19:43 Respiratory Therapy Assessment DAILY Comment: Diagnosis: Pneumonia 02/19/24 19:44 Oxygen Nasal Cannula 2 lpm Comment: Diagnosis: Pneumonia 02/19/24 21:06 BiPap/CPAP ROUTINE Comment: Diagnosis: Pneumonia Discharge Exam General Appearance: no apparent distress, alert, obese Neurologic Exam: alert, oriented x 3, cooperative, normal mood/affect, nml cerebellar function, sensation nml, No motor deficits Eye Exam: PERRL, EOMI, eyes nml inspection Ears, Nose, Throat Exam: normal ENT inspection, pharynx normal, moist mucous membranes Neck Exam: normal inspection, non-tender, supple, full range of motion Respiratory Exam: normal breath sounds, lungs clear, No respiratory distress Cardiovascular Exam: regular rate/rhythm, normal heart sounds Gastrointestinal/Abdomen Exam: soft, No tenderness, No mass Male Genitalia Exam: deferred Rectal Exam: deferred Back Exam: normal inspection, normal range of motion, No CVA tenderness, No vertebral tenderness Extremity Exam: normal inspection, normal range of motion, other (RLE wrapped, toes warm and pink) Skin Exam: normal color, warm, dry Wound Assessment: Skin/Wound Assessment Wound/Incision Assessment Start: 02/19/24 19 :13 Text: Status: Active Freq: Q6H Protocol: Document 02/20/24 02:00 HUGH (Rec: 02/20/24 02:12 HUGH [id number]) Wound/Incision Assessment Buttock Wound Assessment Shift Assessment Wound Type SHEARING Wound Stage Non Pressure Wound Dressing Status Dry & Intact Drainage Amount None Comment BARRIER CREAM APPLIED Right Other Wound Assessment Shift Assessment Wound Stage Non Pressure Wound Dressing Status Dry & Intact Drainage Amount None Comment UNNA BOOT REMAINS IN PLACE, UNABLE TO ASSESS LEG UNDER DRESSING Final Diagnosis/Problem List - Final Discharge Diagnosis/Problem (1) Pneumonia Current Visit: Yes Status: Acute Code(s): J18.9 - PNEUMONIA, UNSPECIFIED ORGANISM (2) Hematemesis Current Visit: Yes Status: Acute Code(s): K92.0 - HEMATEMESIS (3) Abdominal pain Current Visit: Yes Status: Acute Code(s): R10.9 - UNSPECIFIED ABDOMINAL PAIN (4) Diarrhea Current Visit: No Status: Acute Code(s): R19.7 - DIARRHEA, UNSPECIFIED (5) Cirrhosis of liver Current Visit: Yes Status: Acute (6) Spleen enlargement Current Visit: Yes Status: Acute Code(s): R16.1 - SPLENOMEGALY, NOT E LSEWHERE CLASSIFIED (7) Cervical spine pain Current Visit: Yes Status: Acute Code(s): M54.2 - CERVICALGIA (8) Recent myocardial infarction Current Visit: Yes Status: Acute Code(s): [id number] - (9) Obesity, morbid, BMI 40.0-49.9 Current Visit: Yes Status: Chronic Code(s): E66.01 - MORBID (SEVERE) OBESITY DUE TO EXCESS CALORIES (10) BPH (benign prostatic hyperplasia) Current Visit: Yes Status: Chronic Code(s): N40.0 - BENIGN PROSTATIC HYPERPLASIA WITHOUT LOWER URINRY TRACT SYMP (11) HTN (hypertension) Current Visit: Yes Status: Chronic Code(s): I10 - ESSENTIAL (PRIMARY) HYPERTENSION (12) Hyperlipidemia Current Visit: Yes Status: Chronic Code(s): E78.5 - HYPERLIPIDEMIA, UNSPECIFIED (13) COPD (chronic obstructive pulmonary disease) Current Visit: No Status: Chronic (14) DIANA (obstructive sleep apnea) Current Visit: No Status: Chronic Assessment & Plan: (1) Pneumonia Current Visit: Yes Status: Acute Qualifiers: Pneumonia type: due to unspecified organism Laterality: right Lung location: middle lobe of lung Qualified Code(s): J18.9 - Pneumonia, unspecified organism Assessment & Plan: - Ceftriaxone started in ER-Continue and added azithromycin - As seen on CT abd/ pelvis incidental finding - Hx of COPD. - ST eval- possible aspiration pneumonia - Fu/Covid/RSV pending - Duonbes PRN - 2lNC 93%- baseline RA - Sputum culture 02/19 sputum culture pending -swallow eval done today, speech therapy recommended soft diet. Code(s): J18.9 - PNEUMONIA, UNSPECIFIED ORGANISM (2) Hematemesis Current Visit: Yes Status: Acute Qualifiers: Nausea presence: with nausea Qualified Code(s): K92.0 - Hematemesis Assessment & Plan: - Protonix IV - Hgb 14.0 stable - tele - Consider GS consult - D5 NS @ 50ml/hr 02/19- resolved Code(s): K92.0 - HEMATEMESIS (3) Abdominal pain Current Visit: Yes Status: Acute Assessment & Plan: - NPO - N/V - CT abd/pelvis: Impression: 1. Limited CT abdomen/pelvis due to patient body habitus. 2. Right lower lobe and lesser degree right middle lobe interstitial alveolar opacities. Rule out pneumonitis. 3. Cirrhotic liver without ascites. Splenomegaly, splenorenal varices, and prominent portal vein as seen with portal hypertension. 4. Small/tiny mesenteric nodes with stranding favoring mesenteric adenitis. 5. Chronic findings including bilateral renal cysts, arteriosclerotic disease, and chronic bony findings. 02/19- resolved Code(s): R10.9 - UNSPECIFIED ABDOMINAL PAIN (4) Diarrhea Current Visit: No Status: Acute Assessment & Plan: - C-diff -pending - probiotocs Code(s): R19.7 - DIARRHEA, UNSPECIFIED (5) Cirrhosis of liver Current Visit: Yes Status: Acute Assessment & Plan: - as seen on CT abd/Pelvis - Will need OP GI referral (6) Spleen enlargement Current Visit: Yes Status: Acute Assessment & Plan: - as seen on CT abd. pelvis - will need hematology referral at d/c Code(s): R16.1 - SPLENOMEGALY, NOT ELSEWHERE CLASSIFIED (7) Cervical spine pain Current Visit: Yes Status: Acute Assessment & Plan: - Cervical spine XR: 4 view cervical spine again demonstrates osteopenia and mild/moderate C2-C6 degenerative disc space narrowing with endplate spurring. New mild left carotid calcifications. Patient again edentulous. No acute bony, articular, or soft tissue abnormalities. - Pain meds PRN. Code(s): M54.2 - CERVICALGIA (8) Recent myocardial infarction Current Visit: Yes Status: Acute Assessment & Plan: - Per pt - adds to complezity - staying in ECF post event - PT eval and treat - Tele Code(s): [id number] - (9) Obesity, morbid, BMI 40.0-49.9 Current Visit: Yes Status: Chronic Assessment & Plan: - advised diet and exercise control Code(s): E66.01 - MORBID (SEVERE) OBESITY DUE TO EXCESS CALORIES (10) BPH (benign prostatic hyperplasia) Current Visit: Yes Status: Chronic Assessment & Plan: - continue flomax Code(s): N40.0 - BENIGN PROSTATIC HYPERPLASIA WITHOUT LOWER URINRY TRACT SYMP (11) HTN (hypertension) Current Visit: Yes Status: Chronic Assessment & Plan: - stable- trend - Continue home meds Code(s): I10 - ESSENTIAL (PRIMARY) HYPERTENSION (12) Hyperlipidemia Current Visit: Yes Status: Chronic Assessment & Plan: - continue statin Code(s): E78.5 - HYPERLIPIDEMIA, UNSPECIFIED (13) COPD (chronic obstructive pulmonary disease) Current Visit: No Status: Chronic Assessment & Plan: - continue home meds (14) DIANA (obstructive sleep apnea) Current Visit: No Status: Chronic Assessment & Plan: - RT consulted for CPAP set up Code(s): G47.33 - OBSTRUCTIVE SLEEP APNEA (ADULT) (PEDIATRIC) (15) Dizziness Current Visit: Yes Status: Acute Assessment & Plan: -trial meclizine Code(s): R42 - DIZZINESS AND GIDDINESS - Discharge Discharge Date: 02/20/24 Condition: Stable Prescriptions: Continue Atorvastatin Calcium 40 mg PO HS Ferrous Sulfate 325 mg [Feosol 325 mg] 325 mg PO DAILY Fluticasone Propion/Salmeterol [Fluticasone-Salmeterol 100-50] 1 disk PO UD glucosamine HCL [Glucosamine HCl] 500 mg PO BID Hydrocortisone 1% Cream [Cortisone 1% Cream] 1 gm TP BID PRN PRN Reason: Itching Metoprolol Succinate 25 mg Xl* [Toprol-Xl 25MG Tablets] 25 mg PO DAILY Omeprazole 40 mg PO DAILY Oxycodone HCl/Acetaminophen [Oxycodone-Acetaminophn 7.5-325] 1 each PO Q8H PRN PRN Reason: Pain Tamsulosin HCl 0.4 mg [Flomax 0.4 MG] 0.8 mg PO HS Trazodone HCl 150 mg PO HS Furosemide 40 mg [Lasix 40 MG] 40 mg PO BID Emollient Base [Emollient] 1 dose TOP BID Docusate Sodium 100 mg [Docusate Sodium 100 MG] 100 mg PO Q12H PRN PRN PRN Reason: Constipation Diphenhydramine HCl 25 mg [Benadryl 25 mg Capsule] 25 mg PO Q6H PRN PRN PRN Reason: Allergies Acetaminophen 325 mg [Tylenol 325 mg] 325 mg PO Q4H PRN PRN PRN Reason: Pain Guaifenesin 600 mg ER [Mucinex 600MG ER Tabs] 600 mg PO BID PRN PRN Reason: Cough Nitroglycerin 0.4 mg Tablet [Nitrostat 0.4 MG Tablet] 0.4 mg SL UD Magnesium Oxide 400 mg [Mag-Ox 400] 400 mg PO DAILY Insulin Lispro [Humalog Kwikpen U-100] 100 unit SQ UD PRN PRN Reason: DM Apixaban [Eliquis] 5 mg PO BID 30 Days #60 tablet Albuterol 2.5 mg/3 ml Neb [Proventil 2.5 mg/3 ml Neb] 2.5 mg IH Q2H/PRN PRN PRN Reason: Shortness Of Breath Amlodipine Besylate 5 mg [Norvasc 5 mg] 5 mg PO DAILY Finasteride 5 mg [Proscar 5 MG] 5 mg PO DAILY Gabapentin 100 mg PO TID glucagon HCL [Glucagon Emergency Kit] 1 mg IJ UD PRN PRN Reason: Hypoglycemia Insulin Degludec [Insulin Degludec Pen (U-200)] 100 unit SQ DAILY Lidocaine HCl 5% Patch [Lidoderm Patch 5%] 1 patch TP DAILY lisinopriL [Zestril] 2.5 mg PO DAILY Mirabegron [Mirabegron ER] 25 mg PO BID Ranolazine 500 MG [Ranexa 500 MG] 500 mg PO DAILY Semaglutide [Ozempic] 2 mg SQ WEEKLY Sennosides [Senna] 8.6 mg PO Q8HPRN PRN PRN Reason: Constipation Sitagliptin Phos/Metformin HCl [Janumet Xr 100-1,000 mg Tablet] 1 each PO HS Discontinued Meloxicam 7.5 mg PO DAILY Follow up with: FLORENCIA DON [Primary Care Provider] - ARPAN DAY MD [NON-STAFF PHY W/O PRIVILEGES] - 03/04/24 10:00 am
[2024-02-20] MEDS ORDERED: NON-FORMULARY ITEM (Lisinopril [Zestril] 2.5 MG Tablet) PO SCH (10:00)
[2024-02-20] MEDS: ROCEPHIN 1 GM / 100 ML NaCl 1 GM/100 ML IVPB IV SCH (10:25)
[2024-02-20] MEDS: Lidoderm Patch 5% TP SCH (10:27)
[2024-02-20] MEDS: Zithromax 500 MG/ 250 ML NaCl Premix 500 MG/250 ML IVPB IV SCH (11:26)
[2024-02-20] MEDS: ANTIVERT 25 MG PO ONE (12:30)
[2024-02-20 14:06] LABS: 027 TOX PROD PRESUMPTIVE NEGATIVE (NEGATIVE); TOXIGENIC C. DIFF ORG NEGATIVE (NEGATIVE)
--- NOTE | 2024-02-20 14:54 | PCM.CONS ---
Podiatry HPI - Consult Date of Consultation Date: 02/19/24 Reason for Consult: bilateral lower extremity edema. Pressure ulceration to the right heel. Consulting Provider: JOCELYN MARIN DPM - [facility] History of Present Illness: Po is a very pleasant 68 year old male with recurrent history of ulceration to the right heel with current admission for Pneumonia. Patient denies any new pedal complaints. Subjective exam is limited. Medications & Allergies Home Medications: Home Medication List Atorvastatin Calcium 40 mg PO HS 03/30/23 [History Confirmed 02/19/24] Ferrous Sulfate 325 mg [Feosol 325 mg] 325 mg PO DAILY 03/30/23 [History Confirmed 02/19/24] Fluticasone Propion/Salmeterol [Fluticasone-Salmeterol 100-50] 1 disk PO UD 03/30/23 [History Confirmed 02/19/24] Hydrocortisone 1% Cream [Cortisone 1% Cream] 1 gm TP BID PRN 03/30/23 [History Confirmed 02/19/24] Metoprolol Succinate 25 mg Xl* [Toprol-Xl 25MG Tablets] 25 mg PO DAILY 03/30/23 [History Confirmed 02/19/24] Omeprazole 40 mg PO DAILY 03/30/23 [History Confirmed 02/19/24] Oxycodone HCl/Acetaminophen [Oxycodone-Acetaminophn 7.5-325] 1 each PO Q8H PRN 03/30/23 [History Confirmed 02/19/24] Tamsulosin HCl 0.4 mg [Flomax 0.4 MG] 0.8 mg PO HS 03/30/23 [History Confirmed 02/19/24] Trazodone HCl 150 mg PO HS 03/30/23 [History Confirmed 02/19/24] glucosamine HCL [Glucosamine HCl] 500 mg PO BID 03/30/23 [History Confirmed 02/19/24] Acetaminophen 325 mg [Tylenol 325 mg] 325 mg PO Q4H PRN PRN 08/15/23 [History Confirmed 02/19/24] Diphenhydramine HCl 25 mg [Benadryl 25 mg Capsule] 25 mg PO Q6H PRN PRN 08/15/23 [History Confirmed 02/19/24] Docusate Sodium 100 mg [Docusate Sodium 100 MG] 100 mg PO Q12H PRN PRN 08/15/23 [History Confirmed 02/19/24] Emollient Base [Emollient] 1 dose TOP BID 08/15/23 [History Confirmed 02/19/24] Furosemide 40 mg [Lasix 40 MG] 40 mg PO BID 08/15/23 [History Confirmed 02/19/24] Guaifenesin 600 mg ER [Mucinex 600MG ER Tabs] 600 mg PO BID PRN 08/15/23 [History Confirmed 02/19/24] Insulin Lispro [Humalog Kwikpen U-100] 100 unit SQ UD PRN 08/15/23 [History Confirmed 02/19/24] Magnesium Oxide 400 mg [Mag-Ox 400] 400 mg PO DAILY 08/15/23 [History Confirmed 02/19/24] Nitroglycerin 0.4 mg Tablet [Nitrostat 0.4 MG Tablet] 0.4 mg SL UD 08/15/23 [History Confirmed 02/19/24] Apixaban [Eliquis] 5 mg PO BID 30 Days #60 tablet 08/18/23 [Rx Confirmed 02/19/24] Albuterol 2.5 mg/3 ml Neb [Proventil 2.5 mg/3 ml Neb] 2.5 mg IH Q2H/PRN PRN 02/19/24 [History Confirmed 02/19/24] Amlodipine Besylate 5 mg [Norvasc 5 mg] 5 mg PO DAILY 02/19/24 [History Confirmed 02/19/24] Finasteride 5 mg [Proscar 5 MG] 5 mg PO DAILY 02/19/24 [History Confirmed 02/19/24] Gabapentin 100 mg PO TID 02/19/24 [History Confirmed 02/19/24] Insulin Degludec [Insulin Degludec Pen (U-200)] 100 unit SQ DAILY 02/19/24 [History Confirmed 02/19/24] Lidocaine HCl 5% Patch [Lidoderm Patch 5%] 1 patch TP DAILY 02/19/24 [History Confirmed 02/19/24] Mirabegron [Mirabegron ER] 25 mg PO BID 02/19/24 [History Confirmed 02/19/24] Ranolazine 500 MG [Ranexa 500 MG] 500 mg PO DAILY 02/19/24 [History Confirmed 02/19/24] Semaglutide [Ozempic] 2 mg SQ WEEKLY 02/19/24 [History Confirmed 02/19/24] Sennosides [Senna] 8.6 mg PO Q8HPRN PRN 02/19/24 [History Confirmed 02/19/24] Sitagliptin Phos/Metformin HCl [Janumet Xr 100-1,000 mg Tablet] 1 each PO HS 02/19/24 [History Confirmed 02/19/24] glucagon HCL [Glucagon Emergency Kit] 1 mg IJ UD PRN 02/19/24 [History Confirmed 02/19/24] lisinopriL [Zestril] 2.5 mg PO DAILY 02/19/24 [History Confirmed 02/19/24] Doxycycline Hyclate 100 mg [Vibramycin 100 MG] 100 mg PO BID 5 Days #10 tab 02/20/24 [Rx] Meclizine HCl 25 mg [Antivert 25 mg] 25 mg PO DAILY PRN PRN 7 Days #7 tablet 02/20/24 [Rx] Allergies/Adverse Reactions: Allergies Allergy/AdvReac Type Severity Reaction Status Date / Time Horse/Equine Containing Allergy Verified 09/22/23 11:39 Products latex Allergy Verified 02/19/24 17:53 - Past Medical History Past Medical History: Yes Neurological History: No Pertinent History ENT History: No Pertinent History Cardiac History: Congestive Heart Failure, Hypertension Respiratory History: Sleep Apnea, COPD Endocrine Medical History: Diabetes Type II Musculoskelatal History: Arthritis GI Medical History: GERD, Other History: Renal Disease Pyscho-Social History: No Pertinent History Male Reproductive Disorders: Prostate 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, stage 3 renal failure - Past Surgical History Past Surgical History: Yes Neuro Surgical History: No Pertinent History Cardiac History: No Pertinent History Respiratory Surgery: No Pertinent History GI Surgical History: Colon Resection Genitourinary Surgical Hx: No Pertinent History Musculskeletal Surgical Hx: No Pertinent History Male Surgical History: No Pertinent History Other Surgical History: tumor removed,colostomy reversal - Social History Smoking Status: Former smoker Exposure to second hand smoke: No Alcohol: None Drug Use: none - Social Determinants of Health Will the patient participate in the screening: Yes Do you worry about a steady place to live?: No Do you have any problems with any of the following?: No known problems In the past 12 months,have you had to go without utilities?: No Have you or anyone in your house had to go without enough: No Transportation Issues: No Has anyone in your support network made you feel unsafe?: No Does the patient want assistance with any of the above?: No Comment: PT REPORTS WOULD LIKE ASSISSTANCE WITH SOME OF THE [facility] Physical Exam - Narrative Narrative Physical Exam: Podiatry Physical Exam Results - Labs Lab/Micro Results: Lab Results-Last 24 Hours 02/19/24 02/19/24 02/19/24 Range/Units 14:05 18:06 23:34 WBC (4.23-9.07) x10^3/uL RBC (4.63-6.08) x10^6/uL Hgb (13.7-17.5) g/dL Hct (40.1-51.0) % MCV (79.0-92.2) fL MCH (25.7-32.2) pg MCHC (32.3-36.5) g/dL RDW (11.6-14.4) % Plt Count (163-337) x10^3/uL MPV (9.4-12.4) fL Sodium (135-145) mmol/L Potassium (3.5-5.1) mmol/L Chloride (98-107) mmol/L Carbon Dioxide (22-30) mmol/L Anion Gap (5-15) MEQ/L BUN (9-20) mg/dL Creatinine (0.66-1.25) mg/dL Estimated GFR ML/MIN Glucose (74-106) mg/dL POC Glucometer 109 H (74 to 106) mg/dL Calcium (8.4-10.2) mg/dL Total Bilirubin (0.2-1.3) mg/dL AST (17-59) U/L ALT (0-50) U/L Alkaline Phosphatase (38-126) U/L Serum Total Protein (6.3-8.2) g/dL Albumin (3.5-5.0) g/dL C. difficile Screen (NEGATIVE) C.difficile 027-NAP1-B1 (NEGATIVE) Influenza Type A Ag NEGATIVE (NEGATIVE) Influenza Type B Ag NEGATIVE (NEGATIVE) RSV (PCR) NEGATIVE (NEGATIVE) SARS-CoV-2 (PCR) NEGATIVE (NEGATIVE) Slides for Path Review YES 02/20/24 02/20/24 02/20/24 Range/Units 05:05 05:05 11:48 WBC 3.6 L (4.23-9.07) x10^3/uL RBC 4.84 (4.63-6.08) x10^6/uL Hgb 14.0 (13.7-17.5) g/dL Hct 42.9 (40.1-51.0) % MCV 88.6 (79.0-92.2) fL MCH 28.9 (25.7-32.2) pg MCHC 32.6 (32.3-36.5) g/dL RDW 13.2 (11.6-14.4) % Plt Count 90 L (163-337) x10^3/uL MPV 10.8 (9.4-12.4) fL Sodium 139 (135-145) mmol/L Potassium 3.8 (3.5-5.1) mmol/L Chloride 97 L (98-107) mmol/L Carbon Dioxide 34 H (22-30) mmol/L Anion Gap 11.7 (5-15) MEQ/L BUN 37 H (9-20) mg/dL Creatinine 1.33 H (0.66-1.25) mg/dL Estimated GFR 57.9 ML/MIN Glucose 119 H (74-106) mg/dL POC Glucometer 123 H (74 to 106) mg/dL Calcium 9.0 (8.4-10.2) mg/dL Total Bilirubin 0.60 (0.2-1.3) mg/dL AST 30 (17-59) U/L ALT 19 (0-50) U/L Alkaline Phosphatase 121 (38-126) U/L Serum Total Protein 6.8 (6.3-8.2) g/dL Albumin 3.7 (3.5-5.0) g/dL C. difficile Screen (NEGATIVE) C.difficile 027-NAP1-B1 (NEGATIVE) Influenza Type A Ag (NEGATIVE) Influenza Type B Ag (NEGATIVE) RSV (PCR) (NEGATIVE) SARS-CoV-2 (PCR) (NEGATIVE) Slides for Path Review YES 02/20/24 Range/Units 13:00 WBC (4.23-9.07) x10^3/uL RBC (4.63-6.08) x10^6/uL Hgb (13.7-17.5) g/dL Hct (40.1-51.0) % MCV (79.0-92.2) fL MCH (25.7-32.2) pg MCHC (32.3-36.5) g/dL RDW (11.6-14.4) % Plt Count (163-337) x10^3/uL MPV (9.4-12.4) fL Sodium (135-145) mmol/L Potassium (3.5-5.1) mmol/L Chloride (98-107) mmol/L Carbon Dioxide (22-30) mmol/L Anion Gap (5-15) MEQ/L BUN (9-20) mg/dL Creatinine (0.66-1.25) mg/dL Estimated GFR ML/MIN Glucose (74-106) mg/dL POC Glucometer (74 to 106) mg/dL Calcium (8.4-10.2) mg/dL Total Bilirubin (0.2-1.3) mg/dL AST (17-59) U/L ALT (0-50) U/L Alkaline Phosphatase (38-126) U/L Serum Total Protein (6.3-8.2) g/dL Albumin (3.5-5.0) g/dL C. difficile Screen NEGATIVE (NEGATIVE) C.difficile 027-NAP1-B1 PRESUMPTIVE NEGATIVE (NEGATIVE) Influenza Type A Ag (NEGATIVE) Influenza Type B Ag (NEGATIVE) RSV (PCR) (NEGATIVE) SARS-CoV-2 (PCR) (NEGATIVE) Slides for Path Review Accuchecks Date 02/20/24 Time 11:52 - Radiology Impressions Radiology Exams & Impressions: Radiology Procedures Category Date Time Status ABDOMEN AND PELVIS W CONTRAST [CT] Stat Exams 02/19/24 13:55 Completed CERVICAL SPINE (2 OR 3 VIEW) Stat Exams 02/19/24 13:56 Completed - Other Procedures and Tests Respiratory Therapy 02/19/24 19:43 Respiratory Therapy Assessment DAILY 02/19/24 19:44 Oxygen Nasal Cannula 2 lpm 02/19/24 21:06 BiPap/CPAP ROUTINE Assessment/Plan (1) Venous insufficiency (chronic) (peripheral) Current Visit: Yes Status: Acute Assessment & Plan: Bilateral unna boots applied for venous insufficency and localized edema. (2) Pressure ulcer of right heel, stage 3 Current Visit: Yes Status: Acute Assessment & Plan: wound assessed. Healthy granulation tissue observed. Will hold on debridement at this time. Code(s): L89.613 - PRESSURE ULCER OF RIGHT HEEL, STAGE 3 (3) Cellulitis Current Visit: No Status: Acute Code(s): L03.90 - CELLULITIS, UNSPECIFIED (4) COPD (chronic obstructive pulmonary disease) Current Visit: No Status: Chronic
[2024-02-20] MEDS: Vibramycin 100 MG PO SCH (18:17)
[2024-02-20] MEDS: Advair Hfa 115/21 Common canister IH SCH (18:54)
[2024-02-20] MEDS: Protonix 40MG Tablet PO SCH (22:00)
[2024-02-21] MEDS: ADVAIR HFA 45/21 COMMON CANISTER IH SCH (07:17)
--- NOTE | 2024-02-21 11:20 | PCM.DS ---
Discharge Summary Date of Admission: 02/19/24 17:25 Date of Discharge: 02/20/24 Admitting Physician: LORENZO VARGAS MD Primary Care Provider: ENVIVE Allergies Allergies Horse/Equine Containing Products Allergy (Verified 09/22/23 11:39) latex Allergy (Verified 02/19/24 17:53) Hospital Summary - Hospital Course Hospital Course: Hospital Course: 02/19/24 is a 68 year old male with PMHX of CHF, HTN, COPD, morbid obesity, recent MA, sleep apnea, type II DM, arthritis, GERD, CKD stage 3, BPH, and hx of abd. tumor with bowel resection. Pt came in the ER today by ambulance as he states that he has been nauseous since Monday. Pt states he threw up once today He is c/o vomiting, 7/10 pain to abd; abd is obese, soft, nontender; hypoactive bowel sounds in all quads; c/o N/V/D; skin PDW; no respiratory distress present; vitals wnl. Patient has been at the snf after his heart attack few weeks ago. The snf told EMS that the last vomiting he had was black- colored. Patient also complains of neck pain. Patient has a wound in the right lower extremity for which she goes to [facility]. The right lower extremity is dressed. CT cervical spine showed mild/moderate C2-C6 degenerative disc space narrowing with endplate spurring. He has not had a fall or injury. CT abd. pelvis showed Right lower lobe and lesser degree right middle lobe interstitial alveolar opacities. Rule out pneumonitis. Cirrhotic liver without ascites. Splenomegaly, splenorenal varices, and prominent portal vein as seen with portal hypertension. Small/tiny mesenteric nodes with stranding favoring mesenteric adenitis. Chronic findings including bilateral renal cysts, arteriosclerotic disease, and chronic bony findings. IV antibiotics, Protonix, Zofran, and fentanyl gave in ER. Will continue with IV antibiotics. Flu/COVID/RSV pending. 02/20/24 Pt had swallow eval today, speech therapy recommend soft diet due to not having teeth. No complaints of vomiting or hematemisis. Hbg stable today at 14.0. Flu, Covid, and RSV are all negative. GWEN improving Cr 1.33, base 1.29. Right foot dressing replaced by podiatry nurse today. Pt complains of dizziness today will give medication to help with this. If the precert is approved today he can return to rehab. 02/21/24 Pt resting in bed. He is feeling better and ready to go back to rehab. He is awaiting a pre-cert and this was not approved yesterday therefore delaying d/c. Hopefully he will be approved today. Case management working on this. He denies any further concerns at this time. - Vitals & Intake/Output Vital Signs: Vital Signs Temperature 97.8 F 02/21/24 07:18 Pulse Rate 74 02/21/24 09:31 Respiratory Rate 18 02/21/24 09:31 Blood Pressure 106/53 02/21/24 07:18 O2 Sat by Pulse Oximetry 92 L 02/21/24 09:31 Intake & Output: Intake & Output 02/18/24 02/19/24 02/20/24 02/21/24 11:59 11:59 11:59 11:59 Intake Total 762 1380 Output Total 1200 1250 Balance -438 130 Weight 147.2 kg - Lab Result Diagrams: 02/20/24 05:05 02/20/24 05:05 Lab Results-Last 24 Hrs: Lab Results-Last 24 Hours 02/20/24 02/20/24 02/20/24 Range/Units 11:48 13:00 21:50 POC Glucometer 123 H 151 H (74 to 106) mg/dL C. difficile Screen NEGATIVE (NEGATIVE) C.difficile 027-NAP1-B1 PRESUMPTIVE NEGATIVE (NEGATIVE) 02/21/24 Range/Units 07:35 POC Glucometer 122 H (74 to 106) mg/dL C. difficile Screen (NEGATIVE) C.difficile 027-NAP1-B1 (NEGATIVE) Micro Results-Entire Visit: Accuchecks Date 02/21/24 Date 02/20/24 Time 07:37 Time 11:52 - Radiology Exams Ordered Rad Exams-Entire Visit: Radiology Procedures Category Date Time Status ABDOMEN AND PELVIS W CONTRAST [CT] Stat Exams 02/19/24 13:55 Completed CERVICAL SPINE (2 OR 3 VIEW) Stat Exams 02/19/24 13:56 Completed - Procedures and Test Procedures and Tests throughout Hospitalization: Therapy Orders & Screens 02/19/24 17:47 RT Miscellaneous Order ROUTINE Comment: Physician Instructions: Reason For Exam: Cpap for sleep apnea at noc Diagnosis: Pneumonia 02/19/24 17:53 ST Eval & Treat (MD Order) .as ordered Comment: Physician Instructions: Reason For Exam: Evaluate: Yes Treat: Yes Reason for Eval: possible aspiration pneumonia Diagnosis: Pneumonia 02/19/24 19:43 Respiratory Therapy Assessment DAILY Comment: Diagnosis: Pneumonia 02/19/24 19:44 Oxygen Nasal Cannula 2 lpm Comment: Diagnosis: Pneumonia 02/19/24 21:06 BiPap/CPAP ROUTINE Comment: Diagnosis: Pneumonia 02/20/24 12:09 PT Eval & Treat ( Order) ONCE Reason for Eval:: return to facility Diagnosis: PNEUMONIA, HEMATEMASIS Discharge Exam General Appearance: no apparent distress, alert, obese Neurologic Exam: alert, oriented x 3, cooperative, normal mood/affect, nml cerebellar function, sensation nml, No motor deficits Eye Exam: PERRL, EOMI, eyes nml inspection Ears, Nose, Throat Exam: normal ENT inspection, pharynx normal, moist mucous membranes Neck Exam: normal inspection, non-tender, supple, full range of motion Respiratory Exam: normal breath sounds, lungs clear, No respiratory distress Cardiovascular Exam: regular rate/rhythm, normal heart sounds Gastrointestinal/Abdomen Exam: soft, No tenderness, No mass Male Genitalia Exam: deferred Rectal Exam: deferred Back Exam: normal inspection, normal range of motion, No CVA tenderness, No vertebral tenderness Extremity Exam: normal inspection, normal range of motion, other (RLE wrapped by podiatry) Skin Exam: normal color, warm, dry Wound Assessment: Skin/Wound Assessment Wound/Incision Assessment Start: 02/19/24 19:13 Text: Status: Active Freq: Q6H Protocol: Document 02/21/24 08:00 HUGH (Rec: 02/21/24 08:33 HUGH [id number]) Wound/Incision Assessment Buttock Wound Assessment Shift Assessment Wound Type SHEARING Wound Stage Non Pressure Wound Drainage Amount None Comment WILL APPLY BARRIER CREAM Right Other Wound Assessment Shift Assessment Wound Type UNNA BOOT IN PLACE Wound Stage Non Pressure Wound Dressing Status Dry & Intact Drainage Amount None Final Diagnosis/Problem List - Final Discharge Diagnosis/Problem (1) Pneumonia Current Visit: Yes Status: Acute Code(s): J18.9 - PNEUMONIA, UNSPECIFIED ORGANISM (2) Hematemesis Current Visit: Yes Status: Resolved Code(s): K92.0 - HEMATEMESIS (3) Abdominal pain Current Visit: Yes Status: Resolved Code(s): R10.9 - UNSPECIFIED ABDOMINAL PAIN (4) Diarrhea Current Visit: No Status: Resolved Code(s): R19.7 - DIARRHEA, UNSPECIFIED (5) Cirrhosis of liver Current Visit: Yes Status: Acute (6) Spleen enlargement Current Visit: Yes Status: Acute Code(s): R16.1 - SPLENOMEGALY, NOT ELSEWHERE CLASSIFIED (7) Cervical spine pain Current Visit: Yes Status: Acute Code(s): M54.2 - CERVICALGIA (8) Recent myocardial infarction Current Visit: Yes Status: Acute Code(s): HLH1354 - (9) Obesity, morbid, BMI 40.0-49.9 Current Visit: Yes Status: Chronic Code(s): E66.01 - MORBID (SEVERE) OBESITY DUE TO EXCESS CALORIES (10) BPH (benign prostatic hyperplasia) Current Visit: Yes Status: Chronic Code(s): N40.0 - BENIGN PROSTATIC HYPERPLASIA WITHOUT LOWER URINRY TRACT SYMP (11) HTN (hypertension) Current Visit: Yes Status: Chronic Code(s): I10 - ESSENTIAL (PRIMARY) HYPERTENSION (12) Hyperlipidemia Current Visit: Yes Status: Chronic Code(s): E78.5 - HYPERLIPIDEMIA, UNSPECIFIED (13) COPD (chronic obstructive pulmonary disease) Current Visit: No Status: Chronic (14) DIANA (obstructive sleep apnea) Current Visit: No Status: Chronic Code(s): G47.33 - OBSTRUCTIVE SLEEP APNEA (ADULT) (PEDIATRIC) (15) Dizziness Current Visit: Yes Status: Acute Assessment & Plan: (1) Pneumonia Current Visit: Yes Status: Acute Qualifiers: Pneumonia type: due to unspecified organism Laterality: right Lung location: middle lobe of lung Qualified Code(s): J18.9 - Pneumonia, unspecified organism Assessment & Plan: - Ceftriaxone started in ER-Continue and added azithromycin - As seen on CT abd/ pelvis incidental finding - Hx of COPD. - ST eval- possible aspiration pneumonia - Fu/Covid/RSV pending - Duonbes PRN - 2lNC 93%- baseline RA - Sputum culture 02/19 sputum culture pending -swallow eval done today, speech therapy recommended soft diet. - changed antibiotic to Doxycycline - RA 91% 02/20 - RA 92% Code(s): J18.9 - PNEUMONIA, UNSPECIFIED ORGANISM (2) Hematemesis Current Visit: Yes Status: Acute Qualifiers: Nausea presence: with nausea Qualified Code(s): K92.0 - Hematemesis Assessment & Plan: - Protonix IV - Hgb 14.0 stable - tele - Consider GS consult - D5 NS @ 50ml/hr 02/19- resolved Code(s): K92.0 - HEMATEMESIS (3) Abdominal pain Current Visit: Yes Status: Acute Assessment & Plan: - NPO - N/V - CT abd/pelvis: Impression: 1. Limited CT abdomen/pelvis due to patient body habitus. 2. Right lower lobe and lesser degree right middle lobe interstitial alveolar opacities. Rule out pneumonitis. 3. Cirrhotic liver without ascites. Splenomegaly, splenorenal varices, and prominent portal vein as seen with portal hypertension. 4. Small/tiny mesenteric nodes with stranding favoring mesenteric adenitis. 5. Chronic findings including bilateral renal cysts, arteriosclerotic disease, and chronic bony findings. 02/19- resolved Code(s): R10.9 - UNSPECIFIED ABDOMINAL PAIN (4) Diarrhea Current Visit: No Status: Acute Assessment & Plan: - C-diff -pending - probiotocs Code(s): R19.7 - DIARRHEA, UNSPECIFIED (5) Cirrhosis of liver Current Visit: Yes Status: Acute Assessment & Plan: - as seen on CT abd/Pelvis - Will need OP GI referral (6) Spleen enlargement Current Visit: Yes Status: Acute Assessment & Plan: - as seen on CT abd. pelvis - will need hematology referral at d/c Code(s): R16.1 - SPLENOMEGALY, NOT ELSEWHERE CLASSIFIED (7) Cervical spine pain Current Visit: Yes Status: Acute Assessment & Plan: - Cervical spine XR: 4 view cervical spine again demonstrates osteopenia and mild/moderate C2-C6 degenerative disc space narrowing with endplate spurring. New mild left carotid calcifications. Patient again edentulous. No acute bony, articular, or soft tissue abnormalities. - Pain meds PRN. Code(s): M54.2 - CERVICALGIA (8) Recent myocardial infarction Current Visit: Yes Status: Acute Assessment & Plan: - Per pt - adds to complezity - staying in ECF post event - PT eval and treat - Tele 02/20 - pending rehab pre-cert Code(s): EIO2004 - (9) Obesity, morbid, BMI 40.0-49.9 Current Visit: Yes Status: Chronic Assessment & Plan: - advised diet and exercise control Code(s): E66.01 - MORBID (SEVERE) OBESITY DUE TO EXCESS CALORIES (10) BPH (benign prostatic hyperplasia) Current Visit: Yes Status: Chronic Assessment & Plan: - continue flomax Code(s): N40.0 - BENIGN PROSTATIC HYPERPLASIA WITHOUT LOWER URINRY TRACT SYMP (11) HTN (hypertension) Current Visit: Yes Status: Chronic Assessment & Plan: - stable- trend - Continue home meds Code(s): I10 - ESSENTIAL (PRIMARY) HYPERTENSION (12) Hyperlipidemia Current Visit: Yes Status: Chronic Assessment & Plan: - continue statin Code(s): E78.5 - HYPERLIPIDEMIA, UNSPECIFIED (13) COPD (chronic obstructive pulmonary disease) Current Visit: No Status: Chronic Assessment & Plan: - continue home meds (14) DIANA (obstructive sleep apnea) Current Visit: No Status: Chronic Assessment & Plan: - RT consulted for CPAP at [facility] Code(s): G47.33 - OBSTRUCTIVE SLEEP APNEA (ADULT) (PEDIATRIC) (15) Dizziness Current Visit: Yes Status: Acute Assessment & Plan: -trial meclizine 02/20 - resolved Code(s): R42 - DIZZINESS AND GIDDINESS Code(s): R42 - DIZZINESS AND GIDDINESS - Discharge Discharge Date: 02/21/24 (rehab) Disposition: XFER OTHER Condition: Stable Prescriptions: New Doxycycline Hyclate 100 mg [Vibramycin 100 MG] 100 mg PO BID 5 Days #10 tab Meclizine HCl 25 mg [Antivert 25 mg] 25 mg PO DAILY PRN PRN 7 Days #7 tablet PRN Reason: Dizziness Continue Atorvastatin Calcium 40 mg PO HS Ferrous Sulfate 325 mg [Feosol 325 mg] 325 mg PO DAILY Fluticasone Propion/Salmeterol [Fluticasone-Salmeterol 100-50] 1 disk PO UD glucosamine HCL [Glucosamine HCl] 500 mg PO BID Hydrocortisone 1% Cream [Cortisone 1% Cream] 1 gm TP BID PRN PRN Reason: Itching Metoprolol Succinate 25 mg Xl* [Toprol-Xl 25MG Tablets] 25 mg PO DAILY Omeprazole 40 mg PO DAILY Oxycodone HCl/Acetaminophen [Oxycodone-Acetaminophn 7.5-325] 1 each PO Q8H PRN PRN Reason: Pain Tamsulosin HCl 0.4 mg [Flomax 0.4 MG] 0.8 mg PO HS Trazodone HCl 150 mg PO HS Furosemide 40 mg [Lasix 40 MG] 40 mg PO BID Emollient Base [Emollient] 1 dose TOP BID Docusate Sodium 100 mg [Docusate Sodium 100 MG] 100 mg PO Q12H PRN PRN PRN Reason: Constipation Diphenhydramine HCl 25 mg [Benadryl 25 mg Capsule] 25 mg PO Q6H PRN PRN PRN Reason: Allergies Acetaminophen 325 mg [Tylenol 325 mg] 325 mg PO Q4H PRN PRN PRN Reason: Pain Guaifenesin 600 mg ER [Mucinex 600MG ER Tabs] 600 mg PO BID PRN PRN Reason: Cough Nitroglycerin 0.4 mg Tablet [Nitrostat 0.4 MG Tablet] 0.4 mg SL UD Magnesium Oxide 400 mg [Mag-Ox 400] 400 mg PO DAILY Insulin Lispro [Humalog Kwikpen U-100] 100 unit SQ UD PRN PRN Reason: DM Apixaban [Eliquis] 5 mg PO BID 30 Days #60 tablet Albuterol 2.5 mg/3 ml Neb [Proventil 2.5 mg/3 ml Neb] 2.5 mg IH Q2H/PRN PRN PRN Reason: Shortness Of Breath Amlodipine Besylate 5 mg [Norvasc 5 mg] 5 mg PO DAILY Finasteride 5 mg [Proscar 5 MG] 5 mg PO DAILY Gabapentin 100 mg PO TID glucagon HCL [Glucagon Emergency Kit] 1 mg IJ UD PRN PRN Reason: Hypoglycemia Insulin Degludec [Insulin Degludec Pen (U-200)] 100 unit SQ DAILY Lidocaine HCl 5% Patch [Lidoderm Patch 5%] 1 patch TP DAILY lisinopriL [Zestril] 2.5 mg PO DAILY Mirabegron [Mirabegron ER] 25 mg PO BID Ranolazine 500 MG [Ranexa 500 MG] 500 mg PO DAILY Semaglutide [Ozempic] 2 mg SQ WEEKLY Sennosides [Senna] 8.6 mg PO Q8HPRN PRN PRN Reason: Constipation Sitagliptin Phos/Metformin HCl [Janumet Xr 100-1,000 mg Tablet] 1 each PO HS Discontinued Meloxicam 7.5 mg PO DAILY Additional Instructions: RESUME PREVIOUS [facility] ORDERS Follow up with: DONELL NOVAK FNP [NON-STAFF PHY W/O PRIVILEGES] - 06/25/24 8:30 am ARPAN DAY MD [NON-STAFF PHY W/O PRIVILEGES] - 03/04/24 10:00 am
[2024-02-21 12:16] VITALS: BP 119/58; PULSE 64; RESP 16; TEMP 97.9; O2SAT 97
== END 2024-02-21 14:40 ==
LOC: ED 13:31 → MED SURG 17:25 → INTOOBSV 17:25
PROVIDERS: ADMIT Internal Medicine; ATTEND Internal Medicine
DX: J18.9 Pneumonia, unspecified organism (principal); K92.0 Hematemesis; R10.9 Unspecified abdominal pain; R19.7 Diarrhea, unspecified; K74.60 Unspecified cirrhosis of liver; R16.1 Splenomegaly, not elsewhere classified; M54.2 Cervicalgia; I25.2 Old myocardial infarction; E11.22 Type 2 diabetes mellitus with diabetic chronic kidney disease; I12.9 Hypertensive chronic kidney disease with stage 1 through stage 4 chronic kidney disease, or unspecified chronic kidney disease; N18.30 Chronic kidney disease, stage 3 unspecified; I50.9 Heart failure, unspecified; E66.01 Morbid (severe) obesity due to excess calories; N40.0 Benign prostatic hyperplasia without lower urinary tract symptoms; E78.5 Hyperlipidemia, unspecified; J44.9 Chronic obstructive pulmonary disease, unspecified; G47.33 Obstructive sleep apnea (adult) (pediatric); R42 Dizziness and giddiness; R60.0 Localized edema; Z79.899 Other long term (current) drug therapy; Z79.01 Long term (current) use of anticoagulants
CPT/HCPCS: 0241U; 29580; 36415; 72040; 74177; 80048; 80053; 82947; 83690; 85025; 85027; 85610; 85730; 87493; 92610; 94640; 94660; 94760; 96365; 96374; 96375; 97161; 99285; 99222; 99232; J0456; J0696; J3010; A9270-GY

== ENCOUNTER 2024-04-05 23:46 | Emergency (ER) | payer MEDICARE ==
[2024-04-06 00:05] VITALS: TEMP 97.2
--- NOTE | 2024-04-06 00:15 | ERPHSYRPT ---
- History of Present Illness Time Seen by Provider: 04/06/24 00:05 Source: patient, longterm records, old records Exam Limitations: clinical condition Patient Subjective Stated Complaint: pt states he started feeling unwell tonight and had low blood pressure at home. Triage Nursing Assessment: pt alert and oriented, drowsy. pt answers questions approp. pt arrive per ambulance and transfers to critical access hospital with assist of 4. respirations nonlabored. skin warm and dry. pupils equal and reactive. Physician History: This is a morbidly obese 68-year-old white male patient of Dr. Maruer who arrives by government relations analyst service and later accompanied by his spouse who provided independent additional history secondary to the patient being mildly lethargic. At home this evening prior to arrival, the patient's spouse took his vital signs and blood sugar level and recorded the systolic blood pressure has been in the high 90s with a blood sugar in the mid 300s level. She gave him 120 units of his usual p.m. insulin dose. Approximately 2 hours later she checked his vitals again and he had a systolic blood pressure again in the high 90s in the blood sugar level of approximately 240. He was still feeling unwell and mildly lethargic so the government relations analyst service was contacted to bring the patient here. The paramedics took her blood sugar level that measured approximately 114. Upon arrival to the emergency department, his initial systolic blood pressure was in the high 90s and the second systolic blood pressure was 105. He denies chest pain. He has chronic back pain. Patient has a history of hypertension, diabetes, gastroesophageal reflux disease, COPD, hyperlipidemia and chronic anemia. He takes Eliquis and he takes iron supplements. Patient does have frequent falls but complains of no new falls this evening. Timing/Duration: today Severity: moderate Associated Symptoms: weakness, No nausea, No vomiting, No abdominal pain, No shortness of breath, No cough, No chest pain, No headaches Allergies/Adverse Reactions: Horse/Equine Containing Products Allergy (Verified 04/05/24 23:49) latex Allergy (Verified 04/05/24 23:49) Home Medications: Atorvastatin Calcium 40 mg PO HS 03/30/23 [History] Ferrous Sulfate 325 mg [Feosol 325 mg] 325 mg PO TID 03/30/23 [History] Fluticasone Propion/Salmeterol [Fluticasone-Salmeterol 100-50] 1 disk PO UD 03/30/23 [History] Hydrocortisone 1% Cream [Cortisone 1% Cream] 1 gm TP BID PRN 03/30/23 [History] Metoprolol Succinate 25 mg Xl* [Toprol-Xl 25MG Tablets] 75 mg PO BID 03/30/23 [History] Omeprazole 40 mg PO DAILY 03/30/23 [History] Oxycodone HCl/Acetaminophen [Oxycodone-Acetaminophn 7.5-325] 1 each PO Q8H PRN 03/30/23 [History] Tamsulosin HCl 0.4 mg [Flomax 0.4 MG] 0.8 mg PO HS 03/30/23 [History] Trazodone HCl 150 mg PO HS 03/30/23 [History] glucosamine HCL [Glucosamine HCl] 500 mg PO BID 03/30/23 [History] Acetaminophen 325 mg [Tylenol 325 mg] 325 mg PO Q4H PRN PRN 08/15/23 [History] Diphenhydramine HCl 25 mg [Benadryl 25 mg Capsule] 25 mg PO Q6H PRN PRN 08/15/23 [History] Docusate Sodium 100 mg [Docusate Sodium 100 MG] 100 mg PO BID 08/15/23 [History] Emollient Base [Emollient] 1 dose TOP BID 08/15/23 [History] Furosemide 40 mg [Lasix 40 MG] 40 mg PO DAILY 08/15/23 [History] Guaifenesin 600 mg ER [Mucinex 600MG ER Tabs] 600 mg PO BID PRN 08/15/23 [History] Insulin Lispro [Humalog Kwikpen U-100] 100 unit SQ UD PRN 08/15/23 [History] Magnesium Oxide 400 mg [Mag-Ox 400] 400 mg PO DAILY PRN PRN 08/15/23 [History] Nitroglycerin 0.4 mg Tablet [Nitrostat 0.4 MG Tablet] 0.4 mg SL UD 08/15/23 [History] Albuterol 2.5 mg/3 ml Neb [Proventil 2.5 mg/3 ml Neb] 2.5 mg IH Q4H PRN PRN 02/19/24 [History] Amlodipine Besylate 5 mg [Norvasc 5 mg] 5 mg PO DAILY 02/19/24 [History] Finasteride 5 mg [Proscar 5 MG] 5 mg PO DAILY 02/19/24 [History] Gabapentin 300 mg PO TID 02/19/24 [History] Insulin Degludec [Insulin Degludec Pen (U-200)] 100 unit SQ DAILY 02/19/24 [History] Lidocaine HCl 5% Patch [Lidoderm Patch 5%] 1 patch TP DAILY 02/19/24 [History] Mirabegron [Mirabegron ER] 25 mg PO DAILY 02/19/24 [History] Ranolazine 500 MG [Ranexa 500 MG] 500 mg PO BID 02/19/24 [History] Semaglutide [Ozempic] 2 mg SQ WEEKLY 02/19/24 [History] Sennosides [Senna] 8.6 mg PO Q8HPRN PRN 02/19/24 [History] Sitagliptin Phos/Metformin HCl [Janumet Xr 100-1,000 mg Tablet] 1 each PO HS 02/19/24 [History] glucagon HCL [Glucagon Emergency Kit] 1 mg IJ UD PRN 02/19/24 [History] lisinopriL [Zestril] 2.5 mg PO DAILY 02/19/24 [History] Furosemide 20 mg [Lasix 20 mg] 20 mg PO DAILY 04/06/24 [History] Meclizine HCl 25 mg [Antivert 25 mg] 25 mg PO BID 04/06/24 [History] Potassium Chloride Tab* [Klor Con] 30 meq PO DAILY 04/06/24 [History] Triamterene/Hydrochlorothiazid [Triamterene-Hctz 37.5-25 mg Tb] 1 each PO BID 04/06/24 [History] Hx Tetanus, Diphtheria Vaccination/Date Given: No Hx Influenza Vaccination/Date Given: No Hx Pneumococcal Vaccination/Date Given: No Immunizations Up to Date: No Travel Risk - International Travel Have you traveled outside of the country in past 3 weeks: No - Emerging Infectious Disease Are you exhibiting symptoms associated with any current EIDs: No Symptoms: Diarrhea, Vomitting - Review of Systems Constitutional: Weakness Eyes: No Symptoms Ears, Nose, & Throat: No Symptoms Respiratory: No Symptoms Cardiac: No Symptoms Abdominal/Gastrointestinal: No Symptoms Genitourinary Symptoms: No Symptoms Musculoskeletal: No Symptoms Skin: No Symptoms Neurological: Lethargy Psychological: No Symptoms Endocrine: No Symptoms Hematologic/Lymphatic: No Symptoms Immunological/Allergic: No Symptoms All Other Systems: Reviewed and Negative - Past Medical History Pertinent Past Medical History: Yes Neurological History: No Pertinent History ENT History: No Pertinent History Cardiac History: Congestive Heart Failure, Hypertension Respiratory History: Sleep Apnea, COPD Endocrine Medical History: Diabetes Type II Musculoskeletal History: Arthritis GI Medical History: GERD, Other History: Renal Disease Psycho-Social History: No Pertinent History Male Reproductive Disorders: Prostate Problems Other Medical History: 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, stage 3 renal failure - Past Surgical History Past Surgical History: Yes Neuro Surgical History: No Pertinent History Cardiac: No Pertinent History Respiratory: No Pertinent History Gastrointestinal: Colon Resection Genitourinary: No Pertinent History Musculoskeletal: No Pertinent History Male Surgical History: No Pertinent History Other Surgical History: tumor removed,colostomy reversal - Social History Smoking Status: Former smoker Exposure to second hand smoke: No Drug Use: none Patient Lives Alone: No - Social Determinants of Health Will the patient participate in the screening: Yes Do you worry about a steady place to live?: No Do you have any problems with any of the following?: Other In the past 12 months,have you had to go without utilities?: No Transportation Issues: No Has anyone in your support network made you feel unsafe?: No Have you or anyone in your house had to go without enough: No - Nursing Vital Signs Nursing Vital Signs: Initial Vital Signs Temperature 97.2 F 04/05/24 23:50 Pulse Rate 63 04/05/24 23:50 Respiratory Rate 18 04/05/24 23:50 Blood Pressure 95/52 04/05/24 23:50 O2 Sat by Pulse Oximetry 98 04/05/24 23:50 Pain Scale Pain Intensity 7 - Physical Exam General Appearance: no apparent distress, lethargy (But easily arousable), obese Eye Exam: PERRL/EOMI, eyes nml inspection Ears, Nose, Throat Exam: normal ENT inspection, moist mucous membranes Neck Exam: normal inspection, non-tender, supple, full range of motion Respiratory Exam: normal breath sounds, lungs clear, airway intact, No chest tenderness, No respiratory distress Cardiovascular Exam: regular rate/rhythm, normal heart sounds, normal peripheral pulses Gastrointestinal/Abdomen Exam: soft, normal bowel sounds, No tenderness Rectal Exam: not done Back Exam: normal inspection, normal range of motion, No CVA tenderness, No vertebral tenderness Extremity Exam: normal range of motion, pelvis stable Neurologic Exam: alert, oriented x 3, cooperative, president and cmo II-XII nml as tested, sensation nml Skin Exam: normal color, warm, dry Lymphatic Exam: No adenopathy SpO2 Interpretation: normal SpO2: 98 O2 Delivery: Room Air - Course Nursing assessment & vital signs reviewed: Yes EKG Interpreted by Me: RATE (62), Sinus Rhythm, NORMAL AXIS, NORMAL INTERVALS, Left Bundle Branch Block, Other (No acute ischemic changes on today's twelve- lead EKG. QTc is 477) Ordered Tests: Active Orders 24 hr Category Date Time Status Case Management Social Worker STAT Care 04/06/24 00:16 Active EKG-ER Only STAT Care 04/06/24 00:15 Active IV Insertion STAT Care 04/06/24 00:15 Active Pulse Oximetry (ED) STAT Care 04/06/24 00:15 Active ACO SDOH Referral ONCE Cons 04/06/24 00:05 Active CHEST 1 VIEW (PORTABLE) Stat Exams 04/06/24 00:34 Taken BLOOD CULTURE Stat Lab 04/06/24 00:35 Received CBC W DIFF Stat Lab 04/06/24 00:35 Completed CMP Stat Lab 04/06/24 00:35 Completed MAGNESIUM Stat Lab 04/06/24 00:35 Completed MONO SCREEN Stat Lab 04/06/24 00:35 Completed NT PRO BNPII Stat Lab 04/06/24 00:35 Completed POCT GLUCOSE Stat Lab 04/06/24 01:26 Completed POCT GLUCOSE Stat Lab 04/06/24 03:29 Completed TROPONIN Q4H Lab 04/06/24 00:35 Completed TROPONIN Q4H Lab 04/06/24 04:30 Ordered TROPONIN Q4H Lab 04/06/24 08:30 Ordered UA W/RFX UR CULTURE Stat Lab 04/06/24 01:48 Completed Medication Summary Generic Name Dose Route Start Last Admin Trade Name Dede PRN Reason Stop Dose Admin Sodium Chloride 500 mls @ 50 mls/hr 04/06/24 00:30 04/06/24 00:36 Sodium Chloride 0.9% 500 Ml IV 05/06/24 00:29 50 mls/hr .Q10H JONATHAN Administration Discontinued Medications Generic Name Dose Route Start Last Admin Trade Name Dede PRN Reason Stop Dose Admin Sodium Chloride 500 mls @ 500 mls/hr 04/06/24 02:48 04/06/24 02:50 Sodium Chloride 0.9% 500 Ml IV 04/06/24 03:47 500 mls/hr .Q1H ONE Administration Lab/Rad Data: Laboratory Result Diagrams 04/06/24 00:35 04/06/24 00:35 Laboratory Results 04/06/24 04/06/24 04/06/24 Range/Units 03:29 01:48 01:26 WBC (4.23-9.07) x10^3/uL RBC (4.63-6.08) x10^6/uL Hgb (13.7-17.5) g/dL Hct (40.1-51.0) % MCV (79.0-92.2) fL MCH (25.7-32.2) pg MCHC (32.3-36.5) g/dL RDW (11.6-14.4) % Plt Count (163-337) x10^3/uL MPV (9.4-12.4) fL Gran % (34.0-67.9) % Immature Gran % (Auto) (0.001-0.429) % Nucleat RBC Rel Count (0.00-0.2) % Eos # (Auto) (0.04-0.54) x10^3/uL Immature Gran # (Auto) (0.001-0.031) x10^3u/L Absolute Lymphs (auto) (1.32-3.57) x10^3/uL Absolute Monos (auto) (0.30-0.82) x10^3/uL Absolute Nucleated RBC (0.00-0.012) x10^3u/L Lymphocytes % (21.8-53.1) % Monocytes % (5.3-12.2) % Eosinophils % (0.8-7.0) % Basophils % (0.2-1.2) % Absolute Granulocytes (1.78-5.38) x10^3/uL Basophils # (0.01-0.08) x10^3/uL Sodium (135-145) mmol/L Potassium (3.5-5.1) mmol/L Chloride (98-107) mmol/L Carbon Dioxide (22-30) mmol/L Anion Gap (5-15) MEQ/L BUN (9-20) mg/dL Creatinine (0.66-1.25) mg/dL Estimated GFR ML/MIN Glucose (74-106) mg/dL POC Glucometer 88 116 H (74 to 106) mg/dL Calcium (8.4-10.2) mg/dL Magnesium (1.6-2.3) mg/dL Total Bilirubin (0.2-1.3) mg/dL AST (17-59) U/L ALT (0-50) U/L Alkaline Phosphatase (38-126) U/L Troponin I (0.000-0.033) ng/mL NT-Pro-B Natriuret Pep (<300) pg/mL Serum Total Protein (6.3-8.2) g/dL Albumin (3.5-5.0) g/dL Urine Color Yellow (Yellow) Urine Appearance Clear (Clear) Urine pH 5.5 (4.6-8.0) Ur Specific Morrow 1.015 (1.005-1.030) Urine Protein Negative (Negative) Urine Glucose (UA) Negative (Negative) mg/dL Urine Ketones Negative (Negative) Urine Blood Negative (Negative) Urine Nitrite Negative (Negative) Urine Bilirubin Negative (Negative) Urine Urobilinogen 1.0 A (0.2) mg/dL Ur Leukocyte Esterase Negative (Negative) U Hyaline Cast (Auto) 0-2 (0-2) /LPF Urine Microscopic RBC 0-2 (0-5) /HPF Urine Microscopic WBC 0-2 (0-5) /HPF Ur Epithelial Cells None Seen (None Seen) /HPF Urine Bacteria None Seen (None Seen) /HPF Urine Culture Reflexed NO (NO) Monoscreen (NEGATIVE) Influenza Type A Ag (NEGATIVE) Influenza Type B Ag (NEGATIVE) RSV (PCR) (NEGATIVE) SARS-CoV-2 (PCR) (NEGATIVE) 04/06/24 04/06/24 04/06/24 Range/Units 00:40 00:35 00:35 WBC (4.23-9.07) x10^3/uL RBC (4.63-6.08) x10^6/uL Hgb (13.7-17.5) g/dL Hct (40.1-51.0) % MCV (79.0-92.2) fL MCH (25.7-32.2) pg MCHC (32.3-36.5) g/dL RDW (11.6-14.4) % Plt Count (163-337) x10^3/uL MPV (9.4-12.4) fL Gran % (34.0-67.9) % Immature Gran % (Auto) (0.001-0.429) % Nucleat RBC Rel Count (0.00-0.2) % Eos # (Auto) (0.04-0.54) x10^3/uL Immature Gran # (Auto) (0.001-0.031) x10^3u/L Absolute Lymphs (auto) (1.32-3.57) x10^3/uL Absolute Monos (auto) (0.30-0.82) x10^3/uL Absolute Nucleated RBC (0.00-0.012) x10^3u/L Lymphocytes % (21.8-53.1) % Monocytes % (5.3-12.2) % Eosinophils % (0.8-7.0) % Basophils % (0.2-1.2) % Absolute Granulocytes (1.78-5.38) x10^3/uL Basophils # (0.01-0.08) x10^3/uL Sodium (135-145) mmol/L Potassium (3.5-5.1) mmol/L Chloride (98-107) mmol/L Carbon Dioxide (22-30) mmol/L Anion Gap (5-15) MEQ/L BUN (9-20) mg/dL Creatinine (0.66-1.25) mg/dL Estimated GFR ML/MIN Glucose (74-106) mg/dL POC Glucometer (74 to 106) mg/dL Calcium (8.4-10.2) mg/dL Magnesium (1.6-2.3) mg/dL Total Bilirubin (0.2-1.3) mg/dL AST (17-59) U/L ALT (0-50) U/L Alkaline Phosphatase (38-126) U/L Troponin I < 0.012 (0.000-0.033) ng/mL NT-Pro-B Natriuret Pep 715 (<300) pg/mL Serum Total Protein (6.3-8.2) g/dL Albumin (3.5-5.0) g/dL Urine Color (Yellow) Urine Appearance (Clear) Urine pH (4.6-8.0) Ur Specific Morrow (1.005-1.030) Urine Protein (Negative) Urine Glucose (UA) (Negative) mg/dL Urine Ketones (Negative) Urine Blood (Negative) Urine Nitrite (Negative) Urine Bilirubin (Negative) Urine Urobilinogen (0.2) mg/dL Ur Leukocyte Esterase (Negative) U Hyaline Cast (Auto) (0-2) /LPF Urine Microscopic RBC (0-5) /HPF Urine Microscopic WBC (0-5) /HPF Ur Epithelial Cells (None Seen) /HPF Urine Bacteria (None Seen) /HPF Urine Culture Reflexed (NO) Monoscreen NEGATIVE (NEGATIVE) Influenza Type A Ag NEGATIVE (NEGATIVE) Influenza Type B Ag NEGATIVE (NEGATIVE) RSV (PCR) NEGATIVE (NEGATIVE) SARS-CoV-2 (PCR) NEGATIVE (NEGATIVE) 04/06/24 04/06/24 Range/Units 00:35 00:35 WBC 7.1 (4.23-9.07) x10^3/uL RBC 4.27 L (4.63-6.08) x10^6/uL Hgb 12.5 L (13.7-17.5) g/dL Hct 37.6 L (40.1-51.0) % MCV 88.1 (79.0-92.2) fL MCH 29.3 (25.7-32.2) pg MCHC 33.2 (32.3-36.5) g/dL RDW 14.0 (11.6-14.4) % Plt Count 111 L (163-337) x10^3/uL MPV 10.3 (9.4-12.4) fL Gran % 66.2 (34.0-67.9) % Immature Gran % (Auto) 0.3 (0.001-0.429) % Nucleat RBC Rel Count 0.0 (0.00-0.2) % Eos # (Auto) 0.14 (0.04-0.54) x10^3/uL Immature Gran # (Auto) 0.02 (0.001-0.031) x10^3u/L Absolute Lymphs (auto) 1.40 (1.32-3.57) x10^3/uL Absolute Monos (auto) 0.80 (0.30-0.82) x10^3/uL Absolute Nucleated RBC 0.00 (0.00-0.012) x10^3u/L Lymphocytes % 19.8 L (21.8-53.1) % Monocytes % 11.3 (5.3-12.2) % Eosinophils % 2.0 (0.8-7.0) % Basophils % 0.4 (0.2-1.2) % Absolute Granulocytes 4.69 (1.78-5.38) x10^3/uL Basophils # 0.03 (0.01-0.08) x10^3/uL Sodium 139 (135-145) mmol/L Potassium 3.7 (3.5-5.1) mmol/L Chloride 99 (98-107) mmol/L Carbon Dioxide 33 H (22-30) mmol/L Anion Gap 11.3 (5-15) MEQ/L BUN 43 H (9-20) mg/dL Creatinine 1.55 H (0.66-1.25) mg/dL Estimated GFR 48.2 ML/MIN Glucose 61 L (74-106) mg/dL POC Glucometer (74 to 106) mg/dL Calcium 9.2 (8.4-10.2) mg/dL Magnesium 2.0 (1.6-2.3) mg/dL Total Bilirubin 0.50 (0.2-1.3) mg/dL AST 31 (17-59) U/L ALT 22 (0-50) U/L Alkaline Phosphatase 167 H (38-126) U/L Troponin I (0.000-0.033) ng/mL NT-Pro-B Natriuret Pep (<300) pg/mL Serum Total Protein 6.7 (6.3-8.2) g/dL Albumin 3.7 (3.5-5.0) g/dL Urine Color (Yellow) Urine Appearance (Clear) Urine pH (4.6-8.0) Ur Specific Morrow (1.005-1.030) Urine Protein (Negative) Urine Glucose (UA) (Negative) mg/dL Urine Ketones (Negative) Urine Blood (Negative) Urine Nitrite (Negative) Urine Bilirubin (Negative) Urine Urobilinogen (0.2) mg/dL Ur Leukocyte Esterase (Negative) U Hyaline Cast (Auto) (0-2) /LPF Urine Microscopic RBC (0-5) /HPF Urine Microscopic WBC (0-5) /HPF Ur Epithelial Cells (None Seen) /HPF Urine Bacteria (None Seen) /HPF Urine Culture Reflexed (NO) Monoscreen (NEGATIVE) Influenza Type A Ag (NEGATIVE) Influenza Type B Ag (NEGATIVE) RSV (PCR) (NEGATIVE) SARS-CoV-2 (PCR) (NEGATIVE) - Progress Progress: improved, re-examined Progress Note: 04/06/24 00:34 My medical decision making and the assignment of moderate to high complexity to this patient's medical issue today is based on review of the patient's past medical history, review of the patient's medication list, review of the patient's history of present illness and physical findings on examination. The workup includes placement of intravenous line, infusion of low rate crystalloid, CBC, CMP, magnesium, urinalysis, EKG, troponin, BNP. Will also obtain blood culture, mono test and viral swabs. Differential diagnosis includes but is not limited to viral illness, dehydration, urinary tract infection, anemia, myocardial infarction, CHF exacerbation, arrhythmias, hypoglycemia 04/06/24 03:55 I interpreted the patient's laboratory data results. Based on the laboratory data results, patient was hypoglycemic. The patient also had widened BUN/creatinine disparity and likely dehydrated. The patient also had low blood pressure which is, in my opinion, secondary to the dehydration as well as him taking several sedating medications that are prescribed to him all at once. There were no other acute, emergent medical issues. 04/06/24 03:59 The preliminary chest x-ray report was interpreted by me. The patient has no acute cardiopulmonary process. Counseled pt/family regarding: lab results, diagnosis, need for follow-up, rad results Medical Desision Making - Independent Historian Additional History obtained from: Spouse - Diagnostic Testing Diagnostic test were ordered, analyzed, and reviewed by me: Yes Radiological Interpretation: Interpreted by me - Risk of complications Low Risk: Low risk of morbidity from additional dx testing or treatment - Departure Departure Disposition: Home Clinical Impression: Hypoglycemia, Hypotension Condition: Stable Critical Care Time: No Referrals: ENVIVE,ENVIVE [Primary Care Provider] - Follow up/PCP as directed Additional Instructions: Drink plenty of fluids and monitor the blood sugar and blood pressure closely over the weekend. Do not give the patient his diabetic medication if his blood sugar is already low. In addition, avoid providing the patient his blood pressure medicines and sedating medication at the same time. Try to space this out. In addition try to minimize the sedating medication use. Keep a daily 3 times a day log of both the patient's blood sugar and blood pressure readings. Keep this log and call his prescribing provider on 04/08/2024 to see if the primary care provider can adjust or remove any of his medications.
[2024-04-06] MEDS ORDERED: Sodium Chloride 0.9% 500 ML 500 ML IV ONE ×2 (00:29→02:31)
[2024-04-06] MEDS: Sodium Chloride 0.9% 500 ML 500 ML IV SCH (00:36)
[2024-04-06 00:50] LABS: Absolute Neutrophil Ct (ANC) 4.69 x10^3/uL (1.78-5.38); BASOPHIL % 0.4 % (0.2-1.2); Basophil (Absolute #) 0.03 x10^3/uL (0.01-0.08); Eosinophil (Absolute #) 0.14 x10^3/uL (0.04-0.54); Hematocrit 37.6 % (40.1-51.0); Hemoglobin 12.5 g/dL (13.7-17.5); IMMATURE GRAN # 0.02 x10^3u/L (0.001-0.031); IMMATURE GRAN % 0.3 % (0.001-0.429); Lymphocytes % 19.8 % (21.8-53.1); Mean Cell Volume 88.1 fL (79.0-92.2); Mean Corpuscular Hemoglobin 29.3 pg (25.7-32.2); Mean Corpuscular Hgb Concent. 33.2 g/dL (32.3-36.5); Mean Platelet Volume 10.3 fL (9.4-12.4); Monocytes % 11.3 % (5.3-12.2); Neutrophil % 66.2 % (34.0-67.9); Platelet Count 111 x10^3/uL (163-337); Red Blood Count 4.27 x10^6/uL (4.63-6.08); White Blood Count 7.1 x10^3/uL (4.23-9.07)
[2024-04-06 01:01] LABS: ALBUMIN 3.7 g/dL (3.5-5.0); ANION GAP 11.3 MEQ/L (5-15); BILIRUBIN,TOTAL 0.5 mg/dL (0.2-1.3); Calcium 9.2 mg/dL (8.4-10.2); Creatinine 1 1.55 mg/dL (0.66-1.25); EST GLOMERULAR FILTRATION RATE 48.2 ML/MIN; Potassium 3.7 mmol/L (3.5-5.1); Total Protein 6.7 g/dL (6.3-8.2)
[2024-04-06 01:13] LABS: NT PRO BNPII 715 pg/mL (<300); TROPONIN < 0.012 ng/mL (0.000-0.033)
[2024-04-06 01:25] LABS: INFLUENZA A NEGATIVE (NEGATIVE); INFLUENZA B NEGATIVE (NEGATIVE); RESPIRATORY SYNCTIAL VIRUS NEGATIVE (NEGATIVE); SARS-CoV-2 Xpert Express NEGATIVE (NEGATIVE)
[2024-04-06 02:10] LABS: Appearance Clear (Clear); Bacteria None Seen /HPF (None Seen); Bilirubin Negative (Negative); Blood Negative (Negative); Epithelial Cells None Seen /HPF (None Seen); Glucose, Urine Negative (Negative); Hyaline Casts 0-2 /LPF (0-2); Ketones Negative (Negative); Leukocyte Esterase Negative (Negative); Nitrite Negative (Negative); Ph 5.5 (4.6-8.0); Protein,Urine Dip Negative (Negative); RBC 0-2 /HPF (0-5); Specific Gravity 1.015 (1.005-1.030); WBC 0-2 /HPF (0-5)
[2024-04-06] MEDS: Sodium Chloride 0.9% 500 ML 500 ML IV ONE (02:50)
[2024-04-06 05:34] VITALS: BP 138/71; PULSE 64; RESP 16; O2SAT 99
--- NOTE | 2024-04-06 08:21 | XRAY ---
Indication: Rhonchi. Comparison: March 30, 2023 Portable apical lordotic chest unchanged again inflated and clear. Heart remains borderline enlarged. Bony thorax intact again with osteopenia and mild degenerative changes. No new/acute findings.
== END 2024-04-06 05:28 | disposition home or self-care (01) ==
LOC: ED 23:46
DX: I95.9 Hypotension, unspecified (principal); E11.649 Type 2 diabetes mellitus with hypoglycemia without coma; K21.9 Gastro-esophageal reflux disease without esophagitis; J44.9 Chronic obstructive pulmonary disease, unspecified; E78.5 Hyperlipidemia, unspecified; D64.9 Anemia, unspecified; I11.0 Hypertensive heart disease with heart failure; I50.9 Heart failure, unspecified; Z79.01 Long term (current) use of anticoagulants; Z79.899 Other long term (current) drug therapy
CPT/HCPCS: 0241U; 36000; 36415; 71045; 80053; 81001; 82947; 83735; 83880; 84484; 85025; 86308; 87040; 93005; 93041; 94760; 99284

== ENCOUNTER 2024-06-10 01:21 | Observation (INO) | payer MEDICARE, SELFPAY ==
--- NOTE | 2024-06-10 01:37 | ERPHSYRPT ---
- History of Present Illness Historian: patient Exam Limitations: no limitations Physician History: Patient had chest tightness. It started about an hour and a half prior to arrival. He has had problems before. He says that he has had a heart attack in the past. He has multiple risk factors.He has vertigo as well 2. That is been pretty much chronic.He has had no fever chills or infectious type symptoms. Nothing really makes his symptoms better or worse.He did not take any nitro and does not take any blood thinners. He did get 324 of baby aspirin en route by EMS. Aspirin Treatment Today: 81 mg x 4 Allergies/Adverse Reactions: Horse/Equine Containing Products Allergy (Verified 06/10/24 01:32) latex Allergy (Verified 06/10/24 01:32) Home Medications: Atorvastatin Calcium 40 mg PO HS 03/30/23 [History] Ferrous Sulfate 325 mg [Feosol 325 mg] 325 mg PO TID 03/30/23 [History] Fluticasone Propion/Salmeterol [Fluticasone-Salmeterol 100-50] 1 disk PO UD 03/30/23 [History] Hydrocortisone 1% Cream [Cortisone 1% Cream] 1 gm TP BID PRN 03/30/23 [History] Metoprolol Succinate 25 mg Xl* [Toprol-Xl 25MG Tablets] 75 mg PO BID 03/30/23 [History] Omeprazole 40 mg PO DAILY 03/30/23 [History] Oxycodone HCl/Acetaminophen [Oxycodone-Acetaminophn 7.5-325] 1 each PO Q8H PRN 03/30/23 [History] Tamsulosin HCl 0.4 mg [Flomax 0.4 MG] 0.8 mg PO HS 03/30/23 [History] Trazodone HCl 150 mg PO HS 03/30/23 [History] glucosamine HCL [Glucosamine HCl] 500 mg PO BID 03/30/23 [History] Acetaminophen 325 mg [Tylenol 325 mg] 325 mg PO Q4H PRN PRN 08/15/23 [History] Diphenhydramine HCl 25 mg [Benadryl 25 mg Capsule] 25 mg PO Q6H PRN PRN 08/15/23 [History] Docusate Sodium 100 mg [Docusate Sodium 100 MG] 100 mg PO BID 08/15/23 [History] Emollient Base [Emollient] 1 dose TOP BID 08/15/23 [History] Furosemide 40 mg [Lasix 40 MG] 40 mg PO DAILY 08/15/23 [History] Guaifenesin 600 mg ER [Mucinex 600MG ER Tabs] 600 mg PO BID PRN 08/15/23 [History] Insulin Lispro [Humalog Kwikpen U-100] 100 unit SQ UD PRN 08/15/23 [History] Magnesium Oxide 400 mg [Mag-Ox 400] 400 mg PO DAILY PRN PRN 08/15/23 [History] Nitroglycerin 0.4 mg Tablet [Nitrostat 0.4 MG Tablet] 0.4 mg SL UD 08/15/23 [History] Albuterol 2.5 mg/3 ml Neb [Proventil 2.5 mg/3 ml Neb] 2.5 mg IH Q4H PRN PRN 02/19/24 [History] Amlodipine Besylate 5 mg [Norvasc 5 mg] 5 mg PO DAILY 02/19/24 [History] Finasteride 5 mg [Proscar 5 MG] 5 mg PO DAILY 02/19/24 [History] Gabapentin 300 mg PO TID 02/19/24 [History] Insulin Degludec [Insulin Degludec Pen (U-200)] 100 unit SQ DAILY 02/19/24 [History] Lidocaine HCl 5% Patch [Lidoderm Patch 5%] 1 patch TP DAILY 02/19/24 [History] Mirabegron [Mirabegron ER] 25 mg PO DAILY 02/19/24 [History] Ranolazine 500 MG [Ranexa 500 MG] 500 mg PO BID 02/19/24 [History] Semaglutide [Ozempic] 2 mg SQ WEEKLY 02/19/24 [History] Sennosides [Senna] 8.6 mg PO Q8HPRN PRN 02/19/24 [History] Sitagliptin Phos/Metformin HCl [Janumet Xr 100-1,000 mg Tablet] 1 each PO HS 02/19/24 [History] glucagon HCL [Glucagon Emergency Kit] 1 mg IJ UD PRN 02/19/24 [History] lisinopriL [Zestril] 2.5 mg PO DAILY 02/19/24 [History] Furosemide 20 mg [Lasix 20 mg] 20 mg PO DAILY 04/06/24 [History] Meclizine HCl 25 mg [Antivert 25 mg] 25 mg PO BID 04/06/24 [History] Potassium Chloride Tab* [Klor Con] 30 meq PO DAILY 04/06/24 [History] Triamterene/Hydrochlorothiazid [Triamterene-Hctz 37.5-25 mg Tb] 1 each PO BID 04/06/24 [History] Hx Tetanus, Diphtheria Vaccination/Date Given: No Hx Influenza Vaccination/Date Given: No Hx Pneumococcal Vaccination/Date Given: No Travel Risk - Emerging Infectious Disease Are you exhibiting symptoms associated with any current EIDs: No Symptoms: Diarrhea, Vomitting - Review of Systems Constitutional: No Symptoms Eyes: No Symptoms Ears, Nose, & Throat: No Symptoms Neurological: Vertigo (Chronic) Psychological: No Symptoms All Other Systems: Reviewed and Negative - Past Medical History Pertinent Past Medical History: Yes Neurological History: No Pertinent History ENT History: No Pertinent History Cardiac History: Congestive Heart Failure, Hypertension Respiratory History: Sleep Apnea, COPD Endocrine Medical History: Diabetes Type II Musculoskeletal History: Arthritis GI Medical History: GERD, Other History: Renal Disease Psycho-Social History: No Pertinent History Male Reproductive Disorders: Prostate Problems Other Medical History: 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, stage 3 renal failure - Past Surgical History Past Surgical History: Yes Neuro Surgical History: No Pertinent History Cardiac: No Pertinent History Respiratory: No Pertinent History Gastrointestinal: Colon Resection Genitourinary: No Pertinent History Musculoskeletal: No Pertinent History Male Surgical History: No Pertinent History Other Surgical History: tumor removed,colostomy reversal - Social History Smoking Status: Former smoker Exposure to second hand smoke: No Drug Use: none Patient Lives Alone: No - Social Determinants of Health Will the patient participate in the screening: Yes Do you worry about a steady place to live?: No In the past 12 months,have you had to go without utilities?: No Transportation Issues: No Has anyone in your support network made you feel unsafe?: No Have you or anyone in your house had to go without enough: No - Nursing Vital Signs Nursing Vital Signs: Initial Vital Signs Pulse Rate 76 06/10/24 01:30 Respiratory Rate 14 06/10/24 01:30 Blood Pressure 126/83 06/10/24 01:30 O2 Sat by Pulse Oximetry 99 06/10/24 01:30 Pain Scale Pain Intensity 8 - Physical Exam General Appearance: no apparent distress Eye Exam: PERRL/EOMI Ears, Nose, Throat Exam: normal ENT inspection, TMs normal Respiratory Exam: normal breath sounds, chest tenderness, lungs clear Cardiovascular Exam: regular rate/rhythm, normal heart sounds Gastrointestinal/Abdomen Exam: soft, normal bowel sounds, No tenderness Back Exam: normal inspection, normal range of motion Extremity Exam: normal inspection, normal range of motion, No pelvis stable Neurologic Exam: alert, oriented x 3, cooperative Skin Exam: normal color, warm, dry - Course Nursing assessment & vital signs reviewed: Yes EKG Interpreted by Me: RATE, Sinus Rhythm, NORMAL AXIS, Left Bundle Branch Block, Non-specific ST Changes Ordered Tests: Active Orders 24 hr Category Date Time Status EKG-ER Only STAT Care 06/10/24 01:28 Ordered CHEST 1 VIEW (PORTABLE) Stat Exams 06/10/24 01:28 Ordered BNPII [NT PRO BNPII] Stat Lab 06/10/24 01:29 Ordered CBC W DIFF Stat Lab 06/10/24 01:29 Ordered CMP Stat Lab 06/10/24 01:29 Ordered TROPONIN Q4H Lab 06/10/24 01:30 Ordered TROPONIN Q4H Lab 06/10/24 05:30 Ordered TROPONIN Q4H Lab 06/10/24 09:30 Ordered Medication Summary Generic Name Dose Route Start Last Admin Trade Name Freq PRN Reason Stop Dose Admin Nitroglycerin 0.4 mg 06/10/24 01:38 06/10/24 01:59 Nitroglycerin 0.4 Mg Tablet Bottle SL 07/10/24 01:37 0.4 mg Q5MIN PRN MR X 3 PRN Administration CHEST PAIN Discontinued Medications Generic Name Dose Route Start Last Admin Trade Name Freq PRN Reason Stop Dose Admin Nitroglycerin Confirm 06/10/24 01:56 Nitroglycerin 0.4 Mg (Ed) 0.4 Mg Tab.Subl Administered 06/10/24 01:57 Dose 0.4 mg SL .STK-MED ONE Lab/Rad Data: Laboratory Result Diagrams 06/10/24 01:43 06/10/24 01:43 Laboratory Results 06/10/24 06/10/24 06/10/24 Range/Units 01:43 01:43 01:43 WBC 5.4 (4.23-9.07) x10^3/uL RBC 4.98 (4.63-6.08) x10^6/uL Hgb 14.3 (13.7-17.5) g/dL Hct 42.5 (40.1-51.0) % MCV 85.3 (79.0-92.2) fL MCH 28.7 (25.7-32.2) pg MCHC 33.6 (32.3-36.5) g/dL RDW 13.0 (11.6-14.4) % Plt Count 95 L (163-337) x10^3/uL MPV 11.2 (9.4-12.4) fL Gran % 63.1 (34.0-67.9) % Immature Gran % (Auto) 0.6 H (0.001-0.429) % Nucleat RBC Rel Count 0.0 (0.00-0.2) % Eos # (Auto) 0.15 (0.04-0.54) x10^3/uL Immature Gran # (Auto) 0.03 (0.001-0.031) x10^3u/L Absolute Lymphs (auto) 1.13 L (1.32-3.57) x10^3/uL Absolute Monos (auto) 0.65 (0.30-0.82) x10^3/uL Absolute Nucleated RBC 0.00 (0.00-0.012) x10^3u/L Lymphocytes % 20.9 L (21.8-53.1) % Monocytes % 12.0 (5.3-12.2) % Eosinophils % 2.8 (0.8-7.0) % Basophils % 0.6 (0.2-1.2) % Absolute Granulocytes 3.42 (1.78-5.38) x10^3/uL Basophils # 0.03 (0.01-0.08) x10^3/uL Sodium 132 L (135-145) mmol/L Potassium 3.6 (3.5-5.1) mmol/L Chloride 96 L (98-107) mmol/L Carbon Dioxide 23 (22-30) mmol/L Anion Gap 16.9 H (5-15) MEQ/L BUN 36 H (9-20) mg/dL Creatinine 1.71 H (0.66-1.25) mg/dL Estimated GFR 42.8 ML/MIN Glucose 348 H (74-106) mg/dL Calcium 9.0 (8.4-10.2) mg/dL Total Bilirubin 1.30 (0.2-1.3) mg/dL AST 42 (17-59) U/L ALT 25 (0-50) U/L Alkaline Phosphatase 156 H (38-126) U/L Troponin I < 0.012 (0.000-0.033) ng/mL NT-Pro-B Natriuret Pep 252 (<300) pg/mL Serum Total Protein 7.9 (6.3-8.2) g/dL Albumin 4.2 (3.5-5.0) g/dL - Progress Progress: improved Air Movement: good Progress Note: Patient was stable throughout stay. His chest pain got relieved with a nitro. His vital signs remained stable.His troponin was not elevated.Given his cardiac history I am going to contact the hospitalist about chest pain observation for this gentleman. His chest x-rayWas interpreted by me. There was no acute abnormalities noted. I spoke with the hospitalist and we agreed to admit for chest pain rule out 06/10/24 02:41 06/10/24 02:51 Medical Desision Making - Independent Historian Additional History obtained from: Spouse - Discussion of managment Care discussed with:: hospitalist Reviewed:: Test results, Need for additional workup Agreed on:: Treatment plan, place in obs - Diagnostic Testing Diagnostic test were ordered, analyzed, and reviewed by me: Yes Radiological Interpretation: Interpreted by me - Risk of complications Low Risk: Low risk of morbidity from additional dx testing or treatment - Departure Departure Disposition: Observation Clinical Impression: Chest pain Condition: Stable Critical Care Time: No Referrals: [facility] [LOCATION] - Follow up/PCP as directed
[2024-06-10 01:45] LABS: Absolute Neutrophil Ct (ANC) 3.42 x10^3/uL (1.78-5.38); BASOPHIL % 0.6 % (0.2-1.2); Basophil (Absolute #) 0.03 x10^3/uL (0.01-0.08); Eosinophil % 2.8 % (0.8-7.0); Eosinophil (Absolute #) 0.15 x10^3/uL (0.04-0.54); Hematocrit 42.5 % (40.1-51.0); Hemoglobin 14.3 g/dL (13.7-17.5); IMMATURE GRAN # 0.03 x10^3u/L (0.001-0.031); IMMATURE GRAN % 0.6 % (0.001-0.429); Lymphocyte (Absolute #) 1.13 x10^3/uL (1.32-3.57); Lymphocytes % 20.9 % (21.8-53.1); Mean Cell Volume 85.3 fL (79.0-92.2); Mean Corpuscular Hemoglobin 28.7 pg (25.7-32.2); Mean Corpuscular Hgb Concent. 33.6 g/dL (32.3-36.5); Mean Platelet Volume 11.2 fL (9.4-12.4); Monocyte (Absolute #) 0.65 x10^3/uL (0.30-0.82); Neutrophil % 63.1 % (34.0-67.9); Platelet Count 95 x10^3/uL (163-337); Red Blood Count 4.98 x10^6/uL (4.63-6.08); White Blood Count 5.4 x10^3/uL (4.23-9.07)
[2024-06-10] MEDS ORDERED: Nitrostat 0.4 MG (ED) SL ONE (01:56)
[2024-06-10] MEDS: Nitrostat 0.4 MG Tablet SL PRN (01:59)
[2024-06-10 02:23] LABS: ALBUMIN 4.2 g/dL (3.5-5.0); ANION GAP 16.9 MEQ/L (5-15); BILIRUBIN,TOTAL 1.3 mg/dL (0.2-1.3); Creatinine 1 1.71 mg/dL (0.66-1.25); EST GLOMERULAR FILTRATION RATE 42.8 ML/MIN; Potassium 3.6 mmol/L (3.5-5.1); Total Protein 7.9 g/dL (6.3-8.2)
[2024-06-10] MEDS ORDERED: TYLENOL 325 MG PO PRN (04:56)
[2024-06-10] MEDS ORDERED: Tessalon Perles 100 MG PO PRN (04:58)
[2024-06-10] MEDS ORDERED: Robitussin 100 MG/5 ML PO PRN (04:58)
--- NOTE | 2024-06-10 05:07 | PCM.HP ---
History of Present Illness - Chief Complaint Chief Complaint: chest pain Date: 06/10/24 History of Present Illness: is a 68 year old male with h/o DM2, HTN, CAD, BPH, COPD, DVT on Eliquis, CKD3, DIANA on CPAP, here with chest pain. Patient states that for the past few weeks he has had some upper respiratory infection symptoms, mainly congestion, rhinorrhea, with occasional cough. He has not noted any fevers. However, for the last day, he has had severe constant cough. Then this morning around midnight, he had onset of dizziness as well as feeling like "an elephant was sitting on my chest", associated with dyspnea, nausea, and vomiting. No radiation of the pain, no associated diaphoresis or numbness. The pain was similar to his prior ND in December. The pain was constant, and he was unable to walk or get out of his bed. EMS was called, and pain was only relieved after patient received nitroglycerin in the ED. After receiving 1 dose of nitroglycerin, he has had no further chest pressure, although he still has intermittent dizziness. Patient and (at bedside) are unaware of which medications patient is currently taking. He is on insulin, and patient reports that he takes insulin degludec 170 units at night, and insulin lispro 100 units with meals. - Review of Systems All Other Systems: Reviewed and Negative Medications & Allergies Home Medications: Home Medication List Atorvastatin Calcium 40 mg PO HS 03/30/23 [History Confirmed 04/06/24] Ferrous Sulfate 325 mg [Feosol 325 mg] 325 mg PO TID 03/30/23 [History Confirmed 04/06/24] Fluticasone Propion/Salmeterol [Fluticasone-Salmeterol 100-50] 1 disk PO UD 03/30/23 [History Confirmed 04/06/24] Hydrocortisone 1% Cream [Cortisone 1% Cream] 1 gm TP BID PRN 03/30/23 [History Confirmed 02/19/24] Metoprolol Succinate 25 mg Xl* [Toprol-Xl 25MG Tablets] 75 mg PO BID 03/30/23 [History Confirmed 04/06/24] Omeprazole 40 mg PO DAILY 03/30/23 [History Confirmed 04/06/24] Oxycodone HCl/Acetaminophen [Oxycodone-Acetaminophn 7.5-325] 1 each PO Q8H PRN 03/30/23 [History Confirmed 04/06/24] Tamsulosin HCl 0.4 mg [Flomax 0.4 MG] 0.8 mg PO HS 03/30/23 [History Confirmed 04/06/24] Trazodone HCl 150 mg PO HS 03/30/23 [History Confirmed 04/06/24] glucosamine HCL [Glucosamine HCl] 500 mg PO BID 03/30/23 [History Confirmed 04/06/24] Acetaminophen 325 mg [Tylenol 325 mg] 325 mg PO Q4H PRN PRN 08/15/23 [History Confirmed 04/06/24] Diphenhydramine HCl 25 mg [Benadryl 25 mg Capsule] 25 mg PO Q6H PRN PRN 08/15/23 [History Confirmed 04/06/24] Docusate Sodium 100 mg [Docusate Sodium 100 MG] 100 mg PO BID 08/15/23 [History Confirmed 04/06/24] Emollient Base [Emollient] 1 dose TOP BID 08/15/23 [History Confirmed 04/06/24] Furosemide 40 mg [Lasix 40 MG] 40 mg PO DAILY 08/15/23 [History Confirmed 04/06/24] Guaifenesin 600 mg ER [Mucinex 600MG ER Tabs] 600 mg PO BID PRN 08/15/23 [History Confirmed 04/06/24] Insulin Lispro [Humalog Kwikpen U-100] 100 unit SQ UD PRN 08/15/23 [History Confirmed 04/06/24] Magnesium Oxide 400 mg [Mag-Ox 400] 400 mg PO DAILY PRN PRN 08/15/23 [History Confirmed 04/06/24] Nitroglycerin 0.4 mg Tablet [Nitrostat 0.4 MG Tablet] 0.4 mg SL UD 08/15/23 [History Confirmed 04/06/24] Apixaban [Eliquis] 5 mg PO BID 30 Days #60 tablet 08/18/23 [Rx Confirmed 04/06/24] Albuterol 2.5 mg/3 ml Neb [Proventil 2.5 mg/3 ml Neb] 2.5 mg IH Q4H PRN PRN 02/19/24 [History Confirmed 04/06/24] Amlodipine Besylate 5 mg [Norvasc 5 mg] 5 mg PO DAILY 02/19/24 [History Confirmed 04/06/24] Finasteride 5 mg [Proscar 5 MG] 5 mg PO DAILY 02/19/24 [History Confirmed 04/06/24] Gabapentin 300 mg PO TID 02/19/24 [History Confirmed 04/06/24] Insulin Degludec [Insulin Degludec Pen (U-200)] 100 unit SQ DAILY 02/19/24 [History Confirmed 04/06/24] Lidocaine HCl 5% Patch [Lidoderm Patch 5%] 1 patch TP DAILY 02/19/24 [History Confirmed 04/06/24] Mirabegron [Mirabegron ER] 25 mg PO DAILY 02/19/24 [History Confirmed 04/06/24] Ranolazine 500 MG [Ranexa 500 MG] 500 mg PO BID 02/19/24 [History Confirmed 04/06/24] Semaglutide [Ozempic] 2 mg SQ WEEKLY 02/19/24 [History Confirmed 04/06/24] Sennosides [Senna] 8.6 mg PO Q8HPRN PRN 02/19/24 [History Confirmed 04/06/24] Sitagliptin Phos/Metformin HCl [Janumet Xr 100-1,000 mg Tablet] 1 each PO HS 02/19/24 [History Confirmed 04/06/24] glucagon HCL [Glucagon Emergency Kit] 1 mg IJ UD PRN 02/19/24 [History Confirmed 04/06/24] lisinopriL [Zestril] 2.5 mg PO DAILY 02/19/24 [History Confirmed 04/06/24] Furosemide 20 mg [Lasix 20 mg] 20 mg PO DAILY 04/06/24 [History Confirmed 04/06/24] Meclizine HCl 25 mg [Antivert 25 mg] 25 mg PO BID 04/06/24 [History Confirmed 04/06/24] Potassium Chloride Tab* [Klor Con] 30 meq PO DAILY 04/06/24 [History Confirmed 04/06/24] Triamterene/Hydrochlorothiazid [Triamterene-Hctz 37.5-25 mg Tb] 1 each PO BID 04/06/24 [History Confirmed 04/06/24] Allergies/Adverse Reactions: Allergies Allergy/AdvReac Type Severity Reaction Status Date / Time Horse/Equine Containing Allergy Verified 06/10/24 01:32 Products latex Allergy Verified 06/10/24 01:32 - Past Medical History Past Medical History: Yes Neurological History: No Pertinent History ENT History: No Pertinent History Cardiac History: Congestive Heart Failure, Hypertension, Myocardial Infarction (ND) Respiratory History: Sleep Apnea, COPD Endocrine Medical History: Diabetes Type II Musculoskelatal History: Arthritis GI Medical History: GERD, Other History: Renal Disease, Other Pyscho-Social History: No Pertinent History Male Reproductive Disorders: Prostate 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, stage 3 renal failure, kidney stones - Past Surgical History Past Surgical History: Yes Neuro Surgical History: No Pertinent History Cardiac History: Cardiac Catheterization Respiratory Surgery: No Pertinent History GI Surgical History: Colon Resection Genitourinary Surgical Hx: No Pertinent History Musculskeletal Surgical Hx: No Pertinent History Male Surgical History: No Pertinent History Other Surgical History: tumor removed,colostomy reversal Significant Family History: heart disease, diabetes - Social History Smoking Status: Former smoker Exposure to second hand smoke: No Alcohol: None Drug Use: none - Social Determinants of Health Will the patient participate in the screening: Unable to obtain Do you worry about a steady place to live?: No Do you have any problems with any of the following?: No known problems In the past 12 months,have you had to go without utilities?: No Have you or anyone in your house had to go without enough: No Transportation Issues: No Has anyone in your support network made you feel unsafe?: No Does the patient want assistance with any of the above?: No Comment: PT REPORTS WOULD LIKE ASSISSTANCE WITH SOME OF THE [employer] - Physical Exam Vital Signs: Vital Signs - 24 hr Temp Pulse Pulse Resp BP BP Pulse Ox 06/10/24 03:14 97 F 74 19 116/57 96 06/10/24 02:00 88 12 126/69 95 06/10/24 01:59 75 126/83 06/10/24 01:33 96.8 F 82 82 16 126/83 99 06/10/24 01:30 76 14 126/83 99 Physical Exam GEN: Obese man, lying in bed in no acute distress. HENT: Normocephalic, atraumatic. Moist mucous membranes. EYES: Normal inspection, anicteric sclera, extraocular movements intact. NECK: Supple, full range of motion CV: Regular rate and rhythm, no murmurs, no gallops. No JVD or edema. PULM: Clear to auscultation bilaterally, no work of breathing. On 2 L oxygen by nasal cannula ABD: Nondistended, nontender. MSK: No joint effusions, full range of motion SKIN: No rashes, normal color. Right diabetic foot ulcer currently wrapped by podiatry. NEURO: Face symmetric, no focal motor or sensory deficits. PSYCH: Initially somnolent, but alert after aroused. Oriented x 3 Results - Labs Lab/Micro Results: Lab Results-Last 24 Hours 06/10/24 06/10/24 06/10/24 Range/Units 01:43 01:43 01:43 WBC 5.4 (4.23-9.07) x10^3/uL RBC 4.98 (4.63-6.08) x10^6/uL Hgb 14.3 (13.7-17.5) g/dL Hct 42.5 (40.1-51.0) % MCV 85.3 (79.0-92.2) fL MCH 28.7 (25.7-32.2) pg MCHC 33.6 (32.3-36.5) g/dL RDW 13.0 (11.6-14.4) % Plt Count 95 L (163-337) x10^3/uL MPV 11.2 (9.4-12.4) fL Gran % 63.1 (34.0-67.9) % Immature Gran % (Auto) 0.6 H (0.001-0.429) % Nucleat RBC Rel Count 0.0 (0.00-0.2) % Eos # (Auto) 0.15 (0.04-0.54) x10^3/uL Immature Gran # (Auto) 0.03 (0.001-0.031) x10^3u/L Absolute Lymphs (auto) 1.13 L (1.32-3.57) x10^3/uL Absolute Monos (auto) 0.65 (0.30-0.82) x10^3/uL Absolute Nucleated RBC 0.00 (0.00-0.012) x10^3u/L Lymphocytes % 20.9 L (21.8-53.1) % Monocytes % 12.0 (5.3-12.2) % Eosinophils % 2.8 (0.8-7.0) % Basophils % 0.6 (0.2-1.2) % Absolute Granulocytes 3.42 (1.78-5.38) x10^3/uL Basophils # 0.03 (0.01-0.08) x10^3/uL Sodium 132 L (135-145) mmol/L Potassium 3.6 (3.5-5.1) mmol/L Chloride 96 L (98-107) mmol/L Carbon Dioxide 23 (22-30) mmol/L Anion Gap 16.9 H (5-15) MEQ/L BUN 36 H (9-20) mg/dL Creatinine 1.71 H (0.66-1.25) mg/dL Estimated GFR 42.8 ML/MIN Glucose 348 H (74-106) mg/dL Calcium 9.0 (8.4-10.2) mg/dL Total Bilirubin 1.30 (0.2-1.3) mg/dL AST 42 (17-59) U/L ALT 25 (0-50) U/L Alkaline Phosphatase 156 H (38-126) U/L Troponin I < 0.012 (0.000-0.033) ng/mL NT-Pro-B Natriuret Pep 252 (<300) pg/mL Serum Total Protein 7.9 (6.3-8.2) g/dL Albumin 4.2 (3.5-5.0) g/dL - Radiology Impressions Radiology Exams & Impressions: Radiology Procedures Category Date Time Status CHEST 1 VIEW (PORTABLE) Stat Exams 06/10/24 01:28 Taken Chest x-ray bibasilar atelectasis. No consolidation. (Images personally reviewed.) - Other Procedures and Tests Respiratory Therapy 06/10/24 04:12 RT Screen per Nursing Assess ONCE 06/10/24 04:56 EKG PRN 06/10/24 09:30 EKG ROUTINE Assessment/Plan (1) Chest pain Current Visit: Yes Status: Acute Assessment & Plan: 68-year-old man with history of CAD, COPD, DIANA on CPAP, HTN, DM2, BPH, here with chest pain. ## Chest pain typical chest pain, relieved by nitroglycerin. Patient has high risk with his recent ND in December. He has got multiple risk factors including age, hypertension, diabetes, and prior history. Currently chest pain-free, and initial troponin was negative. Place in observation Follow on telemetry Serial troponins ## Type 2 diabetes unfortunately, unable to confirm patient's home medications. He reports using 170 units of basal insulin at night and 100 units of short acting insulin with meals. For now, placed on Lantus 100 units at night, and Humalog 50 units with meals Start high-dose sliding scale insulin Follow blood glucose levels Diabetic diet ## DIANA, acute hypoxia patient is currently requiring 2 L oxygen while he sleeps, but he is on a CPAP at home. Patient reports his settings is 5 cm of water. Start CPAP at 5 cm QHS Wean off oxygen ## History of DVT Continue home Eliquis 5 BID, one of the few medications the patient could confirm ## Right foot diabetic foot ulcer currently followed with Dr. Best, most recently wrapped on Monday. Have Dr. Best and the wound care team continue following while he is in the hospital ## History of hypertension, CHF, BPH, neuropathy currently unable to confirm any of patient's home medications. Will have family either go home and verify pills or call to pharmacy in the morning Will hold off on starting most recently recorded antihypertensives as blood pressure is currently well-controlled Once home medications are confirmed, can resume medications CODE STATUS: Full code Prophylaxis: Eliquis Diet: Diabetic Dispo: Place in observation Entirety of encounter took place via live audio/video telemedicine device, with remote physician and patient in hospital, with the assistance of nurse at bedside. Code(s): R07.9 - CHEST PAIN, UNSPECIFIED Telemedicine Encounter - Telemedicine Encounter Telemedicine Encounter: "The entirety of this encounter was performed via Telemedicine" This visit was performed using real-time audio and video connection between my location and thepatients locationwith the assistance of a surrogateat the patients location. Written or verbal consent was obtained from the patient/guardian to perform this visit usingsynchrFenikstelemedicine technology. Any patient questions regarding the telemedicine interaction were answered.
[2024-06-10 05:19] LABS: Hematocrit 42.6 % (40.1-51.0); Hemoglobin 14.1 g/dL (13.7-17.5); Mean Cell Volume 86.1 fL (79.0-92.2); Mean Corpuscular Hemoglobin 28.5 pg (25.7-32.2); Mean Corpuscular Hgb Concent. 33.1 g/dL (32.3-36.5); Platelet Count 84 x10^3/uL (163-337); Red Blood Count 4.95 x10^6/uL (4.63-6.08); Red Cell Distribution Width 13.1 % (11.6-14.4); White Blood Count 4.6 x10^3/uL (4.23-9.07)
[2024-06-10 05:47] LABS: ANION GAP 12.8 MEQ/L (5-15); Calcium 8.8 mg/dL (8.4-10.2); Creatinine 1 1.91 mg/dL (0.66-1.25); EST GLOMERULAR FILTRATION RATE 37.5 ML/MIN; Potassium 3.8 mmol/L (3.5-5.1)
--- NOTE | 2024-06-10 08:47 | XRAY ---
Indication: Chest pain. Comparison: April 06, 2024 Portable apical lordotic chest inflated again without focal infiltrate, consolidation, or large effusion. Heart not enlarged. Bony thorax intact again with osteopenia and degenerative changes. No new/acute findings.
[2024-06-10] MEDS: HUMALOG SQ PRN (08:53)
[2024-06-10] MEDS: Sodium Chloride 0.9% 1000 ML 1,000 ML IV SCH (09:20)
[2024-06-10] MEDS: HUMALOG SQ SCH ×2 (09:23→17:33)
[2024-06-10] MEDS: ELIQUIS 2.5 MG TABLET PO SCH (11:07)
[2024-06-10 15:12] LABS: Appearance Clear (Clear); Bilirubin Negative (Negative); Blood Negative (Negative); Glucose, Urine Negative (Negative); Ketones Negative (Negative); Leukocyte Esterase Negative (Negative); Nitrite Negative (Negative); Protein,Urine Dip Negative (Negative); RBC NONE SEEN /HPF (0-5); Specific Gravity 1.015 (1.005-1.030); Urobilinogen 0.2 mg/dL (0.2); WBC 0-2 /HPF (0-5)
[2024-06-10 15:13] LABS: Bacteria None Seen /HPF (None Seen); Epithelial Cells Rare /HPF (None Seen)
--- NOTE | 2024-06-10 16:44 | PCM.CONS ---
Podiatry HPI - Consult Date of Consultation Date: 06/10/24 Reason for Consult: Bilateral venous insufficency heel and sub 1st metatarsal ulceration right foot. Consulting Provider: JOCELYN MARIN DPM - [facility] History of Present Illness: is a 68 year old male. Medications & Allergies Home Medications: Home Medication List Atorvastatin Calcium 40 mg PO HS 03/30/23 [History Confirmed 04/06/24] Ferrous Sulfate 325 mg [Feosol 325 mg] 325 mg PO TID 03/30/23 [History Confirmed 04/06/24] Fluticasone Propion/Salmeterol [Fluticasone-Salmeterol 100-50] 1 disk PO UD 03/30/23 [History Confirmed 04/06/24] Hydrocortisone 1% Cream [Cortisone 1% Cream] 1 gm TP BID PRN 03/30/23 [History Confirmed 02/19/24] Metoprolol Succinate 25 mg Xl* [Toprol-Xl 25MG Tablets] 75 mg PO BID 03/30/23 [History Confirmed 04/06/24] Omeprazole 40 mg PO DAILY 03/30/23 [History Confirmed 04/06/24] Oxycodone HCl/Acetaminophen [Oxycodone-Acetaminophn 7.5-325] 1 each PO Q8H PRN 03/30/23 [History Confirmed 04/06/24] Tamsulosin HCl 0.4 mg [Flomax 0.4 MG] 0.8 mg PO HS 03/30/23 [History Confirmed 04/06/24] Trazodone HCl 150 mg PO HS 03/30/23 [History Confirmed 04/06/24] glucosamine HCL [Glucosamine HCl] 500 mg PO BID 03/30/23 [History Confirmed 04/06/24] Acetaminophen 325 mg [Tylenol 325 mg] 325 mg PO Q4H PRN PRN 08/15/23 [History Confirmed 04/06/24] Diphenhydramine HCl 25 mg [Benadryl 25 mg Capsule] 25 mg PO Q6H PRN PRN 08/15/23 [History Confirmed 04/06/24] Docusate Sodium 100 mg [Docusate Sodium 100 MG] 100 mg PO BID 08/15/23 [History Confirmed 04/06/24] Emollient Base [Emollient] 1 dose TOP BID 08/15/23 [History Confirmed 04/06/24] Furosemide 40 mg [Lasix 40 MG] 40 mg PO DAILY 08/15/23 [History Confirmed 04/06/24] Guaifenesin 600 mg ER [Mucinex 600MG ER Tabs] 600 mg PO BID PRN 08/15/23 [History Confirmed 04/06/24] Insulin Lispro [Humalog Kwikpen U-100] 100 unit SQ UD PRN 08/15/23 [History Confirmed 04/06/24] Magnesium Oxide 400 mg [Mag-Ox 400] 400 mg PO DAILY PRN PRN 08/15/23 [History Confirmed 04/06/24] Nitroglycerin 0.4 mg Tablet [Nitrostat 0.4 MG Tablet] 0.4 mg SL UD 08/15/23 [History Confirmed 04/06/24] Apixaban [Eliquis] 5 mg PO BID 30 Days #60 tablet 08/18/23 [Rx Confirmed 04/06/24] Albuterol 2.5 mg/3 ml Neb [Proventil 2.5 mg/3 ml Neb] 2.5 mg IH Q4H PRN PRN 02/19/24 [History Confirmed 04/06/24] Amlodipine Besylate 5 mg [Norvasc 5 mg] 5 mg PO DAILY 02/19/24 [History Confirmed 04/06/24] Finasteride 5 mg [Proscar 5 MG] 5 mg PO DAILY 02/19/24 [History Confirmed 04/06/24] Gabapentin 300 mg PO TID 02/19/24 [History Confirmed 04/06/24] Insulin Degludec [Insulin Degludec Pen (U-200)] 100 unit SQ DAILY 02/19/24 [History Confirmed 04/06/24] Lidocaine HCl 5% Patch [Lidoderm Patch 5%] 1 patch TP DAILY 02/19/24 [History Confirmed 04/06/24] Mirabegron [Mirabegron ER] 25 mg PO DAILY 02/19/24 [History Confirmed 04/06/24] Ranolazine 500 MG [Ranexa 500 MG] 500 mg PO BID 02/19/24 [History Confirmed 04/06/24] Semaglutide [Ozempic] 2 mg SQ WEEKLY 02/19/24 [History Confirmed 04/06/24] Sennosides [Senna] 8.6 mg PO Q8HPRN PRN 02/19/24 [History Confirmed 04/06/24] Sitagliptin Phos/Metformin HCl [Janumet Xr 100-1,000 mg Tablet] 1 each PO HS 02/19/24 [History Confirmed 04/06/24] glucagon HCL [Glucagon Emergency Kit] 1 mg IJ UD PRN 02/19/24 [History Confirmed 04/06/24] lisinopriL [Zestril] 2.5 mg PO DAILY 02/19/24 [History Confirmed 04/06/24] Furosemide 20 mg [Lasix 20 mg] 20 mg PO DAILY 04/06/24 [History Confirmed 04/06/24] Meclizine HCl 25 mg [Antivert 25 mg] 25 mg PO BID 04/06/24 [History Confirmed 04/06/24] Potassium Chloride Tab* [Klor Con] 30 meq PO DAILY 04/06/24 [History Confirmed 04/06/24] Triamterene/Hydrochlorothiazid [Triamterene-Hctz 37.5-25 mg Tb] 1 each PO BID 04/06/24 [History Confirmed 04/06/24] Allergies/Adverse Reactions: Allergies Allergy/AdvReac Type Severity Reaction Status Date / Time Horse/Equine Containing Allergy Verified 06/10/24 01:32 Products latex Allergy Verified 06/10/24 01:32 - Past Medical History Past Medical History: Yes Neurological History: No Pertinent History ENT History: No Pertinent History Cardiac History: Congestive Heart Failure, Hypertension, Myocardial Infarction ([place]) Respiratory History: Sleep Apnea, COPD Endocrine Medical History: Diabetes Type II Musculoskelatal History: Arthritis GI Medical History: GERD, Other History: Renal Disease, Other Pyscho-Social History: No Pertinent History Male Reproductive Disorders: Prostate 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, stage 3 renal failure, kidney stones - Past Surgical History Past Surgical History: Yes Neuro Surgical History: No Pertinent History Cardiac History: Cardiac Catheterization Respiratory Surgery: No Pertinent History GI Surgical History: Colon Resection Genitourinary Surgical Hx: No Pertinent History Musculskeletal Surgical Hx: No Pertinent History Male Surgical History: No Pertinent History Other Surgical History: tumor removed,colostomy reversal Significant Family History: heart disease, diabetes - Social History Smoking Status: Former smoker How long have you smoked: 28 years Exposure to second hand smoke: No Alcohol: None Drug Use: none - Social Determinants of Health Will the patient participate in the screening: Unable to obtain Do you worry about a steady place to live?: No Do you have any problems with any of the following?: No known problems In the past 12 months,have you had to go without utilities?: No Have you or anyone in your house had to go without enough: No Transportation Issues: No Has anyone in your support network made you feel unsafe?: No Does the patient want assistance with any of the above?: No Comment: PT REPORTS WOULD LIKE ASSISSTANCE WITH SOME OF THE [facility] Physical Exam - Narrative Narrative Physical Exam: Podiatry Physical Exam Results - Labs Lab/Micro Results: Lab Results-Last 24 Hours 06/10/24 06/10/24 06/10/24 Range/Units 01:43 01:43 01:43 WBC 5.4 (4.23-9.07) x10^3/uL RBC 4.98 (4.63-6.08) x10^6/uL Hgb 14.3 (13.7-17.5) g/dL Hct 42.5 (40.1-51.0) % MCV 85.3 (79.0-92.2) fL MCH 28.7 (25.7-32.2) pg MCHC 33.6 (32.3-36.5) g/dL RDW 13.0 (11.6-14.4) % Plt Count 95 L (163-337) x10^3/uL MPV 11.2 (9.4-12.4) fL Gran % 63.1 (34.0-67.9) % Immature Gran % (Auto) 0.6 H (0.001-0.429) % Nucleat RBC Rel Count 0.0 (0.00-0.2) % Eos # (Auto) 0.15 (0.04-0.54) x10^3/uL Immature Gran # (Auto) 0.03 (0.001-0.031) x10^3u/L Absolute Lymphs (auto) 1.13 L (1.32-3.57) x10^3/uL Absolute Monos (auto) 0.65 (0.30-0.82) x10^3/uL Absolute Nucleated RBC 0.00 (0.00-0.012) x10^3u/L Lymphocytes % 20.9 L (21.8-53.1) % Monocytes % 12.0 (5.3-12.2) % Eosinophils % 2.8 (0.8-7.0) % Basophils % 0.6 (0.2-1.2) % Absolute Granulocytes 3.42 (1.78-5.38) x10^3/uL Basophils # 0.03 (0.01-0.08) x10^3/uL Sodium 132 L (135-145) mmol/L Potassium 3.6 (3.5-5.1) mmol/L Chloride 96 L (98-107) mmol/L Carbon Dioxide 23 (22-30) mmol/L Anion Gap 16.9 H (5-15) MEQ/L BUN 36 H (9-20) mg/dL Creatinine 1.71 H (0.66-1.25) mg/dL Estimated GFR 42.8 ML/MIN Glucose 348 H (74-106) mg/dL POC Glucometer (74 to 106) mg/dL Calcium 9.0 (8.4-10.2) mg/dL Total Bilirubin 1.30 (0.2-1.3) mg/dL AST 42 (17-59) U/L ALT 25 (0-50) U/L Alkaline Phosphatase 156 H (38-126) U/L Troponin I < 0.012 (0.000-0.033) ng/mL NT-Pro-B Natriuret Pep 252 (<300) pg/mL Serum Total Protein 7.9 (6.3-8.2) g/dL Albumin 4.2 (3.5-5.0) g/dL Prealbumin (17.6-36.0) mg/dL Urine Color (Yellow) Urine Appearance (Clear) Urine pH (4.6-8.0) Ur Specific [place] (1.005-1.030) Urine Protein (Negative) Urine Glucose (UA) (Negative) mg/dL Urine Ketones (Negative) Urine Blood (Negative) Urine Nitrite (Negative) Urine Bilirubin (Negative) Urine Urobilinogen (0.2) mg/dL Ur Leukocyte Esterase (Negative) U Hyaline Cast (Auto) (0-2) /LPF Urine Microscopic RBC (0-5) /HPF Urine Microscopic WBC (0-5) /HPF Ur Epithelial Cells (None Seen) /HPF Urine Bacteria (None Seen) /HPF Urine Culture Reflexed (NO) 06/10/24 06/10/24 06/10/24 Range/Units 04:20 04:40 04:40 WBC 4.6 (4.23-9.07) x10^3/uL RBC 4.95 (4.63-6.08) x10^6/uL Hgb 14.1 (13.7-17.5) g/dL Hct 42.6 (40.1-51.0) % MCV 86.1 (79.0-92.2) fL MCH 28.5 (25.7-32.2) pg MCHC 33.1 (32.3-36.5) g/dL RDW 13.1 (11.6-14.4) % Plt Count 84 L (163-337) x10^3/uL MPV 11.0 (9.4-12.4) fL Gran % (34.0-67.9) % Immature Gran % (Auto) (0.001-0.429) % Nucleat RBC Rel Count (0.00-0.2) % Eos # (Auto) (0.04-0.54) x10^3/uL Immature Gran # (Auto) (0.001-0.031) x10^3u/L Absolute Lymphs (auto) (1.32-3.57) x10^3/uL Absolute Monos (auto) (0.30-0.82) x10^3/uL Absolute Nucleated RBC (0.00-0.012) x10^3u/L Lymphocytes % (21.8-53.1) % Monocytes % (5.3-12.2) % Eosinophils % (0.8-7.0) % Basophils % (0.2-1.2) % Absolute Granulocytes (1.78-5.38) x10^3/uL Basophils # (0.01-0.08) x10^3/uL Sodium (135-145) mmol/L Potassium (3.5-5.1) mmol/L Chloride (98-107) mmol/L Carbon Dioxide (22-30) mmol/L Anion Gap (5-15) MEQ/L BUN (9-20) mg/dL Creatinine (0.66-1.25) mg/dL Estimated GFR ML/MIN Glucose (74-106) mg/dL POC Glucometer (74 to 106) mg/dL Calcium (8.4-10.2) mg/dL Total Bilirubin (0.2-1.3) mg/dL AST (17-59) U/L ALT (0-50) U/L Alkaline Phosphatase (38-126) U/L Troponin I < 0.012 (0.000-0.033) ng/mL NT-Pro-B Natriuret Pep (<300) pg/mL Serum Total Protein (6.3-8.2) g/dL Albumin (3.5-5.0) g/dL Prealbumin 17.24 L (17.6-36.0) mg/dL Urine Color (Yellow) Urine Appearance (Clear) Urine pH (4.6-8.0) Ur Specific [place] (1.005-1.030) Urine Protein (Negative) Urine Glucose (UA) (Negative) mg/dL Urine Ketones (Negative) Urine Blood (Negative) Urine Nitrite (Negative) Urine Bilirubin (Negative) Urine Urobilinogen (0.2) mg/dL Ur Leukocyte Esterase (Negative) U Hyaline Cast (Auto) (0-2) /LPF Urine Microscopic RBC (0-5) /HPF Urine Microscopic WBC (0-5) /HPF Ur Epithelial Cells (None Seen) /HPF Urine Bacteria (None Seen) /HPF Urine Culture Reflexed (NO) 06/10/24 06/10/24 06/10/24 Range/Units 04:40 07:24 09:36 WBC (4.23-9.07) x10^3/uL RBC (4.63-6.08) x10^6/uL Hgb (13.7-17.5) g/dL Hct (40.1-51.0) % MCV (79.0-92.2) fL MCH (25.7-32.2) pg MCHC (32.3-36.5) g/dL RDW (11.6-14.4) % Plt Count (163-337) x10^3/uL MPV (9.4-12.4) fL Gran % (34.0-67.9) % Immature Gran % (Auto) (0.001-0.429) % Nucleat RBC Rel Count (0.00-0.2) % Eos # (Auto) (0.04-0.54) x10^3/uL Immature Gran # (Auto) (0.001-0.031) x10^3u/L Absolute Lymphs (auto) (1.32-3.57) x10^3/uL Absolute Monos (auto) (0.30-0.82) x10^3/uL Absolute Nucleated RBC (0.00-0.012) x10^3u/L Lymphocytes % (21.8-53.1) % Monocytes % (5.3-12.2) % Eosinophils % (0.8-7.0) % Basophils % (0.2-1.2) % Absolute Granulocytes (1.78-5.38) x10^3/uL Basophils # (0.01-0.08) x10^3/uL Sodium 133 L (135-145) mmol/L Potassium 3.8 (3.5-5.1) mmol/L Chloride 95 L (98-107) mmol/L Carbon Dioxide 29 (22-30) mmol/L Anion Gap 12.8 (5-15) MEQ/L BUN 36 H (9-20) mg/dL Creatinine 1.91 H (0.66-1.25) mg/dL Estimated GFR 37.5 ML/MIN Glucose 342 H (74-106) mg/dL POC Glucometer 291 H (74 to 106) mg/dL Calcium 8.8 (8.4-10.2) mg/dL Total Bilirubin (0.2-1.3) mg/dL AST (17-59) U/L ALT (0-50) U/L Alkaline Phosphatase (38-126) U/L Troponin I < 0.012 (0.000-0.033) ng/mL NT-Pro-B Natriuret Pep (<300) pg/mL Serum Total Protein (6.3-8.2) g/dL Albumin (3.5-5.0) g/dL Prealbumin (17.6-36.0) mg/dL Urine Color (Yellow) Urine Appearance (Clear) Urine pH (4.6-8.0) Ur Specific [place] (1.005-1.030) Urine Protein (Negative) Urine Glucose (UA) (Negative) mg/dL Urine Ketones (Negative) Urine Blood (Negative) Urine Nitrite (Negative) Urine Bilirubin (Negative) Urine Urobilinogen (0.2) mg/dL Ur Leukocyte Esterase (Negative) U Hyaline Cast (Auto) (0-2) /LPF Urine Microscopic RBC (0-5) /HPF Urine Microscopic WBC (0-5) /HPF Ur Epithelial Cells (None Seen) /HPF Urine Bacteria (None Seen) /HPF Urine Culture Reflexed (NO) 06/10/24 06/10/24 Range/Units 11:32 14:20 WBC (4.23-9.07) x10^3/uL RBC (4.63-6.08) x10^6/uL Hgb (13.7-17.5) g/dL Hct (40.1-51.0) % MCV (79.0-92.2) fL MCH (25.7-32.2) pg MCHC (32.3-36.5) g/dL RDW (11.6-14.4) % Plt Count (163-337) x10^3/uL MPV (9.4-12.4) fL Gran % (34.0-67.9) % Immature Gran % (Auto) (0.001-0.429) % Nucleat RBC Rel Count (0.00-0.2) % Eos # (Auto) (0.04-0.54) x10^3/uL Immature Gran # (Auto) (0.001-0.031) x10^3u/L Absolute Lymphs (auto) (1.32-3.57) x10^3/uL Absolute Monos (auto) (0.30-0.82) x10^3/uL Absolute Nucleated RBC (0.00-0.012) x10^3u/L Lymphocytes % (21.8-53.1) % Monocytes % (5.3-12.2) % Eosinophils % (0.8-7.0) % Basophils % (0.2-1.2) % Absolute Granulocytes (1.78-5.38) x10^3/uL Basophils # (0.01-0.08) x10^3/uL Sodium (135-145) mmol/L Potassium (3.5-5.1) mmol/L Chloride (98-107) mmol/L Carbon Dioxide (22-30) mmol/L Anion Gap (5-15) MEQ/L BUN (9-20) mg/dL Creatinine (0.66-1.25) mg/dL Estimated GFR ML/MIN Glucose (74-106) mg/dL POC Glucometer 253 H (74 to 106) mg/dL Calcium (8.4-10.2) mg/dL Total Bilirubin (0.2-1.3) mg/dL AST (17-59) U/L ALT (0-50) U/L Alkaline Phosphatase (38-126) U/L Troponin I (0.000-0.033) ng/mL NT-Pro-B Natriuret Pep (<300) pg/mL Serum Total Protein (6.3-8.2) g/dL Albumin (3.5-5.0) g/dL Prealbumin (17.6-36.0) mg/dL Urine Color Dark Yellow (Yellow) Urine Appearance Clear (Clear) Urine pH 5.0 (4.6-8.0) Ur Specific [place] 1.015 (1.005-1.030) Urine Protein Negative (Negative) Urine Glucose (UA) Negative (Negative) mg/dL Urine Ketones Negative (Negative) Urine Blood Negative (Negative) Urine Nitrite Negative (Negative) Urine Bilirubin Negative (Negative) Urine Urobilinogen 0.2 (0.2) mg/dL Ur Leukocyte Esterase Negative (Negative) U Hyaline Cast (Auto) 6-10 A (0-2) /LPF Urine Microscopic RBC NONE SEEN (0-5) /HPF Urine Microscopic WBC 0-2 (0-5) /HPF Ur Epithelial Cells Rare (None Seen) /HPF Urine Bacteria None Seen (None Seen) /HPF Urine Culture Reflexed NO (NO) Accuchecks Date 06/10/24 Date 06/10/24 - Radiology Impressions Radiology Exams & Impressions: Radiology Procedures Category Date Time Status CHEST 1 VIEW (PORTABLE) Stat Exams 06/10/24 01:28 Completed - Other Procedures and Tests Respiratory Therapy 06/10/24 05:02 BiPap/CPAP HS 06/10/24 05:38 Oxygen Nasal Cannula 2 lpm Assessment/Plan (1) Nonspecific chest pain Current Visit: No Status: Acute Code(s): R07.9 - CHEST PAIN, UNSPECIFIED (2) Numbness of tongue Current Visit: No Status: Acute Code(s): R20.0 - ANESTHESIA OF SKIN (3) Cellulitis Current Visit: No Status: Acute Code(s): L03.90 - CELLULITIS, UNSPECIFIED (4) Diabetes mellitus Current Visit: No Status: Acute Qualifiers: Diabetes mellitus type: type 2 Diabetes mellitus complication detail: with foot ulcer Code(s): E11.9 - TYPE 2 DIABETES MELLITUS WITHOUT COMPLICATIONS (5) COPD (chronic obstructive pulmonary disease) Current Visit: No Status: Chronic (6) Diabetic foot ulcer Current Visit: No Status: Acute Assessment & Plan: Q8 Attention was directed to the _Right heel__. Verbal consent was obtained prior to the procedure. Sharp, excisional debridement was performed of the __right heel_ ulcer using a curette. Removal of nonviable tissue was performed with the debridement: fibrotic tissue Depth of debridement: skin and subcutaneous tissue. Hemostasis was obtained a using pressure dressing. Pre- and post- debridement measurements as follows: Pre-Debridement: Size - 1.9 x 1.2 Post-Debridement: Size - 2.0 x1.1 Attention was directed to the _Right 1st MPJ__. Verbal consent was obtained prior to the procedure. Sharp, excisional debridement was performed of the __right 1st MPJ _ ulcer using a curette. Removal of nonviable tissue was performed with the debridement: fibrotic tissue Depth of debridement: skin and subcutaneous tissue. Hemostasis was obtained a using pressure dressing. Pre- and post- debridement measurements as follows: Pre-Debridement: Size - 1.9 x 0.9 Post-Debridement: Size - 2.0 x1.1 Unna boots applied to the bilateral lower extremity Cultures obtained. will follow while in house. . Code(s): E11.621 - TYPE 2 DIABETES MELLITUS WITH FOOT ULCER; L97.509 - NON- PRESSURE CHRONIC ULCER OTH PRT UNSP FOOT W UNSP SEVERITY (7) Venous insufficiency (chronic) (peripheral) Current Visit: No Status: Acute (8) Pressure ulcer of right heel, stage 3 Current Visit: No Status: Acute Code(s): L89.613 - PRESSURE ULCER OF RIGHT HEEL, STAGE 3
[2024-06-10] MEDS ORDERED: Lantus Insulin SQ SCH (22:00)
[2024-06-11 05:38] LABS: Hematocrit 37.1 % (40.1-51.0); Hemoglobin 12.3 g/dL (13.7-17.5); Mean Cell Volume 86.7 fL (79.0-92.2); Mean Corpuscular Hemoglobin 28.7 pg (25.7-32.2); Mean Corpuscular Hgb Concent. 33.2 g/dL (32.3-36.5); Mean Platelet Volume 10.5 fL (9.4-12.4); Platelet Count 78 x10^3/uL (163-337); Red Blood Count 4.28 x10^6/uL (4.63-6.08); Red Cell Distribution Width 13.2 % (11.6-14.4); White Blood Count 5.4 x10^3/uL (4.23-9.07)
[2024-06-11 06:04] LABS: ALBUMIN 3.5 g/dL (3.5-5.0); ANION GAP 9.8 MEQ/L (5-15); BILIRUBIN,TOTAL 0.9 mg/dL (0.2-1.3); Calcium 8.5 mg/dL (8.4-10.2); Creatinine 1 1.51 mg/dL (0.66-1.25); EST GLOMERULAR FILTRATION RATE 49.7 ML/MIN; Potassium 3.6 mmol/L (3.5-5.1); Total Protein 6.6 g/dL (6.3-8.2)
--- NOTE | 2024-06-11 08:57 | PCM.CONS ---
History of Present Illness - Date of Consult Date of Encounter: 06/11/24 Consulting Electric Organ Checker: BAILEY CROWLEY MD Requesting Provider: Attending Provider: SAMPSON AZUL MD Primary Care Provider: PCP: NO FAMILY DOCTOR - Consult Narrative Reason for Consult: chest pain HPI: Patient is a 68M w/ PMHx of HTN, CHF?, COPD, sleep apnea, DM2 who presents with URI symptoms with coughing and congestion but also reported chest pain. He describes the pain as a heaviness that comes and goes with coughing. When he isn't coughing, he has no pain. He also reports difficulty breathing along with dizziness. The waxing/waning chest discomfort has a total duration of about a week. Symptom duration is usually about 15 minutes. Cardiac biomarkers are negative x3. BNP is unremarkable. Patient reports "big heart attack" over the summer but isn't sure of the work up. He isn't sure if he's had a left catheterization or other workup. He says he had no stents or CABG. cc:: The requesting physician will be sent a copy of the consult. 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, stage 3 renal failure, kidney stones - Past Surgical History Past Surgical History: Yes Neuro Surgical History: No Pertinent History Cardiac History: Cardiac Catheterization Respiratory Surgery: No Pertinent History GI Surgical History: Colon Resection Genitourinary Surgical Hx: No Pertinent History Musculskeletal Surgical Hx: No Pertinent History Male Surgical History: No Pertinent History Other Surgical History: tumor removed,colostomy reversal Significant Family History: heart disease, diabetes - Social History Smoking Status: Former smoker How long have you smoked: 28 years Exposure to second hand smoke: No Alcohol: None Drug Use: none - Social Determinants of Health Will the patient participate in the screening: Unable to obtain Do you worry about a steady place to live?: No Do you have any problems with any of the following?: No known problems In the past 12 months,have you had to go without utilities?: No Have you or anyone in your house had to go without enough: No Transportation Issues: No Has anyone in your support network made you feel unsafe?: No Does the patient want assistance with any of the above?: No Comment: PT REPORTS WOULD LIKE ASSISSTANCE WITH SOME OF THE [facility] Medications & Allergies Home Medications: Home Medication List Atorvastatin Calcium 40 mg PO HS 03/30/23 [History Confirmed 04/06/24] Ferrous Sulfate 325 mg [Feosol 325 mg] 325 mg PO TID 03/30/23 [History Confirmed 04/06/24] Fluticasone Propion/Salmeterol [Fluticasone-Salmeterol 100-50] 1 disk PO UD 03/30/23 [History Confirmed 04/06/24] Hydrocortisone 1% Cream [Cortisone 1% Cream] 1 gm TP BID PRN 03/30/23 [History Confirmed 02/19/24] Metoprolol Succinate 25 mg Xl* [Toprol-Xl 25MG Tablets] 75 mg PO BID 03/30/23 [History Confirmed 04/06/24] Omeprazole 40 mg PO DAILY 03/30/23 [History Confirmed 04/06/24] Oxycodone HCl/Acetaminophen [Oxycodone-Acetaminophn 7.5-325] 1 each PO Q8H PRN 03/30/23 [History Confirmed 04/06/24] Tamsulosin HCl 0.4 mg [Flomax 0.4 MG] 0.8 mg PO HS 03/30/23 [History Confirmed 04/06/24] Trazodone HCl 150 mg PO HS 03/30/23 [History Confirmed 04/06/24] glucosamine HCL [Glucosamine HCl] 500 mg PO BID 03/30/23 [History Confirmed 04/06/24] Acetaminophen 325 mg [Tylenol 325 mg] 325 mg PO Q4H PRN PRN 08/15/23 [History Confirmed 04/06/24] Diphenhydramine HCl 25 mg [Benadryl 25 mg Capsule] 25 mg PO Q6H PRN PRN 08/15/23 [History Confirmed 04/06/24] Docusate Sodium 100 mg [Docusate Sodium 100 MG] 100 mg PO BID 08/15/23 [History Confirmed 04/06/24] Emollient Base [Emollient] 1 dose TOP BID 08/15/23 [History Confirmed 04/06/24] Furosemide 40 mg [Lasix 40 MG] 40 mg PO DAILY 08/15/23 [History Confirmed 04/06/24] Guaifenesin 600 mg ER [Mucinex 600MG ER Tabs] 600 mg PO BID PRN 08/15/23 [History Confirmed 04/06/24] Insulin Lispro [Humalog Kwikpen U-100] 100 unit SQ UD PRN 08/15/23 [History Confirmed 04/06/24] Magnesium Oxide 400 mg [Mag-Ox 400] 400 mg PO DAILY PRN PRN 08/15/23 [History Confirmed 04/06/24] Nitroglycerin 0.4 mg Tablet [Nitrostat 0.4 MG Tablet] 0.4 mg SL UD 08/15/23 [History Confirmed 04/06/24] Apixaban [Eliquis] 5 mg PO BID 30 Days #60 tablet 08/18/23 [Rx Confirmed 04/06/24] Albuterol 2.5 mg/3 ml Neb [Proventil 2.5 mg/3 ml Neb] 2.5 mg IH Q4H PRN PRN 02/19/24 [History Confirmed 04/06/24] Amlodipine Besylate 5 mg [Norvasc 5 mg] 5 mg PO DAILY 02/19/24 [History Confirmed 04/06/24] Finasteride 5 mg [Proscar 5 MG] 5 mg PO DAILY 02/19/24 [History Confirmed 04/06/24] Gabapentin 300 mg PO TID 02/19/24 [History Confirmed 04/06/24] Insulin Degludec [Insulin Degludec Pen (U-200)] 100 unit SQ DAILY 02/19/24 [History Confirmed 04/06/24] Lidocaine HCl 5% Patch [Lidoderm Patch 5%] 1 patch TP DAILY 02/19/24 [History Confirmed 04/06/24] Mirabegron [Mirabegron ER] 25 mg PO DAILY 02/19/24 [History Confirmed 04/06/24] Ranolazine 500 MG [Ranexa 500 MG] 500 mg PO BID 02/19/24 [History Confirmed 04/06/24] Semaglutide [Ozempic] 2 mg SQ WEEKLY 02/19/24 [History Confirmed 04/06/24] Sennosides [Senna] 8.6 mg PO Q8HPRN PRN 02/19/24 [History Confirmed 04/06/24] Sitagliptin Phos/Metformin HCl [Janumet Xr 100-1,000 mg Tablet] 1 each PO HS 02/19/24 [History Confirmed 04/06/24] glucagon HCL [Glucagon Emergency Kit] 1 mg IJ UD PRN 02/19/24 [History Confirmed 04/06/24] lisinopriL [Zestril] 2.5 mg PO DAILY 02/19/24 [History Confirmed 04/06/24] Furosemide 20 mg [Lasix 20 mg] 20 mg PO DAILY 04/06/24 [History Confirmed 04/06/24] Meclizine HCl 25 mg [Antivert 25 mg] 25 mg PO BID 04/06/24 [History Confirmed 04/06/24] Potassium Chloride Tab* [Klor Con] 30 meq PO DAILY 04/06/24 [History Confirmed 04/06/24] Triamterene/Hydrochlorothiazid [Triamterene-Hctz 37.5-25 mg Tb] 1 each PO BID 04/06/24 [History Confirmed 04/06/24] Allergies/Adverse Reactions: Allergies Allergy/AdvReac Type Severity Reaction Status Date / Time Horse/Equine Containing Allergy Verified 06/10/24 01:32 Products latex Allergy Verified 06/10/24 01:32 Exam - Vitals Vital Signs: Vital Signs - 24 hr Temp Pulse Resp BP Pulse Ox 06/11/24 07:24 97.5 F 69 18 125/59 95 06/11/24 06:55 98 06/11/24 04:00 77 06/10/24 23:42 97.9 F 70 12 127/58 93 L 06/10/24 20:29 95 06/10/24 20:00 96.5 F 73 16 142/63 93 L 06/10/24 16:00 97.5 F 75 18 118/58 93 L 06/10/24 12:00 97.1 F 68 18 127/60 95 General:: alert and oriented x 4, no acute distress HEENT: EOMI Cardiovascular Exam: other (distant HS, difficult to hear but seems regular. wearing boots so difficult to assess edema. No edema to thighs.) Respiratory Exam: other (distant HS) SpO2: 95 Gastrointestinal/Abdomen Exam: soft, normal bowel sounds Skin Exam: normal color, other (cellulitis of bilateral LE) Extremity Exam: normal inspection, normal range of motion Neurologic: director of strategic marketing II-XII grossly intact, 5/5 Motor and Sensory Upper and Lower Extremities Results Vital Signs: Vital Signs - 24 hr Temp Pulse Resp BP Pulse Ox 06/11/24 07:24 97.5 F 69 18 125/59 95 06/11/24 06:55 98 06/11/24 04:00 77 06/10/24 23:42 97.9 F 70 12 127/58 93 L 06/10/24 20:29 95 06/10/24 20:00 96.5 F 73 16 142/63 93 L 06/10/24 16:00 97.5 F 75 18 118/58 93 L 06/10/24 12:00 97.1 F 68 18 127/60 95 Pain Assessment - Last Documented Pain Intensity 2 Intake and Output: Intake & Output 06/08/24 06/09/24 06/10/24 06/11/24 11:59 11:59 11:59 11:59 Intake Total 360 2688 Output Total 400 750 Balance -40 1938 Weight 151.1 kg LAB: I have reviewed the Labs in [facility]. Radiology Exams: Radiology Procedures Category Date Time Status CHEST 1 VIEW (PORTABLE) Stat Exams 06/10/24 01:28 Completed Assessment & Plan (1) Chest pain Current Visit: Yes Status: Acute Assessment & Plan: Patient with atypical chest pain seemingly pleuritic in that it worsens with coughing and as long as he's not coughing he is asymptomatic. Cardiac biomarkers are negative x3 and BNP is unremarkable. No further inpatient cardiac w/u is needed at this time. Would have him follow up with his outpatient psychic reader for further evaluation (depending on what testing has already been done in the last few months) EKG from yesterday shows short NH- interval and LBBB (unclear if LBBB is new but regardless, he isn't presenting as STEMI and biomarkers are negative. Code(s): R07.9 - CHEST PAIN, UNSPECIFIED - Encounter Encounter: "The entirety of this encounter was performed via Telemedicine using audio and visual "
--- NOTE | 2024-06-11 10:03 | PCM.NOTE ---
Date and Time: 06/11/24 0954 Subjective Assessment: 06/11/24 is a 68 year old male with h/o HIV, DM2, HTN, CAD, BPH, COPD, DVT on Eliquis, CKD3, DIANA on CPAP. Pt came in to ER on 06/10/23 with chest pain. Patient states that for the past few weeks he has had some upper respiratory infection symptoms, mainly congestion, rhinorrhea, with occasional cough. He has not noted any fevers. However, for the last day, he has had severe constant cough. Then that morning around midnight, he had onset of dizziness as well as feeling like "an elephant was sitting on my chest", associated with dyspnea, nausea, and vomiting. No radiation of the pain, no associated diaphoresis or numbness. The pain was similar to his prior SD in December. The pain was constant, and he was unable to walk or get out of his bed. EMS was called, and pain was only relieved after patient received nitroglycerin in the ED. After receiving 1 dose of nitroglycerin, he had no further chest pressure, although he still has intermittent dizziness. Today he is feeling much better he reports. He reports intermittent CP and coughing with white production. has not brought in med list and meds have not been restarted yet for this reason. Podiatry evaluated wounds and debrided and cultures areas. Unna boots placed thereafter. IV antibiotic started today for diabetic wound infection. Cardiology consult pending. Trop x3 negative. GWEN improving. Pt to eval today for possible placement needs. Discussed with Nurse GENEVIEVE Lyman that med rec needs completed to restart home meds. - Review of Systems Constitutional: Weakness, No Fever, No Chills Eyes: No Symptoms Ears, Nose, & Throat: No Symptoms Respiratory: Cough (with white production), No Short Of Breath Cardiac: Chest Pain, No Edema, No Syncope Abdominal/Gastrointestinal: No Abdominal Pain, No Nausea, No Vomiting, No Diarrhea Genitourinary Symptoms: No Dysuria Musculoskeletal: No Back Pain, No Neck Pain Skin: Other (BLLE wrapped), No Rash Neurological: No Dizziness, No Focal Weakness, No Sensory Changes Psychological: No Symptoms Endocrine: No Symptoms Hematologic/Lymphatic: No Symptoms Immunological/Allergic: No Symptoms Objective Exam General Appearance: no apparent distress, alert, obese Neurologic Exam: alert, oriented x 3, cooperative, normal mood/affect, nml cerebellar function, sensation nml, No motor deficits Skin Exam: normal color, warm, dry, other (BLLE wrapped) Wound Assessment: Skin/Wound Assessment Wound/Incision Assessment Start: 06/10/24 04:12 Text: Status: Active Freq: Q6H Protocol: Document 06/11/24 02:00 MP (Rec: 06/11/24 02:33 MP [id number]) Wound/Incision Assessment Right Lower Extremity Wound Assessment Admission Wound Type Diabetic Ulcer Dressing Status Dry & Intact Drainage Amount None Secondary Dressing Adhering Gauze Roll Comment DRESSING CHANGED TODAY BY DR. BANKS Wound Photo Photo Taken No Eye Exam: PERRL, EOMI, eyes nml inspection Ears, Nose, Throat Exam: normal ENT inspection, pharynx normal, moist mucous membranes Neck Exam: normal inspection, non-tender, supple, full range of motion Respiratory Exam: normal breath sounds, lungs clear, No respiratory distress Cardiovascular Exam: regular rate/rhythm, normal heart sounds Gastrointestinal/Abdomen Exam: soft, No tenderness, No mass Extremity Exam: normal inspection, normal range of motion Back Exam: normal inspection, normal range of motion, No CVA tenderness, No vertebral tenderness Male Genitalia Exam: deferred Rectal Exam: deferred Objective Data Vital Signs: Vital Signs - 24 hr Temp Pulse Resp BP Pulse Ox 06/11/24 09:23 95 06/11/24 07:24 97.5 F 69 18 125/59 95 06/11/24 06:55 98 06/11/24 04:00 77 06/10/24 23:42 97.9 F 70 12 127/58 93 L 06/10/24 20:29 95 06/10/24 20:00 96.5 F 73 16 142/63 93 L 06/10/24 16:00 97.5 F 75 18 118/58 93 L 06/10/24 12:00 97.1 F 68 18 127/60 95 Pain Assessment - Last Documented Pain Intensity 2 Intake and Output: Intake & Output 06/08/24 06/09/24 06/10/24 06/11/24 11:59 11:59 11:59 11:59 Intake Total 360 2688 Output Total 400 750 Balance -40 1938 Weight 151.1 kg Lab Results: Lab Results-Last 24 Hours 06/10/24 06/10/24 06/10/24 Range/Units 04:40 09:36 11:32 WBC (4.23-9.07) x10^3/uL RBC (4.63-6.08) x10^6/uL Hgb (13.7-17.5) g/dL Hct (40.1-51.0) % MCV (79.0-92.2) fL MCH (25.7-32.2) pg MCHC (32.3-36.5) g/dL RDW (11.6-14.4) % Plt Count (163-337) x10^3/uL MPV (9.4-12.4) fL Sodium (135-145) mmol/L Potassium (3.5-5.1) mmol/L Chloride (98-107) mmol/L Carbon Dioxide (22-30) mmol/L Anion Gap (5-15) MEQ/L BUN (9-20) mg/dL Creatinine (0.66-1.25) mg/dL Estimated GFR ML/MIN Glucose (74-106) mg/dL POC Glucometer 253 H (74 to 106) mg/dL Hemoglobin A1c 8.19 H (4.5-6.0) % Calcium (8.4-10.2) mg/dL Total Bilirubin (0.2-1.3) mg/dL AST (17-59) U/L ALT (0-50) U/L Alkaline Phosphatase (38-126) U/L Troponin I < 0.012 (0.000-0.033) ng/mL Serum Total Protein (6.3-8.2) g/dL Albumin (3.5-5.0) g/dL Urine Color (Yellow) Urine Appearance (Clear) Urine pH (4.6-8.0) Ur Specific [place] (1.005-1.030) Urine Protein (Negative) Urine Glucose (UA) (Negative) mg/dL Urine Ketones (Negative) Urine Blood (Negative) Urine Nitrite (Negative) Urine Bilirubin (Negative) Urine Urobilinogen (0.2) mg/dL Ur Leukocyte Esterase (Negative) U Hyaline Cast (Auto) (0-2) /LPF Urine Microscopic RBC (0-5) /HPF Urine Microscopic WBC (0-5) /HPF Ur Epithelial Cells (None Seen) /HPF Urine Bacteria (None Seen) /HPF Urine Culture Reflexed (NO) 06/10/24 06/10/24 06/10/24 Range/Units 14:20 16:42 21:35 WBC (4.23-9.07) x10^3/uL RBC (4.63-6.08) x10^6/uL Hgb (13.7-17.5) g/dL Hct (40.1-51.0) % MCV (79.0-92.2) fL MCH (25.7-32.2) pg MCHC (32.3-36.5) g/dL RDW (11.6-14.4) % Plt Count (163-337) x10^3/uL MPV (9.4-12.4) fL Sodium (135-145) mmol/L Potassium (3.5-5.1) mmol/L Chloride (98-107) mmol/L Carbon Dioxide (22-30) mmol/L Anion Gap (5-15) MEQ/L BUN (9-20) mg/dL Creatinine (0.66-1.25) mg/dL Estimated GFR ML/MIN Glucose (74-106) mg/dL POC Glucometer 265 H 230 H (74 to 106) mg/dL Hemoglobin A1c (4.5-6.0) % Calcium (8.4-10.2) mg/dL Total Bilirubin (0.2-1.3) mg/dL AST (17-59) U/L ALT (0-50) U/L Alkaline Phosphatase (38-126) U/L Troponin I (0.000-0.033) ng/mL Serum Total Protein (6.3-8.2) g/dL Albumin (3.5-5.0) g/dL Urine Color Dark Yellow (Yellow) Urine Appearance Clear (Clear) Urine pH 5.0 (4.6-8.0) Ur Specific [place] 1.015 (1.005-1.030) Urine Protein Negative (Negative) Urine Glucose (UA) Negative (Negative) mg/dL Urine Ketones Negative (Negative) Urine Blood Negative (Negative) Urine Nitrite Negative (Negative) Urine Bilirubin Negative (Negative) Urine Urobilinogen 0.2 (0.2) mg/dL Ur Leukocyte Esterase Negative (Negative) U Hyaline Cast (Auto) 6-10 A (0-2) /LPF Urine Microscopic RBC NONE SEEN (0-5) /HPF Urine Microscopic WBC 0-2 (0-5) /HPF Ur Epithelial Cells Rare (None Seen) /HPF Urine Bacteria None Seen (None Seen) /HPF Urine Culture Reflexed NO (NO) 06/11/24 06/11/24 06/11/24 Range/Units 04:35 04:35 07:13 WBC 5.4 (4.23-9.07) x10^3/uL RBC 4.28 L (4.63-6.08) x10^6/uL Hgb 12.3 L (13.7-17.5) g/dL Hct 37.1 L (40.1-51.0) % MCV 86.7 (79.0-92.2) fL MCH 28.7 (25.7-32.2) pg MCHC 33.2 (32.3-36.5) g/dL RDW 13.2 (11.6-14.4) % Plt Count 78 L (163-337) x10^3/uL MPV 10.5 (9.4-12.4) fL Sodium 135 (135-145) mmol/L Potassium 3.6 (3.5-5.1) mmol/L Chloride 100 (98-107) mmol/L Carbon Dioxide 29 (22-30) mmol/L Anion Gap 9.8 (5-15) MEQ/L BUN 35 H (9-20) mg/dL Creatinine 1.51 H (0.66-1.25) mg/dL Estimated GFR 49.7 ML/MIN Glucose 184 H (74-106) mg/dL POC Glucometer 170 H (74 to 106) mg/dL Hemoglobin A1c (4.5-6.0) % Calcium 8.5 (8.4-10.2) mg/dL Total Bilirubin 0.90 (0.2-1.3) mg/dL AST 31 (17-59) U/L ALT 18 (0-50) U/L Alkaline Phosphatase 150 H (38-126) U/L Troponin I (0.000-0.033) ng/mL Serum Total Protein 6.6 (6.3-8.2) g/dL Albumin 3.5 (3.5-5.0) g/dL Urine Color (Yellow) Urine Appearance (Clear) Urine pH (4.6-8.0) Ur Specific [place] (1.005-1.030) Urine Protein (Negative) Urine Glucose (UA) (Negative) mg/dL Urine Ketones (Negative) Urine Blood (Negative) Urine Nitrite (Negative) Urine Bilirubin (Negative) Urine Urobilinogen (0.2) mg/dL Ur Leukocyte Esterase (Negative) U Hyaline Cast (Auto) (0-2) /LPF Urine Microscopic RBC (0-5) /HPF Urine Microscopic WBC (0-5) /HPF Ur Epithelial Cells (None Seen) /HPF Urine Bacteria (None Seen) /HPF Urine Culture Reflexed (NO) Radiology Exams: Radiology Procedures Category Date Time Status CHEST 1 VIEW (PORTABLE) Stat Exams 06/10/24 01:28 Completed Assessment/Plan (1) Chest pain Current Visit: Yes Status: Acute Assessment & Plan: - Cardiology consulted as pt has persistent CP despite negative trops.- cardiology note reviewed and agree with plan of care. - Trops x3 negative - tele - CBC, CMP reviewed - CXR: Portable apical lordotic chest inflated again without focal infiltrate, consolidation, or large effusion. Heart not enlarged. Bony thorax intact again with osteopenia and degenerative changes. No new/acute findings. Code(s): R07.9 - CHEST PAIN, UNSPECIFIED (2) Pressure ulcer of right heel, stage 3 Current Visit: No Status: Acute Assessment & Plan: - excisional debridement and cultures by podiatry on 06/10 - Unna boots placed by podiatry on 06/10 - IV antibiotic - XR right foot and ankle Code(s): L89.613 - PRESSURE ULCER OF RIGHT HEEL, STAGE 3 (3) Cellulitis Current Visit: No Status: Acute Qualifiers: Site of cellulitis: extremity Laterality: left Assessment & Plan: - Ceftriaxone IV - podiatry consult - Unna Boots - CBC reviewed Code(s): L03.90 - CELLULITIS, UNSPECIFIED (4) GWEN (acute kidney injury) Current Visit: Yes Status: Acute Assessment & Plan: - Creat 1.35, baseline 1.02 - IVF Code(s): N17.9 - ACUTE KIDNEY FAILURE, UNSPECIFIED (5) Diabetes mellitus Current Visit: No Status: Chronic Qualifiers: Diabetes mellitus type: type 2 Diabetes mellitus complication detail: with foot ulcer Assessment & Plan: high-dose sliding scale insulin - Humalog 10 units with meals Follow blood glucose levels, accuchecks AC/HS Diabetic diet Code(s): E11.9 - TYPE 2 DIABETES MELLITUS WITHOUT COMPLICATIONS (6) Diabetic foot ulcer Current Visit: No Status: Acute Qualifiers: Diabetic foot ulcer location: heel Diabetes mellitus type: type 2 Laterality: right Non-pressure ulcer stage: limited to breakdown of skin Qualified Code(s): E11.621 - Type 2 diabetes mellitus with foot ulcer; L97.411 - Non-pressure chronic ulcer of right heel and midfoot limited to breakdown of skin Assessment & Plan: - Podiatry consult- reviewed note and agree with plan of care - Ceftriaxone - cultures pending - PT eval Code(s): E11.621 - TYPE 2 DIABETES MELLITUS WITH FOOT ULCER; L97.509 - NON- PRESSURE CHRONIC ULCER OTH PRT UNSP FOOT W UNSP SEVERITY (7) Venous insufficiency (chronic) (peripheral) Current Visit: No Status: Chronic Assessment & Plan: - adds to complexity (8) COPD (chronic obstructive pulmonary disease) Current Visit: No Status: Chronic Assessment & Plan: - w/o exacerbation - On baseline 2lNC PRN - Will restart home meds when confirmed (9) Obesity, morbid, BMI 40.0-49.9 Current Visit: Yes Status: Chronic Assessment & Plan: - advised ADA diet and exercise control Code(s): E66.01 - MORBID (SEVERE) OBESITY DUE TO EXCESS CALORIES (10) Numbness of tongue Current Visit: No Status: Resolved Assessment & Plan: - resolved Code(s): R20.0 - ANESTHESIA OF SKIN (11) Hx of deep venous thrombosis Current Visit: Yes Status: Chronic Assessment & Plan: - continue Eliquis VTE: Eliquis PPI: omeprazole Next of KIN: D/C plan: 1-2 days Code status: Full Code(s): Z86.718 - PERSONAL HISTORY OF OTHER VENOUS THROMBOSIS AND EMBOLISM
--- NOTE | 2024-06-11 11:26 | XRAY ---
Indication: Wounds. Comparison: September 28, 2023 Portable AP/lateral right ankle demonstrates new overlying bandage material limiting evaluation for fine bony detail. Grossly stable osteopenia and small plantar heel spur. No other bony, articular, or soft tissue abnormalities.
--- NOTE | 2024-06-11 11:28 | XRAY ---
Indication: [place]. Comparison: September 28, 2023 Portable AP/lateral right foot demonstrates new overlying bandage material limiting exam. Grossly stable osteopenia, mild midfoot degenerative changes, and small plantar heel spur. No other bony, articular, or soft tissue abnormalities.
[2024-06-11] MEDS: ROCEPHIN 1 GM / 100 ML NaCl 1 GM/100 ML IVPB IV SCH (11:30)
[2024-06-11] MEDS: Protonix 40MG Tablet PO SCH (11:30)
[2024-06-11] MEDS ORDERED: TYLENOL 325 MG PO PRN (15:38)
[2024-06-11] MEDS ORDERED: MAG-OX 400 PO PRN (15:38)
[2024-06-11] MEDS ORDERED: PROVENTIL 2.5 MG/3 ML NEB IH PRN (15:38)
[2024-06-11] MEDS ORDERED: BENADRYL 25 MG CAPSULE PO PRN (15:38)
[2024-06-11] MEDS ORDERED: Ditropan 5 MG PO PRN (16:00)
[2024-06-11] MEDS ORDERED: PERCOCET TABLET 5/325MG PO PRN (16:02)
[2024-06-11] MEDS: FEOSOL 325 MG PO SCH (17:59)
[2024-06-11] MEDS: MYRBETRIQ PO SCH (17:59)
[2024-06-11] MEDS: NORVASC 5 MG PO SCH (17:59)
[2024-06-11] MEDS: Klor Con PO SCH (17:59)
[2024-06-11] MEDS: NEURONTIN PO SCH (17:59)
[2024-06-11] MEDS: Proscar 5 MG PO SCH (18:04)
[2024-06-11] MEDS ORDERED: NON-FORMULARY ITEM (Apixaban [Eliquis] 5 MG Tablet) PO SCH (22:00)
[2024-06-11] MEDS: Ranexa 500 MG PO SCH (22:08)
[2024-06-11] MEDS: Desyrel 150 MG PO SCH (22:08)
[2024-06-11] MEDS: Docusate Sodium 100 MG PO SCH (22:08)
[2024-06-11] MEDS: ZOCOR 20MG PO SCH (22:08)
[2024-06-12 05:39] LABS: Hematocrit 36.5 % (40.1-51.0); Hemoglobin 12.1 g/dL (13.7-17.5); Mean Cell Volume 86.7 fL (79.0-92.2); Mean Corpuscular Hemoglobin 28.7 pg (25.7-32.2); Mean Corpuscular Hgb Concent. 33.2 g/dL (32.3-36.5); Platelet Count 70 x10^3/uL (163-337); Red Blood Count 4.21 x10^6/uL (4.63-6.08); Red Cell Distribution Width 13.2 % (11.6-14.4); White Blood Count 3.9 x10^3/uL (4.23-9.07)
[2024-06-12 05:58] LABS: ALBUMIN 3.3 g/dL (3.5-5.0); ANION GAP 7.7 MEQ/L (5-15); BILIRUBIN,TOTAL 0.6 mg/dL (0.2-1.3); Calcium 8.4 mg/dL (8.4-10.2); Creatinine 1 1.14 mg/dL (0.66-1.25); EST GLOMERULAR FILTRATION RATE 69.6 ML/MIN; Potassium 4.2 mmol/L (3.5-5.1); Total Protein 6.5 g/dL (6.3-8.2)
[2024-06-12 07:08] VITALS: RESP 16
[2024-06-12 08:05] LABS: Slide Review YES
--- NOTE | 2024-06-12 09:53 | PCM.DS ---
Discharge Summary Date of Admission: 06/10/24 03:12 Date of Discharge: 06/12/24 Admitting Physician: SAMPSON AZUL MD Consults: Consults on Case 06/10/24 07:37 Consult Podiatry ROUTINE 06/10/24 11:27 Consult Cardiology ROUTINE Primary Care Provider: NO FAMILY DOCTOR Allergies Allergies Horse/Equine Containing Products Allergy (Verified 06/10/24 01:32) latex Allergy (Verified 06/10/24 01:32) Hospital Summary - Hospital Course Hospital Course: 06/11/24 is a 68 year old male with h/o HIV, DM2, HTN, CAD, BPH, COPD, DVT on Eliquis, CKD3, DIANA on CPAP. Pt came in to ER on 06/10/23 with chest pain. Patient states that for the past few weeks he has had some upper respiratory infection symptoms, mainly congestion, rhinorrhea, with occasional cough. He has not noted any fevers. However, for the last day, he has had severe constant cough. Then that morning around midnight, he had onset of dizziness as well as feeling like "an elephant was sitting on my chest", associated with dyspnea, nausea, and vomiting. No radiation of the pain, no associated diaphoresis or numbness. The pain was similar to his prior [place] in December. The pain was constant, and he was unable to walk or get out of his bed. EMS was called, and pain was only relieved after patient received nitroglycerin in the ED. After receiving 1 dose of nitroglycerin, he had no further chest pressure, although he still has in termittent dizziness. Today he is feeling much better he reports. He reports intermittent CP and coughing with white production. has not brought in med list and meds have not been restarted yet for this reason. Podiatry evaluated wounds and debrided and cultures areas. Unna boots placed thereafter. IV antibiotic started today for diabetic wound infection. Cardiology consult pending. Trop x3 negative. GWEN improving. Pt to eval today for possible placement needs. Discussed with Nurse GENEVIEVE Lyman that med rec needs completed to restart home meds. 06/12/24 Pt resting in bed. GWEN resolved. One wound culture shows normal skin familia. second wound culture pending. Sputum culture ordered this AM as he is now caoughig up thick brown sputum. Will continue antibiotics OP. Pt to d/c to [facility] today for rehab. He denies CP, SOB, abd. pain, N/V/D. - Vitals & Intake/Output Vital Signs: Vital Signs Temperature 98.0 F 06/12/24 07:07 Pulse Rate 72 06/12/24 07:07 Respiratory Rate 16 06/12/24 07:07 Blood Pressure 133/59 06/12/24 07:07 O2 Sat by Pulse Oximetry 96 06/12/24 07:07 Intake & Output: Intake & Output 06/09/24 06/10/24 06/11/24 06/12/24 11:59 11:59 11:59 11:59 Intake Total 360 2688 4241 Output Total 844 138 1592 Balance -40 1938 1516 Weight 151.1 kg - Lab Result Diagrams: 06/12/24 05:30 06/12/24 05:30 Lab Results-Last 24 Hrs: Lab Results-Last 24 Hours 06/11/24 06/11/24 06/11/24 Range/Units 11:45 11:45 16:30 WBC (4.23-9.07) x10^3/uL RBC (4.63-6.08) x10^6/uL Hgb (13.7-17.5) g/dL Hct (40.1-51.0) % MCV (79.0-92.2) fL MCH (25.7-32.2) pg MCHC (32.3-36.5) g/dL RDW (11.6-14.4) % Plt Count (163-337) x10^3/uL MPV (9.4-12.4) fL Sodium (135-145) mmol/L Potassium (3.5-5.1) mmol/L Chloride (98-107) mmol/L Carbon Dioxide (22-30) mmol/L Anion Gap (5-15) MEQ/L BUN (9-20) mg/dL Creatinine (0.66-1.25) mg/dL Estimated GFR ML/MIN Glucose (74-106) mg/dL POC Glucometer 193 H 193 H 347 H (74 to 106) mg/dL Calcium (8.4-10.2) mg/dL Total Bilirubin (0.2-1.3) mg/dL AST (17-59) U/L ALT (0-50) U/L Alkaline Phosphatase (38-126) U/L Serum Total Protein (6.3-8.2) g/dL Albumin (3.5-5.0) g/dL Slides for Path Review 06/11/24 06/12/24 06/12/24 Range/Units 21:23 05:30 05:30 WBC 3.9 L (4.23-9.07) x10^3/uL RBC 4.21 L (4.63-6.08) x10^6/uL Hgb 12.1 L (13.7-17.5) g/dL Hct 36.5 L (40.1-51.0) % MCV 86.7 (79.0-92.2) fL MCH 28.7 (25.7-32.2) pg MCHC 33.2 (32.3-36.5) g/dL RDW 13.2 (11.6-14.4) % Plt Count 70 L (163-337) x10^3/uL MPV 11.0 (9.4-12.4) fL Sodium 136 (135-145) mmol/L Potassium 4.2 (3.5-5.1) mmol/L Chloride 105 (98-107) mmol/L Carbon Dioxide 28 (22-30) mmol/L Anion Gap 7.7 (5-15) MEQ/L BUN 25 H (9-20) mg/dL Creatinine 1.14 (0.66-1.25) mg/dL Estimated GFR 69.6 ML/MIN Glucose 169 H (74-106) mg/dL POC Glucometer 190 H (74 to 106) mg/dL Calcium 8.4 (8.4-10.2) mg/dL Total Bilirubin 0.60 (0.2-1.3) mg/dL AST 33 (17-59) U/L ALT 18 (0-50) U/L Alkaline Phosphatase 189 H (38-126) U/L Serum Total Protein 6.5 (6.3-8.2) g/dL Albumin 3.3 L (3.5-5.0) g/dL Slides for Path Review YES 06/12/24 Range/Units 07:18 WBC (4.23-9.07) x10^3/uL RBC (4.63-6.08) x10^6/uL Hgb (13.7-17.5) g/dL Hct (40.1-51.0) % MCV (79.0-92.2) fL MCH (25.7-32.2) pg MCHC (32.3-36.5) g/dL RDW (11.6-14.4) % Plt Count (163-337) x10^3/uL MPV (9.4-12.4) fL Sodium (135-145) mmol/L Potassium (3.5-5.1) mmol/L Chloride (98-107) mmol/L Carbon Dioxide (22-30) mmol/L Anion Gap (5-15) MEQ/L BUN (9-20) mg/dL Creatinine (0.66-1.25) mg/dL Estimated GFR ML/MIN Glucose (74-106) mg/dL POC Glucometer 232 H (74 to 106) mg/dL Calcium (8.4-10.2) mg/dL Total Bilirubin (0.2-1.3) mg/dL AST (17-59) U/L ALT (0-50) U/L Alkaline Phosphatase (38-126) U/L Serum Total Protein (6.3-8.2) g/dL Albumin (3.5-5.0) g/dL Slides for Path Review Micro Results-Entire Visit: Microbiology 06/11/24 05:10 Wound Culture - Preliminary Leg - Right ORGANISMS ISOLATED ARE CONSISTENT WITH NORMAL SKIN FAMILIA LIGHT GROWTH, NO PREDOMINANT ORGANISM Accuchecks Date 06/12/24 Date 06/11/24 Date 06/11/24 Time 07:30 Time 16:40 Time 11:53 - Radiology Exams Ordered Rad Exams-Entire Visit: Radiology Procedures Category Date Time Status ANKLE (2V) Routine Exams 06/11/24 10:22 Completed FOOT (2 VIEWS) Routine Exams 06/11/24 10:22 Completed - Procedures and Test Procedures and Tests throughout Hospitalization: Therapy Orders & Screens 06/10/24 02:53 EKG PRN Comment: 06/10/24 04:12 RT Screen per Nursing Assess ONCE Comment: Protocol Order Physician Instructions: Greater than 3 points order RT Admission Screen Reason For Exam: Triggered on Admission Diagnosis: chest pain rule out Diagnosis: chest pain rule out Pneumonia: No Home O2: No Asthma: No CHF: Yes Home CPAP/BIPAP: Yes Home Nebs/MDI: No Total Points: 8 06/10/24 04:56 EKG PRN Comment: Diagnosis: chest pain rule out 06/10/24 05:02 BiPap/CPAP HS Comment: CPAP 5 cmH2O at night Diagnosis: chest pain rule out 06/10/24 05:38 Oxygen Nasal Cannula 2 lpm Comment: Diagnosis: chest pain 06/10/24 07:30 OT Screen per Nursing Assess ONCE Comment: Protocol Order Physician Instructions: Greater than 3 points order OT Admission Screening Reason For Exam: Triggered on Admission Diagnosis: chest pain rule out Open Wound/Cellutlitis/Pressure Ulcers: Yes Acute Fx/ORIF/Change in wt bearing status: Yes Severe MUSCULOSKELETAL pain: No ADL Dysfunction: Yes Acute CVA w/Hemiparesis/Hemiplegia: No Decreased Functional Mobility/Strength: Yes Sprain/Strain: No Acute Post-op Mobility Dysfunction: No Total Points: 14 PT Screen per Nursing Assess ONCE Comment: Protocol Order Physician Instructions: Greater than 3 points order PT Admission Screenin Reason For Exam: Triggered on Admission Diagnosis: chest pain rule out Open Wound/Cellutlitis/Pressure Ulcers: Yes Acute Fx/ORIF/Change in wt bearing status: Yes Severe MUSCULOSKELETAL pain: No ADL Dysfunction: Yes Acute CVA w/Hemiparesis/Hemiplegia: No Decreased Functional Mobility/Strength: Yes Sprain/Strain: No Acute Post-op Mobility Dysfunction: No Total Points: 14 06/10/24 09:30 EKG ROUTINE Comment: Diagnosis: Chest pain 06/11/24 09:16 PT Eval & Treat (MD Order) ONCE Reason for Eval:: weakness, possible placement Diagnosis: chest pain 06/11/24 16:02 Respiratory Therapy Assessment DAILY Comment: Diagnosis: chest pain Discharge Exam General Appearance: no apparent distress, alert, obese Neurologic Exam: alert, oriented x 3, cooperative, normal mood/affect, nml cerebellar function, sensation nml, No motor deficits Eye Exam: PERRL, EOMI, eyes nml inspection Ears, Nose, Throat Exam: normal ENT inspection, pharynx normal, moist mucous membranes Neck Exam: normal inspection, non-tender, supple, full range of motion Respiratory Exam: normal breath sounds, lungs clear, No respiratory distress Cardiovascular Exam: regular rate/rhythm, normal heart sounds Gastrointestinal/Abdomen Exam: soft, No tenderness, No mass Male Genitalia Exam: deferred Rectal Exam: deferred Back Exam: normal inspection, normal range of motion, No CVA tenderness, No vertebral tenderness Extremity Exam: normal inspection, normal range of motion, other (BLLE wrapped) Skin Exam: normal color, warm, dry Wound Assessment: Skin/Wound Assessment Wound/Incision Assessment Start: 06/10/24 04:12 Text: Status: Active Freq: Q6H Protocol: Document 06/12/24 02:00 MP (Rec: 06/12/24 04:33 MP [id number]) Wound/Incision Assessment Left lower extremity Wound Assessment Shift Assessment Wound Type cellulitus Wound Stage Non Pressure Wound Dressing Status Dry & Intact Drainage Odor None/Absent Comment UNNA BOOT IN PLACE PER DR. BANKS Right Lower Extremity Wound Assessment Shift Assessment Wound Type Diabetic Ulcer Wound Stage Non Pressure Wound Dressing Status Dry & Intact Drainage Amount None Comment UNNA BOOT IN PLACE PER DR. BANKS, CDI Wound Photo Photo Taken No Final Diagnosis/Problem List - Final Discharge Diagnosis/Problem (1) Chest pain Current Visit: Yes Status: Acute Code(s): R07.9 - CHEST PAIN, UNSPECIFIED (2) Pressure ulcer of right heel, stage 3 Current Visit: No Status: Acute Code(s): L89.613 - PRESSURE ULCER OF RIGHT HEEL, STAGE 3 (3) Cellulitis Current Visit: No Status: Acute Code(s): L03.90 - CELLULITIS, UNSPECIFIED (4) GWEN (acute kidney injury) Current Visit: Yes Status: Acute Code(s): N17.9 - ACUTE KIDNEY FAILURE, UNSPECIFIED (5) Diabetes mellitus Current Visit: No Status: Chronic Code(s): E11.9 - TYPE 2 DIABETES MELLITUS WITHOUT COMPLICATIONS (6) Diabetic foot ulcer Current Visit: No Status: Acute Code(s): E11.621 - TYPE 2 DIABETES MELLITUS WITH FOOT ULCER; L97.509 - NON-PRESSURE CHRONIC ULCER OTH PRT UNSP FOOT W UNSP SEVERITY (7) Venous insufficiency (chronic) (peripheral) Current Visit: No Status: Chronic (8) COPD (chronic obstructive pulmonary disease) Current Visit: No Status: Chronic (9) Obesity, morbid, BMI 40.0-49.9 Current Visit: Yes Status: Chronic Code(s): E66.01 - MORBID (SEVERE) OBESITY DUE TO EXCESS CALORIES (10) Numbness of tongue Current Visit: No Status: Resolved Code(s): R20.0 - ANESTHESIA OF SKIN (11) Hx of deep venous thrombosis Current Visit: Yes Status: Chronic Assessment & Plan: (1) Chest pain Current Visit: Yes Status: Acute Assessment & Plan: - Cardiology consulted as pt has persistent CP despite negative trops.- cardiology note reviewed and agree with plan of care. - Trops x3 negative - tele - CBC, CMP reviewed - CXR: Portable apical lordotic chest inflated again without focal infiltrate, consolidation, or large effusion. Heart not enlarged. Bony thorax intact again with osteopenia and degenerative changes. No new/acute findings. 06/12 - resolved - CBC, CMP reviewed Code(s): R07.9 - CHEST PAIN, UNSPECIFIED (2) Pressure ulcer of right heel, stage 3 Current Visit: No Status: Acute Assessment & Plan: - excisional debridement and cultures by podiatry on 06/10 - Unna boots placed by podiatry on 06/10 - IV antibiotic - XR right foot and ankle 06/12 - one wound culture shows normal familia, 2nd wound culture pending Code(s): L89.613 - PRESSURE ULCER OF RIGHT HEEL, STAGE 3 (3) Cellulitis Current Visit: No Status: Acute Qualifiers: Site of cellulitis: extremity Laterality: left Assessment & Plan: - Ceftriaxone IV - podiatry consult - Unna Boots - CBC reviewed Code(s): L03.90 - CELLULITIS, UNSPECIFIED (4) GWEN (acute kidney injury) Current Visit: Yes Status: Acute Assessment & Plan: - Creat 1.35, baseline 1.02 - IVF Code(s): N17.9 - ACUTE KIDNEY FAILURE, UNSPECIFIED (5) Diabetes mellitus Current Visit: No Status: Chronic Qualifiers: Diabetes mellitus type: type 2 Diabetes mellitus complication detail: with foot ulcer Assessment & Plan: high-dose sliding scale insulin - Humalog 10 units with meals Follow blood glucose levels, accuchecks AC/HS Diabetic diet Code(s): E11.9 - TYPE 2 DIABETES MELLITUS WITHOUT COMPLICATIONS (6) Diabetic foot ulcer Current Visit: No Status: Acute Qualifiers: Diabetic foot ulcer location: heel Diabetes mellitus type: type 2 Laterality: right Non-pressure ulcer stage: limited to breakdown of skin Qualified Code(s): E11.621 - Type 2 diabetes mellitus with foot ulcer; L97.411 - Non-pressure chronic ulcer of right heel and midfoot limited to breakdown of skin Assessment & Plan: - Podiatry consult- reviewed note and agree with plan of care - Ceftriaxone - cultures pending - PT eval Code(s): E11.621 - TYPE 2 DIABETES MELLITUS WITH FOOT ULCER; L97.509 - NON- PRESSURE CHRONIC ULCER OTH PRT UNSP FOOT W UNSP SEVERITY (7) Venous insufficiency (chronic) (peripheral) Current Visit: No Status: Chronic Assessment & Plan: - adds to complexity (8) COPD (chronic obstructive pulmonary disease) Current Visit: No Status: Chronic Assessment & Plan: - w/o exacerbation - On baseline 2lNC PRN - Will restart home meds when confirmed 06/12 - Sputum sample (9) Obesity, morbid, BMI 40.0-49.9 Current Visit: Yes Status: Chronic Assessment & Plan: - advised ADA diet and exercise control Code(s): E66.01 - MORBID (SEVERE) OBESITY DUE TO EXCESS CALORIES (10) Numbness of tongue Current Visit: No Status: Resolved Assessment & Plan: - resolved Code(s): R20.0 - ANESTHESIA OF SKIN (11) Hx of deep venous thrombosis Current Visit: Yes Status: Chronic Assessment & Plan: - continue Eliquis Code(s): Z86.718 - PERSONAL HISTORY OF OTHER VENOUS THROMBOSIS AND EMBOLISM - Discharge Discharge Date: 06/12/24 ([facility]) Disposition: XFER OTHER Condition: Stable Prescriptions: New cefuroxime axetiL [Cefuroxime] 500 mg PO BID 10 Days #20 tablet Continue Atorvastatin Calcium 40 mg PO HS Ferrous Sulfate 325 mg [Feosol 325 mg] 325 mg PO TID Omeprazole 40 mg PO DAILY Oxycodone HCl/Acetaminophen [Oxycodone-Acetaminophn 7.5-325] 1 each PO Q8H PRN PRN Reason: Pain Trazodone HCl 150 mg PO HS Furosemide 40 mg [Lasix 40 MG] 40 mg PO DAILY Docusate Sodium 100 mg [Docusate Sodium 100 MG] 100 mg PO BID Diphenhydramine HCl 25 mg [Benadryl 25 mg Capsule] 25 mg PO Q6H PRN PRN PRN Reason: Allergies Acetaminophen 325 mg [Tylenol 325 mg] 325 mg PO Q4H PRN PRN PRN Reason: Pain Nitroglycerin 0.4 mg Tablet [Nitrostat 0.4 MG Tablet] 0.4 mg SL UD Magnesium Oxide 400 mg [Mag-Ox 400] 400 mg PO DAILY PRN PRN PRN Reason: Constipation Insulin Lispro [Humalog Kwikpen U-100] 100 unit SQ UD PRN PRN Reason: DM Apixaban [Eliquis] 5 mg PO BID 30 Days #60 tablet Albuterol 2.5 mg/3 ml Neb [Proventil 2.5 mg/3 ml Neb] 2.5 mg IH Q4H PRN PRN PRN Reason: Shortness Of Breath Amlodipine Besylate 5 mg [Norvasc 5 mg] 5 mg PO DAILY Finasteride 5 mg [Proscar 5 MG] 5 mg PO DAILY Gabapentin 300 mg PO TID glucagon HCL [Glucagon Emergency Kit] 1 mg IJ UD PRN PRN Reason: Hypoglycemia lisinopriL [Zestril] 2.5 mg PO DAILY Mirabegron [Mirabegron ER] 25 mg PO DAILY Ranolazine 500 MG [Ranexa 500 MG] 500 mg PO BID Semaglutide [Ozempic] 2 mg SQ WEEKLY Furosemide 20 mg [Lasix 20 mg] 20 mg PO DAILY Potassium Chloride Tab* [Klor Con] 30 meq PO DAILY Triamterene/Hydrochlorothiazid [Triamterene-Hctz 37.5-25 mg Tb] 1 each PO DAILY oxyBUTYnin chloride [Oxybutynin Chloride] 2.5 mg PO Q8HPRN PRN PRN Reason: BLADDER SPASMS Follow up with: JOCELYN MARIN DPM [ACTIVE STAFF] - CHAMP MEJIA [CONSULTING PHYSICIAN] -
[2024-06-12] MEDS ORDERED: Lasix 40 MG PO SCH (10:00)
[2024-06-12] MEDS ORDERED: LASIX 20 MG PO SCH (10:00)
[2024-06-12] MEDS ORDERED: NON-FORMULARY ITEM (Lisinopril [Zestril] 2.5 MG Tablet) PO SCH (10:00)
[2024-06-12] MEDS ORDERED: Maxzide-25MG Tablet PO SCH (10:00)
[2024-06-12] MEDS ORDERED: NON-FORMULARY ITEM (Omeprazole [Omeprazole] 40 MG Capsule.Dr) PO SCH (10:00)
[2024-06-12 12:00] VITALS: BP 139/63; PULSE 71; TEMP 97.9; O2SAT 99
--- NOTE | 2024-06-12 16:26 | PCM.NOTE ---
Date and Time: 06/12/24 1625 Subjective Assessment: discharge to [facility] today Physical Exam - Narrative Narrative Physical Exam: Podiatry Physical Exam Objective Data Vital Signs: Vital Signs - 24 hr Temp Pulse Resp BP Pulse Ox 06/12/24 12:00 97.9 F 71 16 139/63 99 06/12/24 07:07 98.0 F 72 16 133/59 96 06/12/24 05:39 69 18 96 06/12/24 04:00 97.6 F 80 20 118/58 98 06/11/24 23:17 97.2 F 77 20 131/59 97 06/11/24 20:00 97.7 F 75 22 119/58 97 06/11/24 19:06 77 16 95 Pain Assessment - Last Documented Pain Intensity 2 Intake and Output: Intake & Output 06/10/24 06/11/24 06/12/24 06/13/24 11:59 11:59 11:59 11:59 Intake Total 360 2688 4241 580 Output Total 547 745 0096 400 Balance -40 1938 1516 180 Weight 151.1 kg Lab Results: Lab Results-Last 24 Hours 06/11/24 06/11/24 06/12/24 Range/Units 16:30 21:23 05:30 WBC 3.9 L (4.23-9.07) x10^3/uL RBC 4.21 L (4.63-6.08) x10^6/uL Hgb 12.1 L (13.7-17.5) g/dL Hct 36.5 L (40.1-51.0) % MCV 86.7 (79.0-92.2) fL MCH 28.7 (25.7-32.2) pg MCHC 33.2 (32.3-36.5) g/dL RDW 13.2 (11.6-14.4) % Plt Count 70 L (163-337) x10^3/uL MPV 11.0 (9.4-12.4) fL Sodium (135-145) mmol/L Potassium (3.5-5.1) mmol/L Chloride (98-107) mmol/L Carbon Dioxide (22-30) mmol/L Anion Gap (5-15) MEQ/L BUN (9-20) mg/dL Creatinine (0.66-1.25) mg/dL Estimated GFR ML/MIN Glucose (74-106) mg/dL POC Glucometer 347 H 190 H (74 to 106) mg/dL Calcium (8.4-10.2) mg/dL Total Bilirubin (0.2-1.3) mg/dL AST (17-59) U/L ALT (0-50) U/L Alkaline Phosphatase (38-126) U/L Serum Total Protein (6.3-8.2) g/dL Albumin (3.5-5.0) g/dL Slides for Path Review YES 06/12/24 06/12/24 06/12/24 Range/Units 05:30 07:18 11:45 WBC (4.23-9.07) x10^3/uL RBC (4.63-6.08) x10^6/uL Hgb (13.7-17.5) g/dL Hct (40.1-51.0) % MCV (79.0-92.2) fL MCH (25.7-32.2) pg MCHC (32.3-36.5) g/dL RDW (11.6-14.4) % Plt Count (163-337) x10^3/uL MPV (9.4-12.4) fL Sodium 136 (135-145) mmol/L Potassium 4.2 (3.5-5.1) mmol/L Chloride 105 (98-107) mmol/L Carbon Dioxide 28 (22-30) mmol/L Anion Gap 7.7 (5-15) MEQ/L BUN 25 H (9-20) mg/dL Creatinine 1.14 (0.66-1.25) mg/dL Estimated GFR 69.6 ML/MIN Glucose 169 H (74-106) mg/dL POC Glucometer 232 H 244 H (74 to 106) mg/dL Calcium 8.4 (8.4-10.2) mg/dL Total Bilirubin 0.60 (0.2-1.3) mg/dL AST 33 (17-59) U/L ALT 18 (0-50) U/L Alkaline Phosphatase 189 H (38-126) U/L Serum Total Protein 6.5 (6.3-8.2) g/dL Albumin 3.3 L (3.5-5.0) g/dL Slides for Path Review Radiology Exams: Radiology Procedures Category Date Time Status ANKLE (2V) Routine Exams 06/11/24 10:22 Completed FOOT (2 VIEWS) Routine Exams 06/11/24 10:22 Completed Multi-Disciplinary Progress Notes: Multi-Disciplinary Progress Notes 06/12/24 13:08 Case Management Note by Saira Crowley EN[facility] ACCEPTED PATIENT, AND PREAUT APPROVED PATIENT CONTINUES TO PLAN TO TRANSITION TO [facility] TODAY, NOTIFIED AND IN AGREEMENT WELL. SHE WAS ALSO NOTIFIED TO BRING PATIENT'S CPAP TO [facility] ( SHE VERIFIED UNDERSTANDING) [facility] WILL PROVIDE TRANSPORT FOR PATIENT TO FACILITY, PRIMARY RN AWARE Initialized on 06/12/24 13:08 - END OF NOTE Assessment/Plan (1) Nonspecific chest pain Status: Acute Code(s): R07.9 - CHEST PAIN, UNSPECIFIED (2) Numbness of tongue Status: Resolved Code(s): R20.0 - ANESTHESIA OF SKIN (3) Cellulitis Status: Acute Qualifiers: Site of cellulitis: extremity Laterality: left Assessment & Plan: Q8 Attention was directed to the _Right heel__. Verbal consent was obtained prior to the procedure. Sharp, excisional debridement was performed of the __right heel_ ulcer using a curette. Removal of nonviable tissue was performed with the debridement: fibrotic tissue Depth of debridement: skin and subcutaneous tissue. Hemostasis was obtained a using pressure dressing. Pre- and post- debridement measurements as follows: Pre-Debridement: Size - 1.9 x 1.2 Post-Debridement: Size - 2.0 x1.1 Attention was directed to the _Right 1st MPJ__. Verbal consent was obtained prior to the procedure. Sharp, excisional debridement was performed of the __right 1st MPJ _ ulcer using a curette. Removal of nonviable tissue was performed with the debridement: fibrotic tissue Depth of debridement: skin and subcutaneous tissue. Hemostasis was obtained a using pressure dressing. Pre- and post- debridement measurements as follows: Pre-Debridement: Size - 1.9 x 0.9 Post-Debridement: Size - 2.0 x1.1 Unna boots applied to the Right lower extremity Dc to [facility] today will follow while in house. Code(s): L03.90 - CELLULITIS, UNSPECIFIED (4) Diabetes mellitus Status: Chronic Qualifiers: Diabetes mellitus type: type 2 Diabetes mellitus complication detail: with foot ulcer Code(s): E11.9 - TYPE 2 DIABETES MELLITUS WITHOUT COMPLICATIONS (5) COPD (chronic obstructive pulmonary disease) Status: Chronic (6) Diabetic foot ulcer Status: Acute Qualifiers: Diabetic foot ulcer location: heel Diabetes mellitus type: type 2 Laterality: right Non-pressure ulcer stage: limited to breakdown of skin Qualified Code(s): E11.621 - Type 2 diabetes mellitus with foot ulcer; L97.411 - Non-pressure chronic ulcer of right heel and midfoot limited to breakdown of skin Code(s): E11.621 - TYPE 2 DIABETES MELLITUS WITH FOOT ULCER; L97.509 - NON- PRESSURE CHRONIC ULCER OTH PRT UNSP FOOT W UNSP SEVERITY (7) Venous insufficiency (chronic) (peripheral) Status: Chronic (8) Pressure ulcer of right heel, stage 3 Status: Acute Code(s): L89.613 - PRESSURE ULCER OF RIGHT HEEL, STAGE 3
== END 2024-06-12 14:15 ==
LOC: ED 01:21 → MED SURG 03:12
PROVIDERS: ADMIT Internal Medicine; ATTEND Internal Medicine
DX: R07.9 Chest pain, unspecified (principal); L89.613 Pressure ulcer of right heel, stage 3; L03.90 Cellulitis, unspecified; N17.9 Acute kidney failure, unspecified; E11.22 Type 2 diabetes mellitus with diabetic chronic kidney disease; I12.9 Hypertensive chronic kidney disease with stage 1 through stage 4 chronic kidney disease, or unspecified chronic kidney disease; N18.30 Chronic kidney disease, stage 3 unspecified; E11.621 Type 2 diabetes mellitus with foot ulcer; I87.2 Venous insufficiency (chronic) (peripheral); J44.9 Chronic obstructive pulmonary disease, unspecified; E66.01 Morbid (severe) obesity due to excess calories; R20.0 Anesthesia of skin; Z86.718 Personal history of other venous thrombosis and embolism; Z79.899 Other long term (current) drug therapy; Z79.01 Long term (current) use of anticoagulants; I25.10 Atherosclerotic heart disease of native coronary artery without angina pectoris; N40.0 Benign prostatic hyperplasia without lower urinary tract symptoms; G47.33 Obstructive sleep apnea (adult) (pediatric); I25.2 Old myocardial infarction
CPT/HCPCS: 11042; 29580; 36415; 71045; 73600; 73620; 80048; 80053; 81001; 82947; 83036; 83880; 84134; 84484; 85025; 85027; 87070; 93005; 93041; 93268; 94660; 94760; 97161; 99222; 99232; 99285; G0378; Q3014; 99284; J0696; J1817; A9270-GY

== ENCOUNTER 2024-08-04 17:14 | Emergency (ER) | payer MEDICARE, SELFPAY ==
--- NOTE | 2024-08-04 17:22 | ERPHSYRPT ---
- History of Present Illness Source: patient Exam Limitations: no limitations Physician History: Patient has a history of diabetes. He usually gets Ozempic on Sundays but his accidentally gave him glucagon. His sugar went up. He is up around 500. He is not really having any symptoms of it. They got concerned and called EMS. EMS brought him in. He is not having a lot of complaints at this time. Basically just his high sugar. Allergies/Adverse Reactions: Horse/Equine Containing Products Allergy (Verified 06/10/24 01:32) latex Allergy (Verified 06/10/24 01:32) Home Medications: Atorvastatin Calcium 40 mg PO HS 03/30/23 [History] Ferrous Sulfate 325 mg [Feosol 325 mg] 325 mg PO TID 03/30/23 [History] Omeprazole 40 mg PO DAILY 03/30/23 [History] Oxycodone HCl/Acetaminophen [Oxycodone-Acetaminophn 7.5-325] 1 each PO Q8H PRN 03/30/23 [History] Trazodone HCl 150 mg PO HS 03/30/23 [History] Acetaminophen 325 mg [Tylenol 325 mg] 325 mg PO Q4H PRN PRN 08/15/23 [History] Diphenhydramine HCl 25 mg [Benadryl 25 mg Capsule] 25 mg PO Q6H PRN PRN 08/15/23 [History] Docusate Sodium 100 mg [Docusate Sodium 100 MG] 100 mg PO BID 08/15/23 [History] Furosemide 40 mg [Lasix 40 MG] 40 mg PO DAILY 08/15/23 [History] Insulin Lispro [Humalog Kwikpen U-100] 100 unit SQ UD PRN 08/15/23 [History] Magnesium Oxide 400 mg [Mag-Ox 400] 400 mg PO DAILY PRN PRN 08/15/23 [History] Nitroglycerin 0.4 mg Tablet [Nitrostat 0.4 MG Tablet] 0.4 mg SL UD 08/15/23 [History] Albuterol 2.5 mg/3 ml Neb [Proventil 2.5 mg/3 ml Neb] 2.5 mg IH Q4H PRN PRN 02/19/24 [History] Amlodipine Besylate 5 mg [Norvasc 5 mg] 5 mg PO DAILY 02/19/24 [History] Finasteride 5 mg [Proscar 5 MG] 5 mg PO DAILY 02/19/24 [History] Gabapentin 300 mg PO TID 02/19/24 [History] Mirabegron [Mirabegron ER] 25 mg PO DAILY 02/19/24 [History] Ranolazine 500 MG [Ranexa 500 MG] 500 mg PO BID 02/19/24 [History] Semaglutide [Ozempic] 2 mg SQ WEEKLY 02/19/24 [History] glucagon HCL [Glucagon Emergency Kit] 1 mg IJ UD PRN 02/19/24 [History] lisinopriL [Zestril] 2.5 mg PO DAILY 02/19/24 [History] Furosemide 20 mg [Lasix 20 mg] 20 mg PO DAILY 04/06/24 [History] Potassium Chloride Tab* [Klor Con] 30 meq PO DAILY 04/06/24 [History] Triamterene/Hydrochlorothiazid [Triamterene-Hctz 37.5-25 mg Tb] 1 each PO DAILY 04/06/24 [History] oxyBUTYnin chloride [Oxybutynin Chloride] 2.5 mg PO Q8HPRN PRN 06/11/24 [H istory] Hx Tetanus, Diphtheria Vaccination/Date Given: No Hx Influenza Vaccination/Date Given: No Hx Pneumococcal Vaccination/Date Given: No Travel Risk - Emerging Infectious Disease Are you exhibiting symptoms associated with any current EIDs: Yes Symptoms: Shortness of Breath, Vomitting - Review of Systems Constitutional: No Symptoms Respiratory: No Symptoms Cardiac: No Symptoms Abdominal/Gastrointestinal: No Symptoms - Past Medical History Respiratory History: Sleep Apnea, COPD - Past Surgical History Past Surgical History: Yes Neuro Surgical History: No Pertinent History Cardiac: Cardiac Catheterization Respiratory: No Pertinent History Gastrointestinal: Colon Resection Genitourinary: No Pertinent History Musculoskeletal: No Pertinent History Male Surgical History: No Pertinent History Other Surgical History: tumor removed,colostomy reversal Significant Family History: heart disease, diabetes - Social History Drug Use: none - Social Determinants of Health Will the patient participate in the screening: Unable to obtain Do you worry about a steady place to live?: No In the past 12 months,have you had to go without utilities?: No Transportation Issues: No Has anyone in your support network made you feel unsafe?: No Have you or anyone in your house had to go w/o enough food: No Comment: PT REPORTS WOULD LIKE ASSISSTANCE WITH SOME OF THE [employer] - Nursing Vital Signs Nursing Vital Signs: Initial Vital Signs Temperature 97.3 F 08/04/24 17:18 Pulse Rate 70 08/04/24 17:18 Respiratory Rate 17 08/04/24 17:18 Blood Pressure 122/71 08/04/24 17:18 O2 Sat by Pulse Oximetry 98 08/04/24 17:18 Pain Scale Pain Intensity 0 - Physical Exam General Appearance: no apparent distress Respiratory Exam: normal breath sounds, No respiratory distress Cardiovascular Exam: regular rate/rhythm Gastrointestinal/Abdomen Exam: soft Neurologic Exam: alert, oriented x 3, cooperative Skin Exam: normal color, warm - Course Nursing assessment & vital signs reviewed: Yes Ordered Tests: Active Orders 24 hr Category Date Time Status POCT GLUCOSE Stat Lab 08/04/24 18:31 Completed Medication Summary Discontinued Medications Generic Name Dose Route Start Last Admin Trade Name Freq PRN Reason Stop Dose Admin Hydromorphone HCl 1 mg 08/04/24 18:34 08/04/24 18:41 Hydromorphone 1 Mg/1ml Inj IV 08/04/24 18:35 Not Given STAT ONE Sodium Chloride 1,000 mls @ 999 mls/hr 08/04/24 17:20 08/04/24 17:44 Sodium Chloride 0.9% 1000 Ml IV 08/04/24 18:20 999 mls/hr .Q1H1M STA Administration Sodium Chloride Confirm 08/04/24 17:40 Sodium Chloride 0.9% 1000 Ml Administered 08/04/24 17:41 Dose 1,000 mls @ ud .ROUTE .STK-MED ONE Insulin Human Regular 20 unit 08/04/24 17:20 08/04/24 17:42 Insulin Regular, Human 1 Unit IV 08/04/24 17:21 20 unit STAT ONE Administration Insulin Human Regular Confirm 08/04/24 17:36 Insulin Regular, Human 1 Unit Administered 08/04/24 17:37 Dose 20 unit .ROUTE .STK-MED ONE Insulin Human Regular 10 unit 08/04/24 18:35 Insulin Regular, Human 1 Unit IV 08/04/24 18:36 STAT ONE Lab/Rad Data: Laboratory Results 08/04/24 Range/Units 18:31 POC Glucometer 330 H (74 to 106) mg/dL - Progress Progress: improved Progress Note: Patient was stable throughout stay. He got 20 units of regular insulin it dropped down to 330He also got a liter of fluids. I went to give him [id number] units of regular insulin andObserve him.I will be turning the patient over to the oncoming doctor. 08/04/24 18:32 - Departure Departure Disposition: Home Clinical Impression: Hyperglycemia Condition: Stable Critical Care Time: No Referrals: DIDIER ESQUIVEL DO [Primary Care Provider] - Follow up/PCP as directed Instructions: High Blood Sugar, Adult (DC)
[2024-08-04 17:28] VITALS: TEMP 97.3
[2024-08-04] MEDS ORDERED: HUMULIN R ONE ×2 (17:36→19:17)
[2024-08-04] MEDS ORDERED: Sodium Chloride 0.9% 1000 ML 1,000 ML ONE (17:40)
[2024-08-04] MEDS: HUMULIN R IV ONE ×2 (17:42→19:20)
[2024-08-04] MEDS: Sodium Chloride 0.9% 1000 ML 1,000 ML IV STA (17:44)
[2024-08-04 18:17] VITALS: RESP 18
[2024-08-04] MEDS: Hydromorphone 1 mg/ml Injection IV ONE (18:41)
[2024-08-04 19:25] VITALS: BP 113/85; PULSE 62; O2SAT 97
== END 2024-08-04 20:11 | disposition home or self-care (01) ==
LOC: ED 17:14
DX: E11.65 Type 2 diabetes mellitus with hyperglycemia (principal); Z79.85 Long-term (current) use of injectable non-insulin antidiabetic drugs; Z79.4 Long term (current) use of insulin; Z79.899 Other long term (current) drug therapy
CPT/HCPCS: 82947; 96374; 96376; 99284; J1815

== ENCOUNTER 2025-03-31 08:34 | Emergency (ER) | payer MEDICARE, OTHER ==
--- NOTE | 2025-03-31 08:55 | ERPHSYRPT ---
- History of Present Illness Time Seen by Provider: 03/31/25 08:42 Physician History: EMS transport, patient apparently was over at clinic and developed chest pain and EMS was called to be transferred to the emergency department, he was having chest pain at the time examination, Onset of symptoms several hours ago upon awakening, no change with exertion, PMH : Morbid obesity, hypertension, CAD, CHF, COPD, DM2 Timing/Duration: today Activities at Onset: rest Quality: tightness Location: substernal Chest Pain Radiation: arm Severity of Pain-Max: moderate Severity of Pain-Current: moderate Associated Symptoms: denies symptoms Nitro Today/Relief: no nitro taken today Aspirin Treatment Today: no aspirin today Allergies/Adverse Reactions: Horse/Equine Containing Products Allergy (Verified 03/31/25 09:10) latex Allergy (Verified 03/31/25 09:10) Home Medications: Acetaminophen 325 mg [Tylenol 325 mg] 625 mg PO Q4-6HPRN PRN 01/07/25 [History] Albuterol 2.5 mg/3 ml Neb [Proventil 2.5 mg/3 ml Neb] 2.5 mg IH Q4-6HPRN PRN 01/07/25 [History] Apixaban [Eliquis] 5 mg PO BID 01/07/25 [History] Atorvastatin Calcium 40 mg PO HS 01/07/25 [History] Diphenhydramine HCl [Benadryl Allergy] 25 mg PO Q6HPRN PRN 01/07/25 [History] Docusate Sodium 100 mg [Docusate Sodium 100 MG] 100 mg PO BID 01/07/25 [History] Ferrous Sulfate [Iron] 325 mg PO DAILY 01/07/25 [History] Furosemide 20 mg [Lasix 20 mg] 20 mg PO DAILY 01/07/25 [History] Furosemide [Lasix] 40 mg PO DAILY 01/07/25 [History] Gabapentin 300 mg PO TID 01/07/25 [History] Gluc Mejía/Chondro Mejía A/Vit C/Mn [Glucosamine Chondroitin Tab] 1 each PO BID 01/07/25 [History] Insulin Glargine,Hum.rec.anlog [Basaglar Kwikpen U-100] 10 unit SQ HS 01/07/25 [History] Insulin Lispro [Humalog] 0 unit SQ ACHS 01/07/25 [History] Magnesium Oxide [Magnesium] 400 mg PO DAILY 01/07/25 [History] Metoprolol Succinate 25 mg Xl* [Toprol-Xl 25MG Tablets] 25 mg PO DAILY 01/07/25 [History] Mirabegron [Myrbetriq] 25 mg PO DAILY 01/07/25 [History] Nitroglycerin 0.4 mg Tablet [Nitrostat 0.4 MG Tablet] 0.4 mg SL Q5MIN PRN MR X 3 PRN 01/07/25 [History] Omeprazole 40 mg PO DAILY 01/07/25 [History] Oxycodone HCl/Acetaminophen [Oxycodone-Acetaminophn 7.5-325] 1 tab PO QIDPRN PRN 01/07/25 [History] Potassium Chloride [Klor-Con M10] 30 meq PO DAILY 01/07/25 [History] Ranolazine [Ranolazine ER] 500 mg PO BID 01/07/25 [History] Semaglutide [Ozempic] 2 mg SQ WEEKLY 01/07/25 [History] Sitagliptin Phos/Metformin HCl [Janumet Xr 100-1,000 mg Tablet] 1 tab PO DAILY 01/07/25 [History] Trazodone HCl 150 mg PO HS 01/07/25 [History] lisinopriL [Zestril] 2.5 mg PO DAILY 01/07/25 [History] Hx Tetanus, Diphtheria Vaccination/Date Given: No Hx Influenza Vaccination/Date Given: No Hx Pneumococcal Vaccination/Date Given: No Travel Risk - Emerging Infectious Disease Are you exhibiting symptoms associated with any current EIDs: No Symptoms: Shortness of Breath, Vomitting - Past Medical History Pertinent Past Medical History: Yes Neurological History: No Pertinent History ENT History: No Pertinent History Cardiac History: Congestive Heart Failure, Hypertension, Myocardial Infarction ([place]) Respiratory History: Sleep Apnea, COPD Endocrine Medical History: Diabetes Type II Musculoskeletal History: Arthritis GI Medical History: GERD, Other History: Renal Disease, Other Psycho-Social History: No Pertinent History Male Reproductive Disorders: Prostate Problems Other Medical History: 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, stage 3 renal failure, kidney stones - Past Surgical History Past Surgical History: Yes Neuro Surgical History: No Pertinent History Cardiac: Cardiac Catheterization Respiratory: No Pertinent History Gastrointestinal: Colon Resection Genitourinary: No Pertinent History Musculoskeletal: No Pertinent History Male Surgical History: No Pertinent History Other Surgical History: tumor removed,colostomy reversal Significant Family History: heart disease, diabetes - Social History Smoking Status: Former smoker How long have you smoked: 28 years Exposure to second hand smoke: No Drug Use: none - Social Determinants of Health Will the patient participate in the screening: Yes - Nursing Vital Signs Nursing Vital Signs: Initial Vital Signs Temperature 97.4 F 03/31/25 08:34 Pulse Rate 51 L 03/31/25 08:34 Respiratory Rate 12 03/31/25 08:34 Blood Pressure 139/64 03/31/25 08:34 O2 Sat by Pulse Oximetry 98 03/31/25 08:34 Pain Scale Pain Intensity 8 - Physical Exam General Appearance: no apparent distress, alert Eye Exam: PERRL/EOMI, eyes nml inspection Ears, Nose, Throat Exam: normal ENT inspection, moist mucous membranes Neck Exam: normal inspection, non-tender, supple, full range of motion Respiratory Exam: normal breath sounds, lungs clear, No respiratory distress Cardiovascular Exam: regular rate/rhythm, normal heart sounds Gastrointestinal/Abdomen Exam: soft, No tenderness, No mass Back Exam: normal inspection, No CVA tenderness, No vertebral tenderness Extremity Exam: normal inspection, normal range of motion Neurologic Exam: alert, oriented x 3, cooperative, normal mood/affect, sensation nml, No motor deficits Skin Exam: normal color, warm, dry SpO2 Interpretation: normal SpO2: 99 O2 Delivery: Room Air - Course EKG Interpreted by Me: RATE (58), Sinus Lior, NORMAL AXIS, NORMAL INTERVALS, NORMAL QRS, NORMAL ST-T Ordered Tests: Active Orders 24 hr Category Date Time Status Farm Equipment Operator STAT Care 03/31/25 08:47 Active EKG-ER Only STAT Care 03/31/25 08:46 Active CHEST 1 VIEW (PORTABLE) Stat Exams 03/31/25 08:47 Completed CBC W DIFF Stat Lab 03/31/25 09:00 Completed CMP Stat Lab 03/31/25 09:00 Completed NT PRO BNPII Stat Lab 03/31/25 09:00 Completed TROPONIN Q2H Lab 03/31/25 09:00 Completed TROPONIN Q2H Lab 03/31/25 11:00 Ordered Lab/Rad Data: Laboratory Result Diagrams 03/31/25 09:00 03/31/25 09:00 Laboratory Results 03/31/25 03/31/25 03/31/25 Range/Units 09:00 09:00 09:00 WBC 4.2 L (4.23-9.07) x10^3/uL RBC 4.82 (4.63-6.08) x10^6/uL Hgb 14.1 (13.7-17.5) g/dL Hct 43.9 (40.1-51.0) % MCV 91.1 (79.0-92.2) fL MCH 29.3 (25.7-32.2) pg MCHC 32.1 L (32.3-36.5) g/dL RDW 13.4 (11.6-14.4) % Plt Count 78 L (163-337) x10^3/uL MPV 10.9 (9.4-12.4) fL Gran % 61.6 (34.0-67.9) % Immature Gran % (Auto) 0.2 (0.001-0.429) % Nucleat RBC Rel Count 0.0 (0.00-0.2) % Eos # (Auto) 0.11 (0.04-0.54) x10^3/uL Immature Gran # (Auto) 0.01 (0.001-0.031) x10^3u/L Absolute Lymphs (auto) 1.16 L (1.32-3.57) x10^3/uL Absolute Monos (auto) 0.31 (0.30-0.82) x10^3/uL Absolute Nucleated RBC 0.00 (0.00-0.012) x10^3u/L Lymphocytes % 27.7 (21.8-53.1) % Monocytes % 7.4 (5.3-12.2) % Eosinophils % 2.6 (0.8-7.0) % Basophils % 0.5 (0.2-1.2) % Absolute Granulocytes 2.58 (1.78-5.38) x10^3/uL Basophils # 0.02 (0.01-0.08) x10^3/uL Sodium 137 (135-145) mmol/L Potassium 3.9 (3.5-5.1) mmol/L Chloride 100 (98-107) mmol/L Carbon Dioxide 30 (22-30) mmol/L Anion Gap 11.1 (5-15) MEQ/L BUN 15 (9-20) mg/dL Creatinine 1.19 (0.66-1.25) mg/dL Estimated GFR 65.7 ML/MIN Glucose 163 H (74-106) mg/dL Calcium 8.6 (8.4-10.2) mg/dL Total Bilirubin 1.30 (0.2-1.3) mg/dL AST 34 (17-59) U/L ALT 22 (0-50) U/L Alkaline Phosphatase 155 H (38-126) U/L Troponin I < 0.012 (0.000-0.033) ng/mL NT-Pro-B Natriuret Pep 942 (<300) pg/mL Serum Total Protein 6.5 (6.3-8.2) g/dL Albumin 3.5 (3.5-5.0) g/dL - Progress Progress Note: 03/31/25 09:56 Discussed results, recommend outpatient follow-up and treatment - Departure Departure Disposition: Home Clinical Impression: Atypical chest pain Condition: Stable Critical Care Time: No Referrals: DIDIER ESQUIVEL DO [Primary Care Provider, [facility]] - Follow up PCP 10 days Instructions: Atypical Chest Pain Additional Instructions: Continue home medications, follow-up to primary care doctor
[2025-03-31 09:06] LABS: BASOPHIL % 0.5 % (0.2-1.2); Basophil (Absolute #) 0.02 x10^3/uL (0.01-0.08); Eosinophil (Absolute #) 0.11 x10^3/uL (0.04-0.54); Hematocrit 43.9 % (40.1-51.0); Hemoglobin 14.1 g/dL (13.7-17.5); IMMATURE GRAN # 0.01 x10^3u/L (0.001-0.031); IMMATURE GRAN % 0.2 % (0.001-0.429); Lymphocyte (Absolute #) 1.16 x10^3/uL (1.32-3.57); Mean Corpuscular Hemoglobin 29.3 pg (25.7-32.2); Mean Corpuscular Hgb Concent. 32.1 g/dL (32.3-36.5); Monocyte (Absolute #) 0.31 x10^3/uL (0.30-0.82); NUCLEATED RBC # 0.00 x10^3u/L (0.00-0.012); NUCLEATED RBC % 0.0 % (0.00-0.2); Platelet Count 78 x10^3/uL (163-337); Red Blood Count 4.82 x10^6/uL (4.63-6.08); White Blood Count 4.2 x10^3/uL (4.23-9.07)
--- NOTE | 2025-03-31 09:12 | XRAY ---
Indication: Chest pain. Comparison: January 07, 2025 Portable chest again hyperinflated and remains clear. Heart not enlarged. Bony thorax intact again with osteopenia and mild degenerative changes. No new/acute findings.
[2025-03-31 09:15] VITALS: TEMP 97.4
[2025-03-31 09:18] LABS: Calcium 8.6 mg/dL (8.4-10.2); Carbon Dioxide 30.0 mmol/L (22-30); Creatinine 1 1.19 mg/dL (0.66-1.25); EST GLOMERULAR FILTRATION RATE 65.7 ML/MIN; Glucose 163.0 mg/dL (74-106); Potassium 3.9 mmol/L (3.5-5.1); SGOT/AST 34.0 U/L (17-59); SGPT/ALT 22.0 U/L (0-50); Total Protein 6.5 g/dL (6.3-8.2)
[2025-03-31 09:29] LABS: NT PRO BNPII 942 pg/mL (<300); TROPONIN < 0.012 ng/mL (0.000-0.033)
[2025-03-31 10:02] VITALS: BP 140/70; PULSE 54; RESP 17; O2SAT 94
[2025-03-31 10:28] LABS: Slide Review 1 YES
== END 2025-03-31 10:10 | disposition home or self-care (01) ==
LOC: ED 08:34
DX: R07.89 Other chest pain (principal); I11.0 Hypertensive heart disease with heart failure; I50.9 Heart failure, unspecified; E11.9 Type 2 diabetes mellitus without complications; Z79.01 Long term (current) use of anticoagulants; Z79.4 Long term (current) use of insulin; Z79.85 Long-term (current) use of injectable non-insulin antidiabetic drugs; Z79.84 Long term (current) use of oral hypoglycemic drugs; Z79.899 Other long term (current) drug therapy